=== PATIENT | female | born 1935 | race Caucasian/White ===

== ENCOUNTER 2016-10-25 16:26 | Emergency (ER) | payer MEDICARE, BC ==
[2016-10-25] MEDS ORDERED: NS 0.9% 1000 ML* 1,000 ML IV ONE (17:03)
[2016-10-25] MEDS ORDERED: Acetaminophen TAB* 325 MG PO ONE (17:03)
[2016-10-25] MEDS ORDERED: Ondansetron INJ* 2 MG/ML VIAL IV ONE (17:39)
[2016-10-25] MEDS ORDERED: Ondansetron INJ* 2 MG/ML VIAL ONE (17:41)
--- NOTE | 2016-10-25 17:42 | RAD ---
HISTORY: Sepsis COMPARISONS: None VIEWS: 2: Frontal and lateral views of the chest. FINDINGS: CARDIOMEDIASTINAL SILHOUETTE: The cardiomediastinal silhouette is normal. MEGAN: The megan are normal. PLEURA: The costophrenic angles are sharp. No pleural abnormalities are noted. LUNG PARENCHYMA: There is hyperinflation with flattening of the diaphragm and expansion of the AP diameter of the chest. ABDOMEN: The upper abdomen is clear. There is no subphrenic gas. BONES AND SOFT TISSUES: There is diffuse osteopenia. Surgical clips are noted in the left axilla. OTHER: None. IMPRESSION: HYPERINFLATION. NO ACTIVE CARDIOPULMONARY DISEASE.
[2016-10-25 17:47] LABS: Hematocrit 45 % (35-47); Hemoglobin 14.6 g/dl (12.0-16.0); Mean Corpuscular HGB Conc 33 g/dl (31-36); Mean Corpuscular Hemoglobin 28 pg (27-31); Mean Corpuscular Volume 85 fL (80-97); Mean Platelet Volume 9 um3 (7.4-10.4); Red Blood Count 5.26 10^6/ul (4.0-5.4); Red Cell Distribution Width 14 % (10.5-15); White Blood Count 9.1 10^3/ul (3.5-10.8)
[2016-10-25 18:02] LABS: Albumin 4.3 g/dL (3.2-5.2); BUN/Creatinine Ratio 18.6 (8-20); C Reactive Protein 9.44 mg/L (< 5.00); Calcium 10.6 mg/dL (8.6-10.3); EGFR African American 66.7 (>60); EGFR Non-African American 51.9 (>60); Potassium 3.9 mmol/L (3.5-5.0); Total Bilirubin 0.8 mg/dL (0.2-1.0); Total Protein 7.3 g/dL (6.4-8.9)
[2016-10-25 18:07] LABS: Urine Bacteria Absent (Absent); Urine Bilirubin Negative (Negative); Urine Glucose Negative (Negative); Urine Nitrite Negative (Negative)
[2016-10-25 18:38] VITALS: BP 132/72
--- NOTE | 2016-10-25 18:43 | ED ---
Danie Smith Billy, scribed for Sachin Castanon MD on 10/25/16 at 1728 . Abdominal Pain/Female - HPI Summary HPI Summary: Patient is an 81 y/o female who presents to the ED with constant abdominal pain and weakness since last night. She reports nausea, sinus congestion, coughing, a subjective fever, and dysuria. She c/o a burning sensation when urinating and also reports increased urination. Cough is exacerbated by deep breaths. Pt denies back pain. - History of Current Complaint Chief Complaint: EDAbdPain Stated Complaint: COUGH/VOMITTING Time Seen by Provider: 10/25/16 16:54 Hx Obtained From: Patient Onset/Duration: Gradual Onset, Lasting Days - 1 day., Still Present Timing: Constant Severity Initially: Moderate Severity Currently: Moderate Aggravating Factor(s): Deep Breaths - Aggravates cough. Alleviating Factor(s): Nothing Associated Signs and Symptoms: Positive: Fever, Cough, Urinary Symptoms - Burning, increased frequency., Nausea, Other: - Weakness. Nasal congestion. Allergies/Adverse Reactions: Allergies Allergy/AdvReac Type Severity Reaction Status Date / Time Penicillins Allergy Rash Verified 10/25/16 17:44 PMH/Surg Hx/FS Hx/Imm Hx - Cancer History Cancer Type, Location and Year: Breast Cancer. - Surgical History Surgery Procedure, Year, and Place: Left mastectomy. Left breast implant. Bilat knee replacement. Infectious Disease History: No Infectious Disease History: Denies: Traveled Outside the [place] in Last 30 Days - Family History Known Family History: Positive: Other - No FHx of breast cancer. Review of Systems Positive: Fever Positive: Other - Sinus congestion. Positive: Cough Positive: Abdominal Pain, Nausea Positive: dysuria, frequency Positive: Weakness All Other Systems Reviewed And Are Negative: Yes Physical Exam Triage Information Reviewed: Yes Vital Signs On Initial Exam: Initial Vitals Temp Pulse Resp BP Pulse Ox 101.9 F 87 18 133/62 98 10/25/16 16:28 10/25/16 16:28 10/25/16 16:28 10/25/16 16:28 10/25/16 16:28 Vital Signs Reviewed: Yes Appearance: Positive: Well-Appearing, No Pain Distress Skin: Positive: Warm, Skin Color Reflects Adequate Perfusion, Dry Head/Face: Positive: Normal Head/Face Inspection Eyes: Positive: Normal Neck: Positive: Supple, Nontender Respiratory/Lung Sounds: Positive: Clear to Auscultation, Breath Sounds Present Cardiovascular: Positive: RRR Abdomen Description: Positive: Nontender, Soft Musculoskeletal: Positive: Normal Neurological: Positive: Normal Psychiatric: Positive: Affect/Mood Appropriate Diagnostics - Vital Signs Vital Signs Temp Pulse Resp BP Pulse Ox 10/25/16 16:28 101.9 F 87 18 133/62 98 - Laboratory Lab Results: Lab Results 10/25/16 10/25/16 10/25/16 Range/Units 17:35 17:35 17:35 WBC 9.1 (3.5-10.8) 10^3/ul RBC 5.26 (4.0-5.4) 10^6/ul Hgb 14.6 (12.0-16.0) g/dl Hct 45 (35-47) % MCV 85 (80-97) fL MCH 28 (27-31) pg MCHC 33 (31-36) g/dl RDW 14 (10.5-15) % Plt Count 245 (150-450) 10^3/ul MPV 9 (7.4-10.4) um3 Neut % (Auto) 81.1 (38-83) % Lymph % (Auto) 4.7 L (25-47) % [place] % (Auto) 13.4 H (1-9) % Eos % (Auto) 0.1 (0-6) % Baso % (Auto) 0.7 (0-2) % Absolute Neuts (auto) 7.4 (1.5-7.7) 10^3/ul Absolute Lymphs (auto) 0.4 L (1.0-4.8) 10^3/ul Absolute Monos (auto) 1.2 H (0-0.8) 10^3/ul Absolute Eos (auto) 0 (0-0.6) 10^3/ul Absolute Basos (auto) 0.1 (0-0.2) 10^3/ul Absolute Nucleated RBC 0 10^3/ul Nucleated RBC % 0 Sodium 135 (133-145) mmol/L Potassium 3.9 (3.5-5.0) mmol/L Chloride 102 (101-111) mmol/L Carbon Dioxide 25 (22-32) mmol/L Anion Gap 8 (2-11) mmol/L BUN 19 (6-24) mg/dL Creatinine 1.02 H (0.51-0.95) mg/dL Est GFR ( Amer) 66.7 (>60) Est GFR (Non-Af Amer) 51.9 (>60) BUN/Creatinine Ratio 18.6 (8-20) Glucose 134 H (70-100) mg/dL Lactic Acid 1.1 (0.5-2.0) mmol/L Calcium 10.6 H (8.6-10.3) mg/dL Total Bilirubin 0.80 (0.2-1.0) mg/dL AST 14 (13-39) U/L ALT 10 (7-52) U/L Alkaline Phosphatase 61 (34-104) U/L C-Reactive Protein 9.44 H (< 5.00) mg/L Total Protein 7.3 (6.4-8.9) g/dL Albumin 4.3 (3.2-5.2) g/dL Globulin 3.0 (2-4) g/dL Albumin/Globulin Ratio 1.4 (1-3) Urine Color Urine Appearance Urine pH (5-9) Ur Specific [place] (1.010-1.030) Urine Protein (Negative) Urine Ketones (Negative) Urine Blood (Negative) Urine Nitrate (Negative) Urine Bilirubin (Negative) Urine Urobilinogen (Negative) Ur Leukocyte Esterase (Negative) Urine WBC (Auto) (Absent) Urine RBC (Auto) (Absent) Ur Squamous Epith Cells (Absent) Urine Bacteria (Absent) Urine Glucose (Negative) Urine Ascorbic Acid (Negative) Influenza A (Rapid) (Negative) Influenza B (Rapid) (Negative) 10/25/16 10/25/16 Range/Units 17:49 17:50 WBC (3.5-10.8) 10^3/ul RBC (4.0-5.4) 10^6/ul Hgb (12.0-16.0) g/dl Hct (35-47) % MCV (80-97) fL MCH (27-31) pg MCHC (31-36) g/dl RDW (10.5-15) % Plt Count (150-450) 10^3/ul MPV (7.4-10.4) um3 Neut % (Auto) (38-83) % Lymph % (Auto) (25-47) % [place] % (Auto) (1-9) % Eos % (Auto) (0-6) % Baso % (Auto) (0-2) % Absolute Neuts (auto) (1.5-7.7) 10^3/ul Absolute Lymphs (auto) (1.0-4.8) 10^3/ul Absolute Monos (auto) (0-0.8) 10^3/ul Absolute Eos (auto) (0-0.6) 10^3/ul Absolute Basos (auto) (0-0.2) 10^3/ul Absolute Nucleated RBC 10^3/ul Nucleated RBC % Sodium (133-145) mmol/L Potassium (3.5-5.0) mmol/L Chloride (101-111) mmol/L Carbon Dioxide (22-32) mmol/L Anion Gap (2-11) mmol/L BUN (6-24) mg/dL Creatinine (0.51-0.95) mg/dL Est GFR ( Amer) (>60) Est GFR (Non-Af Amer) (>60) BUN/Creatinine Ratio (8-20) Glucose (70-100) mg/dL Lactic Acid (0.5-2.0) mmol/L Calcium (8.6-10.3) mg/dL Total Bilirubin (0.2-1.0) mg/dL AST (13-39) U/L ALT (7-52) U/L Alkaline Phosphatase (34-104) U/L C-Reactive Protein (< 5.00) mg/L Total Protein (6.4-8.9) g/dL Albumin (3.2-5.2) g/dL Globulin (2-4) g/dL Albumin/Globulin Ratio (1-3) Urine Color Yellow Urine Appearance Cloudy Urine pH 6.0 (5-9) Ur Specific [place] 1.019 (1.010-1.030) Urine Protein 2+(100 mg/dl) H (Negative) Urine Ketones Trace H (Negative) Urine Blood Negative (Negative) Urine Nitrate Negative (Negative) Urine Bilirubin Negative (Negative) Urine Urobilinogen Negative (Negative) Ur Leukocyte Esterase 3+ H (Negative) Urine WBC (Auto) 2+(11-20/hpf) H (Absent) Urine RBC (Auto) 2+(6-10/hpf) H (Absent) Ur Squamous Epith Cells Present H (Absent) Urine Bacteria Absent (Absent) Urine Glucose Negative (Negative) Urine Ascorbic Acid * H (Negative) Influenza A (Rapid) Positive H (Negative) Influenza B (Rapid) Negative (Negative) Result Diagrams: 10/25/16 17:35 10/25/16 17:35 Lab Statement: Any lab studies that have been ordered have been reviewed, and results considered in the medical decision making process. - Radiology CXR Radiology Interpretation Completed By: Radiologist - Hyperinflation. No active cardiopulmonary disease. Abdominal Pain Fem Course/Dx - Course Course Of Treatment: Ms. Allen presented with about 12 hours of flu-like symptoms and dysuria. Her Influenza A swab was positive and her U/A was equivocal. I will treat her for both. - Diagnoses Provider Diagnoses: Influenza, Urinary tract infection Discharge - Discharge Plan Condition: Stable Disposition: HOME Prescriptions: Ciprofloxacin TAB* [Cipro Tab*] 500 mg PO BID #6 tab Oseltamivir CAP* [Tamiflu CAP*] 75 mg PO BID #10 cap Patient Education Materials: Influenza (ED), Urinary Tract Infection in Women ( ED) Referrals: Juventino Hsu MD [Primary Care Provider] - The documentation as recorded by the Danie orozco Billy accurately reflects the service I personally performed and the decisions made by me, Sachin Castanon MD.
== END 2016-10-25 18:36 | disposition home or self-care (01) ==
LOC: ED 16:26
DX: N39.0 Urinary tract infection, site not specified (principal); J11.1 Influenza due to unidentified influenza virus with other respiratory manifestations; Z88.0 Allergy status to penicillin
CPT/HCPCS: 36415; 71020; 80053; 81003; 81015; 83605; 85025; 86140; 87040; 87086; 87502; 96360; 96374; 99283; A9270-GY; J2405

== ENCOUNTER 2017-02-11 19:34 | Emergency (ER) | payer BC, MEDICARE ==
[2017-02-11 19:38] VITALS: BP 153/80
--- NOTE | 2017-02-18 11:31 | ED ---
Throat Pain/Nasal Congestion - HPI Summary HPI Summary: Pt here w/ Rt sided ear pain and believes part of her hearing aid is stuck in here. Denies REEVES, fever, chills, otorrhea, facial/neck swelling or pain. Simply here for assistance on removal. - History of Current Complaint Chief Complaint: EDEarPain Time Seen by Provider: 02/11/17 20:05 Hx Obtained From: Patient - Allergies/Home Medications Allergies/Adverse Reactions: Allergies Allergy/AdvReac Type Severity Reaction Status Date / Time Penicillins Allergy Rash Verified 10/25/16 17:44 PMH/Surg Hx/FS Hx/Imm Hx Previously Healthy: Yes Endocrine/Hematology History: Denies: Hx Anticoagulant Therapy, Hx Blood Disorders EENT History: Reports: Hx Hearing Problem, Hx Hearing Aid - Cancer History Cancer Type, Location and Year: Breast Cancer. - Surgical History Surgery Procedure, Year, and Place: Left mastectomy. Left breast implant. Bilat knee replacement. Infectious Disease History: No Infectious Disease History: Denies: Traveled Outside the in Last 30 Days - Social History Occupation: Retired Lives: With Family Alcohol Use: None Hx Substance Use: No Substance Use Type: Reports: None Smoking Status (MU): Former Smoker Review of Systems Negative: Fever, Chills, Fatigue Eyes: Negative Positive: Ear Ache - see HPI Negative: Chest Pain Negative: Shortness Of Breath Negative: Vomiting, Nausea Positive: no symptoms reported Neurological: Other - denies vertigo Psychological: Normal All Other Systems Reviewed And Are Negative: Yes Physical Exam Triage Information Reviewed: Yes Vital Signs On Initial Exam: Initial Vitals Temp Pulse Resp BP Pulse Ox 98.2 F 85 17 153/80 100 02/11/17 19:36 02/11/17 19:36 02/11/17 19:36 02/11/17 19:36 02/11/17 19:36 Vital Signs Reviewed: Yes Appearance: Positive: Well-Appearing, No Pain Distress, Well-Nourished Skin: Positive: Warm, Dry Head/Face: Positive: Normal Head/Face Inspection Eyes: Positive: Normal, EOMI, Conjunctiva Clear ENT: Positive: Other - Rt EAC w/ FB present - appears to be small plastic cover for hearing aid = no erythema, no edema, no d/c, no blood, no excoriations. Negative: Hearing grossly normal - hearing deficit, Nasal congestion, Nasal drainage Neck: Positive: Supple, Nontender, No Lymphadenopathy Respiratory/Lung Sounds: Positive: Breath Sounds Present Musculoskeletal: Positive: Normal, Strength/ROM Intact Neurological: Positive: Normal, Sensory/Motor Intact, Alert, Oriented to Person Place, Time, CN Intact II-III Psychiatric: Positive: Normal Procedures - Procedure Summary Procedure Summary: 1st attempt: manual removal via forceps - unsuccessful 2nd attempt: dermabond applied to tip of Qtip and held in place to dry against FB for removal - did not adhere and therefore, unsuccessful 3rd attempt: suction - unsuccessful 4th attempt: lavage - FB was not removed but did change position 5th attempt: manual removal via forceps - successful - no signs of trauma upon repeat exam of EAC and TM clear w/ cone of light Pt had immediate relief of ear pain - tolerated procedure well Diagnostics - Vital Signs Vital Signs Temp Pulse Resp BP Pulse Ox 02/11/17 19:36 98.2 F 85 17 153/80 100 - Laboratory Lab Statement: Any lab studies that have been ordered have been reviewed, and results considered in the medical decision making process. Re-Evaluation - Re-Evaluation First Eval Change: Improved EENT Course/Dx - Diagnoses Provider Diagnoses: Foreign body in right auditory canal Discharge - Discharge Plan Condition: Stable Disposition: HOME Patient Education Materials: Ear Foreign Body (ED) Referrals: Juventino Hsu MD [Primary Care Provider] - Additional Instructions: You may experience vertigo after the procedure performed today. If this occurs, try resting. If it persists, follow-up with PCP or return to ED.
== END 2017-02-11 21:22 | disposition home or self-care (01) ==
LOC: ED 19:34
DX: S00.451A Superficial foreign body of right ear, initial encounter (principal); X58.XXXA Exposure to other specified factors, initial encounter; Y93.9 Activity, unspecified; Y92.9 Unspecified place or not applicable
CPT/HCPCS: 99281

== ENCOUNTER 2017-07-05 06:33 | Day surgery (SDC) | payer MEDICARE, OTHER ==
[~2017-07-05 06:33] MED LIST: Buffered Lidocaine 0.9% SYRIN* 5 ML/SYR SYRINGE INTRADERM ONE
[2017-07-05] MEDS ORDERED: Ondansetron INJ* 2 MG/ML VIAL ONE (06:41)
[2017-07-05] MEDS ORDERED: Scopolamine 1.5 mg* PATCH ONE (06:42)
[2017-07-05] MEDS ORDERED: Heparin VIAL(*) 5000 UNITS/ML VIAL (FIVE THOUSAND) ONE (06:42)
[2017-07-05] MEDS ORDERED: Clindamycin 900 MG IVPREMIX(* 900 MG/50 ML SDV IV ONE (06:42)
[2017-07-05] MEDS ORDERED: Dexamethasone IV* 4 MG/ML 1 ML (4 MG) ONE (06:42)
[2017-07-05] MEDS ORDERED: Bacitracin IV* 50,000 UNITS INJ ONE (07:08)
[2017-07-05] MEDS ORDERED: Nitroglycerin 2% OINT* 1 GM PAK ONE (07:08)
[2017-07-05] MEDS ORDERED: Gentamicin ADULT (*) 40 MG/ML VIAL ONE (07:08)
[2017-07-05] MEDS ORDERED: Propofol* 10 MG/ML 20 ML BTL IV PUSH ONE (07:29)
[2017-07-05] MEDS ORDERED: Ketorolac INJ* 30 MG/ML 1 ML VIAL ONE (07:29)
[2017-07-05] MEDS ORDERED: fentaNYL* 50 MCG/ML 2 ML VIAL (100 MCG VIAL) ONE (07:30)
[2017-07-05] MEDS ORDERED: Sodium Citrate/Citric Acid* 15 ML UDC ONE (07:51)
[2017-07-05] MEDS ORDERED: fentaNYL* 50 MCG/ML 2 ML VIAL (100 MCG VIAL) IV PRN (09:11)
[2017-07-05] MEDS ORDERED: Lidocaine 2% PF * 5 ML VIAL ONE (09:24)
[2017-07-05 09:27] VITALS: BP 106/83
== END 2017-07-05 09:47 | disposition home or self-care (01) ==
LOC: OREAST 06:33
PROVIDERS: ATTEND Plastic Surgery
DX: T85.42XA Displacement of breast prosthesis and implant, initial encounter (principal); Z85.3 Personal history of malignant neoplasm of breast; Z87.891 Personal history of nicotine dependence; Z79.899 Other long term (current) drug therapy; E11.9 Type 2 diabetes mellitus without complications; Y83.1 Surgical operation with implant of artificial internal device as the cause of abnormal reaction of the patient, or of later complication, without mention of misadventure at the time of the procedure; I10 Essential (primary) hypertension; E78.00 Pure hypercholesterolemia, unspecified; E21.3 Hyperparathyroidism, unspecified; D64.9 Anemia, unspecified; M19.90 Unspecified osteoarthritis, unspecified site
CPT/HCPCS: 88300; 88305; A9270-GY; C1789; J1100; J1580; J1644; J1885; J2405; J2704; J3010

== ENCOUNTER 2017-11-16 13:15 | Emergency (ER) | payer MEDICARE, OTHER ==
--- OUTSIDE RECORDS SUMMARY | 2017-11-16 14:11 | XMS REPORT ---
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 [address] JORJE Marcus [id number] Medigap Part B Effective: 2017 Policy Number: Christa Allen [id number] Expires: 2017 Group Name: [place] [address] [address] PayID: [id number] JORJE Marcus [id number] Medicare Primary Expires: 2016 Policy Number: Medicare - Bswlatonya Allen [id number] Umd PayID: [id number] [address] [place] [address] Medigap Part B Effective: Policy Number: Jamaal Jaquez June Allen 2017 [id number] & Accident Ins Group Number: [id number] [address] PayID: [id number] EMILY Foote [id number] Problems Description No Information Family History Date Family Member(s) Problem(s) Comments General Cancer, Unknown Site General Aortic Aneurysm General Cancer, Prostate General Heart Disease General Hypertension Social History Type Date Description Comments Marital Status Significant Other Enzo Casey Lives With Male Partner Diet Healthy, Well Balanced Occupation Retired Cigarette Use Never Smoked Cigarettes ETOH Use Never used alcohol Exercise Type/Frequency Does not exercise Allergies, Adverse Reactions, Alerts Date Description Reaction Status Severity Comments 06/22/2016 Penicillin active 06/22/2016 Methotrexate active 06/22/2016 Codeine active 06/22/2016 Nucynta active 06/22/2016 Diovan active 06/22/2016 Allopurinol active Medications Medication Date Status Form Strength Qnty SIG Indications Ordering Provider Fluticasone 07/20/ Active Suspension 50mcg/Act 16gm inhale one J01.90 Juventino Propionate 2017 spray in [place] each , nostril every day Amlodipine 03/12/ Active Tablets 2.5mg 30tab Take One Juventino Besylate 2016 s Tablet By [place] Mouth Every , MD Day Ipratropium 03/09/ Active Solution 0.06% 30ml 2 J30.0 Juventino Mullin 2017 intranasal [place] puffs twice , MD a day as needed for rhinorrhea Clindamycin 11/08/ Active Capsules 300mg 21cap take 1 J01.90 Juventino HCL 2017 s capsule by [place] mouth every , MD 8 hours for 7 days. Lisinopril 09/27/ Active Tablets 2.5mg 30tab Take One Juventino 2016 s Tablet By [place] Mouth Every , MD Day Trigels-F 09/01/ Active Capsules 460-60-0.0 60cap Take One Juventino Forte 2015 1-1mg s Capsule By [place] Mouth Twice , MD A Day Blood Glucose 08/03/ Active Strips 100un use as Juventino Test 2015 its directed to Aracelis rand blood , glucose twice daily brand Sukhwinder Track by [employer] . Lovaza 06/22/ Active Capsules 1gm 60cap 1 tab by Juventino 2016 s mouth twice He[place] a day MD Simvastatin 06/22/ Active Tablets 20mg 90tab 1 by mouth Juventino 2015 s every day [place] , MD Omeprazole 06/22/ Active Capsules DR 20mg 30cap take one K21.9 Juventino 2016 s capsule by Aracelis mouth every , MD day Fluoxetine 06/22/ Active Capsules 20mg 30cap Take One Juventino HCL 2016 s Capsule By [place] Mouth Every , MD Day Uloric 06/22/ Active Tablets 40mg 30tab Take One Juventino 2015 s Tablet By [place] Mouth Every , MD Day Minocin 06/22/ Active Capsules 75mg 60cap Take One Juventino 2015 s Capsule By [place] Mouth Twice , MD A Day Alendronate 06/22/ Active Tablets 35mg 4tabs Take One Juventino Sodium 2016 Tablet By [place] Mouth Every , Week as Directed Prednisone 06/22/ Active Tablets 5mg 45tab Take 1 To 2 Juventino 2015 s Tablets By [place] Mouth Once , Daily as Needed Amlodipine 06/22/ Hx Tablets 5mg 30tab 1 by mouth Juventino Besylate 2015 - s every day Aracelis 03/12/ MD 2016 Immunizations CPT Code Status Date Vaccine Lot # [id number] Given 06/05/2017 Influenza Vaccine High Dose PF [id number] Given 11/10/2016 Influenza Virus Vaccine, Quadrivalent, 3 Yr > [id number] Quad, Preserv Free 51848 Given 10/18/2015 Prevnar-13 Pneumococcal Conjugate Vaccine 84345 Given 09/17/2014 Zoster Vaccine 72764 Given 03/17/2013 Pneumovax 23 (PPSV23) 65+ years or high risk 2 to 64 year old 46882 Given 03/17/2013 DT (Adult) Vital Signs Date Vital Result Comment 10/22/2017 Weight 147.00 lb Weight in kg's 66.679 BP Systolic 128 mmHg BP Diastolic 70 mmHg Heart Rate 88 /min Body Temperature 98.8 F Respiratory Rate 24 /min 07/20/2017 Weight 147.00 lb Weight in kg's 66.679 BP Systolic 128 mmHg BP Diastolic 70 mmHg Heart Rate 72 /min Body Temperature 99.9 F O2 % BldC Oximetry 98 % 06/22/2017 Weight 152.00 lb Weight in kg's 68.947 BP Systolic 122 mmHg BP Diastolic 80 mmHg Heart Rate 80 /min Body Temperature 98.4 F Respiratory Rate 16 /min 06/08/2017 Weight 150.00 lb Weight in kg's 68.040 BP Systolic 146 mmHg BP Diastolic 80 mmHg Heart Rate 92 /min Body Temperature 98.5 F Respiratory Rate 20 /min O2 % BldC Oximetry 98 % 04/12/2017 Weight 147.00 lb Weight in kg's 66.679 BP Systolic 120 mmHg BP Diastolic 80 mmHg Heart Rate 74 /min Body Temperature 98.3 F Respiratory Rate 14 /min 04/05/2017 Weight 149.00 lb Weight in kg's 67.586 BP Systolic 144 mmHg BP Diastolic 82 mmHg Heart Rate 76 /min Body Temperature 98.5 F Respiratory Rate 20 /min O2 % BldC Oximetry 98 % 03/26/2017 Weight 148.00 lb Weight in kg's 67.133 BP Systolic 140 mmHg BP Diastolic 77 mmHg Heart Rate 84 /min Height 62.5 inches 5'2.50" BMI (Body Mass Index) 26.6 kg/m2 03/09/2017 Weight 147.00 lb Weight in kg's 66.679 BP Systolic 120 mmHg BP Diastolic 68 mmHg Heart Rate 72 /min Body Temperature 98.9 F Respiratory Rate 24 /min 11/08/2016 Weight 138.00 lb Weight in kg's 62.597 BP Systolic 137 mmHg BP Diastolic 62 mmHg Heart Rate 82 /min Body Temperature 99.4 F O2 % BldC Oximetry 98 % 09/27/2016 Weight 143.00 lb Weight in kg's 64.865 BP Systolic 136 mmHg BP Diastolic 72 mmHg Heart Rate 89 /min Body Temperature 99.5 F O2 % BldC Oximetry 98 % 07/19/2016 Weight 142.00 lb Weight in kg's 64.411 BP Systolic 172 mmHg BP Diastolic 92 mmHg Heart Rate 76 /min Respiratory Rate 20 /min 06/22/2016 Weight 140.00 lb Weight in kg's 63.504 BP Systolic 154 mmHg BP Diastolic 82 mmHg Heart Rate 81 /min Body Temperature 98.1 F Respiratory Rate 20 /min Height 62.5 inches 5'2.50" BMI (Body Mass Index) 25.2 kg/m2 O2 % BldC Oximetry 98 % Results Test Date Test Result H/L Range Note Laboratory test 07/20/2017 Strep Screen neg Neg finding Laboratory test 07/05/2017 Surgical Pathology SEE RESULT BELOW 1 finding Laboratory test 07/05/2017 Point of Care 115 mg/dL High 70-100 2 finding Glucose Laboratory test 04/05/2017 Surgical Pathology SEE RESULT BELOW 3 finding Laboratory test 03/26/2017 Vitamin D Total 37.0 ng/mL 30-50 4 finding 25(Oh) CBC Auto Diff 03/26/2017 White Blood Count 8.2 10^3/uL 3.5-10.8 Red Blood Count 4.93 10^6/uL 4.0-5.4 Hemoglobin 14.6 g/dL 12.0-16.0 Hematocrit 46 % 35-47 Mean Corpuscular Volume 93 fL 80-97 Mean Corpuscular Hemoglobin 30 pg 27-31 Mean Corpuscular HGB Conc 32 g/dL 31-36 Red Cell Distribution Width 14 % 10.5-15 Platelet Count 281 10^3/uL 150-450 Mean Platelet Volume 10 um3 7.4-10.4 Abs Neutrophils 5.1 10^3/uL 1.5-7.7 Abs Lymphocytes 2.0 10^3/uL 1.0-4.8 Abs Monocytes 0.8 10^3/uL 0-0.8 Abs Eosinophils 0.1 10^3/uL 0-0.6 Abs Basophils 0.1 10^3/uL 0-0.2 Abs Nucleated RBC 0 10^3/uL Granulocyte % 62.3 % 38-83 Lymphocyte % 24.8 % Low 25-47 Monocyte % 10.3 % High 1-9 Eosinophil % 1.6 % 0-6 Basophil % 1.0 % 0-2 Nucleated Red Blood Cells % 0 Statin 03/26/2017 Ast 14 U/L 13-39 Alt 9 U/L 7-52 Lipid Profile (Trig/Chol/HDL) 03/26/2017 Triglycerides 183 mg/dL 5 Cholesterol 181 mg/dL 6 HDL Cholesterol 45.5 mg/dL 7 LDL Cholesterol 99 mg/dL 8 Comp Metabolic Panel 03/26/2017 Sodium 137 mmol/L 133-145 Potassium 4.1 mmol/L 3.5-5.0 Chloride 105 mmol/L 101-111 Co2 Carbon Dioxide 24 mmol/L 22-32 Anion Gap 8 mmol/L 2-11 Glucose 93 mg/dL 70-100 Blood Urea Nitrogen 21 mg/dL 6-24 Creatinine 0.91 mg/dL 0.51-0.95 BUN/Creatinine Ratio 23.1 High 8-20 Calcium 10.4 mg/dL High 8.6-10.3 Total Protein 6.9 g/dL 6.4-8.9 Albumin 4.3 g/dL 3.2-5.2 Globulin 2.6 g/dL 2-4 Albumin/Globulin Ratio 1.7 1-3 Total Bilirubin 0.80 mg/dL 0.2-1.0 Alkaline Phosphatase 54 U/L 34-104 Egfr Non- 59.0 >60 Egfr 75.9 >60 9 Laboratory test 03/26/2017 Hemoglobin A1c (Glyco 5.8 % Less than 6.0 10 finding HGB) Laboratory test 03/09/2017 Ferritin 60.9 ng/mL 11-307 11 finding Lyme Disease Serology Negative Negative 12 TSH (Thyroid Stim Horm) 1.61 mcIU/mL 0.34-5.60 13 Laboratory test finding 03/09/2017 C Reactive Protein 1.71 mg/L < 5.00 14 CBC Auto Diff 03/09/2017 White Blood Count 7.6 10^3/uL 3.5-10.8 Red Blood Count 5.36 10^6/uL 4.0-5.4 Hemoglobin 15.6 g/dL 12.0-16.0 Hematocrit 47 % 35-47 Mean Corpuscular Volume 88 fL 80-97 Mean Corpuscular Hemoglobin 29 pg 27-31 Mean Corpuscular HGB Conc 33 g/dL 31-36 Red Cell Distribution Width 13 % 10.5-15 Platelet Count 283 10^3/uL 150-450 Mean Platelet Volume 9 um3 7.4-10.4 Abs Neutrophils 4.8 10^3/uL 1.5-7.7 Abs Lymphocytes 1.8 10^3/uL 1.0-4.8 Abs Monocytes 0.8 10^3/uL 0-0.8 Abs Eosinophils 0.2 10^3/uL 0-0.6 Abs Basophils 0.1 10^3/uL 0-0.2 Abs Nucleated RBC 0.01 10^3/uL Granulocyte % 62.6 % 38-83 Lymphocyte % 24.0 % Low 25-47 Monocyte % 10.0 % High 1-9 Eosinophil % 2.1 % 0-6 Basophil % 1.3 % 0-2 Nucleated Red Blood Cells % 0.1 Comp Metabolic Panel 03/09/2017 Sodium 139 mmol/L 133-145 Potassium 4.4 mmol/L 3.5-5.0 Chloride 105 mmol/L 101-111 Co2 Carbon Dioxide 27 mmol/L 22-32 Anion Gap 7 mmol/L 2-11 Glucose 101 mg/dL High 70-100 Blood Urea Nitrogen 18 mg/dL 6-24 Creatinine 0.93 mg/dL 0.51-0.95 BUN/Creatinine Ratio 19.4 8-20 Calcium 10.3 mg/dL 8.6-10.3 Total Protein 6.9 g/dL 6.4-8.9 Albumin 4.3 g/dL 3.2-5.2 Globulin 2.6 g/dL 2-4 Albumin/Globulin Ratio 1.7 1-3 Total Bilirubin 0.70 mg/dL 0.2-1.0 Alkaline Phosphatase 59 U/L 34-104 Alt 13 U/L 7-52 Ast 17 U/L 13-39 Egfr Non- 57.7 >60 Egfr 74.2 >60 15 Laboratory test finding 10/25/2016 C Reactive Protein 9.44 mg/L High < 5.00 16 Blood Culture SEE RESULT BELOW 17 Comp Metabolic Panel 10/25/2016 Sodium 135 mmol/L 133-145 Potassium 3.9 mmol/L 3.5-5.0 Chloride 102 mmol/L 101-111 Co2 Carbon Dioxide 25 mmol/L 22-32 Anion Gap 8 mmol/L 2-11 Glucose 134 mg/dL High 70-100 Blood Urea Nitrogen 19 mg/dL 6-24 Creatinine 1.02 mg/dL High 0.51-0.95 BUN/Creatinine Ratio 18.6 8-20 Calcium 10.6 mg/dL High 8.6-10.3 Total Protein 7.3 g/dL 6.4-8.9 Albumin 4.3 g/dL 3.2-5.2 Globulin 3.0 g/dL 2-4 Albumin/Globulin Ratio 1.4 1-3 Total Bilirubin 0.80 mg/dL 0.2-1.0 Alkaline Phosphatase 61 U/L 34-104 Alt 10 U/L 7-52 Ast 14 U/L 13-39 Egfr Non- 51.9 >60 Egfr 66.7 >60 18 Laboratory test finding 10/25/2016 Rapid Influenza A & B SEE RESULT BELOW 19 Antigen Urine Culture SEE RESULT BELOW 20 Rapid Influenza A & B 10/25/2016 Influenza A Molecular POSITIVE Negative 21 Molecular Influenza B Molecular NEGATIVE Negative CBC Auto Diff 10/25/2016 White Blood Count 9.1 10^3/uL 3.5-10.8 Red Blood Count 5.26 10^6/uL 4.0-5.4 Hemoglobin 14.6 g/dL 12.0-16.0 Hematocrit 45 % 35-47 Mean Corpuscular Volume 85 fL 80-97 Mean Corpuscular Hemoglobin 28 pg 27-31 Mean Corpuscular HGB Conc 33 g/dL 31-36 Red Cell Distribution Width 14 % 10.5-15 Platelet Count 245 10^3/uL 150-450 Mean Platelet Volume 9 um3 7.4-10.4 Abs Neutrophils 7.4 10^3/uL 1.5-7.7 Abs Lymphocytes 0.4 10^3/uL Low 1.0-4.8 Abs Monocytes 1.2 10^3/uL High 0-0.8 Abs Eosinophils 0 10^3/uL 0-0.6 Abs Basophils 0.1 10^3/uL 0-0.2 Abs Nucleated RBC 0 10^3/uL Granulocyte % 81.1 % 38-83 Lymphocyte % 4.7 % Low 25-47 Monocyte % 13.4 % High 1-9 Eosinophil % 0.1 % 0-6 Basophil % 0.7 % 0-2 Nucleated Red Blood Cells % 0 Urinalysis Profile 10/25/2016 Urine Color Yellow Urine Appearance Cloudy Urine Specific Seaman 1.019 1.010-1.030 Urine pH 6.0 5-9 Urine Urobilinogen Negative Negative Urine Ketones Trace Negative Urine Protein 2+(100 mg/dL) Negative Urine Leukocytes 3+ Negative Urine Blood Negative Negative * * Negative 22 Urine Nitrite Negative Negative Urine Bilirubin Negative Negative Urine Glucose Negative Negative Urine White Blood Cell 2+(11-20/hpf) Absent Urine Red Blood Cell 2+(6-10/hpf) Absent Urine Bacteria Absent Absent Urine Squamous Epithelial Cell Present Absent Laboratory test finding 10/25/2016 Lactic Acid 1.1 mmol/L 0.5-2.0 23 Urine Microalbumin Random 09/27/2016 Urine Creatinine 127.67 mg/dL Ur Microalbumin (mg/L) 41.1 mg/L Urine Microalbumin/Creatinine 32.1 ug/mg High <31 Laboratory test 09/22/2016 Hemoglobin A1c (Glyco 5.5 % Less than 6.0 24 finding HGB) CBC Auto Diff 09/22/2016 White Blood Count 6.8 10^3/uL 3.5-10.8 Red Blood Count 4.86 10^6/uL 4.0-5.4 Hemoglobin 13.8 g/dL 12.0-16.0 Hematocrit 42 % 35-47 Mean Corpuscular Volume 87 fL 80-97 Mean Corpuscular Hemoglobin 28 pg 27-31 Mean Corpuscular HGB Conc 32 g/dL 31-36 Red Cell Distribution Width 14 % 10.5-15 Platelet Count 315 10^3/uL 150-450 Mean Platelet Volume 9 um3 7.4-10.4 Abs Neutrophils 4.4 10^3/uL 1.5-7.7 Abs Lymphocytes 1.5 10^3/uL 1.0-4.8 Abs Monocytes 0.6 10^3/uL 0-0.8 Abs Eosinophils 0.2 10^3/uL 0-0.6 Abs Basophils 0.1 10^3/uL 0-0.2 Abs Nucleated RBC 0.01 10^3/uL Granulocyte % 65.2 % 38-83 Lymphocyte % 21.4 % Low 25-47 Monocyte % 9.5 % High 1-9 Eosinophil % 2.5 % 0-6 Basophil % 1.4 % 0-2 Nucleated Red Blood Cells % 0.1 Laboratory test finding 09/22/2016 Ferritin 22.3 ng/mL 11-307 25 1 SEE RESULT BELOW Name: JUNE ALLEN : [address]: Jose De Jesus Dong MD Acct: [id number] Unit: [id number] AGE: 82 Location: [facility] Re07/05/17 SEX: F Status: DEP [facility] SPEC: [id number] CARTER: 07/05/17 [facility] [address]: Jose De Jesus Dong MD REQ: [id number] RECD: 07/05/17 STATUS: CARLOS FRANCO DR: Juventino Hsu MD _ ORDERED: LEVEL 1, LEVEL 4 FINAL DIAGNOSIS 1) Skin, left breast, excision: Benign skin with scar. 2) Breast, left implant, excision: market research lead as described below (9999 grams) (Gross diagnosis). PRE-OPERATIVE DIAGNOSIS Probable left breast implant partial deflation. GROSS DESCRIPTION 1. The specimen is received in formalin labeled, Left Mastectomy Scar, and consists of a 12.6 by up to 1.0 cm goldberg-pink wrinkled elongated skin ellipse excised to a maximum depth of 0.5 cm. The specimen is inked and software sales representative sections are submitted in one cassette. 2. The specimen is received fresh labeled, Explanted Left Breast Implant, and consists of a 15.0 x 15.0 x 4.0 cm intact transparent ovoid implant containing thin clear fluid. The following inscription is identified: MENTFRITZ [id number] MP 475cc. Per established hospital medical staff protocol, no tissue is submitted. Gross only. Signed (signature on file) Thea Infante MD [id number] END OF REPORT * ML=Testing performed at Main Lab DEPARTMENT OF PATHOLOGY, [address] [place] [address] Nelson Willis M.D. Director [facility] # [id number] 2 Pairer: [id number] 3 SEE RESULT BELOW Name: JUNE ALLEN Nicole : [address]: Juventino Hsu MD Acct: [id number] Unit: [id number] AGE: 82 Location: [facility] Re04/05/17 SEX: F Status: REG REF SPEC: [id number] CARTER: 04/05/17-12[address] [facility] [address]: Juventino Hsu MD REQ: [id number] RECD: 04/05/17 STATUS: SOUT _ ORDERED: LEVEL 4 COMMENTS: [id number] FINAL DIAGNOSIS Skin, right outer thigh, excision: -- Basal cell carcinoma, nodular and infiltrating pattern. -- Deep, tip and lateral margins of resection are clear. PRE-OPERATIVE DIAGNOSIS Proximal end marked with suture GROSS DESCRIPTION The specimen is received in formalin with no source identified, with a requisition labeled, Right Outer Thigh, Proximal End Marked with Suture, and consists of a 3.8 x 2.5 cm goldberg-white wrinkly skin ellipse excised to a depth of 0.6 cm with a central 1.9 x 1.7 cm concave scabrous lesion. There is a suture attached to one long axis designating proximal which is additionally designated 12:00. The specimen is inked as follows: 3:00 half blue, and o'clock half black, 12:00 tip green serially sectioned from 12:00 to 6:00 and entirely submitted in cassettes A through H to include tips in cassette A. Signed (signature on file) Nelson Willis MD 1232 END OF REPORT * ML=Testing performed at Main Lab DEPARTMENT OF PATHOLOGY, [address] [place] [address] Nelson Willis M.D. Director [facility] # [id number] 4 [id number] Desirable <150 Borderline high 150-199 High 200-499 Very High >500 6 Desirable <200 Borderline high 200-239 High >239 7 Low <40 Desirable: 40-60 High: >60 8 Desirable: <100 mg/dL Near Optimal: 100-129 mg/dL Borderline High: 130-159 mg/dL High: 160-189 mg/dL Very High: >189 mg/dL 9 Because ethnic data is not always readily available, this report includes an eGFR for both -Americans and non- Americans. The National Kidney Disease Education Program (NKDEP) does not endorse the use of the MDRD equation for patients that are not between the ages of 18 and 70, are , have extremes of body size, muscle mass, or nutritional status, or are non- or non-. According to the National Kidney Foundation, irrespective of diagnosis, the stage of the disease is based on the level of kidney function: Stage Description GFR(mL/min/1.73 m(2)) 1 Kidney damage with normal or decreased GFR 90 2 Kidney damage with mild decrease in GFR 60-89 3 Moderate decrease in GFR 30-59 4 Severe decrease in GFR 15-29 5 Kidney failure <15 (or dialysis) 10 Therapeutic target for the treatment of diabetes Mellitus patients is <7% HBA1C, and in selective patients <6.0%.Please refer to [place] Diabetes Association Diabetic care guidelines for further information. 11 [id number] 12 Serologic response to B. burgdorferi infection is not detected, but cannot rule out early infection during which low or undetectable antibody levels to B. burgdorferi may be present. If clinically indicated, a new serum specimen should be submitted in 7-14 days. Test Performed by: [address] [id number] 14 Acute inflammation: >10.00 15 Because ethnic data is not always readily available, this report includes an eGFR for both -Americans and non- Americans. The National Kidney Disease Education Program (NKDEP) does not endorse the use of the MDRD equation for patients that are not between the ages of 18 and 70, are , have extremes of body size, muscle mass, or nutritional status, or are non- or non-. According to the National Kidney Foundation, irrespective of diagnosis, the stage of the disease is based on the level of kidney function: Stage Description GFR(mL/min/1.73 m(2)) 1 Kidney damage with normal or decreased GFR 90 2 Kidney damage with mild decrease in GFR 60-89 3 Moderate decrease in GFR 30-59 4 Severe decrease in GFR 15-29 5 Kidney failure <15 (or dialysis) 16 Acute inflammation: >10.00 17 SEE RESULT BELOW Name: JUNE ALLEN : [address]: Sachin Castanon MD Acct: [id number] Unit: [id number] AGE: 81 Location: ED Re10/25/16 SEX: F Status: DEP ER SPEC: [id number] CARTER: 10/25/16 [facility] [address]: Sachin Castanon MD REQ: [id number] RECD: 10/25/16 STATUS: WILLIAM FRANCO DR: Juventino Hsu MD _ SOURCE: BLOOD,VENO SPDES: ORDERED: Blood Cult Procedure Result Reported Site Aerobic Culture Bottle Final 10/30/16- 1744 ML No Growth Day 5 Anaerobic Culture Bottle Final 10/30/16- 1744 ML No Growth Day 5 * ML - MAIN LAB (PSC1) . END OF REPORT * ML=Testing performed at Main Lab DEPARTMENT OF PATHOLOGY, [address] [place] [address] Nelson Willis M.D. Director [facility] # [id number] 18 Because ethnic data is not always readily available, this report includes an eGFR for both -Americans and non- Americans. The National Kidney Disease Education Program (NKDEP) does not endorse the use of the MDRD equation for patients that are not between the ages of 18 and 70, are , have extremes of body size, muscle mass, or nutritional status, or are non- or non-. According to the National Kidney Foundation, irrespective of diagnosis, the stage of the disease is based on the level of kidney function: Stage Description GFR(mL/min/1.73 m(2)) 1 Kidney damage with normal or decreased GFR 90 2 Kidney damage with mild decrease in GFR 60-89 3 Moderate decrease in GFR 30-59 4 Severe decrease in GFR 15-29 5 Kidney failure <15 (or dialysis) 19 SEE RESULT BELOW Name: JUNE ALLEN : [address]: Sachin Castanon MD Acct: [id number] Unit: [id number] AGE: 81 Location: ED Re10/25/16 SEX: F Status: DEP ER SPEC: [id number] CARTER: 10/25/16 [facility] [address]: Sachin Castanon MD REQ: [id number] RECD: 10/25/16 STATUS: WILLIAM FRANCO DR: Juventino Hsu MD _ SOURCE: [facility]: ORDERED: Flu A B Request Procedure Result Reported Site Rapid Influenza A B Request Final 10/26/16316 ML Specimen received for Influenza A/B Molecular testing * ML - MAIN LAB (PSC1) . END OF REPORT * ML=Testing performed at Main Lab DEPARTMENT OF PATHOLOGY, [address] [place] [address] Nelson Willis M.D. Director [facility] # [id number] 20 SEE RESULT BELOW Name: JUNE ALLEN : [address]: Sachin Castanon MD Acct: [id number] Unit: [id number] AGE: 81 Location: ED Re10/25/16 SEX: F Status: DEP ER SPEC: [id number] CARTER: 10/25/16 [facility] [address]: Sachin Castanon MD REQ: [id number] RECD: 10/25/16 STATUS: WILLIAM FRANCO DR: Juventino Hsu MD _ SOURCE: URINE SPDESC: ORDERED: Urine Culture Procedure Result Reported Site Urine Culture Final 10/27/16- 0828 ML No growth of clinically significant organisms * ML - MAIN LAB ([facility]) . END OF REPORT * ML=Testing performed at Main Lab DEPARTMENT OF PATHOLOGY, [address] [place] [address] Nelson Willis M.D. Director [facility] # [id number] 21 Pairer: [id number] Dodd 22 *Ascorbic acid is present which may interfere with detection of blood. 23 [facility] Severe Sepsis and Septic Shock Management Bundle Measure requires all lactic acids initially measuring >2.0 mmol/L be repeated. 24 Corrected result! Wrong result was 7.2. --- 09/25/16 2254 --- Hemoglobin A1c previously reported as: 7.2 H % Therapeutic target for the treatment of diabetes Mellitus patients is <7% HBA1C, and in selective patients <6.0%.Please refer to [place] Diabetes Association Diabetic care guidelines for further information. 25 [id number] Procedures Date CPT Code Description Status 04/05/2017 16534 Excision Benign Lesion 1.1 To 2.0 CM Completed Encounters Type Date Location Provider CPT E/M Dx Office Visit 07/20/2017 2:00p [place] [address] J01.90 Office Visit 06/22/2017 10:15a [place] [address] Z98.82 T85.42xD Office Visit 06/08/2017 10:00a [place] [address] R42 Office Visit 03/26/2017 1:00p Main Office Juventino Hsu MD G0439 Z00.8 D48.5 H90.3 E78.5 Q13.0 Office Visit 03/09/2017 9:45a [place] [address] R42 R53.83 M25.561 J30.0 Z98.82 Office Visit 11/08/2016 2:45p [place] [address] J10.89 J01.90 Office Visit 09/27/2016 9:45a [place] [address] E11.9 I10 Z12.31 Office Visit 07/19/2016 10:30a [place] [address] E11.9 I10 Office Visit 06/22/2016 9:00a [place] [address] E11.9 M05.779 K21.9 R55 F32.5 M81.0 I10 Plan of Care 10/22/2017 - Juventino Hsu MDS40.021A Contusion of right upper arm, initial encounterComments:There is a large bruise covering the upper arm. There is no reason to expect complication at this point. The function of her arm appears to be intact.We reviewed symptomatic treatment.I wrapped the ileana an Mg bandage, which she said gave her some comfort from the pain.
[2017-11-16] MEDS ORDERED: Ondansetron INJ* 2 MG/ML VIAL IV ONE (14:14)
[2017-11-16] MEDS ORDERED: NS 0.9% 1000 ML* 1,000 ML IV ONE (14:44)
[2017-11-16 14:55] LABS: ABS Basophils 0 10^3/ul (0-0.2); ABS Eosinophils 0 10^3/ul (0-0.6); ABS Lymphocytes 0.4 10^3/ul (1.0-4.8); ABS Monocytes 0.6 10^3/ul (0-0.8); ABS Neutrophils 12.8 10^3/ul (1.5-7.7); ABS Nucleated RBC 0 10^3/ul; Eosinophil % 0.1 % (0-6); Hematocrit 46 % (35-47); Hemoglobin 15.1 g/dl (12.0-16.0); Lymphocyte % 3.2 % (25-47); Mean Corpuscular HGB Conc 33 g/dl (31-36); Mean Corpuscular Hemoglobin 29 pg (27-31); Mean Corpuscular Volume 88 fL (80-97); Mean Platelet Volume 9 um3 (7.4-10.4); Nucleated Red Blood Cells % 0; Platelet Count 282 10^3/ul (150-450); Red Cell Distribution Width 13 % (10.5-15); White Blood Count 13.9 10^3/ul (3.5-10.8)
[2017-11-16 15:02] LABS: INR 0.91 (0.77-1.02)
[2017-11-16 15:07] LABS: EGFR Non-African American 54.2 (>60)
[2017-11-16 16:49] LABS: Urine Appearance Cloudy; Urine Blood 2+ (Negative); Urine Color Yellow; Urine Ketones Trace (Negative); Urine Protein Negative (Negative); Urine Specific Gravity 1.012 (1.010-1.030); Urine Urobilinogen Negative (Negative)
[2017-11-16 18:19] VITALS: BP 148/83
--- NOTE | 2017-11-17 07:42 | ED ---
Jose G Smith Julia, scribed for Sachin Castanon MD on 11/16/17 at 1400 . Influenza-Like Illness - HPI Summary HPI Summary: This patient is a 83 year old F presenting to [facility] accompanied by her with a chief complaint of vomiting and nausea with bright orange diarrhea since last night. Patient reports mild fever, dizziness since yesterday, headache, and cough for months. Patient has not eaten since initial bout of vomiting and diarrhea. She denies antibiotic use or new medication. - History of Current Complaint Chief Complaint: EDFluSymptoms Time Seen by Provider: 11/16/17 13:44 Hx Obtained From: Patient Onset/Duration: Lasting Hours, Still Present Associated Signs & Symptoms: Fever, Cough, Headache, Vomiting, Diarrhea - Allergy/Home Medications Allergies/Adverse Reactions: Allergies Allergy/AdvReac Type Severity Reaction Status Date / Time allopurinol Allergy Unknown Verified 11/16/17 13:59 Reaction Details codeine Allergy Nausea And Verified 11/16/17 13:58 Vomiting methotrexate Allergy Nausea Verified 11/16/17 13:58 Penicillins Allergy Rash Verified 11/16/17 13:59 tapentadol Allergy Unknown Verified 11/16/17 13:59 Reaction Details valsartan Allergy Unknown Verified 11/16/17 14:00 Reaction Details PMH/Surg Hx/FS Hx/Imm Hx Endocrine/Hematology History: Reports: Hx Diabetes - type 2 mild, Hx Anemia - takes iron bid Denies: Hx Anticoagulant Therapy, Hx Blood Disorders Cardiovascular History: Reports: Hx Hypertension GI History: Reports: Hx Gastroesophageal Reflux Disease, Hx Hiatal Hernia, Hx Irritable Bowel Musculoskeletal History: Reports: Hx Arthritis - right shoulder/left hip, Other Musculoskeletal History - gout, RA Sensory History: Reports: Hx Contacts or Glasses - glasses, Hx Hearing Aid - don 't use, Hx Hearing Problem Opthamlomology History: Reports: Hx Contacts or Glasses - glasses Psychiatric History: Reports: Hx Anxiety - Cancer History Cancer Type, Location and Year: Breast Cancer. Hx Chemotherapy: Yes - Surgical History Surgery Procedure, Year, and Place: Left mastectomy. Left breast implant , replaced x5, right breast reduction. . Bilat knee replacement. abdominoplasty , hernia repair, cholecystectomy Hx Anesthesia Reactions: Yes - a little nausea afterwards Infectious Disease History: No Infectious Disease History: Denies: Traveled Outside the [place] in Last 30 Days - Family History Known Family History: Negative: Diabetes - Social History Alcohol Use: None Hx Substance Use: No Substance Use Type: Reports: None Smoking Status (MU): Former Smoker Amount Used/How Often: smoked 10 years 1/2ppd Review of Systems Positive: Fever Positive: Cough Positive: Vomiting, Diarrhea, Nausea Neurological: Other - dizziness Positive: Headache All Other Systems Reviewed And Are Negative: Yes Physical Exam - Summary Physical Exam Summary: Appearance: The patient is well-nourished in no acute distress and in no acute pain. Skin: The skin is warm and dry and skin color reflects adequate perfusion. Skin is tenes. HEENT: The head is normocephalic and atraumatic. The pupils are equal and reactive. The conjunctivae are clear and without drainage. Nares are patent and without drainage. Mouth reveals dry mucous membranes and the throat is without erythema and exudate. The external ears are intact. The ear canals are patent and without drainage. The tympanic membranes are intact. Neck: the neck is supple with full range of motion and non-tender. There are no carotid bruits. There is no neck vein distension. Respiratory: Chest is non-tender. Lungs are clear to auscultation and breath sounds are symmetrical and equal. Cardiovascular: Heart is regular rhythm with tachycardia rate. There is no murmur or rub auscultated. There is no peripheral edema and pulses are symmetrical and equal. Abdomen: The abdomen is soft and non-tender. There are normal bowel sounds heard in all four quadrants and there is no organomegaly palpated. Musculoskeletal: There is no back tenderness noted. Extremities are non-tender with full range of motion. There is good capillary refill. There is no peripheral edema or calf tenderness elicited. Neurological: Patient is alert and oriented to person, place and time. The patient has symmetrical motor strength in all four extremities. Cranial nerves are grossly intact. Deep tendon reflexes are symmetrical and equal in all four extremities. Psychiatric: The patient has an appropriate affect and does not exhibit any anxiety or depression. Triage Information Reviewed: Yes Vital Signs On Initial Exam: Initial Vitals Temp Pulse Resp BP Pulse Ox 99.2 F 125 19 130/98 100 11/16/17 13:16 18 13:16 11/16/17 13:16 11/16/17 13:16 11/16/17 13:16 Vital Signs Reviewed: Yes Diagnostics - Vital Signs Vital Signs Temp Pulse Resp BP Pulse Ox 11/16/17 13:38 104 124/73 97 11/16/17 13:36 104 97 11/16/17 13:16 99.2 F 125 19 130/98 100 - Laboratory Lab Results: Lab Results 11/16/17 11/16/17 11/16/17 Range/Units 13:40 13:40 13:40 WBC 13.9 H (3.5-10.8) 10^3/ul RBC 5.20 (4.0-5.4) 10^6/ul Hgb 15.1 (12.0-16.0) g/dl Hct 46 (35-47) % MCV 88 (80-97) fL MCH 29 (27-31) pg MCHC 33 (31-36) g/dl RDW 13 (10.5-15) % Plt Count 282 (150-450) 10^3/ul MPV 9 (7.4-10.4) um3 Neut % (Auto) 92.1 H (38-83) % Lymph % (Auto) 3.2 L (25-47) % [place] % (Auto) 4.4 (0-7) % Eos % (Auto) 0.1 (0-6) % Baso % (Auto) 0.2 (0-2) % Absolute Neuts (auto) 12.8 H (1.5-7.7) 10^3/ul Absolute Lymphs (auto) 0.4 L (1.0-4.8) 10^3/ul Absolute Monos (auto) 0.6 (0-0.8) 10^3/ul Absolute Eos (auto) 0 (0-0.6) 10^3/ul Absolute Basos (auto) 0 (0-0.2) 10^3/ul Absolute Nucleated RBC 0 10^3/ul Nucleated RBC % 0 INR (Anticoag Therapy) 0.91 (0.77-1.02) Sodium 137 (133-145) mmol/L Potassium 4.1 (3.5-5.0) mmol/L Chloride 106 (101-111) mmol/L Carbon Dioxide 21 L (22-32) mmol/L Anion Gap 10 (2-11) mmol/L BUN 21 (6-24) mg/dL Creatinine 0.98 H (0.51-0.95) mg/dL Est GFR ( Amer) 69.7 (>60) Est GFR (Non-Af Amer) 54.2 (>60) BUN/Creatinine Ratio 21.4 H (8-20) Glucose 151 H (70-100) mg/dL Lactic Acid (0.5-2.0) mmol/L Calcium 10.6 H (8.6-10.3) mg/dL Total Bilirubin 1.00 (0.2-1.0) mg/dL AST 14 (13-39) U/L ALT 9 (7-52) U/L Alkaline Phosphatase 55 (34-104) U/L Troponin I 0.00 (<0.04) ng/mL C-Reactive Protein 4.19 (< 5.00) mg/L Total Protein 7.5 (6.4-8.9) g/dL Albumin 4.5 (3.2-5.2) g/dL Globulin 3.0 (2-4) g/dL Albumin/Globulin Ratio 1.5 (1-3) Urine Color Urine Appearance Urine pH (5-9) Ur Specific [place] (1.010-1.030) Urine Protein (Negative) Urine Ketones (Negative) Urine Blood (Negative) Urine Nitrate (Negative) Urine Bilirubin (Negative) Urine Urobilinogen (Negative) Ur Leukocyte Esterase (Negative) Urine WBC (Auto) (Absent) Urine RBC (Auto) (Absent) Ur Squamous Epith Cells (Absent) Ur Renal Epithelial Cell (Absent) Urine Bacteria (Absent) Urine Glucose (Negative) Influenza A (Rapid) (Negative) Influenza B (Rapid) (Negative) 11/16/17 11/16/17 11/16/17 Range/Units 13:40 14:02 16:30 WBC (3.5-10.8) 10^3/ul RBC (4.0-5.4) 10^6/ul Hgb (12.0-16.0) g/dl Hct (35-47) % MCV (80-97) fL MCH (27-31) pg MCHC (31-36) g/dl RDW (10.5-15) % Plt Count (150-450) 10^3/ul MPV (7.4-10.4) um3 Neut % (Auto) (38-83) % Lymph % (Auto) (25-47) % [place] % (Auto) (0-7) % Eos % (Auto) (0-6) % Baso % (Auto) (0-2) % Absolute Neuts (auto) (1.5-7.7) 10^3/ul Absolute Lymphs (auto) (1.0-4.8) 10^3/ul Absolute Monos (auto) (0-0.8) 10^3/ul Absolute Eos (auto) (0-0.6) 10^3/ul Absolute Basos (auto) (0-0.2) 10^3/ul Absolute Nucleated RBC 10^3/ul Nucleated RBC % INR (Anticoag Therapy) (0.77-1.02) Sodium (133-145) mmol/L Potassium (3.5-5.0) mmol/L Chloride (101-111) mmol/L Carbon Dioxide (22-32) mmol/L Anion Gap (2-11) mmol/L BUN (6-24) mg/dL Creatinine (0.51-0.95) mg/dL Est GFR ( Amer) (>60) Est GFR (Non-Af Amer) (>60) BUN/Creatinine Ratio (8-20) Glucose (70-100) mg/dL Lactic Acid 1.2 (0.5-2.0) mmol/L Calcium (8.6-10.3) mg/dL Total Bilirubin (0.2-1.0) mg/dL AST (13-39) U/L ALT (7-52) U/L Alkaline Phosphatase (34-104) U/L Troponin I (<0.04) ng/mL C-Reactive Protein (< 5.00) mg/L Total Protein (6.4-8.9) g/dL Albumin (3.2-5.2) g/dL Globulin (2-4) g/dL Albumin/Globulin Ratio (1-3) Urine Color Yellow Urine Appearance Cloudy Urine pH 5.0 (5-9) Ur Specific [place] 1.012 (1.010-1.030) Urine Protein Negative (Negative) Urine Ketones Trace A (Negative) Urine Blood 2+ A (Negative) Urine Nitrate Negative (Negative) Urine Bilirubin Negative (Negative) Urine Urobilinogen Negative (Negative) Ur Leukocyte Esterase 3+ A (Negative) Urine WBC (Auto) 3+(>20/hpf) A (Absent) Urine RBC (Auto) 3+(>10/hpf) A (Absent) Ur Squamous Epith Cells Present A (Absent) Ur Renal Epithelial Cell Present A (Absent) Urine Bacteria 1+ A (Absent) Urine Glucose Negative (Negative) Influenza A (Rapid) Negative (Negative) Influenza B (Rapid) Negative (Negative) Result Diagrams: 11/16/17 13:40 11/16/17 13:40 Lab Statement: Any lab studies that have been ordered have been reviewed, and results considered in the medical decision making process. Flu Symptom Course/Dx - Course Course Of Treatment: Ms. Allen presented with N/V/D all day today. She didn't have pain or tenderness. She was rehydrated and Labs were OK. She was negative for c.diff but did have a positive fecal lactoferrin so I treated her with Cipro and she will need F/U. C&S will be available in 1-2 days. She improved with IV NS and zofran. - Diagnoses Provider Diagnoses: Gastroenteritis Discharge - Discharge Plan Condition: Stable Disposition: HOME Prescriptions: Ciprofloxacin TAB* [Cipro Tab*] 500 mg PO BID #20 tab Ondansetron ODT TAB* [Zofran Odt TAB*] 4 mg PO Q6H PRN #20 tab.odt PRN Reason: Nausea/Vomiting Patient Education Materials: Gastroenteritis (ED) Referrals: Juventino Hsu MD [Primary Care Provider] - 3 Days (Follow up with your primary care physician.) The documentation as recorded by the Jose G orozco Julia accurately reflects the service I personally performed and the decisions made by , Sachin Castanon MD.
== END 2017-11-16 18:24 | disposition home or self-care (01) ==
LOC: ED 13:15
DX: K52.9 Noninfective gastroenteritis and colitis, unspecified (principal); I10 Essential (primary) hypertension; K21.9 Gastro-esophageal reflux disease without esophagitis; F41.9 Anxiety disorder, unspecified; Z87.891 Personal history of nicotine dependence
CPT/HCPCS: 36415; 80053; 81003; 81015; 82272; 83605; 83630; 84484; 85025; 85610; 86140; 87040; 87045; 87046; 87086; 87493; 87502; 87899; 96360; 96374; 99284; J2405

== ENCOUNTER 2017-11-24 16:21 | Emergency (ER) | payer MEDICARE, OTHER ==
[2017-11-24 18:26] LABS: ABS Basophils 0.1 10^3/ul (0-0.2); ABS Eosinophils 0.1 10^3/ul (0-0.6); ABS Lymphocytes 1.8 10^3/ul (1.0-4.8); ABS Monocytes 0.7 10^3/ul (0-0.8); ABS Neutrophils 4.6 10^3/ul (1.5-7.7); ABS Nucleated RBC 0 10^3/ul; Eosinophil % 1.7 % (0-6); Hematocrit 40 % (35-47); Hemoglobin 13.6 g/dl (12.0-16.0); Lymphocyte % 24.4 % (25-47); Mean Corpuscular HGB Conc 34 g/dl (31-36); Mean Corpuscular Hemoglobin 30 pg (27-31); Mean Corpuscular Volume 88 fL (80-97); Mean Platelet Volume 8 um3 (7.4-10.4); Nucleated Red Blood Cells % 0.1; Platelet Count 274 10^3/ul (150-450); Red Blood Count 4.58 10^6/ul (4.0-5.4); Red Cell Distribution Width 13 % (10.5-15); White Blood Count 7.2 10^3/ul (3.5-10.8)
[2017-11-24 18:42] LABS: EGFR Non-African American 45.1 (>60)
--- NOTE | 2017-11-24 18:46 | RAD ---
HISTORY: Constipation COMPARISONS: None VIEWS: Frontal supine and upright views of the abdomen. FINDINGS: BOWEL: There is a nonobstructive bowel gas pattern. There is a large amount of stool within the colon. CALCULI: There are no abnormal calculi. BONES AND SOFT TISSUES: Degenerative changes are noted of the spine OTHER FINDINGS: The lung bases are clear. There is no subphrenic gas. IMPRESSION: NONOBSTRUCTIVE BOWEL GAS PATTERN. LARGE AMOUNT OF STOOL THROUGHOUT THE COLON.
[2017-11-24] MEDS ORDERED: Magnesium CITRATE* 300 ML BTL PO ONE (18:50)
[2017-11-24 20:28] VITALS: BP 146/74
--- NOTE | 2017-11-26 22:40 | ED ---
Jacqueline Smith Abhishek, scribed for Bernabe Camarena MD on 11/24/17 at 1930 . Abdominal Pain/Female - HPI Summary HPI Summary: This patient is a 82 year old F presenting to [facility] accompanied by a male with a chief complaint of constipation since 6 days ago. Pt has been constipated for 7 days. She describes the complaint as an impacted feeling. Pertinent PMHx includes hypercalcemia. The patient rates the pain 8/10 in severity. Symptoms aggravated by nothing. Symptoms alleviated by nothing. Patient reports dizziness. Patient denies fevers. Pt also has a hx of different surgeries concerning the abd region. - History of Current Complaint Chief Complaint: EDGeneral Stated Complaint: CONSTIPATED/NO BM X 6 DAYS Hx Obtained From: Patient Onset/Duration: Gradual Onset, Lasting Days - since 6 days ago Timing: Constant Severity Initially: Severe Severity Currently: Severe Pain Intensity: 8 Pain Scale Used: 0-10 Numeric Location: Diffuse Aggravating Factor(s): Nothing Alleviating Factor(s): Nothing Associated Signs and Symptoms: Positive: Dizzy, Constipation, Other:. Negative : Fever Allergies/Adverse Reactions: Allergies Allergy/AdvReac Type Severity Reaction Status Date / Time allopurinol Allergy Unknown Verified 11/16/17 13:59 Reaction Details codeine Allergy Nausea And Verified 11/16/17 13:58 Vomiting methotrexate Allergy Nausea Verified 11/16/17 13:58 Penicillins Allergy Rash Verified 11/16/17 13:59 tapentadol Allergy Unknown Verified 11/16/17 13:59 Reaction Details valsartan Allergy Unknown Verified 11/16/17 14:00 Reaction Details PMH/Surg Hx/FS Hx/Imm Hx Endocrine/Hematology History: Reports: Hx Diabetes - type 2 mild, Hx Anemia - takes iron bid Denies: Hx Anticoagulant Therapy, Hx Blood Disorders Cardiovascular History: Reports: Hx Hypertension GI History: Reports: Hx Gastroesophageal Reflux Disease, Hx Hiatal Hernia, Hx Irritable Bowel, Other GI Disorders - GERD, HIATAL HERNIA. Musculoskeletal History: Reports: Hx Arthritis - right shoulder/left hip, Other Musculoskeletal History - gout, RA Sensory History: Reports: Hx Contacts or Glasses - glasses, Hx Hearing Aid - don 't use, Hx Hearing Problem Opthamlomology History: Reports: Hx Contacts or Glasses - glasses Psychiatric History: Reports: Hx Anxiety - Cancer History Cancer Type, Location and Year: Breast Cancer. Hx Chemotherapy: Yes - Surgical History Surgery Procedure, Year, and Place: Left mastectomy. Left breast implant , replaced x5, right breast reduction. . Bilat knee replacement. abdominoplasty , hernia repair, cholecystectomy Hx Anesthesia Reactions: Yes - a little nausea afterwards Infectious Disease History: No Infectious Disease History: Denies: Traveled Outside the [place] in Last 30 Days - Family History Known Family History: Negative: Diabetes Family History: Reviewed and non-contributory - Social History Alcohol Use: None Hx Substance Use: No Substance Use Type: Reports: None Smoking Status (MU): Former Smoker Amount Used/How Often: smoked 10 years 1/2ppd Review of Systems Negative: Fever Eyes: Negative ENT: Negative Cardiovascular: Negative Respiratory: Negative Gastrointestinal: Other - Constipation Genitourinary: Negative Musculoskeletal: Negative Skin: Negative Neurological: Other - dizziness Psychological: Normal All Other Systems Reviewed And Are Negative: Yes Physical Exam - Summary Physical Exam Summary: Appearance: Well-appearing, Well-nourished, Answers questions Skin: Warm, Dry, No rash Eyes: Normal, PERRL, EOMI, sclera anicteric ENT: Normal Neck: Supple, nontender Respiratory: Clear to auscultation Cardiovascular: S1, S2, no murmur, no rub, no gallop Abdomen: Soft, nontender, no organomegaly, Multiple abd scars, Soft abd, Rectal exam: no significant stool in the rectal vault Bowel sounds: Present Musculoskeletal: Normal, Strength/ROM Intact, no edema, pulses symmetrical Neurological: Normal, A&Ox3, cranial nerves II-XII WNL, follows commands, gait not tested, sensation intact to pin and light touch Psychiatric: affect normal, behavior appropriate, dressed appropriately, judgment intact Triage Information Reviewed: Yes Vital Signs On Initial Exam: Initial Vitals Temp Pulse Resp BP Pulse Ox 98.4 F 86 18 143/73 100 11/24/17 16:26 11/24/17 16:26 11/24/17 16:26 11/24/17 16:26 11/24/17 16:26 Vital Signs Reviewed: Yes Diagnostics - Vital Signs Vital Signs Temp Pulse Resp BP Pulse Ox 11/24/17 16:26 98.4 F 86 18 143/73 100 - Laboratory Lab Results: Lab Results 11/24/17 11/24/17 Range/Units 18:20 18:20 WBC 7.2 (3.5-10.8) 10^3/ul RBC 4.58 (4.0-5.4) 10^6/ul Hgb 13.6 (12.0-16.0) g/dl Hct 40 (35-47) % MCV 88 (80-97) fL MCH 30 (27-31) pg MCHC 34 (31-36) g/dl RDW 13 (10.5-15) % Plt Count 274 (150-450) 10^3/ul MPV 8 (7.4-10.4) um3 Neut % (Auto) 63.4 (38-83) % Lymph % (Auto) 24.4 L (25-47) % [place] % (Auto) 9.3 H (0-7) % Eos % (Auto) 1.7 (0-6) % Baso % (Auto) 1.2 (0-2) % Absolute Neuts (auto) 4.6 (1.5-7.7) 10^3/ul Absolute Lymphs (auto) 1.8 (1.0-4.8) 10^3/ul Absolute Monos (auto) 0.7 (0-0.8) 10^3/ul Absolute Eos (auto) 0.1 (0-0.6) 10^3/ul Absolute Basos (auto) 0.1 (0-0.2) 10^3/ul Absolute Nucleated RBC 0 10^3/ul Nucleated RBC % 0.1 Sodium 137 (133-145) mmol/L Potassium 3.8 (3.5-5.0) mmol/L Chloride 106 (101-111) mmol/L Carbon Dioxide 24 (22-32) mmol/L Anion Gap 7 (2-11) mmol/L BUN 14 (6-24) mg/dL Creatinine 1.15 H (0.51-0.95) mg/dL Est GFR ( Amer) 58.0 (>60) Est GFR (Non-Af Amer) 45.1 (>60) BUN/Creatinine Ratio 12.2 (8-20) Glucose 100 (70-100) mg/dL Calcium 10.5 H (8.6-10.3) mg/dL Total Bilirubin 0.60 (0.2-1.0) mg/dL AST 15 (13-39) U/L ALT 9 (7-52) U/L Alkaline Phosphatase 40 (34-104) U/L Total Protein 6.3 L (6.4-8.9) g/dL Albumin 4.0 (3.2-5.2) g/dL Globulin 2.3 (2-4) g/dL Albumin/Globulin Ratio 1.7 (1-3) Result Diagrams: 11/24/17 18:20 11/24/17 18:20 Lab Statement: Any lab studies that have been ordered have been reviewed, and results considered in the medical decision making process. - Radiology Abd X-ray Radiology Interpretation Completed By: Radiologist - Abd X-ray reveals NONOBSTRUCTIVE BOWEL GAS PATTERN. LARGE AMOUNT OF STOOL THROUGHOUT THE COLON. ED physician has reviewed this radiology report and agrees. Abdominal Pain Fem Course/Dx - Course Course Of Treatment: The pt is a 82 y/o F presenting to the [facility] with a chief complaint of constipation. Pertinent PMHx includes hypercalcemia. Patient reports dizziness. Patient denies fevers. Pt also has an hx of different surgeries concerning the abd region. Pt has hx of hypercalcemia worsening her constipation. An Abd x-ray was taken in the [facility]. The pt will be discharged home. The dx will be constipation, and hyperparathyroidism. - Diagnoses Provider Diagnoses: Hyperthyroidism, Constipation Discharge - Discharge Plan Condition: Stable Disposition: HOME Prescriptions: [id number]/Sod Sulf,Bicarb,Cl/KCl [Peg 3350/Electrolytes] 8 oz PO Q12HR PRN #120 oz PRN Reason: Constipation Patient Education Materials: Induced Thyroid Disorders (ED), Parathyroidectomy (DC) Referrals: Juventino Hsu MD [Primary Care Provider] - The documentation as recorded by the Jacqueline orozco Abhishek accurately reflects the service I personally performed and the decisions made by me, Bernabe Camarena MD.
== END 2017-11-24 20:23 | disposition home or self-care (01) ==
LOC: ED 16:21
DX: K59.00 Constipation, unspecified (principal); E05.90 Thyrotoxicosis, unspecified without thyrotoxic crisis or storm; Z87.891 Personal history of nicotine dependence; Z88.5 Allergy status to narcotic agent; Z88.8 Allergy status to other drugs, medicaments and biological substances; Z88.0 Allergy status to penicillin
CPT/HCPCS: 36415; 74019; 80053; 83970; 85025; 99282; A9270-GY

== ENCOUNTER 2018-05-13 10:02 | Observation (INO) | payer MEDICARE, OTHER ==
--- NOTE | 2018-05-13 10:27 | ED ---
Abdominal Pain/Female - HPI Summary HPI Summary: The pt is an 84 y/o female presenting to the [facility] c/o abd discomfort for about 7 days worsened today. She notes constipation alternating with diarrhea, nausea , cough, and dizziness. The pt denies melena, CP, SOB and active abd pain. She took Activia yoghurt daily to no relief. - History of Current Complaint Chief Complaint: EDAbdPain Stated Complaint: ABD PAIN Time Seen by Provider: 05/13/18 10:08 Hx Obtained From: Patient Onset/Duration: Gradual Onset, Lasting Weeks - 1 week, Still Present Timing: Constant Severity Currently: None Pain Intensity: 0 Pain Scale Used: 0-10 Numeric Location: Diffuse - Abdomen Alleviating Factor(s): Nothing Associated Signs and Symptoms: Positive: Negative - SO, active abd pain, Cough, Constipation, Diarrhea. Negative: Chest Pain Allergies/Adverse Reactions: Allergies Allergy/AdvReac Type Severity Reaction Status Date / Time allopurinol Allergy Unknown Verified 05/13/18 10:11 Reaction Details codeine Allergy Nausea And Verified 05/13/18 10:11 Vomiting methotrexate Allergy Nausea Verified 05/13/18 10:11 Penicillins Allergy Rash Verified 05/13/18 10:11 tapentadol Allergy Unknown Verified 05/13/18 10:11 Reaction Details valsartan Allergy Unknown Verified 05/13/18 10:11 Reaction Details Home Medications: Home Medications Febuxostat [Uloric] 40 mg PO DAILY 05/13/18 [History Confirmed 05/13/18] PMH/Surg Hx/FS Hx/Imm Hx Previously Healthy: No Endocrine/Hematology History: Reports: Hx Diabetes - type 2 mild, Hx Anemia - takes iron bid Denies: Hx Anticoagulant Therapy, Hx Blood Disorders Cardiovascular History: Reports: Hx Hypertension Denies: Other Cardiovascular Problems/Disorders - Denies Hx of NC GI History: Reports: Hx Gastroesophageal Reflux Disease, Hx Hiatal Hernia, Hx Irritable Bowel, Other GI Disorders - GERD, HIATAL HERNIA. Musculoskeletal History: Reports: Hx Arthritis - right shoulder/left hip, Other Musculoskeletal History - gout, RA Sensory History: Reports: Hx Contacts or Glasses - glasses, Hx Hearing Aid - don 't use, Hx Hearing Problem Opthamlomology History: Reports: Hx Contacts or Glasses - glasses Psychiatric History: Reports: Hx Anxiety - Cancer History Cancer Type, Location and Year: Breast Cancer- 1988 Hx Chemotherapy: Yes - Surgical History Surgery Procedure, Year, and Place: Left mastectomy. Left breast implant , replaced x5, right breast reduction. . Bilat knee replacement. abdominoplasty , hernia repair, cholecystectomy Hx Anesthesia Reactions: Yes - a little nausea afterwards Infectious Disease History: No Infectious Disease History: Denies: Traveled Outside the [place] in Last 30 Days - Family History Known Family History: Negative: Diabetes, Seizure Disorder Family History: Reviewed and non-contributory - Social History Occupation: Retired Lives: With Family Alcohol Use: None Hx Substance Use: No Substance Use Type: Reports: None Smoking Status (MU): Former Smoker Amount Used/How Often: smoked 10 years 1/2ppd Review of Systems Positive: Other - Positive: dizziness Negative: Chest Pain Positive: Cough. Negative: Shortness Of Breath Gastrointestinal: Negative - Melena Positive: Diarrhea, Nausea, Other - Positive: Diarrhea All Other Systems Reviewed And Are Negative: Yes Physical Exam - Summary Physical Exam Summary: GENERAL: Patient is a well developed and nourished F who is lying comfortable in the stretcher. Patient is not in any acute respiratory distress. HEAD AND FACE: Normocephalic EYES: PERRLA, EOMI x 2. EARS: Hearing grossly intact. MOUTH: Oropharynx within normal limits. NECK: Supple, trachea is midline, no adenopathy, no JVD, no carotid bruit. CHEST: Symmetric, no tenderness at palpation LUNGS: Clear to auscultation bilaterally. Mild wheezing bilaterally CVS: Regular rate and rhythm, S1 and S2 present, no murmurs or gallops appreciated. ABDOMEN: Soft, non-tender. No abdominal abnormal pulsations. EXTREMITIES: Full ROM in all major joints, no edema, no cyanosis or clubbing. NEURO: Alert and oriented x 3. No acute neurological deficits. Speech is normal and follows commands. SKIN: Dry and warm Triage Information Reviewed: Yes Vital Signs On Initial Exam: Initial Vitals Temp Pulse Resp BP Pulse Ox 99.5 F 90 20 96/26 100 05/13/18 10:06 05/13/18 10:06 05/13/18 10:06 05/13/18 10:06 05/13/18 10:06 Vital Signs Reviewed: Yes Diagnostics - Vital Signs Vital Signs Temp Pulse Resp BP Pulse Ox 05/13/18 10:06 99.5 F 90 20 96/26 100 - Laboratory Result Diagrams: 05/13/18 10:47 05/13/18 10:47 Lab Statement: Any lab studies that have been ordered have been reviewed, and results considered in the medical decision making process. - CT CT A/P CT Interpretation Completed By: Radiologist - IMPRESSION: 1. Moderate size pericardial effusion 2. Hysterectomy. Cholecystectomy. 3. No acute CT findings of the abdomen or pelvis The ED physican has reviewed this radiology report - EKG 13:23 Cardiac Rate: NL - 70 bpm EKG Interpretation: EKG is normal; No ST elevation; No ischemic changes Abdominal Pain Fem Course/Dx - Course Course Of Treatment: An 83 year-old F presents to the ED with a CC of abdominal discomfort for about one week worsened today. She notes constipation alternating with diarrhea, cough, nausea, cough, and dizziness. A physical exam revealed mild wheezing bilaterally but no abdominal tenderness. An abd /Pel CT reveals moderate pericardial effusion, hysterectomy and cholecystectomy. AN EKG is unremarkable. In the ED course, the pt was given N.s 0.9%, Metoclopramide, Pantoprazole, and Iodixanol which improved the symptoms. CT scan of her chest and abdomen showed no acute intra-abdominal etiology but shows a moderate size pericardial effusion and up and further investigation, patient does report some shortness of breath but attributed this to a "cold and sinus drainage ". Given Pericardial effusion seen on CAT scan N the patient for further evaluation by echo. Case discussed with hospitalist - Diagnoses Provider Diagnoses: Abdominal pain, Pericardial effusion - Provider Notifications Discussed Care Of Patient With: Roxane Navarrete Time Discussed With Above Provider: 14:06 Instructed by Provider To: Admit As Inpatient Discharge - Sign-Out/Discharge Documenting (check all that apply): Patient Departure - Discharge Plan Condition: Stable Disposition: ADMITTED TO [facility] Referrals: Juventino Hsu MD [Primary Care Provider] - - Billing Disposition and Condition Condition: STABLE Disposition: Admitted to [facility] - Attestation Statements Document Initiated by Scribe: Yes Documenting Scribe: Kaela Swift Provider For Whom Scribe is Documenting (Include Credential): Dr. Lexi Sanchez MD Scribe Attestation: Kaela Smith , scribed for Dr. Lexi Sanchez MD on 05/13/18 at 1657. Scribe Documentation Reviewed: Yes Provider Attestation: The documentation as recorded by the scribe, Kaela Swift accurately reflects the service I personally performed and the decisions made by me, Dr. Lexi Sanchez MD
[2018-05-13] MEDS ORDERED: Metoclopramide IV* 5 MG/ML 2 ML VIAL IV ONE (10:29)
[2018-05-13] MEDS ORDERED: NS 0.9% 1000 ML* 1,000 ML IV ONE (10:29)
[2018-05-13] MEDS ORDERED: Pantoprazole IV* 40 MG IV ONE (10:39)
[2018-05-13 11:13] LABS: ABS Basophils 0.1 10^3/ul (0-0.2); ABS Eosinophils 0.1 10^3/ul (0-0.6); ABS Monocytes 0.7 10^3/ul (0-0.8); ABS Neutrophils 3.8 10^3/ul (1.5-7.7); ABS Nucleated RBC 0 10^3/ul; Eosinophil % 1.2 % (0-6); Hematocrit 39 % (35-47); Lymphocyte % 18.6 % (25-47); Mean Corpuscular HGB Conc 33 g/dl (31-36); Mean Corpuscular Hemoglobin 28 pg (27-31); Mean Corpuscular Volume 85 fL (80-97); Mean Platelet Volume 8.7 um3 (7.4-10.4); Nucleated Red Blood Cells % 0; Platelet Count 279 10^3/ul (150-450); Red Blood Count 4.61 10^6/ul (4.00-5.40); Red Cell Distribution Width 14 % (10.5-15); White Blood Count 5.6 10^3/ul (3.5-10.8)
[2018-05-13 11:46] LABS: EGFR Non-African American 58.2 (>60)
[2018-05-13] MEDS ORDERED: Iodixanol* (CONTRAST) 320 MG/ML 100 ML SDV IV ONE (11:56)
[2018-05-13 12:11] LABS: Urine Appearance Clear; Urine Blood 1+ (Negative); Urine Color Yellow; Urine Ketones Negative (Negative); Urine Protein Negative (Negative); Urine Red Blood Cell Trace(0-2/hpf) (Absent); Urine Specific Gravity 1.006 (1.010-1.030); Urine Urobilinogen Negative (Negative); Urine White Blood Cell Trace(0-5/hpf) (Absent)
--- OUTSIDE RECORDS SUMMARY | 2018-05-13 12:45 | XMS REPORT ---
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 [address] JORJE Marcus [id number] Medigap Part B Effective: 2017 Policy Number: Christa BS June Allen [id number] Expires: 2017 Group Name: [place] [address] [address] PayID: [id number] JORJE Marcus 13910 Medicare Primary Expires: 2016 Policy Number: Medicare - Bswny June Juarezd [id number] Umd PayID: [id number] [address] [place] [address] Medigap Part B Effective: Policy Number: Jamaal Jaquez & June Allen 2017 [id number] Accident Ins Group Number: [id number] [address] PayID: [id number] EMILY Foote [id number] Problems Description No Information Family History Date [...] Form Strength Qnty SIG Indications Ordering Provider Proair HFA 05/01/ Active Aerosol 108(90Base 8.500 1-2 puffs R05 Juventino 2017 ) mcg/Act gm every 6 [place] hours as , MD needed Fluoxetine 03/15/ Active Capsules 10mg 30cap 1 by mouth Juventino HCL 2017 s every [place] morning; , MD take with the 20 mg to make 30 mg daily. Meclizine HCL 12/14/ Active Tablets 12.5mg 30tab 1 at Juventino 2017 s bedtime as Aracelis needed , Fluticasone 07/20/ Active Suspension 50mcg/Act 16gm inhale one J01.90 Juventino Propionate 2017 spray in [place] each , nostril every day Amlodipine 03/12/ Active Tablets 2.5mg 30tab Take One Juventino Besylate 2016 s Tablet By [place] Mouth Every , MD Day Ipratropium 03/09/ Active Solution 0.06% 30ml 2 J30.0 Juventino [place] 2017 intranasal [place] puffs twice , MD a day as needed for rhinorrhea Lisinopril 09/27/ Active Tablets 2.5mg 30tab Take One Juventino 2016 s Tablet By [place] Mouth Every , MD Day Trigels-F 09/01/ Active Capsules 460-60-0.0 60cap Take One Juventino Forte 2015 1-1mg s Capsule By [place] Mouth Twice , MD A Day Blood Glucose 11/17/ Active Strips 100un use as Juventino Test 2015 its directed to Aracelis rand blood MD glucose twice daily brand Sukhwinder Track by [employer] . Lovaza 06/22/ Active Capsules 1gm 60cap 1 tab by Juventino 2015 s mouth twice Heshiraz a day , Simvastatin 06/22/ Active Tablets 20mg 90tab Take One Juventino 2015 s Tablet By [place] Mouth Every , MD Day Omeprazole 06/22/ Active Capsules DR 20mg 30cap Take One K21.9 Juventino 2015 s Capsule By [place] Mouth Every , MD Day Minocin 06/22/ Active Capsules 75mg 60cap Take One Juventino 2015 s Capsule By [place] Mouth Twice , MD A Day Uloric 06/22/ Active Tablets 40mg 30tab Take One Juventino 2015 s Tablet By [place] Mouth Every , MD Day Alendronate 06/22/ Active Tablets 35mg 4tabs Take One Juventino Sodium 2015 Tablet By [place] Mouth Every , MD Week as Directed Prednisone 06/22/ Active Tablets 5mg 45tab Take 1 To 2 Juventino 2015 s Tablets By Aracelis Mouth Once , Daily as Needed Clindamycin 11/08/ Hx Capsules 300mg 21cap take 1 J01.90 Juventino HCL 2016 - s capsule by Aracelis 03/15/ mouth every , 2018 8 hours for 7 days. Amlodipine 06/22/ Hx Tablets 5mg 30tab 1 by mouth Juventino Besylate 2016 - s every day Aracelis 03/12/ MD 2017 Fluoxetine 06/22/ Hx Capsules 20mg 30cap Take One Juventino HCL 2015 - s Capsule By Aracelis 03/15/ Mouth Every , 2018 Day Immunizations CPT Code Status Date Vaccine Lot # [id number] Given 06/05/2017 Influenza Vaccine High Dose PF [id number] Given 11/10/2016 Influenza Virus Vaccine, Quadrivalent, 3 Yr > [id number] Quad, Preserv Free 59284 Given 10/18/2015 Prevnar-13 Pneumococcal Conjugate Vaccine 80040 Given 09/17/2014 Zoster Vaccine 48541 Given 03/17/2013 Pneumovax 23 (PPSV23) 65+ years or high risk 2 to 64 year old 02626 Given 03/17/2013 DT (Adult) Vital Signs Date Vital Result Comment 05/08/2018 Weight 134.00 lb Weight in kg's 60.782 BP Systolic 122 mmHg BP Diastolic 80 mmHg Heart Rate 84 /min Body Temperature 100.0 F Respiratory Rate 24 /min O2 % BldC Oximetry 98 % 05/01/2018 Weight 134.00 lb Weight in kg's 60.782 BP Systolic 123 mmHg BP Diastolic 70 mmHg Heart Rate 88 /min Body Temperature 99.7 F Respiratory Rate 20 /min O2 % BldC Oximetry 99 % 03/15/2018 Weight 140.00 lb Weight in kg's 63.504 BP Systolic 148 mmHg BP Diastolic 70 mmHg Heart Rate 78 /min Body Temperature 99.3 F Respiratory Rate 20 /min O2 % BldC Oximetry 97 % 12/14/2017 Weight 141.00 lb Weight in kg's 63.958 BP Systolic 146 mmHg BP Diastolic 78 mmHg Heart Rate 87 /min Body Temperature 97.9 F Respiratory Rate 18 /min O2 % BldC Oximetry 98 % 11/28/2017 Weight 145.00 lb Weight in kg's 65.772 BP Systolic 124 mmHg BP Diastolic 76 mmHg Heart Rate 74 /min Body Temperature 99.0 F Respiratory Rate 18 /min Height 63 inches 5'3" BMI (Body Mass Index) 25.7 kg/m2 O2 % BldC Oximetry 98 % 10/22/2017 Weight 147.00 lb Weight in kg's [...] Test Result H/L Range Note Laboratory test finding 05/08/2018 Lyme Disease Serology <pending> C Reactive Protein <pending> Laboratory test finding 05/08/2018 Glucose By Moniter 108 78-110 Urine DIP 05/08/2018 Leukocytes + Neg Urine Nitrites neg Neg Urobilinogen norm Norm Total Protein, Urine neg Neg Urine pH 5 5-6 Urine Blood neg Neg Specific Gifford 1.020 1.01-1.02 Urine Ketones neg Neg Urine Bilirubin neg Neg Urine Glucose norm Norm Urine Microalbumin Random 03/15/2018 Ur Microalbumin (mg/L) 48.4 mg/L Urine Creatinine 237.27 mg/dL Urine Microalbumin/Creatinine 20.3 ug/mg <31 Lipid Profile (Trig/Chol/HDL) 03/15/2018 Triglycerides 310 mg/dL 1 Cholesterol 219 mg/dL 2 HDL Cholesterol 33.4 mg/dL 3 LDL Cholesterol 124 mg/dL 4 Statin 03/15/2018 Ast 13 U/L 13-39 Alt 6 U/L Low 7-52 Comp Metabolic Panel 03/15/2018 Sodium 139 mmol/L 135-145 Potassium 4.0 mmol/L 3.5-5.0 Chloride 106 mmol/L 101-111 Co2 Carbon Dioxide 22 mmol/L 22-32 Anion Gap 11 mmol/L 2-11 Glucose 87 mg/dL 70-100 Blood Urea Nitrogen 19 mg/dL 6-24 Creatinine 0.99 mg/dL High 0.51-0.95 BUN/Creatinine Ratio 19.2 8-20 Calcium 10.4 mg/dL High 8.6-10.3 Total Protein 6.5 g/dL 6.4-8.9 Albumin 4.1 g/dL 3.2-5.2 Globulin 2.4 g/dL 2-4 Albumin/Globulin Ratio 1.7 1-3 Total Bilirubin 0.70 mg/dL 0.2-1.0 Alkaline Phosphatase 56 U/L 34-104 Egfr Non- 53.6 >60 Egfr 64.8 >60 5 Laboratory test finding 03/15/2018 C Reactive Protein 2.20 mg/L <8.01 6 Ferritin 64.0 ng/mL 11-307 7 TSH (Thyroid Stim Horm) 2.22 mcIU/mL 0.34-5.60 8 Vitamin B12 723 pg/mL 180-914 9 CBC Auto Diff 03/15/2018 White Blood Count 8.3 10^3/uL 3.5-10.8 Red Blood Count 4.56 10^6/uL 4.00-5.40 Hemoglobin 13.0 g/dL 12.0-16.0 Hematocrit 39 % 35-47 Mean Corpuscular Volume 86 fL 80-97 Mean Corpuscular Hemoglobin 29 pg 27-31 Mean Corpuscular HGB Conc 33 g/dL 31-36 Red Cell Distribution Width 13 % 10.5-15 Platelet Count 309 10^3/uL 150-450 Mean Platelet Volume 9.3 um3 7.4-10.4 Abs Neutrophils 5.2 10^3/uL 1.5-7.7 Abs Lymphocytes 2.0 10^3/uL 1.0-4.8 Abs Monocytes 0.9 10^3/uL High 0-0.8 Abs Eosinophils 0.1 10^3/uL 0-0.6 Abs Basophils 0.1 10^3/uL 0-0.2 Abs Nucleated RBC 0 10^3/uL Granulocyte % 62.1 % 38-83 Lymphocyte % 24.2 % Low 25-47 Monocyte % 10.5 % High 0-7 Eosinophil % 1.8 % 0-6 Basophil % 1.4 % 0-2 Nucleated Red Blood Cells % 0.1 Pthi 11/24/2017 Calcium (PTH Intact) 10.5 mg/dL High 8.6-10.3 PTH Intact 8.6 pmol/L 1.3-9.3 CBC Auto Diff 11/24/2017 White Blood Count 7.2 10^3/uL 3.5-10.8 Red Blood Count 4.58 10^6/uL 4.0-5.4 Hemoglobin 13.6 g/dL 12.0-16.0 Hematocrit 40 % 35-47 Mean Corpuscular Volume 88 fL 80-97 Mean Corpuscular Hemoglobin 30 pg 27-31 Mean Corpuscular HGB Conc 34 g/dL 31-36 Red Cell Distribution Width 13 % 10.5-15 Platelet Count 274 10^3/uL 150-450 Mean Platelet Volume 8 um3 7.4-10.4 Abs Neutrophils 4.6 10^3/uL 1.5-7.7 Abs Lymphocytes 1.8 10^3/uL 1.0-4.8 Abs Monocytes 0.7 10^3/uL 0-0.8 Abs Eosinophils 0.1 10^3/uL 0-0.6 Abs Basophils 0.1 10^3/uL 0-0.2 Abs Nucleated RBC 0 10^3/uL Granulocyte % 63.4 % 38-83 Lymphocyte % 24.4 % Low 25-47 Monocyte % 9.3 % High 0-7 Eosinophil % 1.7 % 0-6 Basophil % 1.2 % 0-2 Nucleated Red Blood Cells % 0.1 Comp Metabolic Panel 11/24/2017 Sodium 137 mmol/L 133-145 Potassium 3.8 mmol/L 3.5-5.0 Chloride 106 mmol/L 101-111 Co2 Carbon Dioxide 24 mmol/L 22-32 Anion Gap 7 mmol/L 2-11 Glucose 100 mg/dL 70-100 Blood Urea Nitrogen 14 mg/dL 6-24 Creatinine 1.15 mg/dL High 0.51-0.95 BUN/Creatinine Ratio 12.2 8-20 Calcium 10.5 mg/dL High 8.6-10.3 Total Protein 6.3 g/dL Low 6.4-8.9 Albumin 4.0 g/dL 3.2-5.2 Globulin 2.3 g/dL 2-4 Albumin/Globulin Ratio 1.7 1-3 Total Bilirubin 0.60 mg/dL 0.2-1.0 Alkaline Phosphatase 40 U/L 34-104 Alt 9 U/L 7-52 Ast 15 U/L 13-39 Egfr Non- 45.1 >60 Egfr 58.0 >60 10 Laboratory test finding 11/16/2017 Stool For Blood SEE RESULT BELOW 11 Stool Culture SEE RESULT BELOW 12 Urinalysis Profile 11/16/2017 Urine Color Yellow Urine Appearance Cloudy Urine Specific Gifford 1.012 1.010-1.030 Urine pH 5.0 5-9 Urine Urobilinogen Negative Negative Urine Ketones Trace Negative Urine Protein Negative Negative Urine Leukocytes 3+ Negative Urine Blood 2+ Negative Urine Nitrite Negative Negative Urine Bilirubin Negative Negative Urine Glucose Negative Negative Urine White Blood Cell 3+(>20/hpf) Absent Urine Red Blood Cell 3+(>10/hpf) Absent Urine Bacteria 1+ Absent Urine Squamous Epithelial Cell Present Absent Urine Renal Epithelial Cells Present Absent Laboratory test 11/16/2017 Urine Culture SEE RESULT BELOW 13 finding Rapid Influenza A & B 11/16/2017 Influenza A NEGATIVE Negative 14 Molecular Molecular Influenza B Molecular NEGATIVE Negative Laboratory test finding 11/16/2017 Lactic Acid 1.2 mmol/L 0.5-2.0 15 Comp Metabolic Panel 11/16/2017 Sodium 137 mmol/L 133-145 Potassium 4.1 mmol/L 3.5-5.0 Chloride 106 mmol/L 101-111 Co2 Carbon Dioxide 21 mmol/L Low 22-32 Anion Gap 10 mmol/L 2-11 Glucose 151 mg/dL High 70-100 Blood Urea Nitrogen 21 mg/dL 6-24 Creatinine 0.98 mg/dL High 0.51-0.95 BUN/Creatinine Ratio 21.4 High 8-20 Calcium 10.6 mg/dL High 8.6-10.3 Total Protein 7.5 g/dL 6.4-8.9 Albumin 4.5 g/dL 3.2-5.2 Globulin 3.0 g/dL 2-4 Albumin/Globulin Ratio 1.5 1-3 Total Bilirubin 1.00 mg/dL 0.2-1.0 Alkaline Phosphatase 55 U/L 34-104 Alt 9 U/L 7-52 Ast 14 U/L 13-39 Egfr Non- 54.2 >60 Egfr 69.7 >60 16 Laboratory test finding 11/16/2017 C Reactive Protein 4.19 mg/L < 5.00 17 Troponin-I (TnI) 0.00 ng/mL <0.04 CBC Auto Diff 11/16/2017 White Blood Count 13.9 10^3/uL High 3.5-10.8 Red Blood Count 5.20 10^6/uL 4.0-5.4 Hemoglobin 15.1 g/dL 12.0-16.0 Hematocrit 46 % 35-47 Mean Corpuscular Volume 88 fL 80-97 Mean Corpuscular Hemoglobin 29 pg 27-31 Mean Corpuscular HGB Conc 33 g/dL 31-36 Red Cell Distribution Width 13 % 10.5-15 Platelet Count 282 10^3/uL 150-450 Mean Platelet Volume 9 um3 7.4-10.4 Abs Neutrophils 12.8 10^3/uL High 1.5-7.7 Abs Lymphocytes 0.4 10^3/uL Low 1.0-4.8 Abs Monocytes 0.6 10^3/uL 0-0.8 Abs Eosinophils 0 10^3/uL 0-0.6 Abs Basophils 0 10^3/uL 0-0.2 Abs Nucleated RBC 0 10^3/uL Granulocyte % 92.1 % High 38-83 Lymphocyte % 3.2 % Low 25-47 Monocyte % 4.4 % 0-7 Eosinophil % 0.1 % 0-6 Basophil % 0.2 % 0-2 Nucleated Red Blood Cells % 0 Inr/Protime 11/16/2017 Inr 0.91 0.77-1.02 Laboratory test 11/16/2017 Blood Culture SEE RESULT BELOW 18 finding Laboratory test 07/20/2017 Strep Screen neg Neg finding Laboratory test 07/05/2017 Surgical Pathology SEE RESULT BELOW 19 finding Laboratory test 07/05/2017 Point of Care 115 mg/dL High 70-100 20 finding Glucose Laboratory test 04/05/2017 Surgical Pathology SEE RESULT BELOW 21 finding Statin 03/26/2017 Ast 14 U/L 13-39 Alt 9 U/L 7-52 Lipid Profile (Trig/Chol/HDL) 03/26/2017 Triglycerides 183 mg/dL 22 Cholesterol 181 mg/dL 23 HDL Cholesterol 45.5 mg/dL 24 LDL Cholesterol 99 mg/dL 25 Laboratory test 03/26/2017 Hemoglobin A1c (Glyco 5.8 % Less than 6.0 26 finding HGB) Comp Metabolic Panel 03/26/2017 Sodium 137 mmol/L [...] Egfr Non- 59.0 >60 Egfr 75.9 >60 27 CBC Auto Diff 03/26/2017 White Blood Count [...] 0-2 Nucleated Red Blood Cells % 0 Laboratory test finding 03/26/2017 Vitamin D Total 25(Oh) 37.0 ng/mL 30- 50 28 Laboratory test finding 03/09/2017 C Reactive Protein 1.71 mg/L < 5.00 29 CBC Auto Diff 03/09/2017 White Blood Count [...] Egfr Non- 57.7 >60 Egfr 74.2 >60 30 Laboratory test finding 03/09/2017 Ferritin 60.9 ng/mL 11-307 31 Lyme Disease Serology Negative Negative 32 TSH (Thyroid Stim Horm) 1.61 mcIU/mL 0.34-5.60 33 Laboratory test finding 10/25/2016 C Reactive Protein 9.44 mg/L High < 5.00 34 Blood Culture SEE RESULT BELOW 35 Comp Metabolic Panel 10/25/2016 Sodium 135 mmol/L [...] Egfr Non- 51.9 >60 Egfr 66.7 >60 36 Laboratory test finding 10/25/2016 Lactic Acid 1.1 mmol/L 0.5-2.0 37 CBC Auto Diff 10/25/2016 White Blood Count [...] 0-2 Nucleated Red Blood Cells % 0 Rapid Influenza A & B 10/25/2016 Influenza A Molecular POSITIVE Negative 38 Molecular Influenza B Molecular NEGATIVE Negative Laboratory test finding 10/25/2016 Rapid Influenza A & B SEE RESULT BELOW 39 Antigen Urine Culture SEE RESULT BELOW 40 Urinalysis Profile 10/25/2016 Urine Color Yellow Urine Appearance Cloudy Urine Specific Gifford 1.019 1.010-1.030 Urine pH 6.0 5-9 Urine Urobilinogen Negative Negative Urine Ketones Trace Negative Urine Protein 2+(100 mg/dL) Negative Urine Leukocytes 3+ Negative Urine Blood Negative Negative * * Negative 41 Urine Nitrite Negative Negative Urine Bilirubin Negative Negative Urine Glucose Negative Negative Urine White Blood Cell 2+(11-20/hpf) Absent Urine Red Blood Cell 2+(6-10/hpf) Absent Urine Bacteria Absent Absent Urine Squamous Epithelial Cell Present Absent Urine Microalbumin Random 09/27/2016 Urine Creatinine 127.67 mg/dL Ur Microalbumin (mg/L) 41.1 mg/L Urine Microalbumin/Creatinine 32.1 ug/mg High <31 Laboratory test 09/22/2016 Hemoglobin A1c (Glyco 5.5 % Less than 6.0 42 finding HGB) CBC Auto Diff 09/22/2016 White [...] test finding 09/22/2016 Ferritin 22.3 ng/mL 11-307 43 1 Desirable: <150 Borderline High: 150-199 High: 200-499 Very High: >500 2 Desirable: <200 Borderline High: 200-239 High: >239 3 Low: <40 Desirable: 40-60 High: >60 4 Desirable: <100 Near Optimal: 100-129 Borderline High: 130-159 High: 160-189 Very High: >189 5 Because ethnic data is not always readily [...] 15-29 5 Kidney failure <15 (or dialysis) 6 [id number] 8 [id number] 9 Normal Range 180 to 914 Indeterminate Range 145 to 180 Deficient Range <145 10 Because ethnic data is not always readily [...] 15-29 5 Kidney failure <15 (or dialysis) 11 SEE RESULT BELOW Name: JUNE ALLEN : [address]: Sachin Castanon MD Acct: [id number] Unit: [id number] AGE: 82 Location: ED Re11/16/17 SEX: F Status: REG ER SPEC: [id number] CARTER: 11/16/[address] [facility] [address]: Sachin Castanon MD REQ: [id number] RECD: 11/16/17 STATUS: WILLIAM FRANCO DR: Juventino Hsu MD _ SOURCE: STOOL SPDESC: ORDERED: Occult Bl, Diag, C. diff PCR, Fecal Lactoferr Procedure Result Reported Site Stool Specimen Description Final 11/16/17- 1659 ML Stool Color Dark Brown Stool Form Nonformed Stool Consistency Liquid Watery C. difficile PCR Final 11/16/17- 1729 ML Organism 1 027 Presumptive NEGATIVE Organism 2 Toxigenic C.diff NEGATIVE Fecal Lactoferrin (Stool WBC) Final 11/16/17- 1706 ML Fecal Lactoferrin Positive by Immunoassay TEST LIMITATIONS: Assay detects elevated levels of lactoferrin released from fecal leukocytes as a marker of intestinal inflammation. The test may not be appropriate in immunocompromised persons. Fecal samples from breast fed infants should not be used with this assay. Stool Occult Blood (1) Final 11/16/17- 1659 ML Stool Occult Blood Negative Collection Date (1) 11/16/17 * - Main Lab . END OF REPORT DEPARTMENT OF PATHOLOGY, [address] [place] [address] Nelson Willis M.D. Director [facility] # [id number] 12 SEE RESULT BELOW Name: JUNE ALLEN : [address]: Sachin Castanon MD Acct: [id number] Unit: [id number] AGE: 82 Location: ED Re11/16/17 SEX: F Status: DEP ER SPEC: [id number] CARTER: 11/16/[address] [facility] [address]: Sachin Castanon MD REQ: [id number] RECD: 11/16/17 STATUS: WILLIAM FRANCO DR: Juventino Hsu MD _ SOURCE: STOOL SPDESC: ORDERED: Stool Culture COMMENTS: Unable to Perform Shiga Toxin Testing. Insufficient Growth of Enteric Bacteria. Procedure Result Reported Site Stool Culture Final 11/18/17- 1015 ML Result No enteric pathogens isolated Testing for Salmonella, Shigella, Aeromonas, Plesiomonas, Yersinia and Campylobacter are included in a Stool Culture. Vibrio spp not routinely tested for in a stool culture. If testing is desired, please request specifically when placing test order. Sensitivities not routinely performed on stool isolates, as antibiotics may prolong the carriage rate of bacteria. Please contact the microbiology lab if sensitivities are required. Stool Specimen Description Final 11/16/17- 1659 ML Stool Color Dark Brown Stool Form Nonformed Stool Consistency Liquid Watery Shiga Toxin 1 2 Final 11/19/17- 0937 ML Test not performed * ML - Main Lab . END OF REPORT DEPARTMENT OF PATHOLOGY, [address] [place] [address] Nelson Willis M.D. Director [facility] # [id number] 13 SEE RESULT BELOW Name: JUNE ALLEN : [address]: Sachin Castanon MD Acct: [id number] Unit: [id number] AGE: 82 Location: ED Re11/16/17 SEX: F Status: DEP ER SPEC: [id number] CARTER: 11/16/[address]: Sachin Castanon MD REQ: [id number] RECD: 11/16/17 STATUS: COMP TORRIHR DR: Juventino Hsu MD _ SOURCE: URINE SPDESC: ORDERED: Urine Culture Procedure Result Reported Site Urine Culture Final 11/18/17- 1105 ML No growth of clinically significant organisms * ML - Main Lab . END OF REPORT DEPARTMENT OF PATHOLOGY, [address] [place] [address], [place] [address] Nelson Willis M.D. Director [facility] # [id number] 14 Civil Attorney: [id number] [facility] Severe Sepsis and Septic Shock Management Bundle Measure requires all lactic acids initially measuring >2.0 mmol/L be repeated. 16 Because ethnic data is not always readily [...] 15-29 5 Kidney failure <15 (or dialysis) 17 Acute inflammation: >10.00 18 SEE RESULT BELOW Name: JUNE ALLEN : [address]: Sachin Castanon MD Acct: [id number] Unit: [id number] AGE: 82 Location: ED Re11/16/17 SEX: F Status: DEP ER SPEC: [id number] CARTER: 11/16/[address] [facility] [address]: Sachin Castanon MD REQ: [id number] RECD: 11/16/17 STATUS: WILLIAM FRANCO DR: Juventino Hsu MD _ SOURCE: BLOOD,VENO SPDESC: ORDERED: Blood Cult Procedure Result Reported Site Aerobic Culture Bottle Final 11/21/17- 8 ML No Growth Day 5 Anaerobic Culture Bottle Final 11/21/17- 6 ML No Growth Day 5 * ML - Main Lab . END OF REPORT DEPARTMENT OF PATHOLOGY, [address] [place] [address] Nelson Willis M.D. Director [facility] # [id number] 19 SEE RESULT BELOW Name: JUNE ALLEN : [address]: Jose De Jesus Dong MD Acct: [id number] Unit: [id number] AGE: 82 Location: [facility] Re07/05/17 SEX: F Status: SARAH SD SPEC: [id number] CARTER: 07/05/[address] [facility] [address]: Jose De Jesus Dong MD REQ: [id number] RECD: 07/05/17 STATUS: CARLOS FRANCO DR: Juventino Hsu MD _ ORDERED: LEVEL 1, LEVEL 4 FINAL DIAGNOSIS 1) Skin, left breast, excision: Benign skin with scar. 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 PRE-OPERATIVE DIAGNOSIS Probable left breast implant partial deflation. GROSS DESCRIPTION 1. The specimen is received in formalin labeled, Left Mastectomy Scar, and consists of a 12.6 by up to 1.0 cm goldberg-pink wrinkled elongated skin ellipse excised to a maximum depth of 0.5 cm. The specimen is inked and benefits representative sections are submitted in one cassette. 2. The specimen is received fresh labeled, Explanted Left Breast Implant, and consists of a 15.0 x 15.0 x 4.0 cm intact transparent ovoid implant containing thin clear fluid. The following inscription is identified: ELAINE [id number] MP 475cc. Per established hospital medical staff protocol, no tissue is submitted. Gross only. Signed (signature on file) Thea Infante MD [id number] END OF REPORT * ML=Testing performed at Main Lab DEPARTMENT OF PATHOLOGY, [address] [place] [address] Nelson Willis M.D. Director [facility] # [id number] 20 Civil Attorney: [id number] 21 SEE RESULT BELOW Name: ALEJANDROJUNE : [address]: Juventino Hsu MD Acct: [id number] Unit: [id number] AGE: 82 Location: [facility] Re04/05/17 SEX: F Status: REG REF SPEC: [id number] CARTER: 04/05/17-[address] [facility] [address]: Juventino Hsu MD REQ: [id number] RECD: 04/05/17 STATUS: SOUT _ ORDERED: LEVEL 4 COMMENTS: [id number] FINAL DIAGNOSIS Skin, right outer thigh, excision: [...] Signed (signature on file) Nelson Willis MD 123 END OF REPORT * ML=Testing performed at Main Lab DEPARTMENT OF PATHOLOGY, [address] [place] [address] Nelson Willis M.D. Director [facility] # [id number] 22 Desirable <150 Borderline high 150-199 High 200-499 Very High >500 23 Desirable <200 Borderline high 200-239 High >239 24 Low <40 Desirable: 40-60 High: >60 25 Desirable: <100 mg/dL Near Optimal: 100-129 mg/dL Borderline High: 130-159 mg/dL High: 160-189 mg/dL Very High: >189 mg/dL 26 Therapeutic target for the treatment of diabetes Mellitus patients is <7% HBA1C, and in selective patients <6.0%.Please refer to [place] [employer] Diabetic care guidelines for further information. 27 Because ethnic data is not always readily [...] 15-29 5 Kidney failure <15 (or dialysis) 28 [id number] 29 Acute inflammation: >10.00 30 Because ethnic data is not always readily [...] 15-29 5 Kidney failure <15 (or dialysis) 31 [id number] 32 Serologic response to B. burgdorferi infection is not detected, but cannot rule out early infection during which low or undetectable antibody levels to B. burgdorferi may be present. If clinically indicated, a new serum specimen should be submitted in 7-14 days. Test Performed by: [address] [address] 33 [id number] 34 Acute inflammation: >10.00 35 SEE RESULT BELOW Name: JUNE ALLEN : [address]: Sachin Castanon MD Acct: [id number] Unit: [id number] AGE: 81 Location: ED Re10/25/16 SEX: F Status: DEP ER SPEC: [id number] CARTER: 10/25/[address] [facility] [address]: Sachin Castanon MD REQ: [id number] RECD: 10/25/16 STATUS: WILLIAM FRANCO DR: Juventino Hsu MD _ SOURCE: BLOOD,VENO SPDESC: ORDERED: Blood Cult Procedure Result Reported Site Aerobic Culture Bottle Final 10/30/16- 1745 ML No Growth Day 5 Anaerobic Culture Bottle Final 10/30/16- 1745 ML No Growth Day 5 * ML - MAIN LAB ([facility]) . END OF REPORT * ML=Testing performed at Main Lab DEPARTMENT OF PATHOLOGY, [address] [place] [address] Nelson Willis M.D. Director [facility] # [id number] 36 Because ethnic data is not always readily [...] 15-29 5 Kidney failure <15 (or dialysis) 37 [facility] Severe Sepsis and Septic Shock Management Bundle Measure requires all lactic acids initially measuring >2.0 mmol/L be repeated. 38 Civil Attorney: [id number] Joaquim Dodd 39 SEE RESULT BELOW Name: JUNE ALLEN : [address]: Sachin Castanon MD Acct: [id number] Unit: [id number] AGE: 81 Location: ED Re10/25/16 SEX: F Status: DEP ER SPEC: [id number] CARTER: 10/25/[address] [facility] [address]: Sachin Castanon MD REQ: [id number] RECD: 10/25/16 STATUS: WILLIAM FRANCO DR: Juventino Hsu MD _ S[facility] ORDERED: Flu A B Request Procedure Result Reported Site Rapid Influenza A B Request Final 10/26/16- 316 ML Specimen received for Influenza A/B Molecular testing * ML - MAIN LAB ([facility]) . END OF REPORT * ML=Testing performed at Main Lab DEPARTMENT OF PATHOLOGY, [address] [place] [address] Nelson Willis M.D. Director [facility] # [id number] 40 SEE RESULT BELOW Name: JUNE ALLEN : [address]: Sachin Castanon MD Acct: [id number] Unit: [id number] AGE: 81 Location: ED Re10/25/16 SEX: F Status: DEP ER SPEC: [id number] CARTER: 10/25/[address]: Sachin Castanon MD REQ: [id number] RECD: 10/25/16 STATUS: WILLIAM FRANCO DR: Juventino Hsu MD _ SOURCE: URINE SPDESC: ORDERED: Urine Culture Procedure Result Reported Site Urine Culture Final 10/27/16- 827 ML No growth of clinically significant organisms * ML - MAIN LAB ([facility]) . END OF REPORT * ML=Testing performed at Main Lab DEPARTMENT OF PATHOLOGY, [address] [place] [address] Nelson Willis M.D. Director [facility] # [id number] 41 *Ascorbic acid is present which may interfere with detection of blood. 42 Corrected result! Wrong result was 7.2. --- 09/25/16 2254 --- Hemoglobin A1c previously reported as: 7.2 H % Therapeutic target for the treatment of diabetes Mellitus patients is <7% HBA1C, and in selective patients <6.0%.Please refer to [place] [employer] Diabetic care guidelines for further information. 43 [id number] Procedures Date CPT Code Description Status 04/05/2017 25502 Excision Benign Lesion 1.1 To 2.0 CM Completed Encounters Type Date Location Provider CPT E/M Dx Office Visit 03/15/2018 2:45p [place] [address] R30.0 R53.83 E78.5 Office Visit 12/14/2017 3:30p [place] [address] H81.12 Office Visit 11/28/2017 4:00p [place] [address] H81.12 K59.00 Office Visit 10/22/2017 2:30p [place] [address] S40.021A Office Visit 07/20/2017 2:00p [place] [address] J01.90 Office Visit 06/22/2017 10:15a [place] [address] Z98.82 T85.42xD Office Visit 06/08/2017 10:00a [place] [address] R42 Office Visit 03/26/2017 1:00p Main Office Juventino Hsu MD G0439 Z00.8 D48.5 H90.3 E78.5 Q13.0 Office Visit 03/09/2017 9:45a [place] [address] R42 R53.83 M25.561 J30.0 Z98.82 Office Visit 11/08/2016 2:45p [place] [address] J10.89 J01.90 Office Visit 09/27/2016 9:45a [place] [address] E11.9 I10 Z12.31 Office Visit 07/19/2016 10:30a [place] [address] E11.9 I10 Office Visit 06/22/2016 9:00a [place] [address] E11.9 M05.779 K21.9 R55 F32.5 M81.0 I10 Plan of Care 05/08/2018 - Juventino Hsu MDR53.83 Other fatigueComments:She looks quite unwell. Her sugar level is fine. Her urine testing is unrevealing. She has a fever, with no clear reason. She has had a chest x-ray within the past few days showing no sign of pneumonia, additionally her oxygen level is fine.I considered referring her to the emergency room for quicker workup but her vitals are preserved and she does have normal consciousness, and no specific signs of severe illness at this time.It is still early enough that we should be able to get her samples to the[facility]ital at noon, and start to get some results by the early afternoon. She will go home and rest.R19.7 Diarrhea, unspecifiedComments:Intermittent diarrhea, in the setting of other more concerning symptoms. This is really the only possibly localizing symptom, her symptoms could be explained by colitis but she does not have any bleeding or mucus in her stool.
--- OUTSIDE RECORDS SUMMARY | 2018-05-13 12:46 | XMS REPORT ---
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 [address] JORJE Marcus [id number] Medigap Part B Effective: 2017 Policy Number: Christa CHETSELVIN Allen [id number] Expires: 2017 Group Name: [place] [address] [address] PayID: [id number] JORJE Marcus [address] Medicare Primary Expires: 2016 Policy Number: Medicare - Bswlatonya Juarezd [id number] Umd PayID: [id number] [address] [place] [address] Medigap Part B Effective: Policy Number: Jamaal Shereen Allen 2017 [id number] Accident Ins Group Number: [id number] [address] PayID: [id number] EMILY Foote [id number] Problems Description No Information Family History Date [...] 1 at Juventino 2017 s bedtime as Heetroxanna needed , Fluticasone 07/20/ Active Suspension 50mcg/Act 16gm inhale one J01.90 Juventino Propionate 2017 spray in Heetderks each , nostril every day Amlodipine 03/12/ Active Tablets 2.5mg 30tab Take One Juventino Besylate 2016 s Tablet By [place] Mouth Every , MD Day Ipratropium 03/09/ Active Solution 0.06% 30ml 2 J30.0 Juventino Waubay 2017 intranasal Heetderks puffs twice , MD [...] Active Strips 100un use as Juventino Test 2016 its directed to Aracelis rand blood MD glucose twice daily brand Sukhwinder Track by BIlprospekt . Lovaza 06/22/ Active Capsules 1gm 60cap [...] Take One Juventino 2015 s Capsule By Heetroxanna Mouth Twice , MD A Day Uloric 06/22/ Active Tablets 40mg 30tab Take One Juventino 2015 s Tablet By Heetmelanieks Mouth Every , MD Day Alendronate 06/22/ Active Tablets 35mg 4tabs Take One Juventino Sodium 2016 Tablet By Heetderkevon Mouth Every , MD Week as Directed Prednisone 06/22/ Active Tablets 5mg 45tab Take 1 To 2 Juventino 2015 s Tablets By Aracelis Mouth Once , Daily as Needed Clindamycin 11/08/ Hx Capsules 300mg 21cap take 1 J01.90 Juventino HCL 2017 - s capsule by Aracelis 03/15/ mouth every , 2017 8 hours for 7 days. Amlodipine 06/22/ Hx Tablets 5mg 30tab 1 by mouth Juventino Besylate 2016 - s every day Aracelis 03/12/ MD 2017 Fluoxetine 06/22/ Hx Capsules 20mg 30cap Take One Juventino HCL 2015 - s Capsule By Aracelis 03/15/ Mouth Every , 2018 Day Immunizations CPT Code Status Date Vaccine Lot # [id number] Given 06/05/2017 Influenza Vaccine High Dose PF [id number] 30210 Given 11/10/2016 Influenza Virus Vaccine, Quadrivalent, 3 Yr > [id number] Quad, Preserv Free 21360 Given 10/18/2015 Prevnar-13 Pneumococcal Conjugate Vaccine 60435 Given 09/17/2014 Zoster Vaccine 33429 Given 03/17/2013 Pneumovax 23 (PPSV23) 65+ years or high risk 2 to 64 year old 60748 Given 03/17/2013 DT (Adult) Vital Signs Date Vital Result Comment 05/01/2018 Weight 134.00 lb Weight in kg's [...] Test Date Test Result H/L Range Note Urine Microalbumin Random 03/15/2018 Ur Microalbumin (mg/L) 48.4 mg/L Urine Creatinine 237.27 mg/dL Urine Microalbumin/Creatinine 20.3 ug/mg <31 Comp Metabolic Panel 03/15/2018 Sodium 139 mmol/L [...] Egfr Non- 53.6 >60 Egfr 64.8 >60 1 CBC Auto Diff 03/15/2018 White Blood Count [...] Blood Cells % 0.1 Laboratory test finding 03/15/2018 C Reactive Protein 2.20 mg/L <8.01 2 Ferritin 64.0 ng/mL 11-307 3 TSH (Thyroid Stim Horm) 2.22 mcIU/mL 0.34-5.60 4 Vitamin B12 723 pg/mL 180-914 5 Statin 03/15/2018 Ast 13 U/L 13-39 Alt 6 U/L Low 7-52 Lipid Profile (Trig/Chol/HDL) 03/15/2018 Triglycerides 310 mg/dL 6 Cholesterol 219 mg/dL 7 HDL Cholesterol 33.4 mg/dL 8 LDL Cholesterol 124 mg/dL 9 Comp Metabolic Panel 11/24/2017 Sodium 137 mmol/L [...] Non- 45.1 >60 Egfr 58.0 >60 10 CBC Auto Diff 11/24/2017 White Blood Count [...] High 8.6-10.3 PTH Intact 8.6 pmol/L 1.3-9.3 Laboratory test 11/16/2017 Blood Culture SEE RESULT BELOW 11 finding Inr/Protime 11/16/2017 Inr 0.91 0.77-1.02 CBC Auto Diff 11/16/2017 White Blood Count [...] Blood Cells % 0 Laboratory test finding 11/16/2017 C Reactive Protein 4.19 mg/L < 5.00 12 Troponin-I (TnI) 0.00 ng/mL <0.04 Comp Metabolic Panel 11/16/2017 Sodium 137 mmol/L [...] Egfr Non- 54.2 >60 Egfr 69.7 >60 13 Laboratory test finding 11/16/2017 Lactic Acid 1.2 mmol/L 0.5-2.0 14 Rapid Influenza A & B 11/16/2017 Influenza A Molecular NEGATIVE Negative 15 Molecular Influenza B Molecular NEGATIVE Negative Laboratory test finding 11/16/2017 Urine Culture SEE RESULT BELOW 16 Urinalysis Profile 11/16/2017 Urine Color Yellow Urine Appearance Cloudy Urine Specific [place] 1.012 1.010-1.030 Urine pH 5.0 5-9 Urine [...] Renal Epithelial Cells Present Absent Laboratory test finding 11/16/2017 Stool For Blood SEE RESULT BELOW 17 Stool Culture SEE RESULT BELOW 18 Laboratory test 07/20/2017 Strep Screen neg Neg finding Laboratory test 07/05/2017 Surgical Pathology SEE RESULT BELOW 19 finding Laboratory test 07/05/2017 Point of Care 115 mg/dL High 70-100 20 finding Glucose Laboratory test 04/05/2017 Surgical Pathology SEE RESULT BELOW 21 finding Laboratory test 03/26/2017 Vitamin D Total 37.0 ng/mL 30-50 22 finding 25(Oh) CBC Auto Diff 03/26/2017 White [...] 0-2 Nucleated Red Blood Cells % 0 Comp Metabolic Panel 03/26/2017 Sodium 137 mmol/L [...] Egfr Non- 59.0 >60 Egfr 75.9 >60 23 Statin 03/26/2017 Ast 14 U/L 13-39 Alt 9 U/L 7-52 Lipid Profile (Trig/Chol/HDL) 03/26/2017 Triglycerides 183 mg/dL 24 Cholesterol 181 mg/dL 25 HDL Cholesterol 45.5 mg/dL 26 LDL Cholesterol 99 mg/dL 27 Laboratory test 03/26/2017 Hemoglobin A1c (Glyco 5.8 % Less than 6.0 28 finding HGB) Laboratory test 03/09/2017 C Reactive Protein 1.71 mg/L < 5.00 29 finding CBC Auto Diff 03/09/2017 White Blood Count [...] Color Yellow Urine Appearance Cloudy Urine Specific [place] 1.019 1.010-1.030 Urine pH 6.0 5-9 Urine [...] 09/22/2016 Ferritin 22.3 ng/mL 11-307 43 1 Because ethnic data is not always readily [...] 15-29 5 Kidney failure <15 (or dialysis) 2 [id number] 3 [id number] 4 [id number] 5 Normal Range 180 to 914 Indeterminate Range 145 to 180 Deficient Range <145 6 Desirable: <150 Borderline High: 150-199 High: 200-499 Very High: >500 7 Desirable: <200 Borderline High: 200-239 High: >239 8 Low: <40 Desirable: 40-60 High: >60 9 Desirable: <100 Near Optimal: 100-129 Borderline High: 130-159 High: 160-189 Very High: >189 10 Because ethnic data is not always [...] [address]: Sachin Castanon MD Acct: [id number] Unit: [id number] AGE: 82 Location: ED Re11/16/17 SEX: F Status: DEP ER SPEC: [id number] CARTER: 11/16/17-1340 [facility] DR: Sachin Castanon MD REQ: [id number] RECD: 11/16/17-144 STATUS: WILLIAM FRANCO DR: Juventino Hsu MD _ SOURCE: BLOOD,VENO SPDESC: ORDERED: Blood Cult Procedure Result Reported Site Aerobic Culture Bottle Final 11/21/17- 1448 ML No Growth Day 5 Anaerobic Culture Bottle Final 11/21/17- 1446 ML No Growth Day 5 * ML - Main Lab . END OF REPORT DEPARTMENT OF PATHOLOGY, [address] [place] [address] Nelson Willis M.D. Director [facility] # [id number] 12 Acute inflammation: >10.00 13 Because ethnic data is not always readily [...] 15-29 5 Kidney failure <15 (or dialysis) 14 [facility] Severe Sepsis and Septic Shock Management Bundle Measure requires all lactic acids initially measuring >2.0 mmol/L be repeated. 15 Clay Modeler: [id number] 16 SEE RESULT BELOW Name: JUNE ALLEN : [address]: Sachin Castanon MD Acct: [id number] Unit: [id number] AGE: 82 Location: ED Re11/16/17 SEX: F Status: DEP ER SPEC: [id number] CARTER: 11/16/17 [facility] DR: Sachin Castanon MD REQ: [id number] RECD: 11/16/17 STATUS: WILLIAM FRANCO DR: Juventino Hsu MD _ SOURCE: URINE SPDESC: ORDERED: Urine Culture Procedure Result Reported Site Urine Culture Final 11/18/17- 1105 ML No growth of clinically significant organisms * ML - Main Lab . END OF REPORT DEPARTMENT OF PATHOLOGY, [address] [place] [address] Nelson Willis M.D. Director [facility] # [id number] 17 SEE RESULT BELOW Name: JUNE ALLEN : [address]: Sachin Castanon MD Acct: [id number] Unit: [id number] AGE: 82 Location: ED Re11/16/17 SEX: F Status: REG ER SPEC: [id number] CARTER: 11/16/17-[address]: Sachin Castanon MD REQ: [id number] RECD: 11/16/17 STATUS: WILLIAM FRANCO DR: Juventino Hsu MD _ SOURCE: STOOL SPDESC: ORDERED: Occult Bl, Adriana CChapincito diff PCR, Fecal Lactoferr Procedure Result Reported [...] Blood Negative Collection Date (1) 11/16/17 * ML - Main Lab . END OF REPORT DEPARTMENT OF PATHOLOGY, [address] [place] [address] Nelson Willis M.D. Director [facility] # [id number] 18 SEE RESULT BELOW Name: JUNE ALLEN : [address]: Sachin Castanon MD Acct: [id number] Unit: [id number] AGE: 82 Location: ED Re11/16/17 SEX: F Status: DEP ER SPEC: [id number] CARTER: 11/16/17 [facility] [address]: Sachin Castanon MD REQ: [id number] RECD: 11/16/17 STATUS: WILLIAM FRANCO DR: Juventino [...] . END OF REPORT DEPARTMENT OF PATHOLOGY, [address] [place] [address] Nelson Wlilis M.D. Director [facility] # [id number] 19 SEE RESULT BELOW Name: JUNE ALLEN : [address]: Jose De Jesus Dong MD Acct: [id number] Unit: [id number] AGE: 82 Location: [facility] Re07/05/17 SEX: F Status: DEP SDC SPEC: [id number] CARTER: 07/05/17 [facility] [address]: Jose De Jesus Dong MD REQ: [id number] RECD: 07/05/17 STATUS: CARLOS FRANCO DR: Juventino Hsu MD _ ORDERED: LEVEL 1, LEVEL 4 FINAL DIAGNOSIS 1) Skin, left breast, excision: Benign skin with scar. 2) Breast, left implant, excision: director airport as described below (9999 grams) (Gross diagnosis). PRE-OPERATIVE DIAGNOSIS Probable left breast implant partial deflation. GROSS DESCRIPTION 1. The specimen is received in formalin labeled, Left Mastectomy Scar, and consists of a 12.6 by up to 1.0 cm goldberg-pink wrinkled elongated skin ellipse excised to a maximum depth of 0.5 cm. The specimen is inked and airport representative sections are submitted in one cassette. 2. The specimen is received fresh labeled, Explanted Left Breast Implant, and consists of a 15.0 x 15.0 x 4.0 cm intact transparent ovoid implant containing thin clear fluid. The following inscription is identified: MENTOR [id number] MP 475cc. Per established hospital medical staff protocol, no tissue is submitted. Gross only. Signed (signature on file) Thea Infante MD [id number] END OF REPORT * ML=Testing performed at Main Lab DEPARTMENT OF PATHOLOGY, [address] [place] [address] Nelson Willis M.D. Director [facility] # [id number] 20 Clay Modeler: [id number] 21 SEE RESULT BELOW Name: JUNE ALLEN : [address]: Juventino Hsu MD Acct: [id number] Unit: [id number] AGE: 82 Location: [facility] Re04/05/17 SEX: F Status: REG REF SPEC: [id number] CARTER: 04/05/17-1204 [facility] [address]: Juventino Hsu MD REQ: [id number] RECD: 04/05/17 STATUS: SOUT _ ORDERED: LEVEL 4 COMMENTS: [id number] FINAL DIAGNOSIS Skin, right outer thigh, excision: [...] performed at Main Lab DEPARTMENT OF PATHOLOGY, [address] [place] [address] Nelson Willis M.D. Director [facility] # [id number] 22 [id number] 23 Because ethnic data is not always readily [...] 15-29 5 Kidney failure <15 (or dialysis) 24 Desirable <150 Borderline high 150-199 High 200-499 Very High >500 25 Desirable <200 Borderline high 200-239 High >239 26 Low <40 Desirable: 40-60 High: >60 27 Desirable: <100 mg/dL Near Optimal: 100-129 mg/dL Borderline High: 130-159 mg/dL High: 160-189 mg/dL Very High: >189 mg/dL 28 Therapeutic target for the treatment of diabetes Mellitus patients is <7% HBA1C, and in selective patients <6.0%.Please refer to [place] [employer] Diabetic care guidelines for further information. 29 Acute inflammation: >10.00 30 Because ethnic [...] 5 Kidney failure <15 (or dialysis) 31 [id number] 32 Serologic response to B. burgdorferi infection is not detected, but cannot rule out early infection during which low or undetectable antibody levels to B. burgdorferi may be present. If clinically indicated, a new serum specimen should be submitted in 7-14 days. Test Performed by: [address] [address] 33 [id number] 34 Acute inflammation: >10.00 35 SEE RESULT BELOW Name: JUNE ALLEN : [address]: Sachin Castanon MD Acct: [id number] Unit: [id number] AGE: 81 Location: ED Re10/25/16 SEX: F Status: DEP ER SPEC: [id number] CARTER: 10/25/16 [facility] [address]: Sachin Castanon MD REQ: [id number] RECD: 10/25/16 STATUS: WILLIAM FRANCO DR: Juventino Hsu MD _ SOURCE: BLOOD,VENO SPDES: ORDERED: Blood Cult Procedure Result Reported Site Aerobic Culture Bottle Final 10/30/16- 1744 ML No Growth Day 5 Anaerobic Culture Bottle Final 10/30/16- 1744 ML No Growth Day 5 * ML - MAIN LAB ([facility]) . END OF REPORT * ML=Testing performed at Main Lab DEPARTMENT OF PATHOLOGY, [address] [place] [address] Nelson Willis M.D. Director [facility] # [id number] 36 Because ethnic data is not always [...] 5 Kidney failure <15 (or dialysis) 37 [facility] Severe Sepsis and Septic Shock Management Bundle Measure requires all lactic acids initially measuring >2.0 mmol/L be repeated. 38 Clay Modeler: [id number] 39 SEE RESULT BELOW Name: JUNE ALLEN : [address]: Sachin Castanon MD Acct: [id number] Unit: [id number] AGE: 81 Location: ED Re10/25/16 SEX: F Status: DEP ER SPEC: [id number] CARTER: 10/25/[address]: Sachin Castanon MD REQ: [id number] RECD: 10/25/16 STATUS: WILLIAM FRANCO DR: Juventino Hsu MD _ SOURCE: [facility]: ORDERED: Flu A B Request Procedure Result Reported Site Rapid Influenza A B Request Final 10/26/16316 ML Specimen received for Influenza A/B Molecular testing * ML - MAIN LAB ([facility]) . END OF REPORT * ML=Testing performed at Main Lab DEPARTMENT OF PATHOLOGY, [address] [place] [address] Nelson Willis M.D. Director [facility] # [id number] 40 SEE RESULT BELOW Name: JUNE ALLEN : [address]: Sachin Castanon MD Acct: [id number] Unit: [id number] AGE: 81 Location: ED Re10/25/16 SEX: F Status: DEP ER SPEC: [id number] CARTER: 10/25/16 [facility] [address]: Sachin Castanon MD REQ: [id number] RECD: 10/25/16 STATUS: WILLIAM FRANCO DR: Juventino Hsu MD _ SOURCE: URINE SPDESC: ORDERED: Urine Culture Procedure Result Reported Site Urine Culture Final 10/27/16- 0828 ML No growth of clinically significant organisms * ML - MAIN LAB ([facility]) . END OF REPORT * ML=Testing performed at Main Lab DEPARTMENT OF PATHOLOGY, [address] [place] [address] Nelson Willis M.D. Director [facility] # [id number] 41 *Ascorbic acid is present which may interfere with detection of blood. 42 Corrected result! Wrong result was 7.2. --- 09/25/16 2254 --- Hemoglobin A1c previously reported as: 7.2 H % Therapeutic target for the treatment of diabetes Mellitus patients is <7% HBA1C, and in selective patients <6.0%.Please refer to [place] [employer] Diabetic care guidelines for further information. 43 [id number] Procedures Date CPT Code Description Status 04/05/2017 62638 Excision Benign Lesion 1.1 To 2.0 CM Completed Encounters Type Date Location Provider CPT E/M Dx Office Visit 03/15/2018 2:45p [place] [address] R30.0 R53.83 E78.5 Office Visit 12/14/2017 3:30p [place] [address] H81.12 Office Visit 11/28/2017 4:00p [place] [address] H81.12 K59.00 Office Visit 10/22/2017 2:30p [place] [address] S40.021A Office Visit 07/20/2017 2:00p [place] [address] J01.90 Office Visit 06/22/2017 10:15a [place] [address] Z98.82 T85.42xD Office Visit 06/08/2017 10:00a [place] [address] R42 Office Visit 03/26/2017 1:00p Main Office Juventino Hsu MD G0439 Z00.8 D48.5 H90.3 E78.5 Q13.0 Office Visit 03/09/2017 9:45a [place] [address] R42 R53.83 M25.561 J30.0 Z98.82 Office Visit 11/08/2016 2:45p [place] [address] J10.89 J01.90 Office Visit 09/27/2016 9:45a [place] [address] E11.9 I10 Z12.31 Office Visit 07/19/2016 10:30a [place] [address] E11.9 I10 Office Visit 06/22/2016 9:00a [place] [address] E11.9 M05.779 K21.9 R55 F32.5 M81.0 I10 Plan of Care 05/01/2018 - Juventino Hsu, MDR05 CoughNew Medication:Proair HFA 108(90 Base ) mcg/ActComments:Chronic cough. No response to abx. 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 Referred to ophthalmology.Follow up:Refer to eye urnmfrP38.3 Sensorineural hearing loss, bilateralComments:She had hearing aids fitted, but never liked them. She will present to the local whipper beater. She will bring her hearing aids she currently has to see if they can be adjusted to her satisfaction- they were expensive.Referral:Ghada Madsen, AudiologistFollow up:Refer to [facility] audiology for hearing assessment, make sure she brings her hearing aids.
--- NOTE | 2018-05-13 13:34 | RAD ---
INDICATION: Abdominal pain COMPARISON: None TECHNIQUE: Axial source images were obtained from the hemidiaphragms to the symphysis pubis following administration of oral and intravenous contrast. 75 mL Visipaque 320 was utilized. Coronal and sagittal reconstructed images were acquired. Lung bases: There are minor chronic appearing changes in lung bases. There is left mastectomy. There is a moderate-sized pericardial effusion hardware Liver: The liver is normal in size. There are no masses. There is no ductal dilatation. Gallbladder: Cholecystectomy. Spleen: The spleen is normal in size. There are no masses. Pancreas: There is no focal pancreatic mass or ductal dilatation. Adrenal glands: There is no evidence of adrenal mass. Kidneys: The kidneys are mildly diminutive with renal parenchymal thinning. There is no mass. There is prompt perfusion and excretion. There are bilateral extrarenal pelves. Adenopathy: There is no evidence of adenopathy by size criteria. Fluid collections: There are no free or localized fluid collections. Vessels:There are atherosclerotic changes involving the aorta and iliac vessels. There is no focal aneurysm. The IVC appears normal. GI tract: There are no acute CT bowel findings. There is no obstruction. The stomach and small bowel appear normal. The lower GI tract is unremarkable. Pelvic organs: There is hysterectomy. There is no adnexal mass Bladder: There are no bladder masses. Abdominal and pelvic soft tissues: The extraperitoneal abdominal and pelvic soft tissues appear normal.. Osseous structures: There are no acute osseous findings. There are moderate degenerative changes from L2 through L4 Other: None IMPRESSION: 1. Moderate size pericardial effusion 2. Hysterectomy. Cholecystectomy. 3. No acute CT findings of the abdomen or pelvis
[2018-05-13] MEDS ORDERED: Polyethylene Glycol 3350* 17 GM PACKET PO PRN (15:06)
[2018-05-13] MEDS ORDERED: Perflutren Lipid Microsphere* 3 ML VIAL ONE (15:34)
[2018-05-13] MEDS ORDERED: Atorvastatin* 10 MG TAB PO SCH (17:00)
--- NOTE | 2018-05-13 17:05 | ECHO ---
Patient: CHUY CUMMINGS [facility] Rec#: [id number] : 1935 Date: 05/13/2018 Age: 83y Height: 163 cm / 64.2 in Weight: 61 kg / 134.4 lbs Sex: F BSA: 1.66 Room#: ED 10 Admit Date#: 05/13/2018 Type: Inpatient Referring: Mary Montoya NP Reading: Fredo Mccloud MD [employer] Helper: Amy EdgarRDCS,RDMS Transthoracic Echocardiogram Indication: Pericardial effusion BP: 152/69 HR: 69 Rhythm: NSR Findings History: DM, HTN, breast cancer, chemotherapy (1988) Technical Comments: The study is technically limited due to poor acoustic windows. Left Ventricle: The left ventricular chamber size is normal. Basal interventricular septum shows moderate thickening. Global left ventricular wall motion and contractility are within normal limits. There is normal left ventricular systolic function. The estimated ejection fraction is 55-60%. There is an E to A reversal in the mitral valve flow pattern suggestive of diastolic dysfunction. Left Atrium: The left atrium is slightly dilated. Right Ventricle: The right ventricular chamber size and systolic function are within normal limits. Right Atrium: The right atrial cavity size is normal. Aortic Valve: The aortic valve is trileaflet. Systolic excursion of the aortic valve is normal. There is aortic annular calcification. There is a trace of aortic regurgitation. There is no evidence of aortic stenosis. Mitral Valve: The mitral valve leaflets appear normal. There is a trace of mitral regurgitation. There is no evidence of mitral stenosis. Tricuspid Valve: The tricuspid valve leaflets are normal. There is trace to mild tricuspid regurgitation. No pulmonary hypertension is noted. Pulmonic Valve: The pulmonic valve appears normal. There is a trace pulmonic regurgitation. Pericardium: There is a small pericardial effusion. There are no signs of significant hemodynamic compromise. There is a circumferential pericardial effusion. Aorta: The ascending aorta is not well visualized. There is no dilatation of the aortic arch. The aortic root is normal in size. Pulmonary Artery: The main pulmonary artery is not well visualized. Venous: The inferior vena cava appears normal in size. There is a greater than 50% respiratory change in the inferior vena cava dimension. Contrast: Definity was used to optimize study. A total of 2.5 ml was used Summary: There was not any prior study for comparison. Conclusions Global left ventricular wall motion and contractility are within normal limits. There is normal left ventricular systolic function. The estimated ejection fraction is 55-60%. The right ventricular chamber size and systolic function are within normal limits. There is a trace of aortic regurgitation. There is a trace of mitral regurgitation. There is trace to mild tricuspid regurgitation. No pulmonary hypertension is noted. There is a small pericardial effusion. There is a circumferential pericardial effusion. There are no signs of significant hemodynamic compromise. Measurements Name Value Normal Range RVIDd (AP) 2D 2.3 cm (0.9 - 2.6) RVDdMajor (2D) 2.9 cm (2.2 - 4.4) RAd ISD 4CH 3.2 cm (3.4 - 4.9) RA (A4C)W 4 cm (2.9 - 4.6) IVSd (2D) 1.6 cm (0.6 - 1) LVPWd (2D) 1 cm (0.6 - 1) LVIDd (2D) 4.2 cm (3.6 - 5.4) LVIDs (2D) 3 cm - LV FS (2D) 28 % (25 - 45) Aortic Annulus 2.3 cm (1.4 - 2.6) Ao root diameter (2D) 2.9 cm (2.1 - 3.5) Aortic arch 3.1 cm (1.8 - 3.4) LA dimension (AP) 2D 4.2 cm (2.3 - 3.8) LAd ISD 4CH 4.1 cm (2.9 - 5.3) LA ISD 4CH W 3.9 cm (2.5 - 4.5) Name Value Normal Range LA ESV BP (A/L) index 28 ml/m2 - Name Value Normal Range MV E-wave Vmax 0.7 m/sec - MV deceleration time 174 msec - MV A-wave Vmax 0.9 m/sec - MV E:A ratio 0.8 ratio - LV septal e' Vmax 0.06 m/sec - LV lateral e' Vmax 0.07 m/sec - LV E:e' septal ratio 12 ratio - LV E:e' lateral ratio 10 ratio - Name Value Normal Range AV Vmax 1.6 m/sec - AV VTI 34 cm - AV peak gradient 10 mmHg - AV mean gradient 5 mmHg - LVOT Vmax 0.8 m/sec - LVOT VTI 21 cm - LVOT peak gradient 2.6 mmHg - LVOT mean gradient 1 mmHg - NIA Vmax 0.6 m/sec - Name Value Normal Range TR Vmax 2.5 m/sec - TR peak gradient 25 mmHg - RAP 3 mmHg - RVSP 28 mmHg - IVC diameter 1.9 cm - Name Value Normal Range PV Vmax 0.7 m/sec - PV peak gradient 2 mmHg -
--- NOTE | 2018-05-13 20:47 | HP ---
CC: Dr. Juventino Hsu * HISTORY AND PHYSICAL: DATE OF ADMISSION: 05/13/18 PRIMARY CARE PROVIDER: Dr. Juventino Hsu. ATTENDING PHYSICIAN: Roxane Hernandez MD * (dictated by Mary Kraus NP) CHIEF COMPLAINT: Cough for 1 year, nausea in the mornings and abdominal discomfort. HISTORY OF PRESENT ILLNESS: Ms. Allen is an 83-year-old female with past medical history significant for breast cancer status post mastectomy, rheumatoid arthritis, hypertension, and diet controlled diabetes mellitus who presented to the emergency room with complaints of cough, nausea, and abdominal pain. The patient states that she has had a cough for approximately 1 year. Additionally for quite some time, she has had nausea in the mornings when she wakes up, and when she moves around this gets better. She reports intermittent diarrhea and constipation. She takes MiraLAX as needed at home. She reports being on antibiotics 6 months ago after she had had a cough for a while. She reports persistent postnasal drip. Due to her symptoms of nausea and abdominal discomfort, she called her primary care provider's office who recommended she go to the emergency room for further evaluation. While in the emergency room, she had an abdomen and pelvis CT scan showing a moderate-sized pericardial effusion. She had an EKG without acute findings. She has labs that were unremarkable. She had a urinalysis with 1+ blood, trace leukocyte esterase, squamous epithelial cells present. The hospitalists were asked to evaluate the patient for admission due to her pericardial effusion. The patient reports having intermittent low-grade fevers with temperatures 100 to 100.6. PAST MEDICAL HISTORY: 1. Breast cancer. 2. Rheumatoid arthritis. 3. Hypertension. 4. Diet controlled diabetes mellitus. PAST SURGICAL HISTORY: 1. Status post bilateral knee arthroscopies. 2. Status post left breast mastectomy. HOME MEDICATIONS: Include: 1. MiraLAX 8 ounces oral every 12 hours as needed for constipation. 2. Lovaza 1 capsule oral twice daily. 3. Minocin 75 mg oral twice daily. 4. Ipratropium bromide 2 sprays to both nares twice daily as needed for congestion. 5. Prilosec 20 mg oral every morning. 6. Lisinopril 2.5 mg oral every morning. 7. Prozac 30 mg oral every morning. 8. Norvasc 2.5 mg oral every morning. 9. Fosamax 35 mg oral weekly. 10. Simvastatin 20 mg oral every evening. 11. Uloric 40 mg oral daily. ALLERGIES: ALLOPURINOL, CODEINE, METHOTREXATE, PENICILLIN, TAPENTADOL, LOSARTAN. FAMILY HISTORY: One of the patient's sons had an TN at age 50. Her mother passed from an aneurysm. She denies any family history of diabetes. Brother with a history of esophageal cancer. Father passed at age 55 from lung cancer. Two brothers with a history of prostate cancer and a sister with "tumor by her ribs." SOCIAL HISTORY: The patient is a former smoker. She quit smoking in 1964. Prior to that, she had a 10-year half a pack a day smoking history. She denies alcohol or recreational drug use. Her significant other, Enzo Casey, will be her surrogate decision maker in the event she is unable to make decisions for herself. REVIEW OF SYSTEMS: I performed an 11-point review of systems. All the pertinent positives and negatives are mentioned in the history of present illness. The remaining review of systems is negative. PHYSICAL EXAMINATION GENERAL APPEARANCE: The patient is alert, pleasant, appears to be in no acute distress. VITAL SIGNS: Temperature 99.5, heart rate 76, respiratory rate 20, O2 sat 92% on room air, blood pressure 152/69. HEENT: Normocephalic, atraumatic. Pupils are equal and reactive to light. Extraocular movements are intact. RESPIRATORY: There is no accessory muscle use. Lungs are clear to auscultation bilateral. CARDIOVASCULAR: Regular rate and rhythm. S1, S2 present. There are no murmurs , rubs, or gallops heard. ABDOMEN: Soft, nontender, nondistended. Bowel sounds present x4. EXTREMITIES: No lower extremity edema. DP and PT pulses are 2+ and symmetric. MUSCULOSKELETAL: There is no clubbing or cyanosis noted. The patient exhibits good strength in all extremities. NEUROLOGICAL: The patient is alert and oriented x4. Cranial nerves II through XII are grossly intact. PSYCHOLOGICAL: The patient is calm and cooperative. SKIN: There are no rashes or abnormalities seen. DIAGNOSTIC STUDIES/LAB DATA: Sodium 137, potassium 4.2, chloride 106, CO2 of 23, BUN 16, creatinine 0.92, glucose 99. White blood cell count 5.6, hemoglobin 13.0, hematocrit 39, and platelet count 279,000. Urinalysis significant for specific gravity of 1.006, blood 1+, leukocyte esterase trace, squamous epithelial cells present. EKG shows a sinus rhythm, rate of 70. There are no acute signs of ischemia and there are no previous EKGs for comparison. Abdomen and pelvis CT from today. Radiologist's impression: Moderate sized pericardial effusion. Hysterectomy. Cholecystectomy. No acute CT findings of the abdomen or pelvis. IMPRESSION: Ms. Allen is an 83-year-old female with past medical history significant for chronic obstructive pulmonary disease, breast cancer, rheumatoid arthritis, hypertension, diet controlled diabetes mellitus who presented to the emergency room with complaints of cough for 1 year and nausea and abdominal discomfort and was found to have a moderate-sized pericardial effusion, appeared to be admitted as an observation for workup of her pericardial effusion. ASSESSMENT/PLAN: 1. Pericardial effusion. Unknown etiology at this time. The patient will have a transthoracic echocardiogram and based on those findings, we will further determine our plan of care. She does have a history of breast cancer. 2. Abdominal pain and nausea. This has resolved. I suspect that the abdominal pain was secondary to constipation and that her morning nausea is chronic gastritis. She will be continued on her home Prilosec. 3. Hypertension. The patient will be continued on her home lisinopril and Norvasc. It is to note that the patient reports a chronic cough for approximately 1 year. She believes this may have started around the time she started her lisinopril. I am going to defer to her primary care provider to adjust her medications and consider discontinuing the lisinopril. 4. Diabetes Mellitus. States that she is borderline and diet controlled. Last HgA1C was 5.[address] March [address] her on a consistent carb diet. 5. Fluids, electrolytes, and nutrition. The patient will be on a consistent carb diet. 6. Code status. Full code. 7. DVT prophylaxis. She is at high risk. Will have subcu heparin. 8. Disposition. Observation. TIME SPENT: Time for this admission was approximately 60 minutes, greater than half of that was spent with the patient and her family discussing medications, past medical history, and the events leading up to her arrival today and performing physical examination. The case has been reviewed with the attending, Dr. Hernandez, who agrees with the plan of care. Reviewed by AURELIO MOSES 05/15/18 1418 [id number]/[facility] #: [id number] ROBINA
[2018-05-13] MEDS: Heparin VIAL(*) 5000 UNITS/ML VIAL (FIVE THOUSAND) SUBCUT SCH (22:31)
[2018-05-14] MEDS: Heparin VIAL(*) 5000 UNITS/ML VIAL (FIVE THOUSAND) SUBCUT SCH ×2 (05:21→14:10)
[2018-05-14] MEDS ORDERED: FLUoxetine CAP* 10 MG PO SCH (09:00)
[2018-05-14] MEDS ORDERED: Omeprazole CAP* 20 MG PO SCH (09:00)
[2018-05-14] MEDS ORDERED: Febuxostat(NF) 40 MG TAB PO SCH (09:00)
[2018-05-14] MEDS ORDERED: amLODIPine TAB* 5 MG PO SCH (09:00)
[2018-05-14] MEDS ORDERED: Lisinopril TAB* 5 MG PO SCH (09:00)
[2018-05-14 10:12] LABS: ABS Basophils 0.1 10^3/ul (0-0.2); ABS Eosinophils 0 10^3/ul (0-0.6); ABS Lymphocytes 0.8 10^3/ul (1.0-4.8); ABS Monocytes 0.5 10^3/ul (0-0.8); ABS Neutrophils 4.2 10^3/ul (1.5-7.7); ABS Nucleated RBC 0 10^3/ul; Eosinophil % 0.9 % (0-6); Hematocrit 38 % (35-47); Hemoglobin 12.5 g/dl (12.0-16.0); Lymphocyte % 14.5 % (25-47); Mean Corpuscular HGB Conc 33 g/dl (31-36); Mean Corpuscular Hemoglobin 28 pg (27-31); Mean Corpuscular Volume 85 fL (80-97); Mean Platelet Volume 8.6 um3 (7.4-10.4); Nucleated Red Blood Cells % 0; Platelet Count 244 10^3/ul (150-450); Red Blood Count 4.51 10^6/ul (4.00-5.40); Red Cell Distribution Width 13 % (10.5-15); White Blood Count 5.7 10^3/ul (3.5-10.8)
[2018-05-14 10:30] LABS: EGFR Non-African American 56.7 (>60)
[2018-05-14 11:14] VITALS: BP 130/56
[2018-05-14] MEDS ORDERED: Magnesium Sulfate IV* 3 GM in NS 0.9% 100 ML* 100 ML IVPB ONE (13:00)
--- NOTE | 2018-05-15 01:59 | DS ---
CC: Dr. Hernandez; Dr. Lexi Sanchez; Dr. Fredo Mccloud; Dr. Juventino Hsu * DISCHARGE SUMMARY: DATE OF ADMISSION: DATE OF DISCHARGE: 05/14/18 DISCHARGE DIAGNOSES: As follows: 1. Pericardial effusion, small per 2D echo, unclear etiology, thought to be benign by Dr. Mccloud upon discussion. 2. Abdominal discomfort and nausea, resolved. 3. History of hypertension. 4. Hypercalcemia with normal intact PTH. DISCHARGE MEDICATIONS: As follows: 1. Alendronate 35 mg p.o. weekly. 2. Amlodipine 2.5 mg p.o. q.a.m. 3. Febuxostat 40 mg p.o. daily. 4. Fluoxetine 30 mg p.o. q.a.m. 5. Ipratropium bromide 2 sprays both nares b.i.d. 6. Lisinopril 2.5 mg p.o. q.a.m. 7. Minocin 75 mg p.o. b.i.d. 8. Acosta-3 fatty acid capsules 1 g 1 cap p.o. b.i.d. 9. Omeprazole 20 mg p.o. q.a.m. 10. PEG-electrolyte solution 8 ounces p.o. q.12 hours. 11. Simvastatin 20 mg p.o. q.p.m. HISTORY OF PRESENT ILLNESS/HOSPITAL COURSE: The patient is an 83-year-old lady with history of breast cancer, rheumatoid arthritis, and hypertension, who presented to the emergency room with complaints of cough, nausea, and abdominal pain. The patient stated that she has had the cough for approximately 1 year and has had some nausea in the mornings when she wakes up and when she moves around, it gets better. While in the emergency room, she had an abdominal and pelvic CT scan, which unfortunately reported a moderate- sized pericardial effusion of unknown origin with no other explanation as to her GI complaints. She was then admitted for observation and an echocardiogram did not support a moderate pericardial effusion, instead it showed only a small pericardial effusion with no signs of significant hemodynamic compromise. On subsequent evaluation, she was also found to be hypercalcemic with an ionized calcium of 5.49, which is only mildly hypercalcemic with a normal intact PTH and normal free T4 as well as TSH. Since her abdominal discomfort and nausea has resolved and with a minimally elevated calcium, which could be from exogenous oral intake of calcium given she is on a bisphosphonate, we will defer with any subsequent followup and/or evaluation of mild hypercalcemia of unknown origin at this time. She does not remember if she is taking any calcium supplements at this time and not part of her home medication list obtained. As far as her pericardial effusion, I have discussed her case with Dr. Mccloud, who mentioned that he has nothing to add upon reviewing her chart, although the patient was not seen by him. I have asked that if he can follow her up as an outpatient and mentioned to just have the patient to follow up with him if there are any changes and/or any symptoms thought to be related to the heart by her PCP evaluation on discharge and hence will defer. It is also possible given her history of breast cancer that this may be related to this, but we will defer any subsequent evaluation of the small pericardial effusion that is thought to be benign, cardiac-alvarado, to her PCP as an outpatient. She had been advised to follow up and/or call her PCP within 3 days postdischarge. She had been informed that her intact PTH, which is a hormone that regulate calcium, is normal; however, her calcium levels are still high. She had been advised that if she is on any vitamin D or calcium supplementation to please make sure to discontinue them at this time and if she is not on these [id number] medications or pills to make sure to discuss her mildly elevated calcium levels with her PCP so that further testing can be then recommended. I have discussed that the fluid in her heart, which is otherwise known as pericardial effusion, has been reviewed by Dr. Mccloud and when the echocardiogram has been reviewed along with rest of the data and her case file, he felt that this fluid is rather benign from the cardiac perspective. Hence, if she or her primary care physician has any further questions or concerns, I have advised her to call Dr. Mccloud's office and set up an appointment at [phone]. Furthermore, if she is having any problems and/or if her symptoms worsen to call her PCP first to see if her concerns can be addressed in a timely manner. If not or if she has been advised go to the ER due to scheduling issues alone to then re-discuss with her PCP whether an outpatient follow up to [facility] would be appropriate. She had been advised to call [facility] if appropriate and/or when she is unable to touch-base with her PCP in a timely manner. She had been advised to call my office regarding any questions, concerns, or further clarifications regarding the discharge plans and/or prescriptions and to take her medications as prescribed. PHYSICAL EXAMINATION: Shows the most recent vital signs of records with blood pressure 130/56, 98.0 degrees Fahrenheit, 77 beats per minute heart rate, 18 per minute respiratory rate, saturating at the 90% on room air. General Appearance: The patient is awake, alert, and oriented x3, not in acute distress. HEENT: Normocephalic, atraumatic. PERRLA. Extraocular muscles intact. Negative for icterus. Moist oral mucosa. Negative throat erythema. Neck is soft, supple with no cervical lymphadenopathy. No JVD. Heart: S1, S2 within normal limits. Regular rate and rhythm. No murmurs, rubs, or gallops. Chest: Clear to auscultations bilaterally. Good air entry. No wheezes, rales , or rhonchi. Abdomen: Soft, nondistended, nontender. Normoactive bowel sounds x4 Q. Extremities: No cyanosis, clubbing, or edema. Psychiatric: No active psychosis, depression, suicidal nor homicidal ideations. Skin is warm to touch. TIME SPENT: The total time spent evaluating the patient, reviewing pertinent data, and appropriate documentation is greater than 30 minutes. [id number]/[facility] #: [id number] [facility]
== END 2018-05-14 15:55 | disposition home or self-care (01) ==
LOC: ED 10:02 → MED 15:18
PROVIDERS: ADMIT Internal Medicine; ATTEND Student in an Organized Health Care Education/Training Program
DX: R10.9 Unspecified abdominal pain (principal); I31.3 Pericardial effusion (noninflammatory); R05 Cough; E11.9 Type 2 diabetes mellitus without complications; R19.7 Diarrhea, unspecified; R42 Dizziness and giddiness; Z87.891 Personal history of nicotine dependence
CPT/HCPCS: 36415; 74177; 80053; 81003; 81015; 82330; 83605; 83690; 83735; 83970; 84100; 84439; 84443; 84484; 85025; 86140; 87086; 93005; 93306; 99284; A9270-GY; C8929; G0378; J2765; J3475; Q9967

== ENCOUNTER 2018-05-21 11:54 | Emergency (ER) | payer MEDICARE, OTHER ==
[2018-05-21 12:51] LABS: ABS Basophils 0.1 10^3/ul (0-0.2); ABS Eosinophils 0 10^3/ul (0-0.6); ABS Lymphocytes 1.1 10^3/ul (1.0-4.8); ABS Monocytes 0.6 10^3/ul (0-0.8); ABS Nucleated RBC 0 10^3/ul; Eosinophil % 0.4 % (0-6); Hematocrit 41 % (35-47); Hemoglobin 13.6 g/dl (12.0-16.0); Lymphocyte % 16.5 % (25-47); Mean Corpuscular HGB Conc 33 g/dl (31-36); Mean Corpuscular Hemoglobin 28 pg (27-31); Mean Corpuscular Volume 84 fL (80-97); Mean Platelet Volume 8.3 um3 (7.4-10.4); Nucleated Red Blood Cells % 0.1; Platelet Count 335 10^3/ul (150-450); Red Blood Count 4.92 10^6/ul (4.00-5.40); Red Cell Distribution Width 13 % (10.5-15); White Blood Count 6.9 10^3/ul (3.5-10.8)
[2018-05-21 13:00] LABS: INR 0.95 (0.77-1.02)
[2018-05-21 13:07] LABS: EGFR Non-African American 54.7 (>60)
--- NOTE | 2018-05-21 13:26 | RAD ---
Indication: Dizziness. Recent pericardial effusion. Comparison: May 01, 2018 Technique: Dual energy PA chest Report: Elevated lung volumes and both diffuse mild prominence of the interstitial markings and patchy rarefaction of the mid to upper lung zone interstitial markings. No focal pulmonary lesion, compelling alveolar consolidation, pleural effusion, pneumothorax. Negative for cardiomegaly. Unremarkable central pulmonary vasculature and mediastinal contours. LEFT axillary surgical clips. IMPRESSION: #. Stigmata of obstructive lung disease. No acute pulmonary or cardiac process evident. #. No acute cardiopulmonary process evident.
--- NOTE | 2018-05-21 13:47 | ED ---
Dizziness - HPI Summary HPI Summary: Pt is an 83 y/o female who presents to the ED c/o dizziness and nausea since 8: 00. She has been waking up in the morning with nausea, dizziness, and lightheadedness recently. She states she normally takes medication for her nausea. Pt denies any SOB, CP, or headache. She has been recently admitted for pericardial effusion. Pt sees Dr. Fuentes, and is here with her son-in-law and . Vital signs while in room: HR 88 bpm, BP 172/101. Home Medications Medication Instructions Recorded Confirmed Type Alendronate (NF) [Fosamax (NF)] 35 mg PO WEEKLY 06/28/17 05/13/18 History Amlodipine Besylate [Norvasc 2.5 2.5 mg PO QAM 06/28/17 05/13/18 History mg tab] FLUoxetine CAP* [Prozac CAP*] 30 mg PO QAM 06/28/17 05/13/18 History Ipratropium Br (Nf)0.03% Nasal 2 spray BOTH NARES BID PRN 06/28/17 05/13/18 History [Ipratropium [place]] Lisinopril [Lisinopril 2.5 MG-] 2.5 mg PO QAM 06/28/17 05/13/18 History Minocin 75mg 75 mg PO BID 06/28/17 05/13/18 History Smyer-3 Acid Ethyl Esters [Lovaza] 1 cap PO BID 06/28/17 05/13/18 History Omeprazole CAP* [Prilosec CAP* 20 20 mg PO QAM 06/28/17 05/13/18 History MG] Simvastatin TAB(NF) [Zocor 20 MG 20 mg PO 1700 06/28/17 05/13/18 History (NF)] [id number]/Sod Sulf,Bicarb,Cl/KCl 8 oz PO Q12HR PRN #120 oz 11/24/17 05/13/18 Rx [Peg 3350 Electrolyte Soln] Febuxostat [Uloric] 40 mg PO DAILY 05/13/18 05/13/18 History - History Of Current Complaint Chief Complaint: EDDizziness Stated Complaint: GENERAL ILLNESS Time Seen by Provider: 05/21/18 12:44 Hx Obtained From: Patient, Family/Talent Program Manager - Son-in-law Timing: Intermittent Episode Lasting Character: Lightheaded, Dizzy Aggravating Factor(s): Nothing Alleviating Factor(s): Other - Nausea medication Associated Signs And Symptoms: Positive: Nausea. Negative: Chest Pain, SOB - Allergies/Home Medications Allergies/Adverse Reactions: Allergies Allergy/AdvReac Type Severity Reaction Status Date / Time allopurinol Allergy Unknown Verified 05/13/18 10:11 Reaction Details codeine Allergy Nausea And Verified 05/13/18 10:11 Vomiting methotrexate Allergy Nausea Verified 05/13/18 10:11 Penicillins Allergy Rash Verified 05/13/18 10:11 tapentadol Allergy Unknown Verified 05/13/18 10:11 Reaction Details valsartan Allergy Unknown Verified 05/13/18 10:11 Reaction Details PMH/Surg Hx/FS Hx/Imm Hx Endocrine/Hematology History: Reports: Hx Diabetes - type 2 mild, Hx Anemia - takes iron bid Denies: Hx Anticoagulant Therapy, Hx Blood Disorders Cardiovascular History: Reports: Hx Hypertension Denies: Other Cardiovascular Problems/Disorders - Denies Hx of [place] GI History: Reports: Hx Gastroesophageal Reflux Disease, Hx Hiatal Hernia, Hx Irritable Bowel, Other GI Disorders - GERD, HIATAL HERNIA. 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 Left breast implant , replaced x5, right breast reduction. . Bilat knee replacement. abdominoplasty , hernia repair, cholecystectomy Hx Anesthesia Reactions: Yes - a little nausea afterwards Infectious Disease History: No Infectious Disease History: Denies: Traveled Outside the [place] in Last 30 Days - Family History Known Family History: Positive: Other - Lung cancer - father Negative: Diabetes, Seizure Disorder - Social History Alcohol Use: None Hx Substance Use: No Substance Use Type: Reports: None Hx Tobacco Use: Yes Smoking Status (MU): Former Smoker Amount Used/How Often: smoked 10 years 1/2ppd Review of Systems Negative: Chest Pain Negative: Shortness Of Breath Positive: Nausea Neurological: Other - Dizziness, lightheadedness Negative: Headache All Other Systems Reviewed And Are Negative: Yes Physical Exam - Summary Physical Exam Summary: Appearance: Well-appearing, moderate pain distress, well-nourished Skin: Warm, color reflects adequate perfusion, dry Head: Normal Head/Face inspection, atraumatic Eyes: Conjunctiva clear ENT: Normal inspection Neck: Supple, no nodes, no JVD Respiratory: Lungs clear, normal breath sounds, no respiratory distress Cardio: RRR, No murmur, pulses normal, brisk capillary refill Abdomen: Soft, nontender Bowel sounds: Present Musculoskeletal: Strength Intact/ROM intact, no calf tenderness, no edema. Psychological: Normal Neuro: Alert, muscle tone normal, no focal deficit Triage Information Reviewed: Yes Vital Signs On Initial Exam: Initial Vitals Temp Pulse Resp BP Pulse Ox 99.3 F 92 18 140/76 100 05/21/18 11:57 05/21/18 11:57 05/21/18 11:57 05/21/18 11:57 05/21/18 11:57 Vital Signs Reviewed: Yes Diagnostics - Vital Signs Vital Signs Temp Pulse Resp BP Pulse Ox 05/21/18 11:57 99.3 F 92 18 140/76 100 - Laboratory Lab Results: Lab Results 05/21/18 05/21/18 05/21/18 Range/Units 12:35 12:35 12:35 WBC 6.9 (3.5-10.8) 10^3/ul RBC 4.92 (4.00-5.40) 10^6/ul Hgb 13.6 (12.0-16.0) g/dl Hct 41 (35-47) % MCV 84 (80-97) fL MCH 28 (27-31) pg MCHC 33 (31-36) g/dl RDW 13 (10.5-15) % Plt Count 335 (150-450) 10^3/ul MPV 8.3 (7.4-10.4) um3 Neut % (Auto) 72.6 (38-83) % Lymph % (Auto) 16.5 L (25-47) % Norton % (Auto) 9.2 H (0-7) % Eos % (Auto) 0.4 (0-6) % Baso % (Auto) 1.3 (0-2) % Absolute Neuts (auto) 5.0 (1.5-7.7) 10^3/ul Absolute Lymphs (auto) 1.1 (1.0-4.8) 10^3/ul Absolute Monos (auto) 0.6 (0-0.8) 10^3/ul Absolute Eos (auto) 0 (0-0.6) 10^3/ul Absolute Basos (auto) 0.1 (0-0.2) 10^3/ul Absolute Nucleated RBC 0 10^3/ul Nucleated RBC % 0.1 ESR 30 (0-40) mm/Hr INR (Anticoag Therapy) (0.77-1.02) APTT (26.0-36.3) seconds D-Dimer, Quantitative (Less Than 230) ng/mL Sodium 137 (135-145) mmol/L Potassium 4.3 (3.5-5.0) mmol/L Chloride 103 (101-111) mmol/L Carbon Dioxide 25 (22-32) mmol/L Anion Gap 9 (2-11) mmol/L BUN 16 (6-24) mg/dL Creatinine 0.97 H (0.51-0.95) mg/dL Est GFR ( Amer) 66.2 (>60) Est GFR (Non-Af Amer) 54.7 (>60) BUN/Creatinine Ratio 16.5 (8-20) Glucose 113 H (70-100) mg/dL Lactic Acid 1.2 (0.5-2.0) mmol/L Calcium 10.5 H (8.6-10.3) mg/dL Magnesium 2.0 (1.9-2.7) mg/dL Total Bilirubin 0.80 (0.2-1.0) mg/dL AST 13 (13-39) U/L ALT 8 (7-52) U/L Alkaline Phosphatase 65 (34-104) U/L Total Creatine Kinase 21 (10-223) U/L CK-MB (CK-2) 0.8 (0.6-6.3) ng/mL Troponin I 0.01 (<0.04) ng/mL C-Reactive Protein 5.08 (<8.01) mg/L B-Natriuretic Peptide ( - 100) pg/mL Total Protein 7.1 (6.4-8.9) g/dL Albumin 4.1 (3.2-5.2) g/dL Globulin 3.0 (2-4) g/dL Albumin/Globulin Ratio 1.4 (1-3) TSH 5.08 (0.34-5.60) mcIU/mL 05/21/18 05/21/18 Range/Units 12:35 12:35 WBC (3.5-10.8) 10^3/ul RBC (4.00-5.40) 10^6/ul Hgb (12.0-16.0) g/dl Hct (35-47) % MCV (80-97) fL MCH (27-31) pg MCHC (31-36) g/dl RDW (10.5-15) % Plt Count (150-450) 10^3/ul MPV (7.4-10.4) um3 Neut % (Auto) (38-83) % Lymph % (Auto) (25-47) % Norton % (Auto) (0-7) % Eos % (Auto) (0-6) % Baso % (Auto) (0-2) % Absolute Neuts (auto) (1.5-7.7) 10^3/ul Absolute Lymphs (auto) (1.0-4.8) 10^3/ul Absolute Monos (auto) (0-0.8) 10^3/ul Absolute Eos (auto) (0-0.6) 10^3/ul Absolute Basos (auto) (0-0.2) 10^3/ul Absolute Nucleated RBC 10^3/ul Nucleated RBC % ESR (0-40) mm/Hr INR (Anticoag Therapy) 0.95 (0.77-1.02) APTT 29.6 (26.0-36.3) seconds D-Dimer, Quantitative < 200 (Less Than 230) ng/mL Sodium (135-145) mmol/L Potassium (3.5-5.0) mmol/L Chloride (101-111) mmol/L Carbon Dioxide (22-32) mmol/L Anion Gap (2-11) mmol/L BUN (6-24) mg/dL Creatinine (0.51-0.95) mg/dL Est GFR ( Amer) (>60) Est GFR (Non-Af Amer) (>60) BUN/Creatinine Ratio (8-20) Glucose (70-100) mg/dL Lactic Acid (0.5-2.0) mmol/L Calcium (8.6-10.3) mg/dL Magnesium (1.9-2.7) mg/dL Total Bilirubin (0.2-1.0) mg/dL AST (13-39) U/L ALT (7-52) U/L Alkaline Phosphatase (34-104) U/L Total Creatine Kinase (10-223) U/L CK-MB (CK-2) (0.6-6.3) ng/mL Troponin I (<0.04) ng/mL C-Reactive Protein (<8.01) mg/L B-Natriuretic Peptide 98 ( - 100) pg/mL Total Protein (6.4-8.9) g/dL Albumin (3.2-5.2) g/dL Globulin (2-4) g/dL Albumin/Globulin Ratio (1-3) TSH (0.34-5.60) mcIU/mL Result Diagrams: 05/21/18 12:35 05/21/18 12:35 Lab Statement: Any lab studies that have been ordered have been reviewed, and results considered in the medical decision making process. - Radiology CXR Radiology Interpretation Completed By: Radiologist - Stigmata of obstructive lung disease. No acute pulmonary or cardiac process evident. No acute cardiopulmonary process evident. ED physician reviewed radiology report. - EKG 12:02 Cardiac Rate: NL - 82 bpm EKG Rhythm: Sinus Rhythm ST Segment: Normal Ectopy: None EKG Interpretation: An EKG at 12:02 reveals nml AV/IV CT, nml QTc, and nml axis. EKG Comparison: No Significant Change - Consistent with EKG on 05/13/18 Re-Evaluation - Re-Evaluation First Eval Re-Evaluation Time: 16:34 Change: Improved Comment: Pt will consult with Uriel Cornell NP. Pt wants to go home. BP: 164/ 113. Dizzy Course/Dx - Course Course Of Treatment: At 13:51 spoke to daughter Jayna Power RN. As per daughter, pt has had recent weight loss, weakness, fatigue, and nausea. Lately she has not been able to take care of her partner. She is also worried about her mother's current living situation; the dog urinates everywhere, and she feels it is not habitable. A CXR revealed Stigmata of obstructive lung disease. No acute pulmonary or cardiac process evident. An EKG revealed a rate of 82 bpm and nml AV/IV CT, nml QTc, and nml axis. - Diagnoses Provider Diagnoses: Nausea, Generalized weakness, Hypercalcemia - Provider Notifications Discussed Care Of Patient With: Prisca Balbuena Time Discussed With Above Provider: 16:14 Instructed by Provider To: Other - Will see in MD. 17:40 Uriel Cornell NP agrees with discharge. Discharge - Sign-Out/Discharge Documenting (check all that apply): Patient Departure - Discharge - Discharge Plan Condition: Stable Disposition: HOME Prescriptions: Ondansetron ODT TAB* [Zofran 4 MG Odt TAB*] 4 mg PO Q8H PRN #20 tab.odt PRN Reason: Nausea Patient Education Materials: Acute Nausea and Vomiting (ED) Referrals: Juventino Hsu MD [Primary Care Provider] - 2 Days Additional Instructions: You had a consult by the hospitalists who work with Dr. Fuentes. You have no signs of a cardiac problem or abdominal problem, or tamponade from a pericardial effusion. Have definite follow up with Dr. Fernandez in 1-[address] Blanco has prescribed ondansetron that you may try for your nausea. Return to the ER if you have any new or worsening symptoms. - Attestation Statements Document Initiated by Scribe: Yes Documenting Scribe: Angeles Contreras Provider For Whom Scribe is Documenting (Include Credential): Ana Blanco MD Scribe Attestation: Angeles Smith, scribed for Ana Blanco MD on 05/21/18 at 1909.
[2018-05-21 18:02] VITALS: BP 103/71
--- NOTE | 2018-05-21 22:16 | CONS ---
CC: Dr. Hsu * CONSULTATION REPORT: DATE OF CONSULT: 05/21/18 - EMERGENCY DEPT REASON FOR MEDICAL CONSULTATION: Evaluation for medical admission. CHIEF COMPLAINT: 1. Nausea. 2. Diarrhea. 3. Lightheadedness. HISTORY OF PRESENT ILLNESS: Mrs. Allen is an 83-year-old female patient who was recently here in the hospital. She was diagnosed with a small pericardial effusion. She was set up for a followup with her PCP for followup with this. She also has a history of hypertension, hyperlipidemia, GERD, osteoporosis, gout , breast cancer, rheumatoid arthritis, history of diet-controlled diabetes, and again history of recent pericardial effusion, which was noted to be small. She comes in today because she was having nausea this morning, which has been an issue for the patient for some time. She had an outpatient CT abdomen and pelvis just done on of last week, which showed moderate pericardial effusion, hysterectomy, cholecystectomy, no acute CT findings. She denies any abdominal pain today. She had 1 episode of diarrhea. She has been taking Colace, which was new for her. She said that while having the bowel movement today, she did feel a little lightheaded, but her biggest complaint was nausea. She just felt like she had to vomit, but she never did. She had 1 episode of diarrhea. She had no fevers or chills. No abdominal pain. She is denying having any chest pain or shortness of breath, but she was concerned because she had lightheadedness, which she described as worsening when she was trying to have her bowel movement today. She describes it as just feeling lightheaded and it was worse with position change. She said she is feeling better now, the nausea has resolved, and she is not having any abdominal pain, chest pain, or shortness of breath. She came into the ED. There was concern by Dr. Blanco that because of this nausea, possible dizziness, and we were asked to evaluate for admission. PAST MEDICAL HISTORY: Significant for: 1. Hyperlipidemia. 2. Hypertension. 3. GERD. 4. Osteoporosis. 5. Gout. 6. Breast cancer. 7. Rheumatoid arthritis. 8. Diabetes. 9. Hypercalcemia. 10. Pericardial effusion. PAST SURGICAL HISTORY: 1. The patient has had a mastectomy. 2. Bilateral knee replacements. MEDICATIONS: Home medications include: 1. Lovaza 1 capsule p.o. b.i.d. 2. Fosamax 35 mg p.o. weekly. 3. Prozac 30 mg p.o. q.a.m. 4. Norvasc 2.5 mg daily. 5. Lisinopril 2.5 mg daily. 6. Ipratropium bromide 2 sprays both nares b.i.d. as needed. 7. Uloric 40 mg p.o. daily. 8. Minocin 75 mg p.o. b.i.d. 9. Prilosec 20 mg p.o. q.a.m. 10. Simvastatin 20 mg p.o. at 1700. 11. MiraLAX 8 ounces p.o. every 12 hours as needed. ALLERGIES TO MEDICATIONS: Include ALLOPURINOL, CODEINE, METHOTREXATE, PENICILLINS, TAPENTADOL, VALSARTAN. FAMILY HISTORY: Mother has had a history of thoracic aneurysm. Father had a history of lung cancer and at 55. SOCIAL HISTORY: She is a former smoker. She quit at 64. She does not drink alcohol. Surrogate decision maker is her daughter, Jayna. REVIEW OF SYSTEMS: There is no documented fever. She denied having any significant weight change. She denied having any double vision. There is no ear discharge. She denied having any rhinorrhea. No sore throat. No thyroid enlargement. She denied having any chest pain. There is no orthopnea. There was no nocturnal dyspnea. No dysuria, no frequency. No seizure. There was no loss of consciousness. No pruritus and no skin ulcerations. Review of 14 systems completed, all others negative. PHYSICAL EXAM: Her physical exam reveals vital signs, blood pressure 140/76, pulse 92, respirations of 18, O2 sat of 100%, temperature 99.3. General: At this time, Mrs. Allen is an 83-year-old female patient. She is sitting in the ED stretcher. She does not appear to be in any acute distress. HEENT: Head: Atraumatic, normocephalic. Eyes: EOMs are intact. Sclerae anicteric and not pale. Neck was supple. Throat: Oral mucosa appears to be moist. No oropharyngeal erythema. Heart: Sounds S1, S2. She had a regular rate and rhythm. There were no murmurs, rubs, or gallops. Lungs were clear to auscultation bilaterally. There were no wheezes, rales, or rhonchi. Abdomen was soft. It was flat. It was nontender. Bowel sounds were present. She had no CVA tenderness. She has no peripheral edema. She is moving all 4 extremities with 5/5 strength. Neurologically, the patient is awake. She is alert. She is oriented x3. The tongue was midline. Range Conservationist were equal. She had no gross focal deficits. The skin was grossly intact. DIAGNOSTIC STUDIES/LAB DATA: Labs, WBC of 6.9, RBC of 4.92, hematocrit of 41, hemoglobin of 13.6, platelet count of 335. INR was 0.95. PTT of 29.6. D- dimer less than 200. Her sodium was 137, potassium was 4.3, chloride of 103, bicarb 25, BUN 16, creatinine 0.97, the glucose is 113. Lactic 1.2. Her calcium is 10.5. She has been running about 10.5, 10.6 since 2017. Her ionized calcium is 5.12. Mag 2.0. Total bili 0.8, AST 13, ALT 8, alk phos 65, CK 21, CK -MB 0.8. Troponin 0.01. Repeat troponin was 0. CRP was 5.08. Albumin was 4.1. TSH was 5.08. BNP was 98. She had a chest x-ray obtained today, which revealed stigmata of obstructive lung disease, no acute cardiopulmonary process evident. She had an EKG obtained today as well, which showed a normal sinus rhythm with a rate of 82. She had no ST elevations or T-wave inversions noted. She had a previous EKG that appears to be similar. She had an echo done on 05/13/18 with impression, global left ventricular wall motion and contractility within normal limits. There is normal left systolic function. The estimated EF is 55% to 60%. Right ventricular chamber size and systolic function are within normal limits. Trace aortic regurg, trace mitral regurg. There is trace mild tricuspid regurg. No pulmonary hypertension. There is a small pericardial effusion. There is a circumferential pericardial effusion. There are no signs of significant hemodynamic compromise. Old medical records again were reviewed. ASSESSMENT AND PLAN: Mrs. Allen is an 83-year-old female patient coming in today. Her chief complaint according to the patient was that she was concerned because of the nausea. She did have episode of lightheadedness, 1 episode of diarrhea; we were asked to evaluate in consult. My recommendations at this point are: 1. Nausea. Etiology is unclear. Certainly, it could have been related to the diarrhea that she was having today. It is now resolved. Her abdominal exam is benign. She just had a CT abdomen and pelvis a week ago, which showed no acute CT findings. Her labs appeared to be stable. I do not think there is any need for imaging. At this point, I would recommend close followup with her PCP, holding her Colace as the diarrhea may be secondary to laxative use and I told her that if her stools become more firm to go ahead and restart the Colace. 2. Pericardial effusion. She has followup with her PCP. She is going to see them as soon as possible. She is not having any clinical signs of cardiac tamponade. She appears to be stable. So, she will need a repeat echo, follow up with PCP, and possibly outpatient cardiology evaluation. 3. Lightheadedness. Again, this can be in the setting of orthostasis. She is not feeling lightheaded or dizzy now. It certainly could be a little bit of vasovagal as when she was having a bowel movement as when this occurred, but again, the chief complaint that she was complaining of today was the fact that she felt nauseous, which is now resolved. 4. Hyperlipidemia. Continue meds as prescribed. 5. Hypertension. Continue meds as prescribed. 6. Gastroesophageal reflux disease. Continue PPI therapy. 7. Osteoporosis. Continue with her Fosamax. 8. Gout. Continue Uloric. 9. Breast cancer. Follow up with her PCP. 10. Rheumatoid arthritis. Again, follow up with PCP. 11. Diabetes. Continue with diet and lifestyle modifications. 12. Issues to return to the hospital include, but or not limited to, chest pain , shortness of breath, fevers, chills, nausea, vomiting, abdominal distention, abdominal pain. I did discuss these warning signs with the patient. I have instructed her to continue with the followup care as outlined by Dr. Fuentes when the patient was discharged about 6 days ago, which she said she will. TIME SPENT: Time spent on this consult was approximately 60 minutes, greater than half time was spent [id number] with the patient obtaining my history and physical, the other half time was spent going over the plan of care with the patient, implementing the plan of care. I did discuss the plan of care with my attending, Dr. Balbuena, she is in agreement. JENNIFER VARNER, GIOVANNA [id number]/[facility] #: [id number] ROBINA
== END 2018-05-21 18:01 | disposition home or self-care (01) ==
LOC: ED 11:54
DX: E83.52 Hypercalcemia (principal); R53.1 Weakness; R11.0 Nausea; D64.9 Anemia, unspecified; E78.5 Hyperlipidemia, unspecified; I10 Essential (primary) hypertension; M81.0 Age-related osteoporosis without current pathological fracture; Z96.653 Presence of artificial knee joint, bilateral; Z85.3 Personal history of malignant neoplasm of breast; Z88.5 Allergy status to narcotic agent; Z88.0 Allergy status to penicillin; Z88.8 Allergy status to other drugs, medicaments and biological substances; Z87.891 Personal history of nicotine dependence
CPT/HCPCS: 36415; 71045; 80053; 82330; 82550; 82553; 83605; 83735; 83880; 84443; 84484; 85025; 85379; 85610; 85652; 85730; 86140; 93005; 99282

== ENCOUNTER 2018-06-27 09:35 | Inpatient (IN) | payer MEDICARE, OTHER ==
[2018-06-27] MEDS ORDERED: Ondansetron TAB* 4 MG PO ONE (10:00)
[2018-06-27] MEDS ORDERED: NS 0.9% 1000 ML* 1,000 ML IV ONE ×2 (10:00→11:53)
--- NOTE | 2018-06-27 10:01 | ED ---
Complex/Multi-Sys Presentation - HPI Summary HPI Summary: 83 y/o female presents to the ED c/o multiple episodes of N/V starting last night, lasting through the night. Sx not aggravated or alleviated by anything. Associated sx: mild diarrhea (last episode this morning), cough, REEVES, dizziness. Last PO intake dinner last night. - History Of Current Complaint Chief Complaint: EDNauseaVomitDiarrh Time Seen by Provider: 06/27/18 09:55 Hx Obtained From: Patient Onset/Duration: Lasting Hours Timing: Intermittent, Lasting: Associated Signs And Symptoms: Positive: Nausea, Vomiting, Diarrhea - Allergies/Home Medications Allergies/Adverse Reactions: Allergies Allergy/AdvReac Type Severity Reaction Status Date / Time allopurinol Allergy Unknown Verified 05/13/18 10:11 Reaction Details codeine Allergy Nausea And Verified 05/13/18 10:11 Vomiting methotrexate Allergy Nausea Verified 05/13/18 10:11 Penicillins Allergy Rash Verified 05/13/18 10:11 tapentadol Allergy Unknown Verified 05/13/18 10:11 Reaction Details valsartan Allergy Unknown Verified 05/13/18 10:11 Reaction Details Home Medications: Home Medications Albuterol inh POWDER (NF) [Proair Respiclick] 108 mcg INH Q6HR PRN 06/27/18 [ History Confirmed 06/27/18] Docusate CAP* [Colace Cap*] 200 mg PO SEE INSTRUCTIONS 06/27/18 [History Confirmed 06/27/18] Febuxostat(NF) [Uloric(NF)] 40 mg PO DAILY 06/27/18 [History Confirmed 06/27/18] Minocycline HCl [Minocin] 75 mg PO BID 06/27/18 [History Confirmed 06/27/18] Ondansetron ODT TAB* [Zofran 4 MG Odt TAB*] 4 mg PO Q6HR PRN 06/27/18 [History Confirmed 06/27/18] Polyethylene Glycol 3350* [Miralax*] 17 gm PO DAILY 06/27/18 [History Confirmed 06/27/18] busPIRone TAB* [Buspar TAB*] 5 mg PO QID PRN 06/27/18 [History Confirmed ] predniSONE TAB* [Deltasone TAB*] 5 - 10 mg PO DAILY PRN 06/27/18 [History Confirmed 06/27/18] PMH/Surg Hx/FS Hx/Imm Hx Endocrine/Hematology History: Reports: Hx Diabetes - type 2 mild, Hx Anemia - takes iron bid Denies: Hx Anticoagulant Therapy, Hx Blood Disorders Cardiovascular History: Reports: Hx Hypertension Denies: Other Cardiovascular Problems/Disorders - Denies Hx of [place] GI History: Reports: Hx Gastroesophageal Reflux Disease, Hx Hiatal Hernia, Hx Irritable Bowel, Other GI Disorders - GERD, HIATAL HERNIA. 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 Left breast implant , replaced x5, right breast reduction. . Bilat knee replacement. abdominoplasty , hernia repair, cholecystectomy Hx Anesthesia Reactions: Yes - a little nausea afterwards Infectious Disease History: No Infectious Disease History: Denies: Traveled Outside the [place] in Last 30 Days - Family History Known Family History: Positive: Other - Lung cancer - father Negative: Diabetes, Seizure Disorder - Social History Alcohol Use: None Hx Substance Use: No Substance Use Type: Reports: None Hx Tobacco Use: Yes Smoking Status (MU): Former Smoker Amount Used/How Often: smoked 10 years 1/2ppd Review of Systems Constitutional: Negative Eyes: Negative ENT: Negative Cardiovascular: Negative Positive: Cough Positive: Vomiting, Diarrhea, Nausea. Negative: Abdominal Pain Genitourinary: Negative Musculoskeletal: Negative Skin: Negative Neurological: Other - dizziness Positive: Headache Psychological: Normal All Other Systems Reviewed And Are Negative: Yes Physical Exam - Summary Physical Exam Summary: VITAL SIGNS: Reviewed. GENERAL: Patient is a well-developed and nourished female who is lying comfortable in the stretcher. Patient is not in any acute respiratory distress. HEAD AND FACE: No signs of trauma. No ecchymosis, hematomas or skull depressions. No sinus tenderness. EYES: PERRLA, EOMI x 2, No injected conjunctiva, no nystagmus. EARS: Hearing grossly intact. Ear canals and tympanic membranes are within normal limits. MOUTH: Oral mucosa dry. NECK: Supple, trachea is midline, no adenopathy, no JVD, no carotid bruit, no c- spine tenderness, neck with full ROM. CHEST: Symmetric, no tenderness at palpation LUNGS: Clear to auscultation bilaterally. No wheezing or crackles. CVS: Regular rate and rhythm, S1 and S2 present, no murmurs or gallops appreciated. ABDOMEN: Soft, non-tender. Distended. No rebound no guarding, and no masses palpated. Bowel sounds are decreased. EXTREMITIES: FROM in all major joints, no edema, no cyanosis or clubbing. NEURO: Alert and oriented x 3. No acute neurological deficits. Speech is normal and follows commands. SKIN: Dry and warm. Increased turgor. Triage Information Reviewed: Yes Vital Signs On Initial Exam: Initial Vitals Temp Pulse Resp BP Pulse Ox 98.1 F 100 20 84/49 100 06/27/18 09:42 06/27/18 09:42 06/27/18 09:42 06/27/18 09:42 06/27/18 09:42 Vital Signs Reviewed: Yes Diagnostics - Vital Signs Vital Signs Temp Pulse Resp BP Pulse Ox 06/27/18 09:42 98.1 F 100 20 84/49 100 - Laboratory Result Diagrams: 06/27/18 10:14 06/27/18 10:14 Lab Statement: Any lab studies that have been ordered have been reviewed, and results considered in the medical decision making process. - Radiology ABD X R Xray Interpretation: No Acute Changes - No free air is noted. Radiology Interpretation Completed By: Radiologist - ED Physician reviews and agrees - EKG 1 EKG Interpretation: 10:17 - SR @ [address] elevations in II, III, aVF, V4-V6. Re-Evaluation - Re-Evaluation 1 Re-Evaluation Time: 10:24 Comment: Pt states she has CP when she coughs. Complex Multi-Symp Course/Dx Course Of Treatment: Spoke with Dr. Alonso at 11:45. Assessment/Plan: 83 y/o female presents to the ED c/o multiple episodes of N/V starting last night, lasting through the night. Sx not aggravated or alleviated by anything. Associated sx: mild diarrhea (last episode this morning), cough, REEVES , dizziness. Last PO intake dinner last night. get the blood work shows white blood cells 12.4, hemoglobin 10.7 hematocrit 33 and platelets of 269. Sodium is 133 BUN 26 within 1.29, glucose of 177 lactic acid is 2.4. CRP is 62.9, BNP 127. In the ED course the patient was given IV fluids, she was placed on a merchandising coordinator and an EKG was done. The EKG shows ST elevations in multiple leads possibly consistent with pericarditis. I discussed the case with Dr. Guaman from cardiology and he agrees that the patient's EKG is consistent with pericarditis. Patient was started on ibuprofen. Chest x-ray impression: No free air is noted. The patient was also started with Zofran for nausea. I discuss my physical exam, findings and test results with Dr. Alonso from the hospitalist services and he agrees to admit patient to his services. Patient is hemodynamically stable alert and oriented x 3. ECHO was ordered and will be f/ u by Dr. Alonso - Diagnoses Provider Diagnoses: Pericarditis, Hypotension - Physician Notifications Discussed Care Of Patient With: Parker Guaman Time Discussed With Above Provider: 10:24 Discharge - Sign-Out/Discharge Documenting (check all that apply): Patient Departure - Discharge Plan Condition: Stable Disposition: ADMITTED TO [facility] Referrals: Juventino Hsu MD [Primary Care Provider] - - Billing Disposition and Condition Condition: STABLE Disposition: Admitted to [facility] - Attestation Statements Document Initiated by Aurelio: Yes Documenting Scribe: Ulises Sims Provider For Whom Aurelio is Documenting (Include Credential): Ron Cleaning MD Scribe Attestation: Ulises Smith, scribed for Ron Cleaning MD on 06/27/18 at 1345. Scribe Documentation Reviewed: Yes Provider Attestation: The documentation as recorded by the Ulises orozco accurately reflects the service I personally performed and the decisions made by me, Ron Cleaning MD
[2018-06-27] MEDS ORDERED: Ibuprofen TAB* 600 MG PO ONE (10:26)
[2018-06-27 10:30] LABS: Hematocrit 33 % (35-47); Hemoglobin 10.7 g/dl (12.0-16.0); Mean Corpuscular HGB Conc 32 g/dl (31-36); Mean Corpuscular Hemoglobin 27 pg (27-31); Mean Corpuscular Volume 84 fL (80-97); Mean Platelet Volume 8.3 um3 (7.4-10.4); Platelet Count 369 10^3/ul (150-450); Red Blood Count 3.92 10^6/ul (4.00-5.40); Red Cell Distribution Width 14 % (10.5-15); White Blood Count 12.4 10^3/ul (3.5-10.8)
[2018-06-27 10:50] LABS: EGFR Non-African American 39.4 (>60)
--- NOTE | 2018-06-27 11:00 | RAD ---
Indication: Nausea and vomiting. Flat plate of the abdomen demonstrates no free air. Air is noted throughout the colon. Patient is status post cholecystectomy. IMPRESSION: No free air is noted.
--- OUTSIDE RECORDS SUMMARY | 2018-06-27 11:22 | XMS REPORT | Continuity of Care Document ---
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 [place] [address] Effective: 2017 Policy Number: [id number] [employer] BS June A Alejandro Expires: 2017 Group Name[place] [address] PayID: [id number] [place] [address] Expires: 2016 Policy Number: [id number] Medicare - Bswny Umd June A Alejandro PayID: [id number] [address] [facility] [place], [place] Effective: 2017 Policy Number: [id number] [place] [employer] June A Alejandro Acc[employer] Group Number: [id number] [address] PayID: [id number] [place] [address] Advance Directives Description No Information Available Problems Description No Information Family History Date Family Member(s) Problem(s) Comments General Cancer, Unknown Site General Aortic Aneurysm General Cancer, Prostate General Heart Disease General Hypertension Social History Type Date Description Comments Sex Unknown Marital Status Significant Other Enzo Casey Lives With Male Partner Diet Healthy, Well Balanced Occupation Retired Tobacco Use Start: Unknown Never Smoked Cigarettes ETOH Use Never used alcohol Exercise Type/Frequency Does not exercise Allergies, Adverse Reactions, Alerts Date Description Reaction Status Severity Comments 06/22/2016 Penicillin Active 06/22/2016 Methotrexate Active 06/22/2016 Codeine Active 06/22/2016 Nucynta Active 06/22/2016 Diovan Active 06/22/2016 Allopurinol Active Medications Medication Date Status Form Strength Qnty SIG Indications Ordering Provider Buspirone HCL 06/05/ Active Tablets 5mg 60tab 1 tab by Juventino 2018 s mouth four [place] times a day , as needed Miralax 05/24/ Active Powder 3350NF 510un 2-3 capful K59.00 Juventino 2018 its mixed as [place] per MD directions in water by mouth daily until stooling resumes. Use one capful for mild constipatio n. Colace 05/24/ Active Capsules 100mg 60cap 2 tab by K59.00 Juventino 2018 s mouth daily [place] for a week , Proair HFA 05/01/ Active Aerosol 108(90Base 8.500 1-2 puffs R05 Juventino 2017 ) mcg/Act gm every 6 [place] hours as , MD needed Fluoxetine 03/15/ Active Capsules 10mg 30cap 1 by mouth Juventino HCL 2018 s every [place] morning; , MD take with the 20 mg to make 30 mg daily. Amlodipine 03/12/ Active Tablets 2.5mg 30tab Take One Juventino Besylate 2016 s Tablet By [place] Mouth Every , MD Day Ipratropium 03/09/ Active Solution 0.06% 30ml 2 J30.0 Juventino [place] 2017 intranasal [place] puffs twice , MD a day as needed for rhinorrhea Lisinopril 09/27/ Active Tablets 2.5mg 30tab Take One Juventino 2016 s Tablet By [place] Mouth Every , MD Day Blood Glucose 11/17/ Active Strips 100un use as Juventino Test 2015 its directed to shiraz test blood , glucose twice daily brand Sukhwinder Track by [employer] . Simvastatin 06/22/ Active Tablets 20mg 90tab Take One Juventino 2015 s Tablet By [place] Mouth Every , MD Day Omeprazole 06/22/ Active Capsules DR 20mg 30cap Take One K21.9 Juventino 2015 s Capsule By [place] Mouth Every , MD Day Minocin 06/22/ Active Capsules 75mg 60cap Take One Juventino 2015 s Capsule By [place] Mouth Twice , MD A Day Uloric 06/22/ Active Tablets 40mg 30tab Take One Juventino 2015 s Tablet By [place] Mouth Every , MD Day Alendronate 06/22/ Active Tablets 35mg 4tabs Take One Juventino Sodium 2015 Tablet By [place] Mouth Every , MD Week as Directed Prednisone 06/22/ Active Tablets 5mg 45tab Take 1 To 2 Juventino 2015 s Tablets By [place] Mouth Once , MD Daily as Needed Ondansetron / Active Tablets 4mg Unknown 0000 Dispers HM / Active Capsules Unknown [place]-3-6-9 0000 Fatty Acids Peg-3350/Elec / Active Solution Rec Unknown trolytes 0000 Meclizine HCL 12/14/ Hx Tablets 12.5mg 30tab 1 at [facility] 2017 - bedtime as Aracelis 05/24/ needed , 2018 Fluticasone 07/20/ Hx Suspension 50mcg/Act 16gm inhale one J01.90 Juventino Propionate 2017 - spray in [facility] 05/24/ each , 2018 nostril every day Clindamycin 11/08/ Hx Capsules 300mg 21cap take 1 J01.90 Juventino HCL 2016 - s capsule by shiraz 03/15/ mouth every , 2018 8 hours for 7 days. Trigels-F 09/01/ Hx Capsules 460-60-0.0 60cap Take One Juventino Forte 2015 - -1mg s Capsule By shiraz 05/24/ Mouth Twice , 2018 A Day Lovaza 06/22/ Hx Capsules 1gm 60cap 1 tab by Juventino 2015 - mouth twice shiraz 05/24/ a day , 2018 Amlodipine 06/22/ Hx Tablets 5mg 30tab 1 by mouth Juventino Besylate 2015 - every day Aracelis 03/12/ MD 2016 Fluoxetine 06/22/ Hx Capsules 20mg 30cap Take One Juventino HCL 2015 - Capsule By Aracelis 03/15/ Mouth Every , 2017 Day Immunizations CPT Code Status Date Vaccine Lot # [id number] Given 06/05/2017 Influenza Vaccine High Dose PF [id number] Given 11/10/2016 Influenza Virus Vaccine, Quadrivalent, 3 Yr > [id number] Quad, Preserv Free 45398 Given 10/18/2015 Prevnar-13 Pneumococcal Conjugate Vaccine 34057 Given 09/17/2014 Zoster Vaccine [id number] Given 03/17/2013 Pneumovax 23 (PPSV23) 65+ years or high risk 2 to 64 year old 28631 Given 03/17/2013 DT (Adult) Vital Signs Date Vital Result Comment 06/05/2018 3:39pm Weight 130.00 lb Weight 58.968 kg BP Systolic 130 mmHg BP Diastolic 68 mmHg Heart Rate 96 /min Body Temperature 99.1 F Respiratory Rate 20 /min O2 % BldC Oximetry 99 % 06/03/2018 12:00pm Weight 129.00 lb Weight 58.514 kg BP Systolic 110 mmHg BP Diastolic 60 mmHg Heart Rate 96 /min Respiratory Rate 20 /min O2 % BldC Oximetry 96 % 05/24/2018 11:52am BP Systolic 122 mmHg BP Diastolic 65 mmHg Heart Rate 80 /min Body Temperature 98.8 F Respiratory Rate 32 /min O2 % BldC Oximetry 99 % 05/08/2018 9:45am Weight 134.00 lb Weight 60.782 kg BP Systolic 122 mmHg BP Diastolic 80 mmHg Heart Rate 84 /min Body Temperature 100.0 F Respiratory Rate 24 /min O2 % BldC Oximetry 98 % 05/01/2018 11:31am Weight 134.00 lb Weight 60.782 kg BP Systolic 123 mmHg BP Diastolic 70 mmHg Heart Rate 88 /min Body Temperature 99.7 F Respiratory Rate 20 /min O2 % BldC Oximetry 99 % 03/15/2018 2:43pm Weight 140.00 lb Weight 63.504 kg BP Systolic 148 mmHg BP Diastolic 70 mmHg Heart Rate 78 /min Body Temperature 99.3 F Respiratory Rate 20 /min O2 % BldC Oximetry 97 % 12/14/2017 3:23pm Weight 141.00 lb Weight 63.958 kg BP Systolic 146 mmHg BP Diastolic 78 mmHg Heart Rate 87 /min Body Temperature 97.9 F Respiratory Rate 18 /min O2 % BldC Oximetry 98 % 11/28/2017 3:57pm Weight 145.00 lb Weight 65.772 kg BP Systolic 124 mmHg BP Diastolic 76 mmHg Heart Rate 74 /min Body Temperature 99.0 F Respiratory Rate 18 /min Height 63 inches 5'3" BMI (Body Mass Index) 25.7 kg/m2 O2 % BldC Oximetry 98 % 10/22/2017 2:28pm Weight 147.00 lb Weight 66.679 kg BP Systolic 128 mmHg BP Diastolic 70 mmHg Heart Rate 88 /min Body Temperature 98.8 F Respiratory Rate 24 /min 07/20/2017 2:12pm Weight 147.00 lb Weight 66.679 kg BP Systolic 128 mmHg BP Diastolic 70 mmHg Heart Rate 72 /min Body Temperature 99.9 F O2 % BldC Oximetry 98 % 06/22/2017 10:31am Weight 152.00 lb Weight 68.947 kg BP Systolic 122 mmHg BP Diastolic 80 mmHg Heart Rate 80 /min Body Temperature 98.4 F Respiratory Rate 16 /min 06/08/2017 10:06am Weight 150.00 lb Weight 68.040 kg BP Systolic 146 mmHg BP Diastolic 80 mmHg Heart Rate 92 /min Body Temperature 98.5 F Respiratory Rate 20 /min O2 % BldC Oximetry 98 % 04/12/2017 1:55pm Weight 147.00 lb Weight 66.679 kg BP Systolic 120 mmHg BP Diastolic 80 mmHg Heart Rate 74 /min Body Temperature 98.3 F Respiratory Rate 14 /min 04/05/2017 10:17am Weight 149.00 lb Weight 67.586 kg BP Systolic 144 mmHg BP Diastolic 82 mmHg Heart Rate 76 /min Body Temperature 98.5 F Respiratory Rate 20 /min O2 % BldC Oximetry 98 % 03/26/2017 1:02pm Weight 148.00 lb Weight 67.133 kg BP Systolic 140 mmHg BP Diastolic 77 mmHg Heart Rate 84 /min Height 62.5 inches 5'2.50" BMI (Body Mass Index) 26.6 kg/m2 03/09/2017 10:07am Weight 147.00 lb Weight 66.679 kg BP Systolic 120 mmHg BP Diastolic 68 mmHg Heart Rate 72 /min Body Temperature 98.9 F Respiratory Rate 24 /min 11/08/2016 2:25pm Weight 138.00 lb Weight 62.597 kg BP Systolic 137 mmHg BP Diastolic 62 mmHg Heart Rate 82 /min Body Temperature 99.4 F O2 % BldC Oximetry 98 % 09/27/2016 10:12am Weight 143.00 lb Weight 64.865 kg BP Systolic 136 mmHg BP Diastolic 72 mmHg Heart Rate 89 /min Body Temperature 99.5 F O2 % BldC Oximetry 98 % 07/19/2016 10:47am Weight 142.00 lb Weight 64.411 kg BP Systolic 172 mmHg BP Diastolic 92 mmHg Heart Rate 76 /min Respiratory Rate 20 /min 06/22/2016 9:06am Weight 140.00 lb Weight 63.504 kg BP Systolic 154 mmHg BP Diastolic 82 mmHg Heart Rate 81 /min Body Temperature 98.1 F Respiratory Rate 20 /min Height 62.5 inches 5'2.50" BMI (Body Mass Index) 25.2 kg/m2 O2 % BldC Oximetry 98 % Results Test Date Facility Test Result H/L Range Note Laboratory test [facility] Erythrocyte Sed 30 mm/Hr 0-40 finding 8 [phone] Rate CBC Auto Diff [facility] White Blood 6.9 10 ^3/uL 3.5-10.8 8 [phone] Count Red Blood Count 4.92 10^6/uL 4.00-5.40 Hemoglobin 13.6 g/dL 12.0-16.0 Hematocrit 41 % 35-47 Mean Corpuscular Volume 84 fL 80-97 Mean Corpuscular Hemoglobin 28 pg 27-31 Mean Corpuscular HGB Conc 33 g/dL 31-36 Red Cell Distribution Width 13 % 10.5-15 Platelet Count 335 10^3/uL 150-450 Mean Platelet Volume 8.3 um3 7.4-10.4 Abs Neutrophils 5.0 10^3/uL 1.5-7.7 Abs Lymphocytes 1.1 10^3/uL 1.0-4.8 Abs Monocytes 0.6 10^3/uL 0-0.8 Abs Eosinophils 0 10^3/uL 0-0.6 Abs Basophils 0.1 10^3/uL 0-0.2 Abs Nucleated RBC 0 10^3/uL Granulocyte % 72.6 % 38-83 Lymphocyte % 16.5 % Low 25-47 Monocyte % 9.2 % High 0-7 Eosinophil % 0.4 % 0-6 Basophil % 1.3 % 0-2 Nucleated Red Blood Cells % 0.1 Laboratory test 05/21/2018 [facility] TSH (Thyroid 5.08 0.34-5.60 finding [phone] Stimulating mcIU/mL Horm) CKMB 05/21/2018 [facility] CKMB ng/mL 0.8 ng/mL 0.6-6.3 [phone] Laboratory test 05/21/2018 [facility] Troponin-I 0.00 ng/mL <0.04 finding [phone] (TnI) Laboratory test 05/21/2018 [facility] Calcium Ionized 5.12 mg/dL 4.65-5.28 finding [phone] Laboratory test 05/21/2018 [facility] B-Type 98 pg/ mL 1 finding [phone] Natriuretic Peptide BNP Lactic Acid 1.2 mmol/L 0.5-2.0 2 Laboratory test 05/21/2018 [facility] Magnesium 2.0 mg/dL 1.9-2.7 finding [phone] Creatine Kinase 21 U/L 10-223 C Reactive Protein 5.08 mg/L <8.01 Troponin-I (TnI) 0.01 ng/mL <0.04 Comp Metabolic Panel 05/21/2018 [facility] Sodium 137 mmol/L 135-145 [phone] Potassium 4.3 mmol/L 3.5-5.0 Chloride 103 mmol/L 101-111 Co2 Carbon Dioxide 25 mmol/L 22-32 Anion Gap 9 mmol/L 2-11 Glucose 113 mg/dL High 70-100 Blood Urea Nitrogen 16 mg/dL 6-24 Creatinine 0.97 mg/dL High 0.51-0.95 BUN/Creatinine Ratio 16.5 8-20 Calcium 10.5 mg/dL High 8.6-10.3 Total Protein 7.1 g/dL 6.4-8.9 Albumin 4.1 g/dL 3.2-5.2 Globulin 3.0 g/dL 2-4 Albumin/Globulin Ratio 1.4 1-3 Total Bilirubin 0.80 mg/dL 0.2-1.0 Alkaline Phosphatase 65 U/L 34-104 Alt 8 U/L 7-52 Ast 13 U/L 13-39 Egfr Non- 54.7 >60 Egfr 66.2 >60 3 Inr/Protime 05/21/2018 [facility] Inr 0.95 0.77- 1.02 [phone] Laboratory test 05/21/2018 [facility] Partial 29.6 seconds 26.0-36.3 finding [phone] Thrombo Time PTT D Dimer Quantitative < 200 ng/mL Less Than 230 4 Urine DIP 05/08/2018 [facility] House Lab Leukocytes + Neg [phone] Urine Nitrites neg Neg Urobilinogen norm Norm Total Protein, Urine neg Neg Urine pH 5 5-6 Urine Blood neg Neg Specific [place] 1.020 1.01-1.02 Urine Ketones neg Neg Urine Bilirubin neg Neg Urine Glucose norm Norm Urine Culture And 05/08/2018 [facility] Urine Culture SEE RESULT 5 Sensitivities [phone] BELOW CBC Auto Diff 05/08/2018 [facility] White Blood 6.7 10^3/uL 3.5-10 [phone] Count .8 Red Blood Count 4.64 10^6/uL 4.00-5.40 Hemoglobin 13.1 g/dL 12.0-16.0 Hematocrit 40 % 35-47 Mean Corpuscular Volume 85 fL 80-97 Mean Corpuscular Hemoglobin 28 pg 27-31 Mean Corpuscular HGB Conc 33 g/dL 31-36 Red Cell Distribution Width 14 % 10.5-15 Platelet Count 306 10^3/uL 150-450 Mean Platelet Volume 8.9 um3 7.4-10.4 Abs Neutrophils 4.7 10^3/uL 1.5-7.7 Abs Lymphocytes 1.1 10^3/uL 1.0-4.8 Abs Monocytes 0.7 10^3/uL 0-0.8 Abs Eosinophils 0.1 10^3/uL 0-0.6 Abs Basophils 0.1 10^3/uL 0-0.2 Abs Nucleated RBC 0 10^3/uL Granulocyte % 70.0 % 38-83 Lymphocyte % 16.5 % Low 25-47 Monocyte % 10.9 % High 0-7 Eosinophil % 1.4 % 0-6 Basophil % 1.2 % 0-2 Nucleated Red Blood Cells % 0.1 Comp Metabolic Panel 05/08/2018 [facility] Sodium 139 mmol/L 135-145 [phone] Potassium 4.0 mmol/L 3.5-5.0 Chloride 106 mmol/L 101-111 Co2 Carbon Dioxide 24 mmol/L 22-32 Anion Gap 9 mmol/L 2-11 Glucose 101 mg/dL High 70-100 Blood Urea Nitrogen 15 mg/dL 6-24 Creatinine 0.98 mg/dL High 0.51-0.95 BUN/Creatinine Ratio 15.3 8-20 Calcium 10.6 mg/dL High 8.6-10.3 Total Protein 6.6 g/dL 6.4-8.9 Albumin 4.1 g/dL 3.2-5.2 Globulin 2.5 g/dL 2-4 Albumin/Globulin Ratio 1.6 1-3 Total Bilirubin 1.00 mg/dL 0.2-1.0 Alkaline Phosphatase 63 U/L 34-104 Alt 7 U/L 7-52 Ast 13 U/L 13-39 Egfr Non- 54.1 >60 Egfr 65.4 >60 6 Laboratory test 05/08/2018 In House Lab Glucose By 108 78-110 finding [phone] Moniter Laboratory test 05/08/2018 [facility] Lyme Disease Negative Negative 7 finding [phone] Serology C Reactive Protein 6.64 mg/L <8.01 8 Urine Microalbumin 03/15/2018 [facility] Ur Microalbumin 48.4 mg/L Random [phone] (mg/L) Urine Creatinine 237.27 mg/dL Urine Microalbumin/Creatinine 20.3 ug/mg <31 Comp Metabolic Panel 03/15/2018 [facility] Sodium 139 mmol/L 135-145 [phone] Potassium 4.0 mmol/L 3.5-5.0 Chloride 106 mmol/L [...] Egfr Non- 53.6 >60 Egfr 64.8 >60 9 CBC Auto Diff 03/15/2018 [facility] White Blood 8.3 10^3/uL 3.5-10.8 [phone] Count Red Blood Count 4.56 10^6/uL 4.00-5.40 Hemoglobin [...] Red Blood Cells % 0.1 Laboratory test 03/15/2018 [facility] C Reactive 2.20 mg/L <8.01 10 finding [phone] Protein Ferritin 64.0 ng/mL 11-307 11 TSH (Thyroid Stim Horm) 2.22 mcIU/mL 0.34-5.60 12 Vitamin B12 723 pg/mL 180-914 13 Statin 03/15/2018 [facility] Ast 13 U/L 13-39 [phone] Alt 6 U/L Low 7-52 Lipid Profile 03/15/2018 [facility] Triglycerides 310 mg/dL 14 (Trig/Chol/HDL) [phone] Cholesterol 219 mg/dL 15 HDL Cholesterol 33.4 mg/dL 16 LDL Cholesterol 124 mg/dL 17 Comp Metabolic Panel 11/24/2017 [facility] Sodium 137 mmol/L 133-145 [phone] Potassium 3.8 mmol/L 3.5-5.0 Chloride 106 mmol/L [...] Egfr Non- 45.1 >60 Egfr 58.0 >60 18 CBC Auto Diff 11/24/2017 [facility] White Blood 7.2 10^3/uL 3.5-10.8 [phone] Count Red Blood Count 4.58 10^6/uL 4.0-5.4 Hemoglobin [...] Red Blood Cells % 0.1 Pthi 11/24/2017 [facility] Calcium (PTH 10.5 mg/dL High 8.6-10.3 [phone] Intact) PTH Intact 8.6 pmol/L 1.3-9.3 Laboratory test 11/16/2017 [facility] Blood Culture SEE RESULT 19 finding [phone] BELOW Inr/Protime 11/16/2017 [facility] Inr 0.91 0.77-5 [phone] .02 Laboratory test 11/16/2017 [facility] Stool For SEE RESULT 20 finding [phone] Blood BELOW Stool Culture SEE RESULT BELOW 21 Urinalysis Profile 11/16/2017 [facility] Urine Color Yellow [phone] Urine Appearance Cloudy Urine Specific [place] 1.012 1.010-1.030 Urine pH 5.0 5-9 Urine [...] Epithelial Cells Present Absent Laboratory test 11/16/2017 [facility] Urine Culture SEE RESULT 22 finding [phone] BELOW Rapid Influenza 11/16/2017 [facility] Influenza A NEGATIVE Negative 23 A & B Molecular [phone] Molecular Influenza B Molecular NEGATIVE Negative Laboratory test 11/16/2017 [facility] Lactic Acid 1.2 mmol/L 0.5-2.0 24 finding [phone] CBC Auto Diff 11/16/2017 [facility] White Blood 13.9 High 3.5-10.8 [phone] Count 10^3/uL Red Blood Count 5.20 10^6/uL 4.0-5.4 Hemoglobin [...] Red Blood Cells % 0 Laboratory test 11/16/2017 [facility] C Reactive 4.19 mg/L < 5.00 25 finding [phone] Protein Troponin-I (TnI) 0.00 ng/mL <0.04 Comp Metabolic Panel 11/16/2017 [facility] Sodium 137 mmol/L 133-145 [phone] Potassium 4.1 mmol/L 3.5-5.0 Chloride 106 mmol/L [...] Egfr Non- 54.2 >60 Egfr 69.7 >60 26 Laboratory test 07/20/2017 [facility] House [facility] Strep Screen neg Neg finding ([phone])- - Laboratory test 07/05/2017 [facility] Surgical SEE RESULT 27 finding [phone] Pathology BELOW Laboratory test 07/05/2017 [facility] Point of Care 115 mg/dL High 70-100 28 finding [phone] Glucose Laboratory test 04/05/2017 [facility] Surgical SEE RESULT 29 finding [phone] Pathology BELOW Statin 03/26/2017 [facility] Ast 14 U/L 13-39 [phone] Alt 9 U/L 7-52 Lipid Profile 03/26/2017 [facility] Triglycerides 183 mg/dL 30 (Trig/Chol/HDL) [phone] Cholesterol 181 mg/dL 31 HDL Cholesterol 45.5 mg/dL 32 LDL Cholesterol 99 mg/dL 33 Laboratory test 03/26/2017 [facility] Hemoglobin A1c 5.8 % Less than 34 finding [phone] (Glyco HGB) 6.0 Comp Metabolic 03/26/2017 [facility] Sodium 137 133-145 Panel [phone] mmol/L Potassium 4.1 mmol/L 3.5-5.0 Chloride 105 mmol/L [...] Egfr Non- 59.0 >60 Egfr 75.9 >60 35 CBC Auto Diff 03/26/2017 [facility] White Blood 8.2 10^3/uL 3.5-10.8 [phone] Count Red Blood Count 4.93 10^6/uL 4.0-5.4 Hemoglobin [...] Red Blood Cells % 0 Laboratory test 03/26/2017 [facility] Vitamin D 37.0 ng/mL 30-50 36 finding [phone] Total 25(Oh) Laboratory test 03/09/2017 [facility] C Reactive 1.71 mg/L < 5.00 37 finding [phone] Protein CBC Auto Diff 03/09/2017 [facility] White Blood 7.6 3.5-10.8 [phone] Count 10^3/uL Red Blood Count 5.36 10^6/uL 4.0-5.4 Hemoglobin [...] Cells % 0.1 Comp Metabolic Panel 03/09/2017 [facility] Sodium 139 mmol/L 133-145 [phone] Potassium 4.4 mmol/L 3.5-5.0 Chloride 105 mmol/L [...] Egfr Non- 57.7 >60 Egfr 74.2 >60 38 Laboratory test 03/09/2017 [facility] Ferritin 60.9 ng/mL 11-307 39 finding [phone] Lyme Disease Serology Negative Negative 40 TSH (Thyroid Stim Horm) 1.61 mcIU/mL 0.34-5.60 41 Laboratory test 10/25/2016 [facility] C Reactive 9.44 mg/L High < 5.00 42 finding [phone] Protein Blood Culture SEE RESULT BELOW 43 Comp Metabolic Panel 10/25/2016 [facility] Sodium 135 mmol/L 133-145 [phone] Potassium 3.9 mmol/L 3.5-5.0 Chloride 102 mmol/L [...] Egfr Non- 51.9 >60 Egfr 66.7 >60 44 Laboratory test 10/25/2016 [facility] Lactic Acid 1.1 mmol/L 0.5-2.0 45 finding [phone] CBC Auto Diff 10/25/2016 [facility] White Blood 9.1 10^3/uL 3.5-10.8 [phone] Count Red Blood Count 5.26 10^6/uL 4.0-5.4 Hemoglobin [...] Red Blood Cells % 0 Rapid Influenza 10/25/2016 [facility] Influenza A POSITIVE Negative 46 A & B Molecular [phone] Molecular Influenza B Molecular NEGATIVE Negative Laboratory test 10/25/2016 [facility] Rapid Influenza SEE RESULT 47 finding [phone] A & B Antigen BELOW Urine Culture SEE RESULT BELOW 48 Urinalysis Profile 10/25/2016 [facility] Urine Color Yellow [phone] Urine Appearance Cloudy Urine Specific [place] 1.019 1.010-1.030 Urine pH 6.0 5-9 Urine Urobilinogen Negative Negative Urine Ketones Trace Negative Urine Protein 2+(100 mg/dL) Negative Urine Leukocytes 3+ Negative Urine Blood Negative Negative * * Negative 49 Urine Nitrite Negative Negative Urine Bilirubin Negative Negative Urine Glucose Negative Negative Urine White Blood Cell 2+(11-20/hpf) Absent Urine Red Blood Cell 2+(6-10/hpf) Absent Urine Bacteria Absent Absent Urine Squamous Epithelial Cell Present Absent Urine Microalbumin 09/27/2016 [facility] Urine Creatinine 127.67 mg/dL Random [phone] Ur Microalbumin (mg/L) 41.1 mg/L Urine Microalbumin/Creatinine 32.1 ug/mg High <31 Laboratory test 09/22/2016 [facility] Hemoglobin A1c 5.5 % Less than 50 finding [phone] (Glyco HGB) 6.0 CBC Auto Diff 09/22/2016 [facility] White Blood 6.8 3.5-10.8 [phone] Count 10^3/uL Red Blood Count 4.86 10^6/uL 4.0-5.4 Hemoglobin [...] Red Blood Cells % 0.1 Laboratory test 09/22/2016 [facility] Ferritin 22.3 ng/mL [phone] [id number] [phone] 1 >100 to <200 pg/mL: likely compensated congestive heart failure (CHF) 200 to 400 pg/mL: likely moderate CHF >400 pg/mL: likely moderate to severe CHF 2 [facility] Severe Sepsis and Septic Shock Management Bundle Measure requires all lactic acids initially measuring >2.0 mmol/L be repeated. 3 Because ethnic data is not always readily [...] 15-29 5 Kidney failure <15 (or dialysis) 4 Please note: The following may produce a false positive D Dimer test: - Rheumatoid factor greater than 60 IU/ml - Plasma hemoglobin greater than 0.05 gm/dl - Bilirubin greater than 50 mg/dl - Lipids greater than 1000 mg/dl - FDP greater than 20 ug/ml 5 SEE RESULT BELOW Name: JUNE ALLEN Nicole : [address]: Juventino Hsu MD Acct: [id number] Unit: [id number] AGE: 83 Location: [facility] Re05/08/18 SEX: F Status: REG REF SPEC: [id number] CARTER: 05/08/18-[address]: Juventino Hsu MD REQ: [id number] RECD: 05/08/18 STATUS: COMP _ SOURCE: URINE SPDESC: ORDERED: Urine Culture COMMENTS: [id number] Procedure Result Reported Site Urine Culture Final 05/09/18- 1331 ML No Growth (<1,000 CFU/mL) * ML - Main Lab . END OF REPORT DEPARTMENT OF PATHOLOGY, [address] [place] [address] Nelson Willis M.D. Director [facility] # [id number] 6 Because ethnic data is not always readily [...] 15-29 5 Kidney failure <15 (or dialysis) 7 No evidence of antibodies to B. burgdorferi detected. False negative results may occur in recently infected patients (<=2 weeks) due to low or undetectable antibody levels to B. burgdorferi. If recent exposure is suspected, a second sample should be collected and tested in 2-4 weeks. Test Performed by: [facility] - [address] [id number] 9 Because ethnic data is not always [...] 5 Kidney failure <15 (or dialysis) 10 [id number] 11 [id number] 12 [id number] 13 Normal Range 180 to 914 Indeterminate Range 145 to 180 Deficient Range <145 14 Desirable: <150 Borderline High: 150-199 High: 200-499 Very High: >500 15 Desirable: <200 Borderline High: 200-239 High: >239 16 Low: <40 Desirable: 40-60 High: >60 17 Desirable: <100 Near Optimal: 100-129 Borderline High: 130-159 High: 160-189 Very High: >189 18 Because ethnic data is not always [...] [address]: Sachin Castanon MD Acct: [id number] Unit: [id number] AGE: 82 Location: ED Re11/16/17 SEX: F Status: DEP ER SPEC: [id number] CARTER: 11/16/[address] [facility] [address]: Sachin Castanon MD REQ: [id number] RECD: 11/16/17 STATUS: WILLIAM FRANCO DR: Juventino Hsu MD _ SOURCE: BLOOD,VENO SPDESC: ORDERED: Blood Cult Procedure Result Reported Site Aerobic Culture Bottle Final 11/21/17- 1448 ML No Growth Day 5 Anaerobic Culture Bottle Final 11/21/17- 1446 ML No Growth Day 5 * ML - Main Lab . END OF REPORT DEPARTMENT OF PATHOLOGY, [address] [place] [address] Nelson Willis M.D. Director [facility] # [id number] 20 SEE RESULT BELOW Name: JUNE ALLEN Nicole : [address]: Sachin Castanon MD Acct: [id number] Unit: [id number] AGE: 82 Location: ED Re11/16/17 SEX: F Status: REG ER SPEC: [id number] CARTER: 11/16/[address] [facility] [address]: Sachin Castanon MD REQ: [id number] RECD: 11/16/17 STATUS: WILLIAM FRANCO DR: Juventino [...] . END OF REPORT DEPARTMENT OF PATHOLOGY, [address] [place] [address] Nelson Willis M.D. Director [facility] # [id number] 21 SEE RESULT BELOW Name: JUNE ALLEN : [address]: Sachin Castanon MD Acct: [id number] Unit: [id number] AGE: 82 Location: ED Re11/16/17 SEX: F Status: DEP ER SPEC: [id number] CARTER: 11/16/[address] [facility] [address]: Sachin Castanon MD REQ: [id number] RECD: 11/16/17 STATUS: WILLIAM FRANCO DR: Juventino [...] . END OF REPORT DEPARTMENT OF PATHOLOGY, [address] [place] [address] Nelson Willis M.D. Director [facility] # [id number] 22 SEE RESULT BELOW Name: JUNE ALLEN : [address]: Sachin Castanon MD Acct: [id number] Unit: [id number] AGE: 82 Location: ED Re11/16/17 SEX: F Status: DEP ER SPEC: [id number] CARTER: 11/16/[address] [facility] [address]: Sachin Castanon MD REQ: [id number] RECD: 11/16/17 STATUS: WILLIAM FRANCO DR: Juventino Hsu MD _ SOURCE: URINE SPDESC: ORDERED: Urine Culture Procedure Result Reported Site Urine Culture Final 11/18/17- 1105 ML No growth of clinically significant organisms * ML - Main Lab . END OF REPORT DEPARTMENT OF PATHOLOGY, [address] [place] [address] Nelson Willis M.D. Director [facility] # [id number] 23 [employer] Crew: [id number] 24 [facility] Severe Sepsis and Septic Shock Management Bundle Measure requires all lactic acids initially measuring >2.0 mmol/L be repeated. 25 Acute inflammation: >10.00 26 Because ethnic data is not always readily [...] 15-29 5 Kidney failure <15 (or dialysis) 27 SEE RESULT BELOW Name: JUNE ALLEN : [address]: Jose De Jesus Dong MD Acct: [id number] Unit: [id number] AGE: 82 Location: [facility] Re07/05/17 SEX: F Status: [facility] SPEC: [id number] CARTER: 07/05/[address] [facility] [address]: Jose De Jesus Dong MD REQ: [id number] RECD: 07/05/17 STATUS: CARLOS FRANCO DR: Juventino Hsu MD _ ORDERED: LEVEL 1, LEVEL 4 FINAL DIAGNOSIS 1) Skin, left breast, excision: Benign skin with scar. 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 PRE-OPERATIVE DIAGNOSIS Probable left breast implant partial deflation. GROSS DESCRIPTION 1. The specimen is received in formalin labeled, Left Mastectomy Scar, and consists of a 12.6 by up to 1.0 cm goldberg-pink wrinkled elongated skin ellipse excised to a maximum depth of 0.5 cm. The specimen is inked and artist's representative sections are submitted in one cassette. 2. The specimen is received fresh labeled, Explanted Left Breast Implant, and consists of a 15.0 x 15.0 x 4.0 cm intact transparent ovoid implant containing thin clear fluid. The following inscription is identified: ELAINE [id number] [address] Per established hospital medical staff protocol, no tissue is submitted. Gross only. Signed (signature on file) Thea Infante MD 1813 END OF REPORT * ML=Testing performed at Main Lab DEPARTMENT OF PATHOLOGY, [address] [place] [address] Nelson Willis M.D. Director [facility] # [id number] 28 [employer] Crew: [id number] 29 SEE RESULT BELOW Name: JUNE ALLEN : [address]: Juventino Hsu MD Acct: [id number] Unit: [id number] AGE: 82 Location: [facility] Re04/05/17 SEX: F Status: REG REF SPEC: [id number] CARTER: 04/05/17-[address]: Juventino Hsu MD REQ: [id number] RECD: 04/05/17 STATUS: SOUT _ ORDERED: LEVEL 4 COMMENTS: [id number] FINAL DIAGNOSIS Skin, right outer thigh, excision: [...] cassette A. Signed (signature on file) Nelson Wilils MD 1232 END OF REPORT * ML=Testing performed at Main Lab DEPARTMENT OF PATHOLOGY, [address] [place] [address] Nelson Willis M.D. Director [facility] # [id number] 30 Desirable <150 Borderline high 150-199 High 200-499 Very High >500 31 Desirable <200 Borderline high 200-239 High >239 32 Low <40 Desirable: 40-60 High: >60 33 Desirable: <100 mg/dL Near Optimal: 100-129 mg/dL Borderline High: 130-159 mg/dL High: 160-189 mg/dL Very High: >189 mg/dL 34 Therapeutic target for the treatment of diabetes Mellitus patients is <7% HBA1C, and in selective patients <6.0%.Please refer to [place] [employer] Diabetic care guidelines for further information. 35 Because ethnic data is not always readily [...] 15-29 5 Kidney failure <15 (or dialysis) 36 [id number] 37 Acute inflammation: >10.00 38 Because ethnic data is not always readily [...] 15-29 5 Kidney failure <15 (or dialysis) 39 [id number] 40 Serologic response to B. burgdorferi infection is not detected, but cannot rule out early infection during which low or undetectable antibody levels to B. burgdorferi may be present. If clinically indicated, a new serum specimen should be submitted in 7-14 days. Test Performed by: [address] [address] 41 [id number] 42 Acute inflammation: >10.00 43 SEE RESULT BELOW Name: JUNE ALLEN : [address]: Sachin Castanon MD Acct: [id number] Unit: [id number] AGE: 81 Location: ED Re10/25/16 SEX: F Status: DEP ER SPEC: [id number] CARTER: 10/25/[address]: Sachin Castanon MD REQ: [id number] RECD: 10/25/16 STATUS: WILLIAM FRANCO DR: Juventino Hsu MD _ SOURCE: BLOOD,[facility]: ORDERED: Blood Cult Procedure Result Reported Site Aerobic Culture Bottle Final 10/30/16- 1744 ML No Growth Day 5 Anaerobic Culture Bottle Final 10/30/16- 1744 ML No Growth Day 5 * ML - MAIN LAB ([facility]) . END OF REPORT * ML=Testing performed at Main Lab DEPARTMENT OF PATHOLOGY, [address] [place] [address] Nelson Willis M.D. Director [facility] # [id number] 44 Because ethnic data is not always readily [...] 15-29 5 Kidney failure <15 (or dialysis) 45 [place] Severe Sepsis and Septic Shock Management Bundle Measure requires all lactic acids initially measuring >2.0 mmol/L be repeated. 46 [employer] Crew: [id number] Joaquim Dodd 47 SEE RESULT BELOW Name: ALEJANDROJUNE Mix : [address]: Sachin Castanon MD Acct: [id number] Unit: [id number] AGE: 81 Location: ED Re10/25/16 SEX: F Status: DEP ER SPEC: [id number] CARTER: 10/25/[address] [facility] [address]: Sachin Castanon MD REQ: [id number] RECD: 10/25/16 STATUS: COMP [facility] DR: Juventino Hsu MD _ SOURCE: [facility]: ORDERED: Flu A B Request Procedure Result Reported Site Rapid Influenza A B Request Final 10/26/16- 316 ML Specimen received for Influenza A/B Molecular testing * ML - MAIN LAB ([facility]) . END OF REPORT * ML=Testing performed at Main Lab DEPARTMENT OF PATHOLOGY, [address] [place] [address] Nelson Willis M.D. Director [facility] # [id number] 48 SEE RESULT BELOW Name: JUNE ALLEN : [address]: Sachin Castanon MD Acct: [id number] Unit: [id number] AGE: 81 Location: ED Re10/25/16 SEX: F Status: DEP ER SPEC: [id number] CARTER: 10/25/16-[address]: Sachin Castanon MD REQ: [id number] RECD: 10/25/16 STATUS: WILLIAM FRANCO DR: Juventino Hsu MD _ SOURCE: URINE SPDESC: ORDERED: Urine Culture Procedure Result Reported Site Urine Culture Final 10/27/16- 0828 ML No growth of clinically significant organisms * ML - MAIN LAB ([facility]) . END OF REPORT * ML=Testing performed at Main Lab DEPARTMENT OF PATHOLOGY, [address] [place] [address] Nelson Willis M.D. Director [facility] # [id number] 49 *Ascorbic acid is present which may interfere with detection of blood. 50 Corrected result! Wrong result was 7.2. --- 09/25/16 0684 --- Hemoglobin A1c previously reported as: 7.2 H % Therapeutic target for the treatment of diabetes Mellitus patients is <7% HBA1C, and in selective patients <6.0%.Please refer to [place] [employer] Diabetic care guidelines for further information. 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 H90.3 Sensorineural hearing loss, bilateral Office Visit 03/15/2018 2:45p Main Office Juventino Hsu MD R30.0 Dysuria R53.83 Other fatigue E78.5 Hyperlipidemia, unspecified Office Visit 12/14/2017 3:30p Main Office Juventino Hsu H81.12 Benign paroxysmal vertigo, left ear Office Visit 11/28/2017 4:00p Main Office Juventino Hsu H81.12 Benign paroxysmal vertigo, left ear K59.00 Constipation, unspecified Office Visit 10/22/2017 2:30p Main Office Juvention Hsu S40.021A Contusion of right upper arm, initial encounter Office Visit 07/20/2017 2:00p Main Office Juventino Hsu J01.90 Acute sinusitis, MD unspecified Office Visit 06/22/2017 10:15a Main Office Juventino Hsu, Z98.82 Breast implant MD status T85.42xD Displacement of breast prosthesis and implant, subs encntr Office Visit 06/08/2017 10:00a Main Office Juventino Hsu R42 Dizziness and MD giddiness Office Visit 03/26/2017 1:00p Main Office Juventino Hsu Z00.8 Encounter for other general examination D48.5 Neoplasm of uncertain behavior of skin H90.3 Sensorineural hearing loss, bilateral E78.5 Hyperlipidemia, unspecified 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 Office Visit 03/09/2017 9:45a Main Office Juventino Hsu MD R42 Dizziness and giddiness R53.83 Other fatigue M25.561 Pain in right knee J30.0 Vasomotor rhinitis Z98.82 Breast implant status Office Visit 11/08/2016 2:45p Main Office Juventino Hsu J10.89 Influenza due to MD oth ident influenza virus w oth manifest J01.90 Acute sinusitis, unspecified Office Visit 09/27/2016 9:45a Main Office Juventino Hsu, E11.9 Type 2 diabetes mellitus without complications I10 Essential (primary) hypertension Z12.31 Encntr screen mammogram for malignant neoplasm of breast Office Visit 07/19/2016 10:30a Main Office Juventino Hsu, E11.9 Type 2 diabetes mellitus without complications I10 Essential (primary) hypertension Office Visit 06/22/2016 9:00a Main Office Juventino Hsu E11.9 Type 2 diabetes mellitus without complications 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 She is very uncomfortable and worried. She last had ac-scope 2 years ago. I would like her examined by GI.Follow up:Refer to GI, urgent referral.
--- OUTSIDE RECORDS SUMMARY | 2018-06-27 11:23 | XMS REPORT | Continuity of Care Document ---
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 [address] Effective: 2017 Policy Number: [id number] [employer] BS June A Alejandro Expires: 2017 Group Name: [place] [address] PayID: [id number] [address] [place] [address] Expires: 2016 Policy Number: [id number] Medicare - Bswny Umd June A Alejandro PayID: [id number] [address] [facility] [place], [place] Effective: 2017 Policy Number: [id number] [employer] & June A Alejandro [employer] Group Number: [id number] [address] PayID: [id number] [place] [address] Advance Directives Description No Information Available Problems [...] Form Strength Qnty SIG Indications Ordering Provider Miralax 05/24/ Active Powder 3350NF 510un 2-3 [...] Active Solution 0.06% 30ml 2 J30.0 Juventino [place] 2016 intranasal [place] puffs twice , MD a day as needed for rhinorrhea Lisinopril 09/27/ Active Tablets 2.5mg 30tab Take One Juventino 2016 s Tablet By [place] Mouth Every , MD Day Blood Glucose 08/03/ Active Strips 100un use as Juventino Test 2015 its directed to Aracelis test blood MD glucose twice daily brand [facility] . Simvastatin 06/22/ Active Tablets 20mg 90tab [...] To 2 Juventino 2015 s Tablets By Heetroxanna Mouth Once , Daily as Needed Ondansetron / Active Tablets 4mg Unknown 0000 Dispers HM / Active Capsules Unknown [place]-3-6-9 0000 Fatty Acids Peg-3350/Elec / Active Solution Rec Unknown trolytes 0000 Meclizine HCL 12/14/ Hx Tablets 12.5mg 30tab 1 at Juventino 2017 - bedtime as Aracelis 05/24/ needed , 2018 Fluticasone 07/20/ Hx Suspension 50mcg/Act 16gm inhale one J01.90 Juventino Propionate 2017 - spray in Aracelis 05/24/ each , 2018 nostril every day Clindamycin 11/08/ Hx Capsules 300mg 21cap take 1 J01.90 Juventino HCL 2016 - s capsule by Aracelis 03/15/ mouth every , 2018 8 hours for 7 days. Trigels-F 09/01/ Hx Capsules 460-60-0.0 60cap Take One Juventino Forte 2015 - 1-1mg s Capsule By Aracelis 05/24/ Mouth Twice , 2018 A Day Lovaza 06/22/ Hx Capsules 1gm 60cap 1 tab by Juventino 2015 - s mouth twice Aracelis 05/24/ a day , 2018 Amlodipine 06/22/ Hx Tablets 5mg 30tab 1 by mouth Juventino Besylate 2015 - s every day Aracelis 03/12/ MD 2017 Fluoxetine 06/22/ Hx Capsules 20mg 30cap Take One Juventino HCL 2016 - s Capsule By Aracelis 03/15/ Tracey Zambrano MD 2017 Immunizations CPT Code Status Date Vaccine Lot # [id number] Given 06/05/2017 Influenza Vaccine High Dose PF [id number] Given 11/10/2016 Influenza Virus Vaccine, Quadrivalent, 3 Yr > [id number] Quad, Preserv Free 79060 Given 10/18/2015 Prevnar-13 Pneumococcal Conjugate Vaccine 89344 Given 09/17/2014 Zoster Vaccine 95466 Given 03/17/2013 Pneumovax 23 (PPSV23) 65+ years or high risk 2 to 64 year old 22550 Given 03/17/2013 DT (Adult) Vital Signs Date Vital Result Comment 06/03/2018 12:00pm Weight 129.00 lb Weight 58.514 [...] Test Result H/L Range Note Laboratory test [facility] Erythrocyte Sed 30 mm/Hr 0-40 finding 8 [phone] Rate CBC Auto Diff [facility] White Blood 6.9 10 ^3/uL 3.5-10.8 8 [phone] Count Red Blood Count 4.92 10^6/uL 4.00-5.40 [...] Blood Cells % 0.1 Laboratory test 05/21/2018 [facility] TSH (Thyroid 5.08 0.34-5.60 finding [phone] Stimulating mcIU/mL Horm) CKMB 05/21/2018 [facility] CKMB ng/mL 0.8 ng/mL 0.6-6.3 [phone] Laboratory test 05/21/2018 [facility] Troponin-I 0.00 ng/mL <0.04 finding [phone] (TnI) Laboratory test 05/21/2018 [facility] Calcium Ionized 5.12 mg/dL 4.65-5.28 finding [phone] Laboratory test 05/21/2018 [facility] B-Type 98 pg/ mL 1 finding [phone] Natriuretic Peptide BNP Lactic Acid 1.2 mmol/L 0.5-2.0 2 Laboratory test 05/21/2018 [facility] Magnesium 2.0 mg/dL 1.9-2.7 finding [phone] Creatine Kinase 21 U/L 10-223 C Reactive Protein 5.08 mg/L <8.01 Troponin-I (TnI) 0.01 ng/mL <0.04 Comp Metabolic Panel 05/21/2018 [facility] Sodium 137 mmol/L 135-145 [phone] Potassium 4.3 mmol/L 3.5-5.0 Chloride 103 mmol/L [...] >60 Egfr 66.2 >60 3 Inr/Protime 05/21/2018 [facility] Inr 0.95 0.77- 1.02 [phone] Laboratory test 05/21/2018 [facility] Partial 29.6 seconds 26.0-36.3 finding [phone] Thrombo Time PTT D Dimer Quantitative < 200 ng/mL Less Than 230 4 Urine DIP 05/08/2018 In House Lab Leukocytes + Neg ([phone])- - Urine Nitrites neg Neg Urobilinogen norm Norm Total Protein, Urine neg Neg Urine pH 5 5-6 Urine Blood neg Neg Specific [place] 1.020 1.01-1.02 Urine Ketones neg Neg Urine Bilirubin neg Neg Urine Glucose norm Norm Urine Culture And 05/08/2018 [facility] Urine Culture SEE RESULT 5 Sensitivities [phone] BELOW CBC Auto Diff 05/08/2018 [facility] White Blood 6.7 10^3/uL 3.5-10 [phone] Count .8 Red Blood Count 4.64 10^6/uL [...] Cells % 0.1 Comp Metabolic Panel 05/08/2018 [facility] Sodium 139 mmol/L 135-145 [phone] Potassium 4.0 mmol/L 3.5-5.0 Chloride 106 mmol/L [...] finding [phone])- - Moniter Laboratory test 05/08/2018 [facility] Lyme Disease Negative Negative 7 finding [phone] Serology C Reactive Protein 6.64 mg/L <8.01 8 Urine Microalbumin 03/15/2018 [facility] Ur Microalbumin 48.4 mg/L Random [phone] (mg/L) Urine Creatinine 237.27 mg/dL Urine Microalbumin/Creatinine 20.3 ug/mg <31 Comp Metabolic Panel 03/15/2018 [facility] Sodium 139 mmol/L 135-145 [phone] Potassium 4.0 mmol/L 3.5-5.0 Chloride 106 mmol/L [...] 64.8 >60 9 CBC Auto Diff 03/15/2018 [facility] White Blood 8.3 10^3/uL 3.5-10.8 [phone] Count Red Blood Count 4.56 10^6/uL 4.00-5.40 [...] Blood Cells % 0.1 Laboratory test 03/15/2018 [facility] C Reactive 2.20 mg/L <8.01 10 finding [phone] Protein Ferritin 64.0 ng/mL 11-307 11 TSH (Thyroid Stim Horm) 2.22 mcIU/mL 0.34-5.60 12 Vitamin B12 723 pg/mL [phone] 13 Statin 03/15/2018 [facility] Ast 13 U/L 13-39 [phone] Alt 6 U/L Low 7-52 Lipid Profile 03/15/2018 [facility] Triglycerides 310 mg/dL 14 (Trig/Chol/HDL) [phone] Cholesterol 219 mg/dL 15 HDL Cholesterol 33.4 mg/dL 16 LDL Cholesterol 124 mg/dL 17 Comp Metabolic Panel 11/24/2017 [facility] Sodium 137 mmol/L 133-145 [phone] Potassium 3.8 mmol/L 3.5-5.0 Chloride 106 mmol/L [...] 58.0 >60 18 CBC Auto Diff 11/24/2017 [facility] White Blood 7.2 10^3/uL 3.5-10.8 [phone] Count Red Blood Count 4.58 10^6/uL 4.0-5.4 [...] Red Blood Cells % 0.1 Pthi 11/24/2017 [facility] Calcium (PTH 10.5 mg/dL High 8.6-10.3 [phone] Intact) PTH Intact 8.6 pmol/L 1.3-9.3 Laboratory test 11/16/2017 [facility] Blood Culture SEE RESULT 19 finding [phone] BELOW Inr/Protime 11/16/2017 [facility] Inr 0.91 0.77-0 [phone] .02 Laboratory test 11/16/2017 [facility] Stool For SEE RESULT 20 finding [phone] Blood BELOW Stool Culture SEE RESULT BELOW 21 Urinalysis Profile 11/16/2017 [facility] Urine Color Yellow [phone] Urine Appearance Cloudy Urine Specific [place] 1.012 1.010-1.030 Urine pH 5.0 5-9 Urine [...] Epithelial Cells Present Absent Laboratory test 11/16/2017 [facility] Urine Culture SEE RESULT 22 finding [phone] BELOW Rapid Influenza 11/16/2017 [facility] Influenza A NEGATIVE Negative 23 A & B Molecular [phone] Molecular Influenza B Molecular NEGATIVE Negative Laboratory test 11/16/2017 [facility] Lactic Acid 1.2 mmol/L 0.5-2.0 24 finding [phone] CBC Auto Diff 11/16/2017 [facility] White Blood 13.9 High 3.5-10.8 [phone] Count 10^3/uL Red Blood Count 5.20 10^6/uL [...] Blood Cells % 0 Laboratory test 11/16/2017 [facility] C Reactive 4.19 mg/L < 5.00 25 finding [phone] Protein Troponin-I (TnI) 0.00 ng/mL <0.04 Comp Metabolic Panel 11/16/2017 [facility] Sodium 137 mmol/L 133-145 [phone] Potassium 4.1 mmol/L 3.5-5.0 Chloride 106 mmol/L [...] Neg finding (607)- - Laboratory test 07/05/2017 [facility] Surgical SEE RESULT 27 finding [phone] Pathology BELOW Laboratory test 07/05/2017 [facility] Point of Care 115 mg/dL High 70-100 28 finding [phone] Glucose Laboratory test 04/05/2017 [facility] Surgical SEE RESULT 29 finding [phone] Pathology BELOW Statin 03/26/2017 [facility] Ast 14 U/L 13-39 [phone] Alt 9 U/L 7-52 Lipid Profile 03/26/2017 [facility] Triglycerides 183 mg/dL 30 (Trig/Chol/HDL) [phone] Cholesterol 181 mg/dL 31 HDL Cholesterol 45.5 mg/dL 32 LDL Cholesterol 99 mg/dL 33 Laboratory test 03/26/2017 [facility] Hemoglobin A1c 5.8 % Less than 34 finding [phone] (Glyco HGB) 6.0 Comp Metabolic 03/26/2017 [facility] Sodium 137 133-145 Panel [phone] mmol/L Potassium 4.1 mmol/L 3.5-5.0 Chloride 105 [...] 75.9 >60 35 CBC Auto Diff 03/26/2017 [facility] White Blood 8.2 10^3/uL 3.5-10.8 [phone] Count Red Blood Count 4.93 10^6/uL 4.0-5.4 [...] Blood Cells % 0 Laboratory test 03/26/2017 [facility] Vitamin D 37.0 ng/mL 30-50 36 finding [phone] Total 25(Oh) Laboratory test 03/09/2017 [facility] C Reactive 1.71 mg/L < 5.00 37 finding [phone] Protein CBC Auto Diff 03/09/2017 [facility] White Blood 7.6 3.5-10.8 [phone] Count 10^3/uL Red Blood Count 5.36 10^6/uL [...] Cells % 0.1 Comp Metabolic Panel 03/09/2017 [facility] Sodium 139 mmol/L 133-145 [phone] Potassium 4.4 mmol/L 3.5-5.0 Chloride 105 mmol/L [...] Egfr 74.2 >60 38 Laboratory test 03/09/2017 [facility] Ferritin 60.9 ng/mL 11-307 39 finding [phone] Lyme Disease Serology Negative Negative 40 TSH (Thyroid Stim Horm) 1.61 mcIU/mL 0.34-5.60 41 Laboratory test 10/25/2016 [facility] C Reactive 9.44 mg/L High < 5.00 42 finding [phone] Protein Blood Culture SEE RESULT BELOW 43 Comp Metabolic Panel 10/25/2016 [facility] Sodium 135 mmol/L 133-145 [phone] Potassium 3.9 mmol/L 3.5-5.0 Chloride 102 mmol/L [...] Egfr 66.7 >60 44 Laboratory test 10/25/2016 [facility] Lactic Acid 1.1 mmol/L 0.5-2.0 45 finding [phone] CBC Auto Diff 10/25/2016 [facility] White Blood 9.1 10^3/uL 3.5-10.8 [phone] Count Red Blood Count 5.26 10^6/uL 4.0-5.4 [...] Blood Cells % 0 Rapid Influenza 10/25/2016 [facility] Influenza A POSITIVE Negative 46 A & B Molecular [phone] Molecular Influenza B Molecular NEGATIVE Negative Laboratory test 10/25/2016 [facility] Rapid Influenza SEE RESULT 47 finding [phone] A & B Antigen BELOW Urine Culture SEE RESULT BELOW 48 Urinalysis Profile 10/25/2016 [facility] Urine Color Yellow [phone] Urine Appearance Cloudy Urine Specific [place] 1.019 1.010-1.030 Urine pH 6.0 5-9 Urine [...] Epithelial Cell Present Absent Urine Microalbumin 09/27/2016 [facility] Urine Creatinine 127.67 mg/dL Random [phone] Ur Microalbumin (mg/L) 41.1 mg/L Urine Microalbumin/Creatinine 32.1 ug/mg High <31 Laboratory test 09/22/2016 [facility] Hemoglobin A1c 5.5 % Less than 50 finding [phone] (Glyco HGB) 6.0 CBC Auto Diff 09/22/2016 [facility] White Blood 6.8 3.5-10.8 [phone] Count 10^3/uL Red Blood Count 4.86 10^6/uL [...] Blood Cells % 0.1 Laboratory test 09/22/2016 [facility] Ferritin 22.3 ng/mL 11 51 finding [phone] 1 >100 to <200 pg/mL: likely compensated congestive heart failure (CHF) 200 to 400 pg/mL: likely moderate CHF >400 pg/mL: likely moderate to severe CHF 2 [facility] Severe Sepsis and Septic Shock Management [...] 5 SEE RESULT BELOW Name: JUNE ALLEN : [address]: Juventino Hsu MD Acct: [id number] Unit: [id number] AGE: 83 Location: [facility] Re05/08/18 SEX: F Status: REG REF SPEC: [id number] CARTER: 05/08/18-[address]: Juventino Hsu MD REQ: [id number] RECD: 05/08/18 STATUS: COMP _ SOURCE: URINE SPDESC: ORDERED: Urine Culture COMMENTS: [id number] Procedure Result Reported Site Urine Culture Final 05/09/18- 1331 ML No Growth (<1,000 CFU/mL) * ML - Main Lab . END OF REPORT DEPARTMENT OF PATHOLOGY, [address] [place] [address] Nelson Willis M.D. Director [facility] # [id number] 6 Because ethnic data is not always [...] tested in 2-4 weeks. Test Performed by: [facility] [address] [place] [address] 8 [id number] 9 Because ethnic data is not always [...] 5 Kidney failure <15 (or dialysis) 10 [id number] 11 [id number] 12 [id number] 13 Normal Range 180 to 914 Indeterminate [...] [address]: Sachin Castanon MD Acct: [id number] Unit: [id number] AGE: 82 Location: ED Re11/16/17 SEX: F Status: DEP ER SPEC: [id number] CARTER: 11/16/17-13[address] [facility] [address]: Sachin Castanon MD REQ: [id number] RECD: 11/16/17 STATUS: WILLIAM FRANCO DR: Juventino Hsu MD _ SOURCE: BLOOD,VENO SPDESC: ORDERED: Blood Cult Procedure Result Reported Site Aerobic Culture Bottle Final 11/21/17- 1448 ML No Growth Day 5 Anaerobic Culture Bottle Final 11/21/17- 1446 ML No Growth Day 5 * - Main Lab . END OF REPORT DEPARTMENT OF PATHOLOGY, [address] [place] [address] Nelson Willis M.D. Director [facility] # [id number] 20 SEE RESULT BELOW Name: ALEJANDROJUNE Mix : [address]: Sachin Castanon MD Acct: [id number] Unit: [id number] AGE: 82 Location: ED Re11/16/17 SEX: F Status: REG ER SPEC: [id number] CARTER: 11/16/17 [facility] [address]: Sachin Castanon MD REQ: [id number] RECD: 11/16/17 STATUS: WILLIAM FRANCO DR: Juventino Hsu MD _ SOURCE: STOOL SPDESC: ORDERED: Occult Bl, Hi Wright PCR, Fecal Lactoferr Procedure Result Reported Site [...] . END OF REPORT DEPARTMENT OF PATHOLOGY, [address] [place] [address] Nelson Willis M.D. Director [facility] # [id number] 21 SEE RESULT BELOW Name: JUNE ALLEN : [address]: Sachin Castanon MD Acct: [id number] Unit: [id number] AGE: 82 Location: ED Re11/16/17 SEX: F Status: DEP ER SPEC: [id number] CARTER: 11/16/[address]: Sachin Castanon MD REQ: [id number] RECD: 11/16/17 STATUS: WILLIAM FRANCO DR: Juventino [...] . END OF REPORT DEPARTMENT OF PATHOLOGY, [address] [place] [address] Nelson Willis M.D. Director [facility] # [id number] 22 SEE RESULT BELOW Name: JUNE ALLEN : [address]: Sachin Castanon MD Acct: [id number] Unit: [id number] AGE: 82 Location: ED Re11/16/17 SEX: F Status: DEP ER SPEC: [id number] CARTER: 11/16/17-1629 [facility] [address]: Sachin Castanon MD REQ: [id number] RECD: 11/16/17 STATUS: WILLIAM FRANCO DR: Juventino Hsu MD _ SOURCE: URINE [facility]: ORDERED: Urine Culture Procedure Result Reported Site Urine Culture Final 11/18/17- 1105 ML No growth of clinically significant organisms * ML - Main Lab . END OF REPORT DEPARTMENT OF PATHOLOGY, [address] [place] [address] Nelson Willis M.D. Director [facility] # [id number] 23 It Risk And Assurance Manager: [id number] [facility] Severe Sepsis and Septic Shock Management [...] Dr: Jose De Jesus Dong MD Acct: [id number] Unit: [id number] AGE: 82 Location: [facility] Re07/05/17 SEX: F Status: SARAH BEJARANO SPEC: [id number] CARTER: 07/05/17 [facility] [address]: Jose De Jesus Dong MD REQ: [id number] RECD: 07/05/17 STATUS: CARLOS FRANCO DR: Juventino Hsu MD _ ORDERED: LEVEL 1, LEVEL 4 FINAL DIAGNOSIS 1) Skin, left breast, excision: Benign skin with scar. 2) Breast, left implant, excision: gravity prospecting supervisor as described below (9999 grams) (Gross diagnosis). PRE-OPERATIVE DIAGNOSIS Probable left breast implant partial deflation. GROSS DESCRIPTION 1. The specimen is received in formalin labeled, Left Mastectomy Scar, and consists of a 12.6 by up to 1.0 cm goldberg-pink wrinkled elongated skin ellipse excised to a maximum depth of 0.5 cm. The specimen is inked and solar sales representative and assessor sections are submitted in one cassette. 2. The specimen is received fresh labeled, Explanted Left Breast Implant, and consists of a 15.0 x 15.0 x 4.0 cm intact transparent ovoid implant containing thin clear fluid. The following inscription is identified: ELAINE [id number] [address] Per established hospital medical staff protocol, no tissue is submitted. Gross only. Signed (signature on file) Thea Infante MD [id number] END OF REPORT * ML=Testing performed at Main Lab DEPARTMENT OF PATHOLOGY, [address] [place] [address] Nelson Willis M.D. Director [facility] # [id number] 28 It Risk And Assurance Manager: [id number] 29 SEE RESULT BELOW Name: JUNE ALLEN : [address]: Juventino Hsu MD Acct: [id number] Unit: [id number] AGE: 82 Location: [facility] Re04/05/17 SEX: F Status: REG REF SPEC: [id number] CARTER: 04/05/17-[address] [facility] [address]: Juventino Hsu MD REQ: [id number] RECD: 04/05/17952 STATUS: SOUT _ ORDERED: LEVEL 4 COMMENTS: [id number] FINAL DIAGNOSIS Skin, right outer thigh, excision: [...] performed at Main Lab DEPARTMENT OF PATHOLOGY, [address] [place] [address] Nelson Willis M.D. Director [facility] # [id number] 30 Desirable <150 Borderline high 150-199 High [...] and in selective patients <6.0%.Please refer to [place] [employer] Diabetic care guidelines for further [...] 5 Kidney failure <15 (or dialysis) 36 [id number] 37 Acute inflammation: >10.00 38 Because ethnic [...] 5 Kidney failure <15 (or dialysis) 39 [id number] 40 Serologic response to B. burgdorferi infection is not detected, but cannot rule out early infection during which low or undetectable antibody levels to B. burgdorferi may be present. If clinically indicated, a new serum specimen should be submitted in 7-14 days. Test Performed by: [facility] [email or web address] [address] [address] 41 [id number] 42 Acute inflammation: >10.00 43 SEE RESULT BELOW Name: JUNE ALLEN : [address]: Sachin Castanon MD Acct: [id number] Unit: [id number] AGE: 81 Location: ED Re10/25/16 SEX: F Status: DEP ER SPEC: [id number] CARTER: 10/25/16 [facility] [address]: Sachin Castanon MD REQ: [id number] RECD: 10/25/16 STATUS: WILLIAM FRANCO DR: Juventino Hsu MD _ SOURCE: BLOOD,VENO SPDESC: ORDERED: Blood Cult Procedure Result Reported Site Aerobic Culture Bottle Final 10/30/16- 1745 ML No Growth Day 5 Anaerobic Culture Bottle Final 10/30/16- 1745 ML No Growth Day 5 * ML - MAIN LAB ([facility]) . END OF REPORT * ML=Testing performed at Main Lab DEPARTMENT OF PATHOLOGY, [address] [place] [address] Nelson Willis M.D. Director [facility] # [id number] 44 Because ethnic data is not always [...] 5 Kidney failure <15 (or dialysis) 45 [facility] Severe Sepsis and Septic Shock Management Bundle Measure requires all lactic acids initially measuring >2.0 mmol/L be repeated. 46 It Risk And Assurance Manager: [id number] Joaquim Dodd 47 SEE RESULT BELOW Name: JUNE ALLEN Nicole : [address]: Sachin Castanon MD Acct: [id number] Unit: [id number] AGE: 81 Location: ED Re10/25/16 SEX: F Status: DEP ER SPEC: [id number] CARTER: 10/25/16 [facility] [address]: Sachin Castanon MD REQ: [id number] RECD: 10/25/16 STATUS: WILLIAM FRANCO DR: Juventino Hsu MD _ SOURCE: [facility]: ORDERED: Flu A B Request Procedure Result Reported Site Rapid Influenza A B Request Final 10/26/16- 316 ML Specimen received for Influenza A/B Molecular testing * ML - MAIN LAB ([facility]) . END OF REPORT * ML=Testing performed at Main Lab DEPARTMENT OF PATHOLOGY, [address] [place] [address] Nelson Willis M.D. Director [facility] # [id number] 48 SEE RESULT BELOW Name: JUNE ALLEN : [address]: Sachin Castanon MD Acct: [id number] Unit: [id number] AGE: 81 Location: ED Re10/25/16 SEX: F Status: DEP ER SPEC: [id number] CARTER: 10/25/[address]: Sachin Castanon MD REQ: [id number] RECD: 10/25/16 STATUS: WILLIAM FRANCO DR: Juventino Hsu MD _ SOURCE: URINE SPDESC: ORDERED: Urine Culture Procedure Result Reported Site Urine Culture Final 10/27/16827 ML No growth of clinically significant organisms * ML - MAIN LAB ([facility]) . END OF REPORT * ML=Testing performed at Main Lab DEPARTMENT OF PATHOLOGY, [address] [place] [address] Nelson Willis M.D. Director [facility] # [id number] 49 *Ascorbic acid is present which may interfere with detection of blood. 50 Corrected result! Wrong result was 7.2. --- 09/25/16 2254 --- Hemoglobin A1c previously reported as: 7.2 H % Therapeutic target for the treatment of diabetes Mellitus patients is <7% HBA1C, and in selective patients <6.0%.Please refer to [place] [employer] Diabetic care guidelines for further information. 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, subs encntr Office Visit 06/08/2017 10:00a Main Office Juventino Hsu R42 Dizziness and giddiness Office Visit 03/26/2017 1:00p Main Office Juventino Hsu, Z00.8 Encounter for other general examination D48.5 [...] Visit 07/19/2016 10:30a Main Office Juventino Hsu E11.9 Type 2 diabetes mellitus without complications I10 Essential (primary) hypertension Office Visit 06/22/2016 9:00a Main Office Juventino Hsu, E11.9 Type 2 diabetes mellitus without complications 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
--- NOTE | 2018-06-27 12:27 | RAD ---
HISTORY: cough and CP COMPARISONS: May 21, 2018 VIEWS: 1: frontal AP view of the chest at 12:00 PM FINDINGS: LINES AND TUBES: None. CARDIOMEDIASTINAL SILHOUETTE: The cardiac silhouette is enlarged. The cardiomediastinal silhouette is otherwise normal for portable technique. PLEURA: The costophrenic angles are sharp. No pleural abnormalities are noted. LUNG PARENCHYMA: The lungs are clear. ABDOMEN: The upper abdomen is clear. There is no subphrenic gas. BONES AND SOFT TISSUES: Surgical clips are noted in the left axilla. IMPRESSION: CARDIOMEGALY. NO ACTIVE CARDIOPULMONARY DISEASE.
[2018-06-27] MEDS ORDERED: Acetaminophen TAB* 325 MG PO PRN (12:36)
[2018-06-27 12:39] LABS: ABS Basophils 0.1 10^3/ul (0-0.2); ABS Eosinophils 0 10^3/ul (0-0.6); ABS Lymphocytes 0.9 10^3/ul (1.0-4.8); ABS Monocytes 1.6 10^3/ul (0-0.8); ABS Neutrophils 9.7 10^3/ul (1.5-7.7); ABS Nucleated RBC 0 10^3/ul; Eosinophil % 0.1 % (0-6); Lymphocyte % 7.3 % (25-47); Nucleated Red Blood Cells % 0
[2018-06-27] MEDS ORDERED: IPRATROPIUM BR 0.03% BOTH NARES PRN (12:51)
[2018-06-27] MEDS ORDERED: busPIRone TAB* 5 MG PO PRN (12:51)
[2018-06-27] MEDS ORDERED: Albuterol 2.5 MG/3 ML NEB.SOL* (0.083%) INH PRN (12:59)
[2018-06-27] MEDS ORDERED: Ibuprofen TAB* 600 MG PO SCH (13:00)
[2018-06-27] MEDS ORDERED: Colchicine* 0.6 MG TAB PO SCH (13:00)
[2018-06-27] MEDS ORDERED: Docusate CAP* 100 MG PO SCH (13:00)
[2018-06-27] MEDS ORDERED: Heparin VIAL(*) 5000 UNITS/ML VIAL (FIVE THOUSAND) SUBCUT SCH (14:00)
--- NOTE | 2018-06-27 14:47 | ECHO ---
Patient: CHUY CUMMINGS [facility] Rec#: [id number] : 1935 Date: 06/27/2018 Age: 83y Height: 163 cm / 64.2 in Weight: 54 kg / 119.0 lbs Sex: F BSA: 1.57 Room#: ED 5 Admit Date#: 06/27/2018 Type: Inpatient Referring: Ron Cleaning Reading: Parker Guaman MD Tv Host: Amy Edgar,COREYCS,RDMS CC: Juventino Hsu Transthoracic Echocardiogram Indication: CP BP: 84/49 HR: 83 Rhythm: NSR with PVCs Findings History: DM, HTN, breast cancer, chemotherapy Technical Comments: The study quality is fair. Left Ventricle: The left ventricular chamber size is decreased. Mild to moderate concentric left ventricular hypertrophy is observed. Basal interventricular septum shows moderate thickening. Global left ventricular wall motion and contractility are within normal limits. There is normal left ventricular systolic function. The estimated ejection fraction is 55-60%. There is an E to A reversal in the mitral valve flow pattern suggestive of diastolic dysfunction. Left Atrium: The left atrial chamber size is normal. Right Ventricle: The right ventricular chamber size and systolic function are within normal limits. Right Atrium: The right atrial cavity size is normal. Aortic Valve: The aortic valve is trileaflet. Systolic excursion of the aortic valve is normal. There is aortic annular calcification. There is no evidence of aortic regurgitation. There is no evidence of aortic stenosis. Mitral Valve: The mitral valve leaflets appear normal. There is a trace of mitral regurgitation. Tricuspid Valve: The tricuspid valve leaflets are normal. There is trace to mild tricuspid regurgitation. No pulmonary hypertension is noted. Pulmonic Valve: There is no evidence of pulmonic valve thickening. There is a trace pulmonic regurgitation. There is no pulmonic stenosis. Pericardium: There is a large pericardial effusion.There appears to cardiac tamponade including early right ventricular diastolic collapse as well as dilated and poorly collapsible IVC. PLAX (LV) 3.8cm and 1.1cm (RV); PSAX 2.5CM (LV paps) A4C 2.4cm (apex) and 2.3cm (LV), 1.7cm (RA) and 2.1cm (RV) SUBCOS 2.9cm (RV) and 1.1ccm (LV) respiratory variation MV 11%, LVOT 13% There is a circumferential pericardial effusion. Aorta: The ascending aorta is not well visualized. There is no dilatation of the aortic arch. The aortic root is normal in size. Pulmonary Artery: The main pulmonary artery is not well visualized. Venous: The inferior vena cava is dilated. There is less than 50% respiratory change in the inferior vena cava dimension. Conclusions There is normal left ventricular systolic function. The estimated ejection fraction is 55-60%. Global left ventricular wall motion and contractility are within normal limits. The left ventricular chamber size is decreased. Mild to moderate concentric left ventricular hypertrophy is observed. Functionally benign heart valves. There is a large circumferential pericardial effusion.There appears to cardiac tamponade including early right ventricular diastolic collapse as well as dilated and poorly collapsible inferior vena cava. Since the prior echocardiogram completed 05/13/18, pertinent changes are prior normal left ventricular size noted and prior small circumferential pericardial effusion noted with no tamponade. Will see patient for cardiology consultation as prior referred [place] [facility] [place]. Measurements Name Value Normal Range RVIDd (AP) 2D 2.3 cm (0.9 - 2.6) RVDdMajor (2D) 2.5 cm (2.2 - 4.4) RAd ISD 4CH 3.7 cm (3.4 - 4.9) RA (A4C)W 3.8 cm (2.9 - 4.6) IVSd (2D) 1.4 cm (0.6 - 1) LVPWd (2D) 1.3 cm (0.6 - 1) LVIDd (2D) 3.2 cm (3.6 - 5.4) LVIDs (2D) 1.8 cm - LV FS (2D) 43 % (25 - 45) Aortic Annulus 2 cm (1.4 - 2.6) Ao root diameter (2D) 2.7 cm (2.1 - 3.5) Aortic arch 2.4 cm (1.8 - 3.4) LA dimension (AP) 2D 3.2 cm (2.3 - 3.8) LAd ISD 4CH 5 cm (2.9 - 5.3) LA ISD 4CH W 4.1 cm (2.5 - 4.5) Name Value Normal Range LA ESV BP (A/L) index 19 ml/m2 - Name Value Normal Range MV E-wave Vmax 0.3 m/sec - MV deceleration time 214 msec - MV A-wave Vmax 0.6 m/sec - MV E:A ratio 0.5 ratio - LV septal e' Vmax 0.07 m/sec - LV E:e' septal ratio 5 ratio - Name Value Normal Range AV Vmax 1.2 m/sec - AV peak gradient 6 mmHg - LVOT Vmax 0.9 m/sec - LVOT VTI 12 cm - LVOT peak gradient 3.2 mmHg - LVOT mean gradient 1 mmHg - NIA Vmax 0.4 m/sec - Name Value Normal Range TR Vmax 1.9 m/sec - TR peak gradient 14 mmHg - RAP 8 mmHg - RVSP 22 mmHg - IVC diameter 2.6 cm - Name Value Normal Range PV Vmax 0.5 m/sec - PV peak gradient 1 mmHg -
[2018-06-27] MEDS: Cetirizine* 10 MG TAB PO SCH (15:21)
[2018-06-27] MEDS ORDERED: KETAMINE HCL* 50 MG/ML 10 ML VIAL ONE (17:45)
[2018-06-27] MEDS ORDERED: fentaNYL* 50 MCG/ML 2 ML VIAL (100 MCG VIAL) ONE (17:45)
[2018-06-27] MEDS ORDERED: Midazolam* 1 MG/ML 5 ML VIAL (5 MG) ONE (17:45)
[2018-06-27] MEDS ORDERED: Bupivacaine 0.5% SDV PF* 30ML VIAL ONE (17:55)
[2018-06-27] MEDS ORDERED: Lidocaine 1% MPF wEPI 200,000* 30 ML SDV ONE (17:55)
[2018-06-27] MEDS ORDERED: Clindamycin 900 MG/D5W BAG(*) 900 MG/50 ML BAG IVPB ONE (18:13)
--- NOTE | 2018-06-27 18:21 | CONS ---
CC: Dr. Juventino Hsu in [facility] CARDIOLOGY CONSULTATION: DATE OF CONSULT: REFERRING PHYSICIAN: Mr. Tobias Perdomo from the hospitalist medicine service. REASON FOR CARDIOLOGY CONSULT: Cardiac tamponade. HISTORY OF PRESENT ILLNESS: Ms. Allen is a pleasant 83-year-old woman without known history of cardiac disease. I also take care of her male partner who is present today during this consultation in the hospital. The patient has noted several months of persistent nausea and vomiting. She has also noted significant coughing with becoming recumbent and occasional lightheadedness. It seems like the lightheadedness became more of an issue over the past month. In any case, she came to the hospital today, was found to have an elevated CRP as well as cardiomegaly on chest x-ray. Appropriately, an echocardiogram was ordered earlier today and that shows a large size circumferential pericardial effusion with tamponade including early diastolic right ventricular collapse and dilated and incompressible inferior vena cava. When compared to prior echocardiogram completed on 05/13/18, prior small size pericardial effusion only noted. The patient does deny chest pain. PAST MEDICAL HISTORY: Includes: 1. Breast cancer 29 years ago. 2. Rheumatoid arthritis. 3. Gout. 4. GERD. 5. Anxiety. 6. Hyperlipidemia. 7. Hypertension. ALLERGIES TO MEDICATIONS: Are listed as ALLOPURINOL, CODEINE, METHOTREXATE, PENICILLINS, TAPENTADOL, VALSARTAN. FAMILY HISTORY: Significant for cardiac disease. The patient's older son had [place] in the late 50s. Her father from cancer at the age of 55. Her mother had a history of chest aneurysm, at the age of 80. No family history of diabetes nor stroke. SOCIAL HISTORY: The patient quit smoking cigarettes in 1964 after having smoked for 3 to 4 years. She does not abuse alcohol nor use illicit drugs. 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 She was previously for 42 years but then became . She does live with her male life partner of 24 years and states that she has up to 40 grandchildren. The patient just started to do some walking for exercise. REVIEW OF SYSTEMS: The patient denies a personal history of stroke. She has a history of breast cancer 29 years ago. She denies vomiting of blood, coughing of blood, bright red blood per rectum, bleeding stomach ulcers, renal calculi. She has had a cholecystectomy. She denies asthma, emphysema, pneumonia, tuberculosis, sleep apnea, home oxygen use, diabetes. She has a history of hypertension. She denies prior [place], congestive heart failure, cardiac surgery, cardiac murmurs. She denies lupus, psoriasis, seizures, Parkinson's disease, myasthenia gravis, thyroid disorders, liver disorders, kidney disorders, claudication symptoms, pulmonary emboli, deep vein thrombosis, peripheral edema. She does note some heartburn. Other review of systems negative x14 except as per this documentation. PHYSICAL EXAM: Height 5 feet 4 inches, weight 135 pounds, temperature 98.8 degrees Fahrenheit, pulse 82, respiratory rate 18, blood pressure 104/55 to 79/ 57. On general exam, she is a thin, chronically ill-appearing lady, who is quite loquacious, in no acute distress. She can lie relatively flat fairly comfortably, but does start coughing when she changes her positions from lying to upright and from upright to lying down flat. HEENT shows cranium is normocephalic and atraumatic. She has dry mucosal membranes. Neck veins are distended with a JVP of 14 cm to her ear, no bruits. Visible skin warm and perfused. Affect is appropriate. She appears oriented. Grossly mild kyphoscoliosis on back exam, likely age related. Lungs reveal decreased breath sounds at the basis. No wheezes. Cardiac Exam: S1, S2. Regular rate. Soft, pericardial friction rub heard. No murmurs. No gallops. PMI is nondisplaced. Abdomen: Soft, nondistended, appears benign. Extremities: Without significant edema. Pulses appear grossly intact. DIAGNOSTIC STUDIES/LAB DATA: Transthoracic echocardiogram completed earlier today (please see also that report) shows normal left ventricular ejection fraction of 55% to 60% with functionally benign heart valves, large circumferential pericardial effusion with cardiac tamponade including early right ventricular diastolic collapse as well as dilated and poorly compressible inferior vena cava. When compared to prior echocardiogram completed on 05/13/18 , pertinent changes are prior normal left ventricular size noted (today decreased left ventricular size) and prior small circumferential pericardial effusion noted with no tamponade on prior exam. A 12-lead EKG reviewed, , which shows sinus rhythm at 94 beats per minute, diffuse ST elevation versus WA segment depression. Consider myopericarditis. When compared to prior EKG completed on 05/21/18, these EKG changes are new. White blood cell count 12.4, hematocrit 33, platelet count 369. Sodium 132, potassium 4.2, chloride 104, bicarbonate 20, BUN 26, creatinine 1.29 and her prior creatinine was 0.97 on 05/21/18. Lactic acid 2.4 initially, now 1.5. CRP 63. BNP 127. ALT 12. Magnesium 1.9. IMPRESSION: Ms. Allen is a pleasant 83-year-old woman with a history of breast cancer in the past, rheumatoid arthritis as well as recent fevers who has nausea , vomiting, and recumbent coughing with lightheadedness. She is now found to have a large pericardial effusion with tamponade on her echocardiogram. I reviewed this in detail with the patient and would recommend she have a pericardial window placed both for diagnostic as well as therapeutic benefit. The patient is in agreement with that. RECOMMENDATIONS: 1. We will consult general surgical service for pericardial window placement. 2. Agree with starting NSAIDs with ibuprofen and colchicine for this pericardial effusion to quell the inflammation. 3. Further recommendations to follow the above. We would recommend sending the pericardial effusion fluid for rheumatologic, infectious disease, and oncologic etiology evaluation. 4. The patient may follow up with myself after discharge as she would like me to be her content manager in addition to her male partner whom I already do care for. Dear Mr. Tobias Perdomo, many thanks for asking me to participate in the cardiovascular consultative care of Ms. Allen. Please do not hesitate to contact me if you have any questions or concerns regarding the patient's cardiovascular consultative care. [id number]/[facility] #: [id number] MTDD
[2018-06-27] MEDS ORDERED: EPHEDrine (Pressors)* 50 MG/ML VIAL ONE (18:30)
--- NOTE | 2018-06-27 18:38 | HP ---
CC: Dr. Juventino Hsu; Dr. Garrick Kaur.* ADMISSION HISTORY AND PHYSICAL: DATE OF ADMISSION: 06/27/18 PRIMARY CARE PROVIDER: Dr. Juventino Hsu. MY ATTENDING WHILE IN THE HOSPITAL: Mickie Alonso DO* (dictated by TRISH Caldwell). CHIEF COMPLAINT: Nausea, vomiting, and cough. HISTORY OF PRESENT ILLNESS: Ms. Allen is an 83-year-old female with past medical history significant for rheumatoid arthritis, breast cancer, hypertension, hyperlipidemia, who presented to emergency room today because she was up all night with nausea and cough, who has had these issues for approximately a year, which she has been attributing to postnasal drip. The patient was recently admitted to this institution for similar symptoms in April of this year and was found to have a pericardial effusion, which was deemed to be nonhemodynamically compromising. The patient last time also had hypercalcemia of unknown cause. The patient has been having low-grade fevers and some weight loss in the recent weeks, but she has been otherwise eating very well and drinking 4 to 5 glasses of water a day. The patient has had diarrhea approximately every morning. The patient has had done in [place] an endoscopy and colonoscopy over three years ago, which were normal except for colon polyps, which were removed. The patient followed a traffic survey technician for rheumatoid arthritis in [place], who prescribed her prednisone for rheumatoid arthritis flares, which she says she has taken twice in the last three years. The patient says that her nausea diminishes with eating. The patient denies any chest pain except for occasional soreness in her chest after she coughs for a long time. The patient states her cough is usually provoked by deep breathing and has not been better or worse anytime of the year. The paint has been dizzy upon standing for a couple of weeks, but has not had any syncope, though she has had a couple of presyncopal episodes. The patient in the emergency department had an EKG consistent with pericarditis with diffuse ST segment elevations, as well as hypotension with blood pressures in the 80s/60s to 100/ 70. The patient is currently asymptomatic. Due to concern for pericarditis and possible pericardial effusion with hemodynamic instability, we were asked to evaluate the patient for admission. PAST MEDICAL HISTORY: 1. Hypertension. 2. Hyperlipidemia. 3. GERD. 4. Osteoporosis. 5. Gout. 6. Breast cancer. 7. Rheumatoid arthritis. 8. Hypercalcemia of unknown origin. 9. Possible diabetes mellitus. 10. History of pericardial effusion. 11. History of multiple skin cancers, status post removal and excision. PAST SURGICAL HISTORY: 1. Mastectomy. 2. Bilateral knee replacements. MEDICATIONS: 1. Lovaza 1 cap b.i.d. 2. Norvasc 2.5 mg p.o. daily. 3. Lisinopril 2.5 mg p.o. daily. 4. Omeprazole 20 mg p.o. daily. 5. Prozac 30 mg p.o. daily. 6. Simvastatin 20 mg p.o. daily. 7. Atrovent two puffs both nares b.i.d. 8. Alendronate 35 mg p.o. weekly. 9. Prednisone 5 to 10 mg p.o. daily as needed for gout flares. 10. Minocycline 75 mg p.o. b.i.d. 11. Febuxostat 40 mg p.o. daily. 11. Albuterol RespiClick 108 mcg inhalation q.6 hours as needed. 12. Docusate 200 mg p.o. daily. 13. Polyethylene glycol 17 g p.o. b.i.d. as needed. 14. Buspirone 5 mg p.o. 4 times a day as needed. 12. Zofran 4 mg p.o. q.6 hours as needed. ALLERGIES: ALLOPURINOL, CODEINE, METHOTREXATE, PENICILLIN, TAPENTADOL, VALSARTAN. FAMILY HISTORY: The patient's father of lung cancer. The patient's mother of a ruptured thoracic aneurysm. The patient's brother of throat cancer. The patient has another brother, who is healthy and another sister who has what sounds to be a bone cancer. SOCIAL HISTORY: The patient quit smoking in 1964 with approximately 20 pack year history of smoking. The patient denies alcohol abuse, illicit drug abuse. 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 The patient is , has a long-term partner of 23 years and has four children. The patient's surrogate decision maker would be her partner, Enzo Cherry. REVIEW OF SYSTEMS: A 14-point review of systems was reviewed and is negative except as above in the HPI. PHYSICAL EXAMINATION GENERAL: The patient is an 83-year-old female who appears stated age, sitting comfortably in bed, in no acute distress. VITAL SIGNS: Temperature 98.1, pulse rate 98, respiratory rate 20, oxygen saturation 99% on room air, blood pressure 85/47. HEENT: Head: Normocephalic, atraumatic. Sclerae anicteric. No conjunctival injection. Nasal mucosa moist. Oral mucosa pale. No pharyngeal erythema, discharge, or exudate. NECK: Supple, nontender. No lymphadenopathy. No carotid bruit auscultated. No JVD. RESPIRATORY: Clear to auscultation bilaterally. No wheezes, rales, or rhonchi. Good air exchange bilaterally. CARDIAC: Regular rate and rhythm. No clicks, murmurs, gallops or rubs. Pulses 2 + in the bilateral dorsalis pedis, posterior tibialis, and radial areas. No bilateral lower extremity edema noted. No bilateral calf tenderness. ABDOMEN: Soft, nontender, nondistended. Bowel sounds present, normoactive in all 4 quadrants. No hepatosplenomegaly. No abdominal bruits auscultated. No hepatojugular reflux. GENITOURINARY: No suprapubic or CVA tenderness. NEURO: Cranial nerves II through XII intact. No focal deficits. Alert and oriented x3. PSYCHIATRIC: Pleasant and cooperative. SKIN: Clean, dry, intact. No rash. LABORATORY DATA: White blood cell count 12.4, hemoglobin 10.7, hematocrit 33, platelet count 369. Sodium 133, potassium 4.2, chloride 104, carbon dioxide 20 , anion gap 9, BUN 26, creatinine 1.29, glucose 177. Lactic acid 2.24. Calcium 9.9. Magnesium 1.9, bilirubin 0.9, AST 14, ALT 12, alkaline phosphatase 57. Troponin I of 0.01, CRP 62.97. BNP 127. Protein 6.0, albumin 3.5, globulin 2.5, lipase 27. STUDIES: Abdomen x-ray from 06/27/18 read as no free air is noted. There is still air present throughout the entirety of the colon. Electrocardiogram shows diffuse ST segment elevations, normal amplitude, NM depression, normal axis, rate 94, QTc of 408, ST depression, ST elevations are new from previous examination. Chest x- ray read as cardiomegaly, no active cardiopulmonary disease. ASSESSMENT AND PLAN/IMPRESSION: Ms. Allen is an 83-year-old female with a past medical history significant for rheumatoid arthritis, breast cancer, hypertension, hyperlipidemia, and previous pericardial effusion, who presents to the emergence department due to nausea, vomiting and cough and was found to have hypotension, diffuse ST-segment elevations consistent with pericarditis. The patient is currently evaluated for symptomatic pericardial effusion being given aggressive fluids and will be admitted to the hospital for close monitoring due to possibility of cardiac tamponade. 1. Pericarditis. The patient has diffuse ST-segment elevations consistent with pericarditis. The patient has no chest pain. The patient has reported that her primary care provider had told her she has low-grade fevers. The patient has a cough with deep inspiration indicating possible pleural irritation. Her clinical picture is most consistent with pericarditis. The patient has a known pericardial effusion. The patient's echocardiogram is pending. The patient will be getting ample fluids for blood pressure management and will have a pericardiocentesis as needed if tamponade physiology is observed on the echocardiogram. The patient was seen in consultation by Cardiology. The patient's pericarditis is likely due to rheumatoid arthritis. The patient will be started on NSAIDs and colchicine for symptomatic relief. If the patient fails to improve, rheumatology consult and steroids should be considered. The patient has no other signs of rheumatoid arthritis. However, she has a low-grade fevers and weight loss and has elevated inflammatory markers showing possible persistent disease activity which may need further intervention. 2. Rheumatoid arthritis. Continue minocycline, NSAIDs and colchicine. As above , if the patent does not improve, she should have rheumatology consult while in the hospital should be considered and steroids should be given. The patient should follow up with traffic survey technician as an outpatient as she has tot seen one in three years since she came up to [place]. 3. Nausea, vomiting, diarrhea. The patient's nausea, vomiting, and diarrhea of unknown cause that have been there, a chronic problem that could be related to her pericarditis. The patient has had a previous endoscopy and colonoscopy, which were negative. The patient has no other signs of significant gastrointestinal stress. The patient will be continued on her omeprazole for GERD symptoms. If the patient's nausea, vomiting, diarrhea persist after she had adequate antiinflammatory medication treatment, further GI workup should be considered. 4. The patient also attested to postnasal drip. The patient will be continued on her Atrovent, will be started on a steroid nasal spray and an oral antihistamine for treatment of this problem. 5. Acute kidney injury, lactic acidosis. The patient due to her nausea, vomiting, diarrhea likely is dehydrated. The patient is receiving aggressive fluids for her hypotension. The patient's kidney function will be monitored closely, particularly while she is on NSAIDs. The patient's lisinopril will be held. 6. Hypotension. Fluids will be given. Amlodipine and lisinopril will be held. It is unclear whether this is due to tamponade physiology, which is less likely or simply dehydration. The patient will have orthostatic vital signs checked and will be given aggressive fluids and close monitoring. 7. Anemia. The patient has a new normocytic anemia. The patient is having a stool occult blood checked. The patient will be on PPI prophylaxis while she is in the hospital. The patient will have a stool occult blood checked. The patient has iron, B12, and folate studies pending. It is possible this is due to anemia of chronic disease related to ongoing disease activity from her rheumatoid arthritis. 8. Deep vein thrombosis prophylaxis. The patient will have heparin subcu and SCDs for DVT prophylaxis as she is high risk. 9. FEN. The patient will have heart healthy diet without caffeine with aggressive fluids as above. 10. Hypertension. The patient is currently hypotensive. She will have her blood pressure medications held. 11. Hyperlipidemia. The patient will have her simvastatin continued as well as her Lovaza. 12. Disposition. The patient will be admitted to observation and to telemetry. TIME SPENT: Approximately 60 minutes were spent on admission of this patient, 30 of which was spent [id number] with the patient obtaining history and physical and discussing treatment plan. The plan has been discussed with my attending, Dr. Mickie Alonso and she is in agreement. Addendum: Patient was persistently hypotensive and was found to have a large pericardial effusion with tamponade physiology on Echo. Patient was continued on fluid, sent to the ICU for close monitoring and underwent a pericardial window procedure with Dr. Jose De Jesus Ren of general surgery which was performed without complication. TRISH CALDWELL [id number]/[facility] #: [id number] ROBINA
[2018-06-27] MEDS: Ibuprofen TAB* 600 MG PO SCH (20:56)
[2018-06-27] MEDS: MINOCYCLINE 50 MG PO SCH (20:57)
[2018-06-27] MEDS: OMEGA ACID ETHYL ESTERS PO SCH (20:58)
[2018-06-27 21:54] LABS: Urine Appearance Clear; Urine Blood 1+ (Negative); Urine Color Yellow; Urine Ketones Negative (Negative); Urine Protein 1+(30 mg/dL) (Negative); Urine Red Blood Cell Absent (Absent); Urine Urobilinogen Negative (Negative); Urine White Blood Cell Absent (Absent)
[2018-06-28] MEDS: Ibuprofen TAB* 600 MG PO SCH ×3 (04:37→20:13)
[2018-06-28 05:32] LABS: Hematocrit 29 % (35-47); Hemoglobin 9.8 g/dl (12.0-16.0); Mean Corpuscular HGB Conc 33 g/dl (31-36); Mean Corpuscular Hemoglobin 28 pg (27-31); Mean Corpuscular Volume 83 fL (80-97); Mean Platelet Volume 7.9 um3 (7.4-10.4); Platelet Count 291 10^3/ul (150-450); Red Blood Count 3.53 10^6/ul (4.00-5.40); Red Cell Distribution Width 14 % (10.5-15); White Blood Count 10.6 10^3/ul (3.5-10.8)
[2018-06-28 05:46] LABS: ABS Basophils 0.1 10^3/ul (0-0.2); ABS Eosinophils 0 10^3/ul (0-0.6); ABS Lymphocytes 0.7 10^3/ul (1.0-4.8); ABS Monocytes 1.2 10^3/ul (0-0.8); ABS Neutrophils 8.5 10^3/ul (1.5-7.7); ABS Nucleated RBC 0 10^3/ul; Eosinophil % 0.3 % (0-6); Lymphocyte % 6.7 % (25-47); Nucleated Red Blood Cells % 0.1
[2018-06-28 06:01] LABS: EGFR Non-African American 54.1 (>60)
[2018-06-28] MEDS: Polyethylene Glycol 3350* 17 GM PACKET PO SCH (08:10)
[2018-06-28] MEDS: MINOCYCLINE 50 MG PO SCH ×2 (08:11→22:14)
[2018-06-28] MEDS: Omeprazole CAP* 20 MG PO SCH (08:12)
[2018-06-28] MEDS: Atorvastatin* 10 MG TAB PO SCH (08:12)
[2018-06-28] MEDS: Cetirizine* 10 MG TAB PO SCH (08:12)
[2018-06-28] MEDS: FLUoxetine CAP* 10 MG PO SCH (08:12)
[2018-06-28] MEDS: Docusate CAP* 100 MG PO SCH (08:12)
[2018-06-28] MEDS: Fluticasone NASAL SPRAY 50MCG* 16 gm SPRAY BTL BOTH NARES SCH (08:13)
--- NOTE | 2018-06-28 08:20 | PN ---
Progress Note - Progress Note Date of Service: 06/28/18 Note: POD#1 s/p pericardial window Feels well, minimal pain. No dyspnea. Incis w/ small drainage on steri-strips PO's as kg OK to shower Disch per medical service
[2018-06-28] MEDS ORDERED: Colchicine* 0.6 MG TAB PO SCH (09:00)
[2018-06-28] MEDS: OMEGA ACID ETHYL ESTERS PO SCH ×2 (09:29→20:15)
[2018-06-28] MEDS ORDERED: Magnesium Sulfate IV* 3 GM in NS 0.9% 100 ML* 100 ML IVPB ONE (09:58)
--- NOTE | 2018-06-28 10:12 | OP ---
CC: Dr. Hsu; Parker Guaman MD* OPERATIVE REPORT: DATE OF OPERATION: 06/27/18 - Inpatient, room HLD15-26 DATE OF : 33 SURGEON: Jose De Jesus Ren MD TIRE BLADDER MAKER: None. ANESTHESIOLOGIST: Dr. Dewey. ANESTHESIA: LMAC anesthesia. PRE-OP DIAGNOSIS: Pericardial effusion. POST-OP DIAGNOSIS: Pericardial effusion. OPERATIVE PROCEDURE: Subxiphoid pericardial window. DESCRIPTION OF PROCEDURE: The patient was supine on the operating table. After adequate intravenous sedation, compression stockings, Jesus Alberto-Hugger warmer and intravenous antibiotics, local anesthetic was administered. An approximately 5 cm subxiphoid incision was created. A piece of the xiphoid was resected to allow better exposure and dissection was carried up through the fatty tissue until the pericardium was identified. A puncture hole was made in the pericardium and fluid was captured for specimen in a trap. The hole was then enlarged and the remainder of the fluid was suctioned out, a total of approximately 750 mL of fluid. The pericardium was then widely opened and a pericardial window was created by taking out approximately 3 x 4 cm piece of pericardium. This was sent in formalin for pathologic evaluation and the musculature and adipose was closed with 0 Vicryl and 5-0 Vicryl for the skin followed by Steri-Strips. She tolerated the procedure well and was brought to Recovery in good condition. No complications. No drains. Pathologic specimens as above. Sponge and instrument counts were correct. Estimated blood loss almost nil but about 750 mL of bloody pericardial fluid. [id number]/[facility] #: [id number] [facility]
[2018-06-28] MEDS: Metoprolol Tartrate TAB* 25 MG PO SCH ×2 (11:00→20:14)
--- NOTE | 2018-06-28 14:09 | PN ---
Subjective Date of Service: 06/28/18 Interval History: HOSPITALIST PROGRESS NOTE Patient seen and examined at bedside. Care reviewed and d/w Kenji Dee RN. She feels well today. Denies chest pain, palpitations, or dyspnea. States she has not seen a Rn Lpn Cna since moving here from [place]. Does not remember taking Plaquenil or MTX, only prednisone when she had a flare. Family History: Unchanged from Admission Social History: Unchanged from Admission Past Medical History: Unchanged from Admission Objective Active Medications: Acetaminophen (Tylenol Tab*) 650 mg PO Q6H PRN PRN Reason: FEVER/PAIN Albuterol (Ventolin 2.5 Mg/3 Ml Neb.Desire*) 2.5 mg INH Q4H PRN PRN Reason: SOB/WHEEZING Atorvastatin Calcium (Lipitor*) 10 mg PO DAILY [facility] Last Admin: 06/28/18 08:12 Dose: 10 mg Buspirone HCl (Buspar Tab*) 5 mg PO QID PRN PRN Reason: ANXIETY Cetirizine HCl (Zyrtec*) 10 mg PO DAILY [facility]; Protocol Last Admin: 06/28/18 08:12 Dose: 10 mg Colchicine (Colcrys*) 0.6 mg PO DAILY [facility] Docusate Sodium (Colace Cap*) 200 mg PO DAILY [facility] Last Admin: 06/28/18 08:12 Dose: 200 mg Fluoxetine HCl (Prozac Cap*) 30 mg PO DAILY [facility] Last Admin: 06/28/18 08:12 Dose: 30 mg Fluticasone Propionate (Flonase Nasal Brush 50mcg*) 2 spray BOTH NARES DAILY [facility] Last Admin: 06/28/18 08:13 Dose: 2 spray Lactated Ringer's (Lactated Ringers 1000 Ml Bag*) 1,000 mls @ 150 mls/hr IV PER RATE [facility] Last Admin: 06/28/18 08:30 Dose: 150 mls/hr Ibuprofen (Motrin Tab*) 600 mg PO 0300,1100,1900 [facility] Last Admin: 06/28/18 11:00 Dose: 600 mg Ipratropium [place] (Ipratropium [place]) 0.2 ml BOTH NARES BID PRN PRN Reason: Allergy Symptoms Metoprolol Tartrate (Lopressor Tab*) 25 mg PO BID [facility] Last Admin: 06/28/18 11:00 Dose: 25 mg Minocycline HCl (Minocycline (Nf)) 75 mg PO BID [facility]; Protocol Last Admin: 06/28/18 08:11 Dose: 75 mg [id number] Ethyl Esters (Lovaza (Nf)) 1 gm PO BID [facility]; Protocol Last Admin: 06/28/18 09:29 Dose: 1 gm Omeprazole (Prilosec Cap*) 20 mg PO DAILY@0730 [facility] Last Admin: 06/28/18 08:12 Dose: 20 mg Ondansetron HCl (Zofran Inj*) 4 mg IV Q6H PRN PRN Reason: NAUSEA Polyethylene Glycol/Electrolytes (Miralax*) 17 gm PO DAILY [facility] Last Admin: 06/28/18 08:10 Dose: 17 gm Rivaroxaban (Xarelto(*)) 20 mg PO BEDTIME [facility] Vital Signs - 8 hr 06/28/18 06/28/18 06/28/18 06:30 07:00 07:03 Temperature Pulse Rate 88 86 88 Respiratory 16 17 22 Rate Blood Pressure 87/51 89/57 (mmHg) O2 Sat by Pulse 99 100 98 Oximetry 06/28/18 06/28/18 06/28/18 07:30 07:50 07:51 Temperature 98.5 F 98.5 F Pulse Rate 83 Respiratory 19 Rate Blood Pressure 94/56 (mmHg) O2 Sat by Pulse 99 Oximetry 06/28/18 06/28/18 06/28/18 08:00 08:30 09:00 Temperature Pulse Rate 84 94 95 Respiratory 16 23 23 Rate Blood Pressure 87/55 109/58 104/55 (mmHg) O2 Sat by Pulse 99 100 99 Oximetry 06/28/18 06/28/18 06/28/18 09:30 10:00 10:22 Temperature Pulse Rate 100 102 107 Respiratory 15 18 19 Rate Blood Pressure 102/55 102/48 (mmHg) O2 Sat by Pulse 99 99 100 Oximetry 06/28/18 06/28/18 06/28/18 10:30 11:00 11:30 Temperature Pulse Rate 98 93 Respiratory 25 22 25 Rate Blood Pressure 98/53 97/60 107/58 (mmHg) O2 Sat by Pulse 100 100 Oximetry 06/28/18 12:00 Temperature Pulse Rate 87 Respiratory 19 Rate Blood Pressure 108/53 (mmHg) O2 Sat by Pulse 100 Oximetry Oxygen Devices in Use Now: None Appearance: Pleasant elderly lady lying in bed in NAD. Eyes: No Scleral Icterus Ears/Nose/Mouth/Throat: Mucous Membranes Moist Neck: Trachea Midline Respiratory: Symmetrical Chest Expansion and Respiratory Effort, Clear to Auscultation Cardiovascular: RRR - Normal S1 and S2 Abdominal: NL Sounds; No Tenderness; No Distention Extremities: No Edema Neurological: Alert and Oriented x 3, NL Muscle Strength and Tone Result Diagrams: 06/28/18 05:23 06/28/18 05:23 Assess/Plan/Problems-Billing Assessment: Mrs Allen is an 83yo F with PMH of HTN, HLD, GERD, osteoporosis, gout, breast CA , rheumatoid arthritis, who presented to ED with c/o N/V, cough, found to have cardiac tamponade. - Patient Problems (1) Cardiac tamponade Comment: - s/p pericardial [place] 06/27/18. - Feels much improved. - It could be viral; associated with RA; or malignant - follow fluid study results. - ESR 48 or CRP 86. - Rheumatology consult requested. - Continue Colchicine and Ibuprofen. (2) Atrial fibrillation Comment: - Went into afib after my visit. - Replete magnesium. - Start metoprolol for rate control. - Suspect likely secondary to epicardial irritation associated with pericarditis. - [id number] - will start Xarelto as per discussion with Cardiology. - Monitor closely for signs of bleeding as she's also on Ibuprofen. (3) RAUDEL (acute kidney injury) Comment: - Likely pre-renal in the setting of poor perfusion secondary to cardiac tamponade. - Renal function is improving. - Continue IVF, but decrease rate. (4) DVT prophylaxis Comment: - Xarelto. (5) Full code status Status and Disposition: Inpatient. Transfer to Telemetry.
[2018-06-28] MEDS: Colchicine* 0.6 MG TAB PO SCH (15:52)
--- NOTE | 2018-06-28 16:16 | CONSULT ---
Consult Consult: Ms. Allen is an 83 year old woman with a long standing history of seronegative RA , now with cardiac tamponade and elevated inflammatory markers. Potential etiologies include a connective tissue disorder, RA, malignancy and infection. Will check additional serologies. Would use NSAIDs cautiously in light of her age and renal insufficiency. If symptoms re-occur, consider trial of prednisone at 40-60mg daily; currently however she is symptomatically doing well.
[2018-06-28] MEDS: Rivaroxaban TAB(*) 15 MG PO SCH (20:14)
[2018-06-28] MEDS ORDERED: Rivaroxaban TAB(*) 20 MG TAB PO SCH (21:00)
--- NOTE | 2018-06-28 22:04 | CONS ---
CONSULTATION REPORT: DATE OF CONSULT: 06/28/18 CONSULTING PHYSICIAN: Dr. Hernandez. REASON FOR CONSULT: Cardiac tamponade in the setting of rheumatoid arthritis. CHIEF COMPLAINT: Cardiac tamponade. HISTORY OF PRESENT ILLNESS: Ms. Allen is an 83-year-old woman with a longstanding history of rheumatoid arthritis. She has been followed by a lining stamper in [place], but has been not seen by a lining stamper for the time that she has been here in the [facility]. She has had intermittent flares of arthritis, which has responded to prednisone. At one point, she did briefly try try disease modifying therapy (see below) but more recently it appears that the only medication for her rheumatoid arthritis that she has tried has been prednisone at intermittently low doses as needed for shoulder, wrist, neck, or ankle pain. She only rarely takes prednisone and last took it about a month or so prior to admission. She also has a remote history of breast cancer, which has been in remission for 29 years, that has required a lymph node dissection, but no radiation, although she did have chemotherapy. She was admitted with recurrent signs of pericardial effusions, which was noted on the prior admission. This time, however, she had cardiac tamponade; therefore, a pericardial window was done and bloody fluid was obtained on aspiration. In terms of her workup, the cultures are pending. She also has cytology that is pending right now to evaluate the nature of her pericardial fluid, but she did have elevated inflammatory markers on her workup as well as a negative rheumatoid factor. In terms of her symptoms, she initially presented with nausea and vomiting. She also had some significant coughing and occasional lightheadedness initially, but it became more of an issue over the past month. She was found to have as noted above the elevated C- reactive protein as well as cardiomegaly on the chest x-ray. An echo as noted above showed a large size circumference pericardial effusion with tamponade including early diastolic right ventricular collapse and a dilated and incompressible inferior vena cava. She denies any chest wall pain. In terms of her prior history, I reviewed her prior rheumatologic notes. She was seen by the [facility] by Dr. Tiffany Gutierrez. She also has a history of osteoporosis, which has required alendronate. At that time, musculoskeletal ultrasound showed a low disease activity score, but the grayscale synovitis scores were high and this was in February of 2015. It was felt that her disease activity is lowered by her prior lining stamper on her most recent visit with them and there was only 1 new erosion in the 5th metatarsal head on the plantar side. It was felt that she had some underlying crystalline disease as well too. 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 She was felt to have some poor prognostic factors at that time for her arthritis. She also had calcium pyrophosphate deposition in her knees. As noted by her lining stamper, she failed colchicine in 2008 due to GI intolerance. According to her prior lining stamper, she had indeed tried methotrexate, last tried this in May of 2009. She did also try Plaquenil in September of 2011 with a good response, but this was discontinued in January of 2012 due to anemia, which was likely not related. At the time of her musculoskeletal ultrasound in December of 2012, which showed widespread synovitis indicating a high RA disease activity with CPPD in the select joints caused this pain. It has been responsive to low-dose prednisone and in terms of further information by her prior lining stamper, according to review of her records, she did indeed try Orencia beginning in May of 2013 and had 2 doses. The last dose was associated with post-infusion nausea, dizziness and headaches, but resolved with antibiotics in October of 2013. It was felt Orencia was unlikely to have caused these side effects. She did have an inflammatory arthropathy with moderate to high disease activity according to an ultrasound in January of 2014 with the crystal in both wrists and double contour right MCP dorsal and left MTP dorsal region. Of note, she also had tried minocycline in August of 2014. The dose was reduced to once daily in October of 2015 and associated with increase in symptoms. In terms of possible gouty arthropathy, she did try allopurinol beginning in February of 2015, which was associated with flare-ups and a sore mouth and discontinued. Uloric was started in April of 2015, which she did tolerate initially well and it lowered her uric acid. There was some concern that she had been on minocycline , but that reducing the dose caused her disease activity to flare. In terms of her prior history of osteopenia, she did have elevated FRAX scores and alendronate was taken from 2008 to October of 2012. Her DEXA at that time was stable in 2011 and Atelvia was started in October of 2012, but was held in 2013 due to need for a drug holiday. DEXA in 2016 revealed decreased femoral neck BMD and was increased in the lumbar spine and alendronate was started again in October of 2015. Therefore, she has been essentially as noted above taking only prednisone, but as noted above, she has been exposed to immunosuppressed therapy on further review and indeed she has also been exposed to minocycline in the past. In terms of prior therapy for her breast cancer, she did have ruptured silicone implants in 1990 associated with an arthritis flare-up for about 3 years and severe iron-deficiency anemia. PAST MEDICAL HISTORY: In terms of her prior medical history, she had prior hospitalizations in July of 2014 with symptomatic anemia and in October of 2014. Prior tests included the DEXA in October of 2015 with a Pap smear performed greater than 5 years ago and a mammogram in October of 2015. She is 4, para 4. She also has macular degeneration in both eyes diagnosed in 2016; obstructive sleep apnea according to her lining stamper diagnosed in 2007 ; hiatal hernia, monitored by GI; colonic diverticulosis, asymptomatic; colonic angiodysplasia with hemorrhoids internal as well as chronic renal disease. She has also had hyperlipidemia; vitamin D deficiency; type 2 diabetes mellitus diagnosed in April of 2005, controlled with medication; osteoarthritis in multiple places including her knee joints. She is also status post bilateral knee replacement, which improved her symptoms. She also has polymyalgia rheumatica and iron- deficiency anemia and benign polyps of the large intestine , basal cell carcinoma of the skin, left upper arm and breast cancer diagnosed in 1988. She is status post left mastectomy and chemotherapy for 4 months. In September 2016, lymph nodes were positive, but it was only 1 lymph node. She was treated also for vitamin D deficiency and monitored by Dr. Segundo. Past medical history is also notable for hyperlipidemia and hypertension. PAST SURGICAL HISTORY: Includes a cosmetic surgical tummy tuck in the early , arthroscopic surgery for the right knee for a meniscal tear in the , with a history of ruptured silicone implant breast in the . She is also positive for a hysterectomy in 1977, mastectomy in 1988, breast implants in 1990 and 1993, and a cholecystectomy. PAST RHEUMATOLOGICAL HISTORY: In terms of her prior rheumatologic history, she had a Vectra DA in August of 2014 with a score of 52, which was in the high disease activity range. ALLERGIES: Include ALLOPURINOL, CODEINE, METHOTREXATE, PENICILLINS, TAPENTADOL , and VALSARTAN. FAMILY HISTORY: Notable for arthritis and I have also seen her daughter. Family history was also significant for significant heart disease. Her older son had a myocardial infarction in the late 1950s. Her father from cancer at the age of 55 and her mother had a history of chest aneurysms, at the age of 80. There is a family history of arthritis, for which I have seen her daughter. SOCIAL HISTORY: She does try to stay active. She quit smoking cigarettes in 1964 after having smoked 3 to 4 years. She does not abuse alcohol or other illicit drugs. 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 She was previously for 42 years, but then became . She does live with her male life partner for at least 24 years and has up to 40 grandchildren, and does some walking for exercise. REVIEW OF SYSTEMS: General: Denies any recent specific weakness. As noted above, she has a remote history of breast cancer. GI: Denies vomiting up blood. Denies any bright red blood per rectum. Denies bleeding ulcers. Kidney : Denies any renal calculi. She does have renal insufficiency. : She has had a cholecystectomy. Pulmonary: She denies asthma, emphysema, pneumonia, tuberculosis, sleep apnea. She does have a history of diabetes under control. She has a history of hypertension. Cardiac: Denies prior recent MO. She denies any congestive heart failure or cardiac surgery. Neurologic: She denies any specific weakness or Parkinson's symptoms. She denies thyroid disorders or liver disorders, any claudication symptoms. She did have a moderate cough, however, over the last month, which is somewhat improved today, but irritated slightly with the cardiac window. Her nausea, however, is improved. PHYSICAL EXAM: She is a pleasant woman, in no acute distress, appears somewhat frail, but is conversive and able to sit up easily and converse with us. Height was 5 feet 4 inches, weight 135 pounds, temperature was 98.8, pulse of 82 , respiratory rate of 18, blood pressure 104/55 to 79/57. On exam, she was a thin chronically appearing woman. She was fairly comfortable, not actively coughing. HEENT exam was notable for a mild arcus senilis, but no dry mucous membranes. Neck veins were not distended. JVP elevation was not present , with no bruits. She had visible skin warmth and perfusion with mild ecchymosis scattered throughout. Affect was appropriate and she appeared oriented. She did on musculoskeletal have mild kyphoscoliosis likely age related, but no active synovitis of her joints. She did have mild osteoarthritic deformities of the PIP and DIP joints bilaterally as well as mild varus knee deformities. Lungs revealed decreased breath sounds at the bases, but no wheezes. Cardiac exam revealed a normal S1 and S2 and regular rate. No rub was appreciated. No murmurs or gallops. PMI not checked. Abdomen : Benign, soft, nontender, nondistended. No organomegaly. Extremities: No significant edema. Pulses appeared to be intact. Endocrine: No glandular swelling. Hematologic: Mild ecchymosis. DIAGNOSTIC STUDIES/LAB DATA: Labs showed a sed rate of 48 in January of 2009 with a CRP of 7.1 with the complex metabolic panel showing a creatinine of 1.1 and a calcium level of 10.9. Liver tests were normal at that time with an albumin of 4.3. Labs in November of 2008 were negative for hepatitis B and C, but she had been vaccinated against B and she was CCP antibody negative. CPK normal. PTH was normal. ETELVINA of 1:80, which was considered negative with a sed rate of 39 at that time in 2008, which was slightly elevated with the CRP of 1.6 with a negative rheumatoid factor. She also in terms of prior imaging studies had an MRI of the left knee in January of 2009 showing [id number] osteoarthritis especially at the medial compartment with spurring and joint space narrowing with severe thinning of the articular cartilage. There was grade 3 degeneration of the posterior horn and body of the medial meniscus with anterior subluxation of the anterior horn of the medial meniscus with a large Mathur cyst. A CT scan of the brain in June of 2013 showed mildly decreased attenuation in the deep periventricular white matter adjacent to the frontal horns. On diagnostic evaluation, she had a transthoracic echo, which showed normal ventricular ejection fraction of 55% with functionally benign heart valves, large circumferential pericardial effusion with cardiac tamponade including early right ventricular diastolic collapse as well as dilated and poorly compressible inferior vena cava. When compared to the prior echo, there were pertinent changes noted. She did have an EKG, which showed normal sinus rhythm at 94 beats per minute with diffuse ST elevation versus [place] segment depression. There was a consideration for mild pericarditis. White count of 12.4, hematocrit 33, platelet count of 369,000. Sodium of 132, potassium of 4.2, chloride of 104, creatinine of 1.29 with a lactic acid of 2.4. CRP of 63. BNP of 127. ALT of 12. Magnesium of 1.9. ASSESSMENT AND PLAN: Ms. Allen is an 83-year-old woman with a longstanding history of seronegative inflammatory arthropathy. She was also felt that she had chondrocalcinosis in the past on imaging studies and this was also confirmed on ultrasound imaging. While she has been in the remote past treated with immunosuppressive therapy including methotrexate and Orencia which she does not recall, she has more recently been on chronic intermittent low dose prednisone, which she uses only sparingly, so she has not had any recent exposure to any immunosuppressive medication; still, however, we should consider the possibility of an underlying infectious process that might be contributing to her symptoms. Also, given her remote history of a malignancy, also consider an underlying malignancy, so I very much agree with checking cytology of the pericardial fluid that was done as well as following up on the cultures and consider checking for mycobacteria as well as fungal infections given the bloody nature of the effusion. It is somewhat atypical for this feature (cardiac tamponade) to be from rheumatoid arthritis, although rheumatoid arthritis pericardial related effusion is in the differential diagnosis, even though she is seronegative and does not seem to have significant erosive deformities from her condition (which reduces the risk for extra articular manifestations of rheumatoid arthritis). Additionally, she has always been seronegative, so this would be an unusual extraarticular manifestation of rheumatoid arthritis. She is currently doing well with a pericardial window. Steroids could be considered for refractive pericardial effusions. However, she is currently stable on NSAIDs and also colchicine was recommended by Cardiology. If she is stable and improving on this regimen, I do not see a need per se to add prednisone, but could be considered if other etiologies are ruled out and she remains symptomatic. I will continue to follow daily and also check an ANCA as well as CMV titers, specifically cytomegalovirus titers to check for viral etiologies, such as bacterial, fungal infections, and malignancy. Would use NSAIDs cautiously in light of her renal insufficiency. Monitor for GI side effects on low dose colchicine. Would also check a TSH once she is more stable. I will continue to follow daily. [id number]/[facility] #: [id number] A Rare Case of Cardiac Tamponade Induced by Chronic Rheumatoid ... https://www.ncbi.nlm.nih.gov/pmc/articles/LZH3175965/ [email or web address]
[2018-06-29 06:48] LABS: EGFR Non-African American 61.2 (>60)
[2018-06-29] MEDS: Ibuprofen TAB* 600 MG PO SCH ×3 (07:51→18:48)
[2018-06-29] MEDS: Omeprazole CAP* 20 MG PO SCH (08:06)
[2018-06-29] MEDS: Docusate CAP* 100 MG PO SCH (08:06)
[2018-06-29] MEDS: Cetirizine* 10 MG TAB PO SCH (08:06)
[2018-06-29] MEDS: Fluticasone NASAL SPRAY 50MCG* 16 gm SPRAY BTL BOTH NARES SCH (08:06)
[2018-06-29] MEDS: FLUoxetine CAP* 10 MG PO SCH (08:06)
[2018-06-29] MEDS: Polyethylene Glycol 3350* 17 GM PACKET PO SCH (08:06)
[2018-06-29] MEDS: Metoprolol Tartrate TAB* 25 MG PO SCH ×2 (08:07→20:08)
[2018-06-29] MEDS: Atorvastatin* 10 MG TAB PO SCH (08:07)
[2018-06-29] MEDS: Colchicine* 0.6 MG TAB PO SCH (08:08)
[2018-06-29] MEDS: OMEGA ACID ETHYL ESTERS PO SCH ×2 (08:08→20:14)
[2018-06-29] MEDS: MINOCYCLINE 50 MG PO SCH ×2 (08:09→21:37)
--- NOTE | 2018-06-29 10:14 | PN ---
Subjective - Subjective Date of Service: 06/29/18 - Chief complaint: cardiac tamponade, inflammatory arthropathy History: Overall Ms. Allen feels no joint pain. She had mild nausea overnight but this has resolved. Denied severe chest pain or shortness of breath Active Problems: Active Problems RAUDEL (acute kidney injury) (Acute) N17.9 - Likely pre-renal in the setting of poor perfusion secondary to cardiac tamponade. - Renal function is improving. - Continue IVF, but decrease rate. Atrial fibrillation (Acute) I48.91 - Went into afib after my visit. - Replete magnesium. - Start metoprolol for rate control. - Suspect likely secondary to epicardial irritation associated with pericarditis. - [id number] 4 - will start Xarelto as per discussion with Cardiology. - Monitor closely for signs of bleeding as she's also on Ibuprofen. Cardiac tamponade (Acute) I31.4 - s/p pericardial windown 06/27/18. - Feels much improved. - It could be viral ; associated with RA; or malignant - follow fluid study results. - ESR 48 or CRP 86. - Rheumatology consult requested. - Continue Colchicine and Ibuprofen. DVT prophylaxis (Acute) [id number] - Xarelto. Full code status (Acute) Z78.9 Current Medications: Current Medications Acetaminophen (Tylenol Tab*) 650 mg PO Q6H PRN PRN Reason: FEVER/PAIN Albuterol (Ventolin 2.5 Mg/3 Ml Neb.Desire*) 2.5 mg INH Q4H PRN PRN Reason: SOB/WHEEZING Atorvastatin Calcium (Lipitor*) 10 mg PO DAILY [facility] Last Admin: 06/29/18 08:07 Dose: 10 mg Buspirone HCl (Buspar Tab*) 5 mg PO QID PRN PRN Reason: ANXIETY Cetirizine HCl (Zyrtec*) 10 mg PO DAILY [facility]; Protocol Last Admin: 06/29/18 08:06 Dose: 10 mg Colchicine (Colcrys*) 0.6 mg PO DAILY [facility] Last Admin: 06/29/18 08:08 Dose: 0.6 mg Docusate Sodium (Colace Cap*) 200 mg PO DAILY [facility] Last Admin: 06/29/18 08:06 Dose: 200 mg Fluoxetine HCl (Prozac Cap*) 30 mg PO DAILY [facility] Last Admin: 06/29/18 08:06 Dose: 30 mg Fluticasone Propionate (Flonase Nasal [place] 50mcg*) 2 spray BOTH NARES DAILY [facility] Last Admin: 06/29/18 08:06 Dose: 2 spray Lactated Ringer's (Lactated Ringers 1000 Ml Bag*) 1,000 mls @ 75 mls/hr IV PER RATE [facility] Last Admin: 06/28/18 20:08 Dose: 75 mls/hr Ibuprofen (Motrin Tab*) 600 mg PO 0300,1100,1900 [facility] Last Admin: 06/29/18 07:51 Dose: Not Given Ipratropium [place] (Ipratropium [place]) 0.2 ml BOTH NARES BID PRN PRN Reason: Allergy Symptoms Metoprolol Tartrate (Lopressor Tab*) 25 mg PO BID [facility] Last Admin: 06/29/18 08:07 Dose: 25 mg Minocycline HCl (Minocycline (Nf)) 75 mg PO BID [facility]; Protocol Last Admin: 06/29/18 08:09 Dose: Not Given Whqbz-9-Wkug Ethyl Esters (Lovaza (Nf)) 1 gm PO BID [facility]; Protocol Last Admin: 06/29/18 08:08 Dose: 1 gm Omeprazole (Prilosec Cap*) 20 mg PO DAILY@0730 [facility] Last Admin: 06/29/18 08:06 Dose: 20 mg Ondansetron HCl (Zofran Inj*) 4 mg IV Q6H PRN PRN Reason: NAUSEA Polyethylene Glycol/Electrolytes (Miralax*) 17 gm PO DAILY [facility] Last Admin: 06/29/18 08:06 Dose: 17 gm Rivaroxaban (Xarelto(*)) 15 mg PO BEDTIME [facility] Last Admin: 06/28/18 20:14 Dose: 15 mg - Review of Systems Constitutional Symptoms: No: Weight Gain, Weight Loss, Fever, Night Sweats Dermatology: Normal: Yes HEENT: Yes Normal Eyes: Positive: Normal Thyroid: Positive: Normal Pulmonary: Positive: Exercise Intolerance Cardiology: Positive: Normal Gastroenterology: Positive: Nausea Genital - Urinary: Positive: Normal Musculoskeletal: Positive: Joint Stiffness, Joint Deformities, Kyphoscoliosis Neurology: Positive: Normal Psychiatry: Positive: Normal Allergic/Immunologic: Positive: Immunocompromise Home Medications: Home Medications Medication Instructions Recorded Confirmed Type Alendronate (NF) [Fosamax (NF)] 35 mg PO WEEKLY 06/28/17 06/27/18 History Amlodipine Besylate [Norvasc 2.5 2.5 mg PO DAILY 06/28/17 06/27/18 History mg tab] FLUoxetine CAP* [Prozac CAP*] 30 mg PO DAILY 06/28/17 06/27/18 History Ipratropium Br (Nf)0.03% Nasal 2 puff BOTH NARES BID PRN 06/28/17 06/27/18 History [Ipratropium [place]] Lisinopril [Lisinopril 2.5 MG-] 2.5 mg PO DAILY 06/28/17 06/27/18 History [place]-3 Acid Ethyl Esters [Lovaza] 1 cap PO BID 06/28/17 06/27/18 History Omeprazole CAP* [Prilosec CAP* 20 20 mg PO DAILY 06/28/17 06/27/18 History MG] Simvastatin TAB(NF) [Zocor 20 MG 20 mg PO DAILY 06/28/17 06/27/18 History (NF)] [id number]/Sod Sulf,Bicarb,Cl/KCl 8 oz PO Q12HR PRN #120 oz 11/24/17 06/27/18 Rx [Peg 3350 Electrolyte Soln] Albuterol inh POWDER (NF) [Proair 108 mcg INH Q6HR PRN 06/27/18 06/27/18 History Respiclick] Docusate CAP* [Colace Cap*] 200 mg PO SEE INSTRUCTIONS 06/27/18 06/27/18 History Febuxostat(NF) [Uloric(NF)] 40 mg PO DAILY 06/27/18 06/27/18 History Minocycline HCl [Minocin] 75 mg PO BID 06/27/18 06/27/18 History Ondansetron ODT TAB* [Zofran 4 MG 4 mg PO Q6HR PRN 06/27/18 06/27/18 History Odt TAB*] Polyethylene Glycol 3350* 17 gm PO DAILY 06/27/18 06/27/18 History [Miralax*] busPIRone TAB* [Buspar TAB*] 5 mg PO QID PRN 06/27/18 06/27/18 History predniSONE TAB* [Deltasone TAB*] 5 - 10 mg PO DAILY PRN 06/27/18 06/27/18 History Allergies: Allergies Allergy/AdvReac Type Severity Reaction Status Date / Time allopurinol Allergy Unknown Verified 05/13/18 10:11 Reaction Details codeine Allergy Nausea And Verified 05/13/18 10:11 Vomiting methotrexate Allergy Nausea Verified 05/13/18 10:11 Penicillins Allergy Rash Verified 05/13/18 10:11 tapentadol Allergy Unknown Verified 05/13/18 10:11 Reaction Details valsartan Allergy Unknown Verified 05/13/18 10:11 Reaction Details Objective - Vital Signs Vital Signs: Vital Signs 06/28/18 06/28/18 06/28/18 10:22 10:30 11:00 Temperature Pulse Rate 107 98 Respiratory 19 25 22 Rate Blood Pressure 102/48 98/53 97/60 (mmHg) O2 Sat by Pulse 100 100 Oximetry 06/28/18 06/28/18 06/28/18 11:30 12:00 12:30 Temperature Pulse Rate 93 87 102 Respiratory 25 19 16 Rate Blood Pressure 107/58 108/53 98/58 (mmHg) O2 Sat by Pulse 100 100 100 Oximetry 06/28/18 06/28/18 06/28/18 13:00 13:30 14:00 Temperature Pulse Rate 89 89 Respiratory 24 18 23 Rate Blood Pressure 100/57 97/81 80/61 (mmHg) O2 Sat by Pulse 100 100 Oximetry 06/28/18 06/28/18 06/28/18 14:30 15:00 15:30 Temperature Pulse Rate 82 86 89 Respiratory 22 20 26 Rate Blood Pressure 89/53 116/63 87/42 (mmHg) O2 Sat by Pulse 99 99 Oximetry 06/28/18 06/28/18 06/28/18 16:54 19:22 20:00 Temperature 97.7 F 100.1 F Pulse Rate 85 85 Respiratory 16 18 18 Rate Blood Pressure 109/49 112/49 (mmHg) O2 Sat by Pulse 98 100 Oximetry 06/29/18 06/29/18 06/29/18 00:31 03:51 07:21 Temperature 98.5 F 99.8 F 98.8 F Pulse Rate 75 82 84 Respiratory 16 20 19 Rate Blood Pressure 111/50 106/53 129/60 (mmHg) O2 Sat by Pulse 95 94 100 Oximetry 06/29/18 08:00 Temperature Pulse Rate Respiratory 16 Rate Blood Pressure (mmHg) O2 Sat by Pulse Oximetry - Intake and Output Intake and Output: Intake & Output 06/27/18 06/28/18 06/29/18 06/30/18 06:59 06:59 06:59 06:59 Intake Total 4352 2189 Output Total 1999 Balance 2352 1789 Weight 137 lb 9.095 oz Intake: IV Fluids 4352 97 LR 2352 magnesium 97 IVPB 1012 LR 906 magnesium 106 Oral 1080 Output: Urine 1999 400 Other: Date of Last Bowel 06/27/18 06/28/18 Movement # Bowel Movements 1 1 Estimated Stool Amount Small Medium # Voids 2 ADLs: Meal Record Start: 06/27/18 14: 15 Freq: DAILY@0900,1400,1800 Status: Active Protocol: Created 06/27/18 14:15 System (Rec: 06/27/18 14:15 System TELE-M11) Document 06/27/18 17:55 [id number] (Rec: 06/27/18 17:55 [id number] ICU-C15) Document 06/28/18 09:00 [id number] (Rec: 06/28/18 10:31 [id number] ICU-C15) Document 06/28/18 14:00 [id number] (Rec: 06/28/18 15:55 [id number] ICU-M24) Document 06/28/18 18:00 [id number] (Rec: 06/28/18 19:42 [id number] TELE-C10) ADLs: Meal Record Start: 06/27/18 16: 11 Freq: Status: Complete Protocol: Created 06/27/18 16:12 [id number] (Rec: 06/27/18 16:12 [id number] ICU-M24) Intake and Output Start: 06/27/18 09: 48 Freq: Status: Active Protocol: Created 06/27/18 09:48 System (Rec: 06/27/18 09:48 System ED-C24) Intake and Output Start: 06/27/18 14: 15 Freq: DAILY@0600,1400,2200 Status: Complete Protocol: Created 06/27/18 14:15 System (Rec: 06/27/18 14:15 System TELE-M11) Document 06/27/18 22:00 [id number] (Rec: 06/28/18 00:56 [id number] ICU-L03) Intake and Output Start: 06/27/18 16: 11 Freq: Q4HR Status: Inactive Protocol: Created 06/27/18 16:12 [id number] (Rec: 06/27/18 16:12 [id number] ICU-M24) Document 06/27/18 20:00 [id number] (Rec: 06/28/18 00:56 [id number] ICU-L03) Document 06/28/18 00:00 [id number] (Rec: 06/28/18 00:57 [id number] ICU-L03) Document 06/28/18 03:05 [id number] (Rec: 06/28/18 03:05 [id number] ICU-L03) Document 06/28/18 05:26 [id number] (Rec: 06/28/18 05:27 [id number] ICU-L03) Document 06/28/18 08:00 [id number] (Rec: 06/28/18 09:13 [id number] ICU-C15) Document 06/28/18 12:00 [id number] (Rec: 06/28/18 12:07 [id number] ICU-C15) Intake and Output Start: 06/28/18 22: 30 Freq: Status: Active Protocol: Created 06/28/18 22:30 (Rec: 06/28/18 22:30 [id number] TELE-C13) Document 06/28/18 22:32 [id number] (Rec: 06/28/18 22:32 [id number] TELE-C13) Document 06/29/18 06:00 [id number] (Rec: 06/29/18 06:04 [id number] TELE-C35) - Physical Exam General Physical Exam Comment: No acute distress. Supine Eye Exam: bilateral: PERRLA Skin: Abnormal: Rash Head: Yes Normocephalic Lungs and Chest: Yes: Chest Expansion Full, Chest Expansion Symetrica, Percussion Note Resonant Heart Rate and Rhythm: Regular JVP: Not Elevated [place] Beat: Non Displaced Additional Cardiovascular: Yes: [place] Beat not Displaced Abdominal Exam: Yes: Soft - Rheumotological System Joints: Joint Deformities, Signs of Connective Tissue Disease - Neuro Psychiatric: Normal Speech: Normal Results - Results Lab Results: Laboratory Results - last 24 hr 06/28/18 06/29/18 05:23 06:15 ESR 48 H Sodium 138 Potassium 4.1 Chloride 109 Carbon Dioxide 24 Anion Gap 5 BUN 16 Creatinine 0.88 Est GFR ( Amer) 74.1 Est GFR (Non-Af Amer) 61.2 BUN/Creatinine Ratio 18.2 Glucose 117 H Calcium 9.1 Magnesium 2.1 Assessment - Problem List Assessment: Patient Problems RAUDEL (acute kidney injury) (Acute) Atrial fibrillation (Acute) Cardiac tamponade (Acute) DVT prophylaxis (Acute) Full code status (Acute) Hypercalcemia (Acute) Nausea (Acute) Pericardial effusion (Acute) Plan: Ms. Allen has cardiac tamponade in the setting of a long standing seronegative inflammatory arthropathy. On Colchicine, NSAIDs, which she is tolerating well. Renal function looks good , although CRP has been rising; would follow this for improvement. Follow up pericardial studies and echo. Follow up ANCA and CMV titers.
--- NOTE | 2018-06-29 16:05 | PN ---
Subjective Date of Service: 06/29/18 Interval History: HOSPITALIST PROGRESS NOTE Patient seen and examined at bedside. Care reviewed and d/w Francis Rubin RN. She feels better today. Has some incisional tenderness, but denies CP, palpitations, N/V, dyspnea. Family History: Unchanged from Admission Social History: Unchanged from Admission Past Medical History: Unchanged from Admission Objective Active Medications: Acetaminophen (Tylenol Tab*) 650 mg PO Q6H PRN PRN Reason: FEVER/PAIN Albuterol (Ventolin 2.5 Mg/3 Ml Neb.Desire*) 2.5 mg INH Q4H PRN PRN Reason: SOB/WHEEZING Atorvastatin Calcium (Lipitor*) 10 mg PO DAILY [facility] Last Admin: 06/29/18 08:07 Dose: 10 mg Buspirone HCl (Buspar Tab*) 5 mg PO QID PRN PRN Reason: ANXIETY Cetirizine HCl (Zyrtec*) 10 mg PO DAILY [facility]; Protocol Last Admin: 06/29/18 08:06 Dose: 10 mg Colchicine (Colcrys*) 0.6 mg PO DAILY [facility] Last Admin: 06/29/18 08:08 Dose: 0.6 mg Docusate Sodium (Colace Cap*) 200 mg PO DAILY [facility] Last Admin: 06/29/18 08:06 Dose: 200 mg Fluoxetine HCl (Prozac Cap*) 30 mg PO DAILY [facility] Last Admin: 06/29/18 08:06 Dose: 30 mg Fluticasone Propionate (Flonase Nasal [place] 50mcg*) 2 spray BOTH NARES DAILY [facility] Last Admin: 06/29/18 08:06 Dose: 2 spray Lactated Ringer's (Lactated Ringers 1000 Ml Bag*) 1,000 mls @ 75 mls/hr IV PER RATE [facility] Last Admin: 06/29/18 10:31 Dose: 75 mls/hr Ibuprofen (Motrin Tab*) 600 mg PO 0300,1100,1900 [facility] Last Admin: 06/29/18 10:31 Dose: 600 mg Ipratropium [place] (Ipratropium [place]) 0.2 ml BOTH NARES BID PRN PRN Reason: Allergy Symptoms Metoprolol Tartrate (Lopressor Tab*) 25 mg PO BID [facility] Last Admin: 06/29/18 08:07 Dose: 25 mg Minocycline HCl (Minocycline (Nf)) 75 mg PO BID [facility]; Protocol Last Admin: 06/29/18 08:09 Dose: Not Given Bdmgb-9-Ffss Ethyl Esters (Lovaza (Nf)) 1 gm PO BID [facility]; Protocol Last Admin: 06/29/18 08:08 Dose: 1 gm Omeprazole (Prilosec Cap*) 20 mg PO DAILY@0730 [facility] Last Admin: 06/29/18 08:06 Dose: 20 mg Ondansetron HCl (Zofran Inj*) 4 mg IV Q6H PRN PRN Reason: NAUSEA Polyethylene Glycol/Electrolytes (Miralax*) 17 gm PO DAILY [facility] Last Admin: 06/29/18 08:06 Dose: 17 gm Rivaroxaban (Xarelto(*)) 15 mg PO BEDTIME [facility] Last Admin: 06/28/18 20:14 Dose: 15 mg Vital Signs - 8 hr 06/29/18 06/29/18 11:02 15:15 Temperature 99.1 F 97.9 F Pulse Rate 82 84 Respiratory 18 14 Rate Blood Pressure 115/58 117/57 (mmHg) O2 Sat by Pulse 100 98 Oximetry Oxygen Devices in Use Now: None Appearance: Pleasant elderly lady lying in bed in [facility]. Eyes: No Scleral Icterus Ears/Nose/Mouth/Throat: Mucous Membranes Moist Neck: Trachea Midline Respiratory: Symmetrical Chest Expansion and Respiratory Effort, Clear to Auscultation Cardiovascular: RRR - Normal S1 and S2 Abdominal: NL Sounds; No Tenderness; No Distention Neurological: Alert and Oriented x 3, NL Muscle Strength and Tone Result Diagrams: 06/28/18 05:23 06/29/18 06:15 Assess/Plan/Problems-Billing Assessment: Mrs Allen is an 83yo F with PMH of HTN, HLD, GERD, osteoporosis, gout, breast CA , rheumatoid arthritis, who presented to ED with c/o N/V, cough, found to have cardiac tamponade. - Patient Problems (1) Cardiac tamponade Comment: - s/p pericardial [place]own 06/27/18. - Feels much improved. - It could be viral; associated with RA; or malignant - follow fluid study results. - ESR 48 and CRP 86. - Rheumatology consult appreciated. - Repeat limited echo 07/01/18. - Continue Colchicine and Ibuprofen for now, but if inflammatory markers trend up, may need to switch from NSAIDs to steroids. (2) Atrial fibrillation Comment: - Went into afib after my visit and now back in NSR. - Continue metoprolol for rate control. - Suspect likely secondary to epicardial irritation associated with pericarditis. - [id number] - continue Xarelto as per discussion with Cardiology. - Monitor closely for signs of bleeding as she's also on Ibuprofen. (3) RAUDEL (acute kidney injury) Comment: - Resolved. - Likely pre-renal in the setting of poor perfusion secondary to cardiac tamponade. - D/c IVF. (4) DVT prophylaxis Comment: - Xarelto. (5) Full code status Status and Disposition: Inpatient.
[2018-06-29] MEDS: Rivaroxaban TAB(*) 15 MG PO SCH (20:08)
[2018-06-29] MEDS: CMC:Minocycline (NF) 50 MG CAP PO SCH (21:38)
[2018-06-29] MEDS: Benzonatate CAP* 100 MG PO PRN (21:38)
[2018-06-30] MEDS: Benzonatate CAP* 100 MG PO PRN (03:30)
[2018-06-30] MEDS: Ibuprofen TAB* 600 MG PO SCH ×3 (03:30→20:35)
[2018-06-30 05:26] LABS: ABS Basophils 0.1 10^3/ul (0-0.2); ABS Eosinophils 0.2 10^3/ul (0-0.6); ABS Monocytes 1.2 10^3/ul (0-0.8); ABS Neutrophils 6.5 10^3/ul (1.5-7.7); ABS Nucleated RBC 0 10^3/ul; Eosinophil % 2.6 % (0-6); Hematocrit 26 % (35-47); Hemoglobin 8.8 g/dl (12.0-16.0); Lymphocyte % 10.7 % (25-47); Mean Corpuscular HGB Conc 34 g/dl (31-36); Mean Corpuscular Hemoglobin 28 pg (27-31); Mean Corpuscular Volume 84 fL (80-97); Mean Platelet Volume 7.9 um3 (7.4-10.4); Nucleated Red Blood Cells % 0; Platelet Count 334 10^3/ul (150-450); Red Blood Count 3.14 10^6/ul (4.00-5.40); Red Cell Distribution Width 14 % (10.5-15); White Blood Count 8.9 10^3/ul (3.5-10.8)
[2018-06-30 05:51] LABS: EGFR Non-African American 68.3 (>60)
[2018-06-30] MEDS: Omeprazole CAP* 20 MG PO SCH (07:39)
[2018-06-30] MEDS: CMC:Minocycline (NF) 50 MG CAP PO SCH ×2 (08:54→20:35)
[2018-06-30] MEDS: Fluticasone NASAL SPRAY 50MCG* 16 gm SPRAY BTL BOTH NARES SCH (08:54)
[2018-06-30] MEDS: Polyethylene Glycol 3350* 17 GM PACKET PO SCH (08:54)
[2018-06-30] MEDS: Atorvastatin* 10 MG TAB PO SCH (08:55)
[2018-06-30] MEDS: FLUoxetine CAP* 10 MG PO SCH (08:55)
[2018-06-30] MEDS: Metoprolol Tartrate TAB* 25 MG PO SCH ×2 (08:55→20:34)
[2018-06-30] MEDS: Colchicine* 0.6 MG TAB PO SCH (08:55)
[2018-06-30] MEDS: Cetirizine* 10 MG TAB PO SCH (08:55)
[2018-06-30] MEDS: Docusate CAP* 100 MG PO SCH (08:55)
[2018-06-30] MEDS: OMEGA ACID ETHYL ESTERS PO SCH ×2 (08:56→20:36)
--- NOTE | 2018-06-30 09:57 | PN ---
Subjective Date of Service: 06/30/18 Interval History: Pt is feeling ok. She states her chest is slightly sore from surgery but otherwise she has no pain. No real SOB but she has been coughing still. It is a dry cough. Her nausea is gone. Objective Active Medications: Acetaminophen (Tylenol Tab*) 650 mg PO Q6H PRN PRN Reason: FEVER/PAIN Albuterol (Ventolin 2.5 Mg/3 Ml Neb.Desire*) 2.5 mg INH Q4H PRN PRN Reason: SOB/WHEEZING Atorvastatin Calcium (Lipitor*) 10 mg PO DAILY [facility] Last Admin: 06/30/18 08:55 Dose: 10 mg Benzonatate (Tessalon Cap*) 100 mg PO QID PRN PRN Reason: COUGH Last Admin: 06/30/18 03:30 Dose: 100 mg Buspirone HCl (Buspar Tab*) 5 mg PO QID PRN PRN Reason: ANXIETY Cetirizine HCl (Zyrtec*) 10 mg PO DAILY [facility]; Protocol Last Admin: 06/30/18 08:55 Dose: 10 mg Colchicine (Colcrys*) 0.6 mg PO DAILY [facility] Last Admin: 06/30/18 08:55 Dose: 0.6 mg Docusate Sodium (Colace Cap*) 200 mg PO DAILY [facility] Last Admin: 06/30/18 08:55 Dose: 200 mg Fluoxetine HCl (Prozac Cap*) 30 mg PO DAILY [facility] Last Admin: 06/30/18 08:55 Dose: 30 mg Fluticasone Propionate (Flonase Nasal [place] 50mcg*) 2 spray BOTH NARES DAILY [facility] Last Admin: 06/30/18 08:54 Dose: 2 spray Ibuprofen (Motrin Tab*) 600 mg PO 0300,1100,1900 [facility] Last Admin: 06/30/18 03:30 Dose: 600 mg Ipratropium [place] (Ipratropium [place]) 0.2 ml BOTH NARES BID PRN PRN Reason: Allergy Symptoms Metoprolol Tartrate (Lopressor Tab*) 25 mg PO BID [facility] Last Admin: 06/30/18 08:55 Dose: 25 mg Minocycline HCl (Minocycline (Nf)) 50 mg PO BID [facility]; Protocol Last Admin: 06/30/18 08:54 Dose: 50 mg Kirbc-7-Qqdk Ethyl Esters (Lovaza (Nf)) 1 gm PO BID [facility]; Protocol Last Admin: 06/30/18 08:56 Dose: 1 gm Omeprazole (Prilosec Cap*) 20 mg PO DAILY@0730 [facility] Last Admin: 06/30/18 07:39 Dose: 20 mg Ondansetron HCl (Zofran Inj*) 4 mg IV Q6H PRN PRN Reason: NAUSEA Polyethylene Glycol/Electrolytes (Miralax*) 17 gm PO DAILY [facility] Last Admin: 06/30/18 08:54 Dose: 17 gm Rivaroxaban (Xarelto(*)) 15 mg PO BEDTIME [facility] Last Admin: 06/29/18 20:08 Dose: 15 mg Vital Signs - 8 hr 06/30/18 06/30/18 06/30/18 03:47 06:56 07:57 Temperature 98.8 F 97.0 F Pulse Rate 75 94 Respiratory 20 24 16 Rate Blood Pressure 124/59 145/83 (mmHg) O2 Sat by Pulse 100 Oximetry Oxygen Devices in Use Now: None Appearance: Elderly female sitting up in bed, NAD Eyes: No Scleral Icterus Ears/Nose/Mouth/Throat: Mucous Membranes Moist Respiratory: Symmetrical Chest Expansion and Respiratory Effort, Clear to Auscultation Cardiovascular: NL Sounds; No Murmurs; No JVD, RRR, No Edema Abdominal: NL Sounds; No Tenderness; No Distention Extremities: No Clubbing, Cyanosis Skin: No Nodules or Sclerosis, - - extensive sun damage noted, incision to anterior chest wall covered in steri-strips, no drainage Neurological: Alert and Oriented x 3 Result Diagrams: 06/30/18 05:07 06/30/18 05:07 Microbiology and Other Data: Microbiology 06/27/18 18:50 Gram Stain - Final Pericardial Fluid Body Fluid Culture - Preliminary No Growth Day 1 06/27/18 21:00 Nasal Screen MRSA (PCR) - Final Nasal Mrsa Not Detected Assess/Plan/Problems-Billing Mrs Allen is an 83yo F with PMH of HTN, HLD, GERD, osteoporosis, gout, breast CA and rheumatoid arthritis, who presented to ED with c/o N/V, cough, found to have cardiac tamponade. - Patient Problems (1) Cardiac tamponade Current Visit: Yes Status: Acute Code(s): I31.4 - CARDIAC TAMPONADE SNOMED Code(s): 11921276 Comment: The patient was found to have a very large pericardial effusion on admission. She is s/p pericardial window 06/27/18. ~750ml serosanguinous fluid was drained. The patient is feeling better but continues to have a dry cough. Likely still inflammation present as ESR/CRP climbing despite being on ibuprofen and colchicine. ? change to prednisone for improved inflammation tx/ control. Will await further recommendations from Dr Angulo. Plan on repeat echo tomorrow. The etiology of the effusion is not known. So far no growth on bacterial culture. ? viral vs malignant vs RA associated. Await pathology. (2) Atrial fibrillation Current Visit: Yes Status: Acute Code(s): I48.91 - UNSPECIFIED ATRIAL FIBRILLATION SNOMED Code(s): 64259848 Comment: Pt remains in NSR. Will continue metoprolol and xarelto. No signs of bleeding. (3) DVT prophylaxis Current Visit: Yes Status: Acute Code(s): FGZ6086 - SNOMED Code(s): 384420576 Comment: josue (4) Full code status Current Visit: Yes Status: Acute Code(s): Z78.9 - OTHER SPECIFIED HEALTH STATUS SNOMED Code(s): 159513287 Status and Disposition: .
--- NOTE | 2018-06-30 17:54 | PN ---
Subjective - Subjective Date of Service: 06/30/18 - chief complaint : cardiac tamponade History: Overall Ms. Allen feels better; she still has a dry cough. Nausea is improved. No significant chest wall pain is present. Active Problems: Active Problems RAUDEL (acute kidney injury) (Acute) N17.9 - Resolved. - Likely pre-renal in the setting of poor perfusion secondary to cardiac tamponade. - D/c IVF. Atrial fibrillation (Acute) I48.91 Pt remains in NSR. Will continue metoprolol and xarelto. No signs of bleeding. Cardiac tamponade (Acute) I31.4 The patient was found to have a very large pericardial effusion on admission. She is s/p pericardial window 06/27/18. ~750ml serosanguinous fluid was drained. The patient is feeling better but continues to have a dry cough. Likely still inflammation present as ESR/CRP climbing despite being on ibuprofen and colchicine. ? change to prednisone for improved inflammation tx/ control. Will await further recommendations from Dr Angulo. Plan on repeat echo tomorrow. The etiology of the effusion is not known. So far no growth on bacterial culture. ? viral vs malignant vs RA associated. Await pathology. DVT prophylaxis (Acute) [id number] xarelto Full code status (Acute) Z78.9 Current Medications: Current Medications Acetaminophen (Tylenol Tab*) 650 mg PO Q6H PRN PRN Reason: FEVER/PAIN Albuterol (Ventolin 2.5 Mg/3 Ml Neb.Desire*) 2.5 mg INH Q4H PRN PRN Reason: SOB/WHEEZING Atorvastatin Calcium (Lipitor*) 10 mg PO DAILY [facility] Last Admin: 06/30/18 08:55 Dose: 10 mg Benzonatate (Tessalon Cap*) 100 mg PO QID PRN PRN Reason: COUGH Last Admin: 06/30/18 03:30 Dose: 100 mg Buspirone HCl (Buspar Tab*) 5 mg PO QID PRN PRN Reason: ANXIETY Cetirizine HCl (Zyrtec*) 10 mg PO DAILY [facility]; Protocol Last Admin: 06/30/18 08:55 Dose: 10 mg Colchicine (Colcrys*) 0.6 mg PO DAILY [facility] Last Admin: 06/30/18 08:55 Dose: 0.6 mg Docusate Sodium (Colace Cap*) 200 mg PO DAILY [facility] Last Admin: 06/30/18 08:55 Dose: 200 mg Fluoxetine HCl (Prozac Cap*) 30 mg PO DAILY [facility] Last Admin: 06/30/18 08:55 Dose: 30 mg Fluticasone Propionate (Flonase Nasal [place] 50mcg*) 2 spray BOTH NARES DAILY [facility] Last Admin: 06/30/18 08:54 Dose: 2 spray Ibuprofen (Motrin Tab*) 600 mg PO 0300,1100,1900 [facility] Last Admin: 06/30/18 11:04 Dose: 600 mg Ipratropium [place] (Ipratropium [place]) 0.2 ml BOTH NARES BID PRN PRN Reason: Allergy Symptoms Metoprolol Tartrate (Lopressor Tab*) 25 mg PO BID [facility] Last Admin: 06/30/18 08:55 Dose: 25 mg Minocycline HCl (Minocycline (Nf)) 50 mg PO BID [facility]; Protocol Last Admin: 06/30/18 08:54 Dose: 50 mg [id number]-8-[id number] Ethyl Esters (Lovaza (Nf)) 1 gm PO BID [facility]; Protocol Last Admin: 06/30/18 08:56 Dose: 1 gm Omeprazole (Prilosec Cap*) 20 mg PO DAILY@0730 [facility] Last Admin: 06/30/18 07:39 Dose: 20 mg Ondansetron HCl (Zofran Inj*) 4 mg IV Q6H PRN PRN Reason: NAUSEA Polyethylene Glycol/Electrolytes (Miralax*) 17 gm PO DAILY [facility] Last Admin: 06/30/18 08:54 Dose: 17 gm Rivaroxaban (Xarelto(*)) 15 mg PO BEDTIME [facility] Last Admin: 06/29/18 20:08 Dose: 15 mg - Review of Systems Constitutional Symptoms: No: Fever, Night Sweats, Unexplained Falls Dermatology: Normal: Yes HEENT: Yes Normal Eyes: Positive: Normal Thyroid: Positive: Normal Pulmonary: Positive: Cough Cardiology: Positive: Normal Gastroenterology: Positive: Normal Musculoskeletal: Positive: Joint Stiffness, Arthritis, Joint Deformities, Kyphoscoliosis Psychiatry: Positive: Normal Allergic/Immunologic: Positive: Immunocompromise Home Medications: Home Medications Medication Instructions Recorded Confirmed Type Alendronate (NF) [Fosamax (NF)] 35 mg PO WEEKLY 06/28/17 06/27/18 History Amlodipine Besylate [Norvasc 2.5 2.5 mg PO DAILY 06/28/17 06/27/18 History mg tab] FLUoxetine CAP* [Prozac CAP*] 30 mg PO DAILY 06/28/17 06/27/18 History Ipratropium Br (Nf)0.03% Nasal 2 puff BOTH NARES BID PRN 06/28/17 06/27/18 History [Ipratropium [place]] Lisinopril [Lisinopril 2.5 MG-] 2.5 mg PO DAILY 06/28/17 06/27/18 History [place]-3 Acid Ethyl Esters [Lovaza] 1 cap PO BID 06/28/17 06/27/18 History Omeprazole CAP* [Prilosec CAP* 20 20 mg PO DAILY 06/28/17 06/27/18 History MG] Simvastatin TAB(NF) [Zocor 20 MG 20 mg PO DAILY 06/28/17 06/27/18 History (NF)] [id number]/Sod Sulf,Bicarb,Cl/KCl 8 oz PO Q12HR PRN #120 oz 11/24/17 06/27/18 Rx [Peg 3350 Electrolyte Soln] Albuterol inh POWDER (NF) [Proair 108 mcg INH Q6HR PRN 06/27/18 06/27/18 History Respiclick] Docusate CAP* [Colace Cap*] 200 mg PO SEE INSTRUCTIONS 06/27/18 06/27/18 History Febuxostat(NF) [Uloric(NF)] 40 mg PO DAILY 06/27/18 06/27/18 History Minocycline HCl [Minocin] 75 mg PO BID 06/27/18 06/27/18 History Ondansetron ODT TAB* [Zofran 4 MG 4 mg PO Q6HR PRN 06/27/18 06/27/18 History Odt TAB*] Polyethylene Glycol 3350* 17 gm PO DAILY 06/27/18 06/27/18 History [Miralax*] busPIRone TAB* [Buspar TAB*] 5 mg PO QID PRN 06/27/18 06/27/18 History predniSONE TAB* [Deltasone TAB*] 5 - 10 mg PO DAILY PRN 06/27/18 06/27/18 History Allergies: Allergies Allergy/AdvReac Type Severity Reaction Status Date / Time allopurinol Allergy Unknown Verified 05/13/18 10:11 Reaction Details codeine Allergy Nausea And Verified 05/13/18 10:11 Vomiting methotrexate Allergy Nausea Verified 05/13/18 10:11 Penicillins Allergy Rash Verified 05/13/18 10:11 tapentadol Allergy Unknown Verified 05/13/18 10:11 Reaction Details valsartan Allergy Unknown Verified 05/13/18 10:11 Reaction Details Objective - Vital Signs Vital Signs: Vital Signs 06/29/18 06/29/18 06/30/18 19:10 20:00 00:24 Temperature 98.3 F Pulse Rate 88 88 Respiratory 14 18 16 Rate Blood Pressure 120/60 (mmHg) O2 Sat by Pulse 99 99 Oximetry 06/30/18 06/30/18 06/30/18 00:46 03:47 06:56 Temperature 98.2 F 98.8 F 97.0 F Pulse Rate 73 75 94 Respiratory 20 20 24 Rate Blood Pressure 119/59 124/59 145/83 (mmHg) O2 Sat by Pulse 100 100 Oximetry 06/30/18 06/30/18 06/30/18 07:57 11:19 15:08 Temperature 98.0 F 98.2 F Pulse Rate 84 85 Respiratory 16 26 14 Rate Blood Pressure 132/59 120/58 (mmHg) O2 Sat by Pulse 99 98 Oximetry - Intake and Output Intake and Output: Intake & Output 06/28/18 06/29/18 06/30/18 07/01/18 06:59 06:59 06:59 06:59 Intake Total 4352 2189 720 200 Output Total 2000 400 0 300 Balance 2352 1789 720 -100 Weight 137 lb 9.095 oz Intake: IV Fluids 4352 97 LR 2352 magnesium 97 IVPB 1012 LR 906 magnesium 106 Oral 1080 720 200 Output: Urine 2000 400 0 300 Other: Estimated Void Medium Date of Last Bowel 06/27/18 06/28/18 Movement # Bowel Movements 1 1 0 0 Estimated Stool Amount Small Medium # Voids 2 2 ADLs: Meal Record Start: 06/27/18 14: 15 Freq: DAILY@0900,1400,1800 Status: Active Protocol: Created 06/27/18 14:15 System (Rec: 06/27/18 14:15 System TELE-1) Document 06/27/18 17:55 [id number] (Rec: 06/27/18 17:55 [id number] ICU-C15) Document 06/28/18 09:00 [id number] (Rec: 06/28/18 10:31 [id number] ICU-C15) Document 06/28/18 14:00 [id number] (Rec: 06/28/18 15:55 [id number] ICU-M24) Document 06/28/18 18:00 [id number] (Rec: 06/28/18 19:42 [id number] TELE-C10) Document 06/29/18 09:00 [id number] (Rec: 06/29/18 11:41 [id number] TELE-C07) Document 06/29/18 14:00 [id number] (Rec: 06/29/18 14:46 [id number] TELE-C07) Document 06/29/18 17:51 [id number] (Rec: 06/29/18 17:51 [id number] TELE-C13) Document 06/30/18 09:00 [id number] (Rec: 06/30/18 15:07 [id number] TELE-C06) Document 06/30/18 14:00 [id number] (Rec: 06/30/18 15:10 [id number] TELE-C06) ADLs: Meal Record Start: 06/27/18 16: 11 Freq: Status: Complete Protocol: Created 06/27/18 16:12 [id number] (Rec: 06/27/18 16:12 [id number] ICU-M24) Intake and Output Start: 06/27/18 09: 48 Freq: Status: Active Protocol: Created 06/27/18 09:48 System (Rec: 06/27/18 09:48 System ED-C24) Intake and Output Start: 06/27/18 14: 15 Freq: DAILY@0600,1400,2200 Status: Complete Protocol: Created 06/27/18 14:15 System (Rec: 06/27/18 14:15 System TELE-M11) Document 06/27/18 22:00 [id number] (Rec: 06/28/18 00:56 [id number] ICU-L03) Intake and Output Start: 06/27/18 16: 11 Freq: Q4HR Status: Inactive Protocol: Created 06/27/18 16:12 [id number] (Rec: 06/27/18 16:12 [id number] ICU-M24) Document 06/27/18 20:00 [id number] (Rec: 06/28/18 00:56 [id number] ICU-L03) Document 06/28/18 00:00 [id number] (Rec: 06/28/18 00:57 [id number] ICU-L03) Document 06/28/18 03:05 [id number] (Rec: 06/28/18 03:05 [id number] ICU-L03) Document 06/28/18 05:26 [id number] (Rec: 06/28/18 05:27 [id number] ICU-L03) Document 06/28/18 08:00 [id number] (Rec: 06/28/18 09:13 [id number] ICU-C15) Document 06/28/18 12:00 [id number] (Rec: 06/28/18 12:07 [id number] ICU-C15) Intake and Output Start: 06/28/18 22: 30 Freq: Status: Active Protocol: Created 06/28/18 22:30 [id number] (Rec: 06/28/18 22:30 [id number] TELE-C13) Document 06/28/18 22:32 [id number] (Rec: 06/28/18 22:32 [id number] TELE-C13) Document 06/29/18 06:00 [id number] (Rec: 06/29/18 06:04 [id number] TELE-C35) Document 06/29/18 21:59 [id number] (Rec: 06/29/18 22:00 [id number] TELE-C08) - Physical Exam General Physical Exam Comment: No acute distress. Supine with monitors in place ; bandages in place Eye Exam: bilateral: PERRLA Head: Yes Normocephalic Thyroid Function: Clinically Euthyroid Lungs and Chest: Yes: Chest Expansion Full, Chest Expansion Symetrica Heart Rate and Rhythm: Normal JVP: Not Elevated [place]: Non Displaced Additional Cardiovascular: Yes: [place] Beat not Displaced Abdominal Exam: Yes: Soft - Rheumotological System Joints: Signs of Connective Tissue Disease - No active synovitis - Neuro Psychiatric: Normal Speech: Normal Results - Results Lab Results: Laboratory Results - last 24 hr 06/27/18 06/30/18 06/30/18 10:14 05:07 05:07 WBC 8.9 RBC 3.14 L Hgb 8.8 L Hct 26 L MCV 84 MCH 28 MCHC 34 RDW 14 Plt Count 334 MPV 7.9 Neut % (Auto) 72.6 Lymph % (Auto) 10.7 L [place] % (Auto) 13.4 H Eos % (Auto) 2.6 Baso % (Auto) 0.7 Absolute Neuts (auto) 6.5 Absolute Lymphs (auto) 1.0 Absolute Monos (auto) 1.2 H Absolute Eos (auto) 0.2 Absolute Basos (auto) 0.1 Absolute Nucleated RBC 0 Nucleated RBC % 0 ESR 80 H Sodium 138 Potassium 3.9 Chloride 109 Carbon Dioxide 26 Anion Gap 3 BUN 17 Creatinine 0.80 Est GFR ( Amer) 82.7 Est GFR (Non-Af Amer) 68.3 BUN/Creatinine Ratio 21.3 H Glucose 116 H Calcium 8.9 C-Reactive Protein 108.54 H Anti-Nuclear Antibody 1.3 H Assessment - Problem List Assessment: Patient Problems RAUDEL (acute kidney injury) (Acute) Atrial fibrillation (Acute) Cardiac tamponade (Acute) DVT prophylaxis (Acute) Full code status (Acute) Hypercalcemia (Acute) Nausea (Acute) Pericardial effusion (Acute) Plan: Ms. Allen is an 83 year old woman with a history of a seronegative inflammatory arthropathy, now with recurrent pericardial effusion and cardiac tamponade. Clinically she is doing well despite rising inflammatory markers. It will be important to review cytology of her fluid, especially as symptoms are atypical for an RA flare. ETELVINA is low titer positive; further lupus serologies could be checked although ETELVINA is non specific. Continue colchicine with anti inflammatory therapy
[2018-06-30] MEDS: Rivaroxaban TAB(*) 15 MG PO SCH (20:35)
[2018-07-01] MEDS: Ibuprofen TAB* 600 MG PO SCH ×3 (03:09→19:02)
[2018-07-01] MEDS: Metoprolol Tartrate TAB* 25 MG PO SCH ×2 (08:35→21:49)
[2018-07-01] MEDS: Colchicine* 0.6 MG TAB PO SCH (08:35)
[2018-07-01] MEDS: FLUoxetine CAP* 10 MG PO SCH (08:35)
[2018-07-01] MEDS: Omeprazole CAP* 20 MG PO SCH (08:36)
[2018-07-01] MEDS: CMC:Minocycline (NF) 50 MG CAP PO SCH ×2 (08:36→21:50)
[2018-07-01] MEDS: Docusate CAP* 100 MG PO SCH (08:36)
[2018-07-01] MEDS: Cetirizine* 10 MG TAB PO SCH (08:36)
[2018-07-01] MEDS: OMEGA ACID ETHYL ESTERS PO SCH ×2 (08:38→21:49)
[2018-07-01] MEDS: Atorvastatin* 10 MG TAB PO SCH (08:38)
[2018-07-01] MEDS: Fluticasone NASAL SPRAY 50MCG* 16 gm SPRAY BTL BOTH NARES SCH (08:39)
[2018-07-01] MEDS: Polyethylene Glycol 3350* 17 GM PACKET PO SCH (08:42)
--- NOTE | 2018-07-01 18:04 | PN ---
Subjective Date of Service: 07/01/18 Interval History: patient c/o nausea and weakness, reports chest pain with cough but has improved. Denies abd pain v/d. Denies shortness of breath . denies fever or chills Family History: Unchanged from Admission Social History: Unchanged from Admission Past Medical History: Unchanged from Admission Objective Active Medications: Acetaminophen (Tylenol Tab*) 650 mg PO Q6H PRN PRN Reason: FEVER/PAIN Albuterol (Ventolin 2.5 Mg/3 Ml Neb.Desire*) 2.5 mg INH Q4H PRN PRN Reason: SOB/WHEEZING Atorvastatin Calcium (Lipitor*) 10 mg PO DAILY [facility] Last Admin: 07/01/18 08:38 Dose: 10 mg Benzonatate (Tessalon Cap*) 100 mg PO QID PRN PRN Reason: COUGH Last Admin: 06/30/18 03:30 Dose: 100 mg Buspirone HCl (Buspar Tab*) 5 mg PO QID PRN PRN Reason: ANXIETY Cetirizine HCl (Zyrtec*) 10 mg PO DAILY [facility]; Protocol Last Admin: 07/01/18 08:36 Dose: 10 mg Colchicine (Colcrys*) 0.6 mg PO DAILY [facility] Last Admin: 07/01/18 08:35 Dose: 0.6 mg Docusate Sodium (Colace Cap*) 200 mg PO DAILY [facility] Last Admin: 07/01/18 08:36 Dose: 200 mg Fluoxetine HCl (Prozac Cap*) 30 mg PO DAILY [facility] Last Admin: 07/01/18 08:35 Dose: 30 mg Fluticasone Propionate (Flonase Nasal [place] 50mcg*) 2 spray BOTH NARES DAILY [facility] Last Admin: 07/01/18 08:39 Dose: 2 spray Ibuprofen (Motrin Tab*) 600 mg PO 0300,1100,1900 [facility] Last Admin: 07/01/18 10:40 Dose: 600 mg Ipratropium [place] (Ipratropium [place]) 0.2 ml BOTH NARES BID PRN PRN Reason: Allergy Symptoms Metoprolol Tartrate (Lopressor Tab*) 25 mg PO BID [facility] Last Admin: 07/01/18 08:35 Dose: 25 mg Minocycline HCl (Minocycline (Nf)) 50 mg PO BID [facility]; Protocol Last Admin: 07/01/18 08:36 Dose: 50 mg Dqgog-7-Xffl Ethyl Esters (Lovaza (Nf)) 1 gm PO BID [facility]; Protocol Last Admin: 07/01/18 08:38 Dose: 1 gm Omeprazole (Prilosec Cap*) 20 mg PO DAILY@0730 [facility] Last Admin: 07/01/18 08:36 Dose: 20 mg Ondansetron HCl (Zofran Inj*) 4 mg IV Q6H PRN PRN Reason: NAUSEA Polyethylene Glycol/Electrolytes (Miralax*) 17 gm PO DAILY [facility] Last Admin: 07/01/18 08:42 Dose: Not Given Rivaroxaban (Xarelto(*)) 15 mg PO BEDTIME [facility] Last Admin: 06/30/18 20:35 Dose: 15 mg Vital Signs - 8 hr 07/01/18 07/01/18 11:12 15:13 Temperature 97.9 F 97.5 F Pulse Rate 87 87 Respiratory 18 20 Rate Blood Pressure 136/74 141/77 (mmHg) O2 Sat by Pulse 98 100 Oximetry Oxygen Devices in Use Now: None Appearance: alert resting in bed. no acute distress Eyes: No Scleral Icterus Ears/Nose/Mouth/Throat: Clear Oropharnyx, Mucous Membranes Moist Neck: NL Appearance and Movements; NL JVP, Trachea Midline Respiratory: Symmetrical Chest Expansion and Respiratory Effort, Clear to Auscultation Cardiovascular: NL Sounds; No Murmurs; No JVD, No Edema Abdominal: NL Sounds; No Tenderness; No Distention Extremities: No Edema, No Clubbing, Cyanosis Skin: No Rash or Ulcers Neurological: Alert and Oriented x 3 Nutrition: Taking PO's Result Diagrams: 06/30/18 05:07 06/30/18 05:07 Microbiology and Other Data: Microbiology 06/27/18 18:50 Gram Stain - Final Pericardial Fluid Body Fluid Culture - Preliminary No Growth Day 1 06/27/18 21:00 Nasal Screen MRSA (PCR) - Final Nasal Mrsa Not Detected Assess/Plan/Problems-Billing Mrs Allen is an 83yo F with PMH of HTN, HLD, GERD, osteoporosis, gout, breast CA and rheumatoid arthritis, who presented to ED with c/o N/V, cough, found to have cardiac tamponade. - Patient Problems (1) Cardiac tamponade Current Visit: Yes Status: Acute Code(s): I31.4 - CARDIAC TAMPONADE SNOMED Code(s): 62776050 Comment: The patient was found to have a very large pericardial effusion on admission. She is s/p pericardial window 06/27/18. ~750ml serosanguinous fluid was drained. -effusion fluid - positive for Malignant -Metastatic adenocarcinoma - Dr. Abrams consulted - continues to have no growth on bacterial culture. -feeling better but continues to have a dry cough- improving. Likely still inflammation present as ESR/CRP climbing despite being on ibuprofen and colchicine. -recommendations from Dr Angulo- continue current medications. - Plan on repeat echo tomorrow. - (2) Pericardial effusion Current Visit: No Status: Acute Code(s): I31.3 - PERICARDIAL EFFUSION ( NONINFLAMMATORY) SNOMED Code(s): 714902493 Comment: - 750 cc fluid drained on the 06/27- Positive for - Malignant -Metastatic adenocarcinoma - Consulted Dr. Abrams - recommendation appreciated - continues to have no growth on bacterial culture. (3) RAUDEL (acute kidney injury) Current Visit: Yes Status: Acute Code(s): N17.9 - ACUTE KIDNEY FAILURE, UNSPECIFIED SNOMED Code(s): 83677211 Comment: - Resolved. - Likely pre-renal in the setting of poor perfusion secondary to cardiac tamponade. - D/c IVF. (4) Atrial fibrillation Current Visit: Yes Status: Acute Code(s): I48.91 - UNSPECIFIED ATRIAL FIBRILLATION SNOMED Code(s): 68752028 Comment: Pt remains in NSR. Will continue metoprolol and xarelto. No signs of bleeding. (5) Nausea Current Visit: No Status: Acute Code(s): R11.0 - NAUSEA SNOMED Code(s): 342863029 Comment: Zofran as needed (6) DVT prophylaxis Current Visit: Yes Status: Acute Code(s): XZZ4738 - SNOMED Code(s): 352072613 Comment: xarelto (7) Full code status Current Visit: Yes Status: Acute Code(s): Z78.9 - OTHER SPECIFIED HEALTH STATUS SNOMED Code(s): 713729493 Status and Disposition: .inpatient - oncology consult pending
[2018-07-01] MEDS: Ondansetron INJ* 2 MG/ML VIAL IV PRN (19:03)
[2018-07-01] MEDS: Rivaroxaban TAB(*) 15 MG PO SCH (21:50)
[2018-07-01] MEDS ORDERED: PROCHLORPERAZINE INJ 5 MG/ML 2 ML VIAL IV PRN (22:08)
[2018-07-02] MEDS: Ibuprofen TAB* 600 MG PO SCH ×3 (03:04→19:23)
[2018-07-02] MEDS: Colchicine* 0.6 MG TAB PO SCH (08:04)
[2018-07-02] MEDS: Cetirizine* 10 MG TAB PO SCH (08:04)
[2018-07-02] MEDS: CMC:Minocycline (NF) 50 MG CAP PO SCH ×2 (08:04→20:37)
[2018-07-02] MEDS: Fluticasone NASAL SPRAY 50MCG* 16 gm SPRAY BTL BOTH NARES SCH (08:04)
[2018-07-02] MEDS: FLUoxetine CAP* 10 MG PO SCH (08:04)
[2018-07-02] MEDS: Docusate CAP* 100 MG PO SCH (08:04)
[2018-07-02] MEDS: Metoprolol Tartrate TAB* 25 MG PO SCH ×2 (08:04→20:37)
[2018-07-02] MEDS: Omeprazole CAP* 20 MG PO SCH (08:04)
[2018-07-02] MEDS: Atorvastatin* 10 MG TAB PO SCH (08:05)
[2018-07-02] MEDS: OMEGA ACID ETHYL ESTERS PO SCH ×2 (08:05→20:36)
[2018-07-02] MEDS: Polyethylene Glycol 3350* 17 GM PACKET PO SCH (08:18)
[2018-07-02] MEDS ORDERED: Iodixanol* (CONTRAST) 320 MG/ML 100 ML SDV IV ONE (12:23)
--- NOTE | 2018-07-02 13:39 | RAD ---
INDICATION: Metastatic cancer. COMPARISON: Comparison is made with a prior CT of the abdomen and pelvis from May 13, 2018 and a prior chest x-ray study from June 27, 2018. TECHNIQUE: A CT scan of the chest, abdomen and pelvis was performed with intravenous and with oral contrast following intravenous injection of 78 ml of Visipaque 320 nonionic contrast. Contiguous axial sections were obtained from the lung apices through the symphysis pubis. Images were reconstructed in the coronal and sagittal planes. FINDINGS: LUNGS: There is a small 0.5 cm groundglass nodule present in the left upper lobe best seen on axial image #20. There is mild prominence of the interstitial markings in the right upper lobe. There are small bilateral pleural effusions right greater than left. MEDIASTINUM: There are enlarged right hilar lymph nodes measuring up to 1.7 cm in size. There are enlarged mediastinal lymph nodes in the pretracheal and subcarinal regions measuring up to 1.8 cm in transverse dimension. No enlarged left hilar lymph nodes are seen. HEART: The heart is mildly enlarged. There is a small to moderate sized pericardial effusion present which is decreased in size from the prior CT study. There are coronary calcifications present. THORACIC AORTA: The thoracic aorta is normal in caliber. There is mild calcific plaque present. LIVER: The liver is normal in size. There is a faint blush of contrast enhancement present in the anterior portion of the right hepatic lobe. There is also a hypodense lesion measuring 1.5 cm in size in the anterior inferior aspect of the right hepatic lobe which is unchanged from the prior study. This measures greater than fluid density. GALLBLADDER: The patient is status post cholecystectomy. BILE DUCTS: No intra or extrahepatic ductal distention is seen. SPLEEN: The spleen is normal in size without significant focal abnormality. PANCREAS: The pancreas is normal in size. No ductal distention or calcifications are seen. ADRENAL GLANDS: There is a left adrenal nodule measuring 1.7 x 1.2 cm in size and measuring greater than fluid density which is unchanged. The right adrenal gland appears to be within normal limits. KIDNEYS: The kidneys are overall normal in size with bilateral cortical thinning. No renal calculi or hydronephrosis is seen. No significant focal renal abnormality is seen. AORTA: The aorta is normal in caliber with moderate calcific plaque present. LYMPH NODES: No significantly enlarged lymph nodes are seen. BOWEL: The stomach, small and large bowel appear nondistended. The appendix appears to be within normal limits. There are scattered diverticula within the colon. There is no evidence for diverticulitis or colitis. PELVIC ORGANS: No bladder wall thickening is seen. The patient appears to be status post hysterectomy. PERITONEUM: No free intraperitoneal air or fluid is seen. BONES: No significant focal osseous abnormality is seen. Patient is status post left mastectomy and reconstruction with an implant. Medial to the left breast implant and anterior to the inferior aspect of the sternum there is a soft tissue density nodule in the subcutaneous tissues measuring 1.5 x 0.9 cm in size. Adjacent to this area and below this area there is air within the subcutaneous tissues. Recommend clinical correlation. IMPRESSION: 1. THERE IS A SOFT TISSUE DENSITY NODULE ANTERIOR TO THE INFERIOR ASPECT OF THE STERNUM IN THE SUBCUTANEOUS TISSUES. ADJACENT AND INFERIOR TO THIS REGION THERE IS AIR WITHIN THE SUBCUTANEOUS TISSUES. RECOMMEND CLINICAL CORRELATION. 2. SMALL BILATERAL PLEURAL EFFUSIONS, NEW FROM THE PRIOR CT STUDY. 3. SMALL TO MODERATE SIZED PERICARDIAL EFFUSION DECREASED IN SIZE. 4. RIGHT HILAR AND MEDIASTINAL LYMPHADENOPATHY. 5. HYPODENSE HEPATIC LESION. 6. LEFT ADRENAL NODULE.
--- NOTE | 2018-07-02 17:05 | PN ---
Subjective Date of Service: 07/02/18 Interval History: no complaints this AM seen by DR. Riddle from oncology, imaging pending. Denies nausea at this time. Denies abd pain v/d. Denies chest pain or shortness of breath. Family History: Unchanged from Admission Social History: Unchanged from Admission Past Medical History: Unchanged from Admission Objective Active Medications: Acetaminophen (Tylenol Tab*) 650 mg PO Q6H PRN PRN Reason: FEVER/PAIN Albuterol (Ventolin 2.5 Mg/3 Ml Neb.Desire*) 2.5 mg INH Q4H PRN PRN Reason: SOB/WHEEZING Atorvastatin Calcium (Lipitor*) 10 mg PO DAILY [facility] Last Admin: 07/02/18 08:05 Dose: 10 mg Benzonatate (Tessalon Cap*) 100 mg PO QID PRN PRN Reason: COUGH Last Admin: 06/30/18 03:30 Dose: 100 mg Buspirone HCl (Buspar Tab*) 5 mg PO QID PRN PRN Reason: ANXIETY Cetirizine HCl (Zyrtec*) 10 mg PO DAILY [facility]; Protocol Last Admin: 07/02/18 08:04 Dose: 10 mg Colchicine (Colcrys*) 0.6 mg PO DAILY [facility] Last Admin: 07/02/18 08:04 Dose: 0.6 mg Docusate Sodium (Colace Cap*) 200 mg PO DAILY [facility] Last Admin: 07/02/18 08:04 Dose: 200 mg Fluoxetine HCl (Prozac Cap*) 30 mg PO DAILY [facility] Last Admin: 07/02/18 08:04 Dose: 30 mg Fluticasone Propionate (Flonase Nasal [place] 50mcg*) 2 spray BOTH NARES DAILY [facility] Last Admin: 07/02/18 08:04 Dose: 2 spray Ibuprofen (Motrin Tab*) 600 mg PO 0300,1100,1900 [facility] Last Admin: 07/02/18 11:35 Dose: 600 mg Ipratropium [place] (Ipratropium [place]) 0.2 ml BOTH NARES BID PRN PRN Reason: Allergy Symptoms Metoprolol Tartrate (Lopressor Tab*) 25 mg PO BID [facility] Last Admin: 07/02/18 08:04 Dose: 25 mg Minocycline HCl (Minocycline (Nf)) 50 mg PO BID [facility]; Protocol Last Admin: 07/02/18 08:04 Dose: 50 mg [place]-6-Ulws Ethyl Esters (Lovaza (Nf)) 1 gm PO BID [facility]; Protocol Last Admin: 07/02/18 08:05 Dose: 1 gm Omeprazole (Prilosec Cap*) 20 mg PO DAILY@0730 [facility] Last Admin: 07/02/18 08:04 Dose: 20 mg Ondansetron HCl (Zofran Inj*) 4 mg IV Q6H PRN PRN Reason: NAUSEA Last Admin: 07/01/18 19:03 Dose: 4 mg Polyethylene Glycol/Electrolytes (Miralax*) 17 gm PO DAILY [facility] Last Admin: 07/02/18 08:18 Dose: Not Given Prochlorperazine Edisylate (Compazine Inj*) 5 mg IV Q6H PRN PRN Reason: NAUSEA/VOMITING Last Admin: 07/01/18 23:03 Dose: 5 mg Rivaroxaban (Xarelto(*)) 15 mg PO BEDTIME [facility] Last Admin: 07/01/18 21:50 Dose: 15 mg Vital Signs - 8 hr 07/02/18 07/02/18 11:56 15:38 Temperature 97.3 F Pulse Rate 66 72 Respiratory 16 20 Rate Blood Pressure 141/63 154/62 (mmHg) O2 Sat by Pulse 100 98 Oximetry Oxygen Devices in Use Now: None Appearance: pale , resting in bed , no acute distress Eyes: No Scleral Icterus Ears/Nose/Mouth/Throat: Clear Oropharnyx, Mucous Membranes Moist Neck: NL Appearance and Movements; NL JVP, Trachea Midline Respiratory: Symmetrical Chest Expansion and Respiratory Effort, Clear to Auscultation, - - diminshed in the bases bilat Cardiovascular: NL Sounds; No Murmurs; No JVD, No Edema Abdominal: NL Sounds; No Tenderness; No Distention Extremities: No Edema, No Clubbing, Cyanosis Skin: No Rash or Ulcers Neurological: Alert and Oriented x 3 Nutrition: Taking PO's Result Diagrams: 06/30/18 05:07 06/30/18 05:07 Microbiology and Other Data: Microbiology 06/27/18 18:50 Gram Stain - Final Pericardial Fluid Body Fluid Culture - Preliminary No Growth Day 1 06/27/18 21:00 Nasal Screen MRSA (PCR) - Final Nasal Mrsa Not Detected Assess/Plan/Problems-Billing Mrs Allen is an 83yo F with PMH of HTN, HLD, GERD, osteoporosis, gout, breast CA and rheumatoid arthritis, who presented to ED with c/o N/V, cough, found to have cardiac tamponade. - Patient Problems (1) Cardiac tamponade Current Visit: Yes Status: Acute Code(s): I31.4 - CARDIAC TAMPONADE SNOMED Code(s): 34530643 Comment: The patient was found to have a very large pericardial effusion on admission. She is s/p pericardial window 06/27/18. ~750ml serosanguinous fluid was drained. -effusion fluid - positive for Malignant -Metastatic adenocarcinoma - Dr. Abrams consulted - continues to have no growth on bacterial culture. -feeling better but continues to have an occassional dry cough- improving. Likely still inflammation present as ESR/CRP climbing despite being on ibuprofen and colchicine. -recommendations from Dr Angulo- continue current medications. - Plan on repeat echo today - (2) Pericardial effusion Current Visit: No Status: Acute Code(s): I31.3 - PERICARDIAL EFFUSION ( NONINFLAMMATORY) SNOMED Code(s): 409252957 Comment: - 750 cc fluid drained on the 06/27- Positive for - Malignant -Metastatic adenocarcinoma - Consulted Dr. Abrams - recommendation appreciated - continues to have no growth on bacterial culture. (3) Metastatic adenocarcinoma Current Visit: Yes Status: Acute Code(s): C79.9 - SECONDARY MALIGNANT NEOPLASM OF UNSPECIFIED SITE SNOMED Code(s): 962183628 Comment: Metastatic adenocarcinoma postive in the pericardial fluid - consulted today by Dr. Riddle - will obtain CT chest /abd /pelvis- pending (4) RAUDEL (acute kidney injury) Current Visit: Yes Status: Acute Code(s): N17.9 - ACUTE KIDNEY FAILURE, UNSPECIFIED SNOMED Code(s): 74506722 Comment: - Resolved. - Likely pre-renal in the setting of poor perfusion secondary to cardiac tamponade. - D/c IVF. (5) Atrial fibrillation Current Visit: Yes Status: Acute Code(s): I48.91 - UNSPECIFIED ATRIAL FIBRILLATION SNOMED Code(s): 63683586 Comment: Pt remains in NSR. Will continue metoprolol and xarelto. No signs of bleeding. (6) Nausea Current Visit: No Status: Acute Code(s): R11.0 - NAUSEA SNOMED Code(s): 337710128 Comment: Zofran as needed (7) DVT prophylaxis Current Visit: Yes Status: Acute Code(s): KLM4426 - SNOMED Code(s): 988176076 Comment: josue (8) DNR (do not resuscitate) Current Visit: Yes Status: Acute Comment: MOLST form completed today with patient and daughter - patient wishes to be DNR Status and Disposition: .inpatient - oncology consult pending
--- NOTE | 2018-07-02 17:09 | ECHO ---
Patient: CHUY CUMMINGS [facility] Rec#: [id number] : 1935 Date: 07/02/2018 Age: 83y Height: 163 cm / 64.2 in Weight: 62 kg / 136.6 lbs Sex: F BSA: 1.67 Room#: 440 Admit Date#: 06/27/2018 Type: Inpatient Referring: Cecilia Singer Reading: Fredo Mccloud MD Dining Services Manager: Amy Edgar RD,[facility] Transthoracic Echocardiogram Indication: Pericardial Effusion BP: 135/70 HR: 67 Rhythm: NSR Findings History: LIMITED ECHO. S/P pericardial window, cardiac tamponade, malignant pericardial fluid, htn, breast cancer, chemo, DM Technical Comments: The study quality is fair. Pericardium: A trivial pericardial effusion is visualized. Conclusions Limite study Pericardial effusion is not present No change from 06/28/18
--- NOTE | 2018-07-02 18:31 | PN ---
Subjective - Subjective Date of Service: 07/02/18 - chief complaint: pericardial effusion History: Events notes. Overall she is feeling better. Nausea and dyspnea is improved Awaiting results of CT scan with oncology Active Problems: Active Problems RAUDEL (acute kidney injury) (Acute) N17.9 - Resolved. - Likely pre-renal in the setting of poor perfusion secondary to cardiac tamponade. - D/c IVF. Atrial fibrillation (Acute) I48.91 Pt remains in NSR. Will continue metoprolol and xarelto. No signs of bleeding. Cardiac tamponade (Acute) I31.4 The patient was found to have a very large pericardial effusion on admission. She is s/p pericardial window 06/27/18. ~750ml serosanguinous fluid was drained. -effusion fluid - positive for Malignant -Metastatic adenocarcinoma - Dr. Abrams consulted - continues to have no growth on bacterial culture. - feeling better but continues to have an occassional dry cough- improving. Likely still inflammation present as ESR/CRP climbing despite being on ibuprofen and colchicine. -recommendations from Dr Angulo- continue current medications. - Plan on repeat echo today - DNR (do not resuscitate) (Acute) MOLST form completed today with patient and daughter - patient wishes to be DNR DVT prophylaxis (Acute) [id number] xarelto Full code status (Acute) Z78.9 Metastatic adenocarcinoma (Acute) C79.9 Metastatic adenocarcinoma postive in the pericardial fluid - consulted today by Dr. Riddle - will obtain CT chest /abd /pelvis- pending Current Medications: Current Medications Acetaminophen (Tylenol Tab*) 650 mg PO Q6H PRN PRN Reason: FEVER/PAIN Albuterol (Ventolin 2.5 Mg/3 Ml Neb.Desire*) 2.5 mg INH Q4H PRN PRN Reason: SOB/WHEEZING Atorvastatin Calcium (Lipitor*) 10 mg PO DAILY [facility] Last Admin: 07/02/18 08:05 Dose: 10 mg Benzonatate (Tessalon Cap*) 100 mg PO QID PRN PRN Reason: COUGH Last Admin: 06/30/18 03:30 Dose: 100 mg Buspirone HCl (Buspar Tab*) 5 mg PO QID PRN PRN Reason: ANXIETY Cetirizine HCl (Zyrtec*) 10 mg PO DAILY [facility]; Protocol Last Admin: 07/02/18 08:04 Dose: 10 mg Colchicine (Colcrys*) 0.6 mg PO DAILY [facility] Last Admin: 07/02/18 08:04 Dose: 0.6 mg Docusate Sodium (Colace Cap*) 200 mg PO DAILY [facility] Last Admin: 07/02/18 08:04 Dose: 200 mg Fluoxetine HCl (Prozac Cap*) 30 mg PO DAILY [facility] Last Admin: 07/02/18 08:04 Dose: 30 mg Fluticasone Propionate (Flonase Nasal [place] 50mcg*) 2 spray BOTH NARES DAILY [facility] Last Admin: 07/02/18 08:04 Dose: 2 spray Ibuprofen (Motrin Tab*) 600 mg PO 0300,1100,1900 [facility] Last Admin: 07/02/18 11:35 Dose: 600 mg Ipratropium [place] (Ipratropium [place]) 0.2 ml BOTH NARES BID PRN PRN Reason: Allergy Symptoms Metoprolol Tartrate (Lopressor Tab*) 25 mg PO BID [facility] Last Admin: 07/02/18 08:04 Dose: 25 mg Minocycline HCl (Minocycline (Nf)) 50 mg PO BID [facility]; Protocol Last Admin: 07/02/18 08:04 Dose: 50 mg Ionor-9-Vupj Ethyl Esters (Lovaza (Nf)) 1 gm PO BID [facility]; Protocol Last Admin: 07/02/18 08:05 Dose: 1 gm Omeprazole (Prilosec Cap*) 20 mg PO DAILY@0730 [facility] Last Admin: 07/02/18 08:04 Dose: 20 mg Ondansetron HCl (Zofran Inj*) 4 mg IV Q6H PRN PRN Reason: NAUSEA Last Admin: 07/01/18 19:03 Dose: 4 mg Polyethylene Glycol/Electrolytes (Miralax*) 17 gm PO DAILY [facility] Last Admin: 07/02/18 08:18 Dose: Not Given Prochlorperazine Edisylate (Compazine Inj*) 5 mg IV Q6H PRN PRN Reason: NAUSEA/VOMITING Last Admin: 07/01/18 23:03 Dose: 5 mg Rivaroxaban (Xarelto(*)) 15 mg PO BEDTIME [facility] Last Admin: 07/01/18 21:50 Dose: 15 mg - Review of Systems Constitutional Symptoms: No: Weight Gain, Unexplained Falls Dermatology: Normal: Yes HEENT: Yes Normal Eyes: Positive: Normal Pulmonary: Positive: Normal Cardiology: Positive: Normal Gastroenterology: Positive: Normal Musculoskeletal: Positive: Joint Stiffness Hematologic/Lymphatic: Positive: Anemia Psychiatry: Positive: Normal Allergic/Immunologic: Positive: Immunocompromise Home Medications: Home Medications Medication Instructions Recorded Confirmed Type Alendronate (NF) [Fosamax (NF)] 35 mg PO WEEKLY 06/28/17 06/27/18 History Amlodipine Besylate [Norvasc 2.5 2.5 mg PO DAILY 06/28/17 06/27/18 History mg tab] FLUoxetine CAP* [Prozac CAP*] 30 mg PO DAILY 06/28/17 06/27/18 History Ipratropium Br (Nf)0.03% Nasal 2 puff BOTH NARES BID PRN 06/28/17 06/27/18 History [Ipratropium [place]] Lisinopril [Lisinopril 2.5 MG-] 2.5 mg PO DAILY 06/28/17 06/27/18 History [place]-3 Acid Ethyl Esters [Lovaza] 1 cap PO BID 06/28/17 06/27/18 History Omeprazole CAP* [Prilosec CAP* 20 20 mg PO DAILY 06/28/17 06/27/18 History MG] Simvastatin TAB(NF) [Zocor 20 MG 20 mg PO DAILY 06/28/17 06/27/18 History (NF)] [id number]/Sod Sulf,Bicarb,Cl/KCl 8 oz PO Q12HR PRN #120 oz 11/24/17 06/27/18 Rx [Peg 3350 Electrolyte Soln] Albuterol inh POWDER (NF) [Proair 108 mcg INH Q6HR PRN 06/27/18 06/27/18 History Respiclick] Docusate CAP* [Colace Cap*] 200 mg PO SEE INSTRUCTIONS 06/27/18 06/27/18 History Febuxostat(NF) [Uloric(NF)] 40 mg PO DAILY 06/27/18 06/27/18 History Minocycline HCl [Minocin] 75 mg PO BID 06/27/18 06/27/18 History Ondansetron ODT TAB* [Zofran 4 MG 4 mg PO Q6HR PRN 06/27/18 06/27/18 History Odt TAB*] Polyethylene Glycol 3350* 17 gm PO DAILY 06/27/18 06/27/18 History [Miralax*] busPIRone TAB* [Buspar TAB*] 5 mg PO QID PRN 06/27/18 06/27/18 History predniSONE TAB* [Deltasone TAB*] 5 - 10 mg PO DAILY PRN 06/27/18 06/27/18 History Allergies: Allergies Allergy/AdvReac Type Severity Reaction Status Date / Time allopurinol Allergy Unknown Verified 05/13/18 10:11 Reaction Details codeine Allergy Nausea And Verified 05/13/18 10:11 Vomiting methotrexate Allergy Nausea Verified 05/13/18 10:11 Penicillins Allergy Rash Verified 05/13/18 10:11 tapentadol Allergy Unknown Verified 05/13/18 10:11 Reaction Details valsartan Allergy Unknown Verified 05/13/18 10:11 Reaction Details Objective - Vital Signs Vital Signs: Vital Signs 07/01/18 07/01/18 07/02/18 19:23 20:00 00:18 Temperature 98.0 F 98.7 F Pulse Rate 94 92 Respiratory 18 18 22 Rate Blood Pressure 135/57 143/78 (mmHg) O2 Sat by Pulse 99 99 Oximetry 07/02/18 07/02/18 07/02/18 03:52 04:09 07:52 Temperature 97.7 F 97.3 F Pulse Rate 90 73 89 Respiratory 20 18 16 Rate Blood Pressure 135/70 145/77 (mmHg) O2 Sat by Pulse 99 98 100 Oximetry 07/02/18 07/02/18 07/02/18 08:00 11:56 15:38 Temperature 97.3 F Pulse Rate 66 72 Respiratory 16 16 20 Rate Blood Pressure 141/63 154/62 (mmHg) O2 Sat by Pulse 100 98 Oximetry - Intake and Output Intake and Output: Intake & Output 06/30/18 07/01/18 07/02/18 07/03/18 06:59 06:59 06:59 06:59 Intake Total 720 440 680 240 Output Total 0 300 0 Balance 720 140 680 240 Intake: Oral 720 440 680 240 Output: Urine 0 300 0 Other: Estimated Void Medium Medium # Bowel Movements 0 0 0 # Voids 2 2 ADLs: Meal Record Start: 06/27/18 14: 15 Freq: DAILY@0900,1400,1800 Status: Active Protocol: Created 06/27/18 14:15 System (Rec: 06/27/18 14:15 System TELE-M11) Document 06/27/18 17:55 [id number] (Rec: 06/27/18 17:55 [id number] ICU-C15) Document 06/28/18 09:00 [id number] (Rec: 06/28/18 10:31 [id number] ICU-C15) Document 06/28/18 14:00 [id number] (Rec: 06/28/18 15:55 [id number] ICU-M24) Document 06/28/18 18:00 [id number] (Rec: 06/28/18 19:42 [id number] TELE-C10) Document 06/29/18 09:00 [id number] (Rec: 06/29/18 11:41 [id number] TELE-C07) Document 06/29/18 14:00 [id number] (Rec: 06/29/18 14:46 [id number] TELE-C07) Document 06/29/18 17:51 [id number] (Rec: 06/29/18 17:51 [id number] TELE-C13) Document 06/30/18 09:00 [id number] (Rec: 06/30/18 15:07 [id number] TELE-C06) Document 06/30/18 14:00 [id number] (Rec: 06/30/18 15:10 [id number] TELE-C06) Document 06/30/18 18:00 [id number] (Rec: 06/30/18 19:55 [id number] TELE-C05) Document 07/01/18 14:00 [id number] (Rec: 07/01/18 14:43 [id number] TELE-C01) Document 07/01/18 18:00 [id number] (Rec: 07/01/18 20:54 [id number] TELE-C13) Document 07/02/18 09:00 [id number] (Rec: 07/02/18 09:42 [id number] TELE-C01) Document 07/02/18 14:00 [id number] (Rec: 07/02/18 14:39 [id number] TELE-C01) ADLs: Meal Record Start: 06/27/18 16: 11 Freq: Status: Complete Protocol: Created 06/27/18 16:12 [id number] (Rec: 06/27/18 16:12 [id number] ICU-M24) Intake and Output Start: 06/27/18 09: 48 Freq: Status: Active Protocol: Created 06/27/18 09:48 System (Rec: 06/27/18 09:48 System ED-C24) Intake and Output Start: 06/27/18 14: 15 Freq: DAILY@0600,1400,2200 Status: Complete Protocol: Created 06/27/18 14:15 System (Rec: 06/27/18 14:15 System TELE-M11) Document 06/27/18 22:00 [id number] (Rec: 06/28/18 00:56 [id number] ICU-L03) Intake and Output Start: 06/27/18 16: 11 Freq: Q4HR Status: Inactive Protocol: Created 06/27/18 16:12 [id number] (Rec: 06/27/18 16:12 [id number] ICU-M24) Document 06/27/18 20:00 [id number] (Rec: 06/28/18 00:56 [id number] ICU-L03) Document 06/28/18 00:00 [id number] (Rec: 06/28/18 00:57 [id number] ICU-L03) Document 06/28/18 03:05 [id number] (Rec: 06/28/18 03:05 [id number] ICU-L03) Document 06/28/18 05:26 [id number] (Rec: 06/28/18 05:27 [id number] ICU-L03) Document 06/28/18 08:00 [id number] (Rec: 06/28/18 09:13 [id number] ICU-C15) Document 06/28/18 12:00 [id number] (Rec: 06/28/18 12:07 [id number] ICU-C15) Intake and Output Start: 06/28/18 22: 30 Freq: Status: Active Protocol: Created 06/28/18 22:30 (Rec: 06/28/18 22:30 TELE-C13) Document 06/28/18 22:32 (Rec: 06/28/18 22:32 TELE-C13) Document 06/29/18 06:00 [id number] (Rec: 06/29/18 06:04 [id number] TELE-C35) Document 06/29/18 21:59 [id number] (Rec: 06/29/18 22:00 [id number] TELE-C08) Document 06/30/18 21:51 [id number] (Rec: 06/30/18 21:54 [id number] TELE-C05) Document 07/01/18 22:00 [id number] (Rec: 07/01/18 22:05 [id number] TELE-C13) Document 07/02/18 06:00 [id number] (Rec: 07/02/18 06:17 [id number] TELE-C33) - Physical Exam General Physical Exam Comment: No acute distress Eye Exam: bilateral: PERRLA Head: Yes Normocephalic Lungs and Chest: Yes: Chest Expansion Full, Chest Expansion Symetrica, Percussion Note Resonant Heart Rate and Rhythm: Regular JVP: Not Elevated [place] Beat: Non Displaced Additional Cardiovascular: Yes: [place] Beat not Displaced Abdominal Exam: Yes: Soft - Rheumotological System Joints: Signs of Connective Tissue Disease - No synovitis Results - Results Lab Results: Laboratory Results - last 24 hr 06/27/18 10:14 Proteinase 3 (PR3) < 0.2 Myeloperoxidase Ab < 0.2 CMV IgG Ab Positive A CMV IgM Ab Negative Assessment - Problem List Assessment: Patient Problems RAUDEL (acute kidney injury) (Acute) Atrial fibrillation (Acute) Cardiac tamponade (Acute) DNR (do not resuscitate) (Acute) DVT prophylaxis (Acute) Full code status (Acute) Metastatic adenocarcinoma (Acute) Hypercalcemia (Acute) Nausea (Acute) Pericardial effusion (Acute) Plan: Cardiac tamponade. Treated with Colchicine, NSAIDs. Recently diagnosed with adenocarcinoma on cytology; staging is being done by oncology ETELVINA: low titer CMV IGG pos but IGM negative. RA: overall stable with no active synovitis. Further treatment per oncology
[2018-07-02] MEDS: Rivaroxaban TAB(*) 15 MG PO SCH (20:37)
[2018-07-03] MEDS: Ibuprofen TAB* 600 MG PO SCH ×2 (02:56→10:50)
--- NOTE | 2018-07-03 04:33 | CONS ---
CC: Dr. Juventino Hsu * MEDICAL ONCOLOGY CONSULTATION NOTE: DATE OF ADMISSION: 06/27/18 DATE OF CONSULTATION: 07/02/18 REASON FOR CONSULTATION: New diagnosis of metastatic adenocarcinoma. HISTORY: Mrs. Allen is an 83-year-old female with a previous history of breast cancer in 1988, treated with mastectomy, chemotherapy, and hormonal therapy. For details, please see below. She also has a history of rheumatoid arthritis and hypertension. She was seen in the room with multiple family members including her daughter and healthcare proxy, Deana España, who previously worked as a nurse at this [employer] and at [employer]. She reports that she has been feeling quite poorly recently and has had episodes of abdominal pain, nausea and vomiting starting before her brief April 2018 admission. At that time, she had a cough for some period of time and presented to the emergency room with nausea and abdominal pain. A CT scan of the abdomen and pelvis revealed a moderate sized pericardial effusion, but no other significant findings in the abdomen and pelvis. An echocardiogram revealed only a small pericardial effusion, which did not seem to be hemodynamically significant. She was found to be mildly hypercalcemic and has been on multiple occasions, but this has not been a persistently worsening problem. Her abdominal pain and nausea revolved over a short period of time and she was discharged to home the following day with recommendation to follow up with Cardiology. Once her other abdominal symptoms continued to worsen, she was seen in consultation by Gastroenterology. A plain film of the belly was not terribly remarkable. Previous CT scan had been obtained as above and recommendation was for her to use extra fiber in her diet. No further imaging studies or endoscopies were performed. She reports losing about 16 pounds over the past 2 to 3 months and reports that over the past 2 weeks, has had black stools without any bright red blood per rectum associated with it this. It has become obvious that she has become anemic recently, which was not present in April 2018. The patient continues to have diarrhea almost every morning. Most recent endoscopy and colonoscopy were approximately 3 to 4 years ago in [place] with polyps resected, but no malignancy or other findings per the patient and her family. The patient has been dizzy and lightheaded on standing for the last couple of weeks and has not been getting out of the house over this period of time. She presented to emergency room on 06/27/18. EKG was consistent with pericarditis with diffuse ST segment elevations. At that time, she also was hypotensive. She was admitted to the hospital with concern about the pericarditis and pericardial effusion with hemodynamic instability, a pericardial window was placed and subsequent echocardiogram has revealed a decrease in the amount of fluid. She reports somewhat better since being admitted, but still feel really quite fatigued, short of breath, and continues to have a cough. She has had 1 episode of atrial fibrillation this admission treated with a beta-madan without previous history of atrial fibrillation. This admission, she is anemic with a decreased iron saturation and MCV in the low end of normal. PAST MEDICAL HISTORY: 1. Breast cancer in 1988, mastectomy with Dr. Pryor, then followed by Dr. Loja of Medical Oncology, initially received chemotherapy for a short period of time, which was not well tolerated, then stopped and then placed on tamoxifen , which she took for total of well over 5 years. The original cancer was infiltrating lobular and ductal 1.5 cm with 1/17 involved lymph nodes. Silicone implant was placed in 1990. In 1991, she had an abdominoplasty and hernia repair. Silicone implant was removed in 1993 and changed to a saline implant. The saline implant was replaced after a leak in 1994. She had a revision of the breast flap in 1997. 2. History of hypertension. 3. Hyperlipidemia. 4. GERD. 5. Osteoporosis. 6. Gout. 7. Rheumatoid arthritis. 8. Mild hypercalcemia without abnormalities of PTH. 9. 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 10. Bilateral knee replacements. MEDICATIONS AT THE TIME OF ADMISSION: Include: 1. Lovaza 1 capsule b.i.d. 2. Norvasc 15 mg daily. 3. Lisinopril 2.5 mg daily. 4. Omeprazole 20 mg daily. 5. Prozac 30 mg daily. 6. Simvastatin 20 mg daily. 7. Atrovent 2 puffs b.i.d. 8. Alendronate 35 mg weekly. 9. Prednisone 5 to 10 mg p.r.n. daily for gout. 10. Minocycline 75 mg b.i.d. 11. Febuxostat 40 mg daily. 12. Albuterol inhaler q.6 hours p.r.n. 13. Docusate 200 mg daily. 14. MiraLAX 17 g b.i.d. p.r.n. 15. Buspirone 5 mg 4 times a day p.r.n. 16. Zofran 4 mg q.6 hours p.r.n. ALLERGIES: ALLOPURINOL, CODEINE, METHOTREXATE, PENICILLIN and VALSARTAN. FAMILY HISTORY: Father with lung cancer. Two brothers with prostate cancer. Sister with some type of tumor of the chest wall/ribs and also leukemia. Brother with head and neck cancer. No family history of breast, ovarian, or pancreatic carcinomas. SOCIAL HISTORY: The patient stopped smoking in the 1960s with a [id number] smoking history. 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 She is . No significant alcohol use or abuse. She has a long-term partner for the past 23 years. Her surrogate decision maker is her daughter, Deana España, who previously was a head nurse at hospice here in [place] and currently is a head nurse at a nursing facility in [place]. Family reports that her current partner has severe Alzheimer's and she has been the caregiver. REVIEW OF SYSTEMS: Weight loss, decreased appetite as discussed above. Mild respiratory symptoms with cough as discussed above. No recent fevers, sweats, chills or other signs of infection. Change in bowel habits with black stools without bright blood per rectum with associated diarrhea significant ongoing nausea and vomiting for the past couple of weeks to months. Arthritic complaints are significant and is followed by Dr. Angulo of Rheumatology. No headaches or the neurologic complaints. Review of systems otherwise negative except as discussed above. PHYSICAL EXAM: An 83-year-old female, in no acute distress. Vital signs are stable, afebrile. HEENT: PERRL. EOMI. No erythema or exudates. No scleral icterus. No palpable cervical or supraclavicular, axillary, or inguinal adenopathy. Lungs: Clear. Heart: Regular rate and rhythm without murmurs, rubs, or gallops. Abdomen: Soft, nontender without masses or organomegaly. Extremities: No clubbing, cyanosis, or edema. Back: No CVA or spinal tenderness. Breasts: Status post mastectomy with implant on the left. Right breast without masses or discharge. LABORATORY STUDIES: CBC with a white count of 12,400 on admission. H and H of 33/10.7, platelet count 369,000. Chemistry studies with a normal BUN and creatinine, normal calcium at 9.9. LFTs and electrolytes are within normal limits. H and H were significantly higher as recently as in April 2018 and at that time MCV was also low normal in the 84 to 85 range. IMPRESSION: An 83-year-old female with history of a stage II breast cancer in 1988. 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 Special stains are pending at the present time. It is of concern that she has had the weight loss, nausea and vomiting, diarrhea, black stools and decrease in hematocrit. This constellation of findings would be very worrisome for upper GI tract malignancy potentially, either a gastric esophageal or pancreatobiliary. This by no means is certain. It is also possible that her pericardial effusion is secondary to some other malignancy. She did have a breast cancer 29 years ago and while this would be an extremely late recurrence, given that it was ER positive, it would not be unheard of for breast cancer to recur this late on. Situations discussed at length with the patient, her daughter, who is her new healthcare proxy and multiple other family members. The patient elects to be DNR at this time. She would want reasonable, but not overly aggressive treatment at the present time. If this pericardial effusion turns out to be a malignant pericardial effusion from other than a highly treatable cancer at her age and with her current level of symptoms, it would make most sense to look for palliative measures such as hospice and not progressive treatment. If this were to be an ER or [place] positive breast cancer, certainly use of hormonal therapy would be reasonable to see if we can help prevent further recurrence of the pericardial effusion and extend her length of life and quality of life. To further the workup, I will review the stains with Pathology later today and try to determine the primary source of the metastatic malignancy. In addition, a CT scan of the chest, abdomen, and pelvis would be useful to try to determine how widespread her metastatic carcinoma is and also to determine if we can find a potential primary source. Further recommendations will follow. It would also be useful to guaiac her stools given her current anemia. [id number]/[facility] #: [id number] [facility]
[2018-07-03 07:29] LABS: Hematocrit 30 % (35-47); Hemoglobin 9.9 g/dl (12.0-16.0); Mean Corpuscular HGB Conc 33 g/dl (31-36); Mean Corpuscular Hemoglobin 27 pg (27-31); Mean Corpuscular Volume 82 fL (80-97); Mean Platelet Volume 7.1 um3 (7.4-10.4); Platelet Count 452 10^3/ul (150-450); Red Blood Count 3.64 10^6/ul (4.00-5.40); Red Cell Distribution Width 14 % (10.5-15); White Blood Count 5.7 10^3/ul (3.5-10.8)
[2018-07-03] MEDS: Metoprolol Tartrate TAB* 25 MG PO SCH (08:05)
[2018-07-03] MEDS: Atorvastatin* 10 MG TAB PO SCH (08:05)
[2018-07-03] MEDS: CMC:Minocycline (NF) 50 MG CAP PO SCH (08:05)
[2018-07-03] MEDS: OMEGA ACID ETHYL ESTERS PO SCH (08:05)
[2018-07-03] MEDS: Cetirizine* 10 MG TAB PO SCH (08:05)
[2018-07-03] MEDS: Docusate CAP* 100 MG PO SCH (08:05)
[2018-07-03] MEDS: Polyethylene Glycol 3350* 17 GM PACKET PO SCH (08:05)
[2018-07-03] MEDS: FLUoxetine CAP* 10 MG PO SCH (08:05)
[2018-07-03] MEDS: Omeprazole CAP* 20 MG PO SCH (08:05)
[2018-07-03] MEDS: Fluticasone NASAL SPRAY 50MCG* 16 gm SPRAY BTL BOTH NARES SCH (08:08)
[2018-07-03] MEDS: Ondansetron INJ* 2 MG/ML VIAL IV PRN (09:24)
--- NOTE | 2018-07-03 10:47 | PN ---
Progress Note - Progress Note Date of Service: 07/03/18 SOAP: Subjective: denies any pain. nausea improved with zofran. Objective: Vital Signs Temp Pulse Resp BP Pulse Ox 97.8 F 74 16 150/57 97 07/03/18 07:41 07/03/18 07:41 07/03/18 08:00 07/03/18 07:41 07/03/18 07:41 lying flat in nad alert and conversant, understanding of conversation Acetaminophen (Tylenol Tab*) 650 mg PO Q6H PRN PRN Reason: FEVER/PAIN Albuterol (Ventolin 2.5 Mg/3 Ml Neb.Desire*) 2.5 mg INH Q4H PRN PRN Reason: SOB/WHEEZING Atorvastatin Calcium (Lipitor*) 10 mg PO DAILY [facility] Last Admin: 07/03/18 08:05 Dose: 10 mg Benzonatate (Tessalon Cap*) 100 mg PO QID PRN PRN Reason: COUGH Last Admin: 06/30/18 03:30 Dose: 100 mg Buspirone HCl (Buspar Tab*) 5 mg PO QID PRN PRN Reason: ANXIETY Cetirizine HCl (Zyrtec*) 10 mg PO DAILY [facility]; Protocol Last Admin: 07/03/18 08:05 Dose: 10 mg Colchicine (Colcrys*) 0.6 mg PO DAILY [facility] Last Admin: 07/02/18 08:04 Dose: 0.6 mg Docusate Sodium (Colace Cap*) 200 mg PO DAILY [facility] Last Admin: 07/03/18 08:05 Dose: 200 mg Fluoxetine HCl (Prozac Cap*) 30 mg PO DAILY [facility] Last Admin: 07/03/18 08:05 Dose: 30 mg Fluticasone Propionate (Flonase Nasal [place] 50mcg*) 2 spray BOTH NARES DAILY [facility] Last Admin: 07/03/18 08:08 Dose: 2 spray Ibuprofen (Motrin Tab*) 600 mg PO 0300,1100,1900 [facility] Last Admin: 07/03/18 02:56 Dose: 600 mg Ipratropium Charlotte (Ipratropium Charlotte) 0.2 ml BOTH NARES BID PRN PRN Reason: Allergy Symptoms Metoprolol Tartrate (Lopressor Tab*) 25 mg PO BID [facility] Last Admin: 07/03/18 08:05 Dose: 25 mg Minocycline HCl (Minocycline (Nf)) 50 mg PO BID [facility]; Protocol Last Admin: 07/03/18 08:05 Dose: 50 mg Yaeun-9-Dnog Ethyl Esters (Lovaza (Nf)) 1 gm PO BID [facility]; Protocol Last Admin: 07/03/18 08:05 Dose: 1 gm Omeprazole (Prilosec Cap*) 20 mg PO DAILY@0730 [facility] Last Admin: 07/03/18 08:05 Dose: 20 mg Ondansetron HCl (Zofran Inj*) 4 mg IV Q6H PRN PRN Reason: NAUSEA Last Admin: 07/03/18 09:24 Dose: 4 mg Polyethylene Glycol/Electrolytes (Miralax*) 17 gm PO DAILY [facility] Last Admin: 07/03/18 08:05 Dose: 17 gm Prochlorperazine Edisylate (Compazine Inj*) 5 mg IV Q6H PRN PRN Reason: NAUSEA/VOMITING Last Admin: 07/01/18 23:03 Dose: 5 mg Rivaroxaban (Xarelto(*)) 15 mg PO BEDTIME [facility] Last Admin: 07/02/18 20:37 Dose: 15 mg Assessment: 83 yo F w PMH of ER+ BCA (remote) now with widely metastatic adenocarcinoma of liklely upper GI etiology. We discussed this at length. Given her age and comorbidities chemotherapy would not likely offer an improved OS or quality of life, and therefore I have recommended hospice, as discussed previously with Dr. Riddle. She and her family are in agreement with this plan. Her family would like to take her home today and will enroll in hospice as an outpatient. I would minimize medications not directed to comfort measures, and send with roxanol (5-10 mg q4hr prn) and ativan (0.5mg po q6 hr prn).
[2018-07-03] MEDS: Colchicine* 0.6 MG TAB PO SCH (10:50)
[2018-07-03 11:41] VITALS: BP 130/60
--- NOTE | 2018-07-03 17:39 | PN ---
Subjective Date of Service: 07/03/18 Interval History: patient and family updated on prognosis. Prognosis is poor, family and patient have decided to opt for hospice care at home with no further intervention wanted. Patient does report black stools, but declining further workup. reports occasional cough. Denies chest pain at this time. reports some nausea. Denies abd pain. v/d. Family History: Unchanged from Admission Social History: Unchanged from Admission Past Medical History: Unchanged from Admission Objective Vital Signs - 8 hr 07/03/18 11:00 Temperature 97.7 F Pulse Rate 71 Respiratory 16 Rate Blood Pressure 130/60 (mmHg) O2 Sat by Pulse 96 Oximetry Oxygen Devices in Use Now: None Appearance: pale, alert, no acute distress Eyes: No Scleral Icterus Ears/Nose/Mouth/Throat: Clear Oropharnyx, Mucous Membranes Moist Neck: NL Appearance and Movements; NL JVP, Trachea Midline Respiratory: Symmetrical Chest Expansion and Respiratory Effort, Clear to Auscultation Cardiovascular: NL Sounds; No Murmurs; No JVD, No Edema Abdominal: NL Sounds; No Tenderness; No Distention Extremities: No Edema, No Clubbing, Cyanosis Skin: No Rash or Ulcers, - - dressing intact to left chest. Neurological: Alert and Oriented x 3 Result Diagrams: 07/03/18 06:57 06/30/18 05:07 Microbiology and Other Data: Microbiology 06/27/18 18:50 Gram Stain - Final Pericardial Fluid Body Fluid Culture - Preliminary No Growth Day 1 06/27/18 21:00 Nasal Screen MRSA (PCR) - Final Nasal Mrsa Not Detected Assess/Plan/Problems-Billing Mrs Allen is an 83yo F with PMH of HTN, HLD, GERD, osteoporosis, gout, breast CA and rheumatoid arthritis, who presented to ED with c/o N/V, cough, found to have cardiac tamponade. - Patient Problems (1) Cardiac tamponade Status: Acute Code(s): I31.4 - CARDIAC TAMPONADE SNOMED Code(s): 16737801 Comment: The patient was found to have a very large pericardial effusion on admission. She is s/p pericardial window 06/27/18. ~750ml serosanguinous fluid was drained. -effusion fluid - positive for Malignant -Metastatic adenocarcinoma - oncology recommendations appreciated - continues to have no growth on bacterial culture. -feeling better but continues to have an occassional dry cough- improving. given that the fluid is malignant and do to inflammation - we will stop colchicine and ibuprofen - Plan on repeat echo - no change - no increase in pericardial fluid -patient and family have opted for hospice care at home (2) Pericardial effusion Status: Acute Code(s): I31.3 - PERICARDIAL EFFUSION (NONINFLAMMATORY) SNOMED Code(s): 373889503 Comment: - 750 cc fluid drained on the 06/27- Positive for - Malignant -Metastatic adenocarcinoma - Consulted Dr. Abrams - recommendation appreciated - continues to have no growth on bacterial culture. (3) Metastatic adenocarcinoma Status: Acute Code(s): C79.9 - SECONDARY MALIGNANT NEOPLASM OF UNSPECIFIED SITE SNOMED Code(s): 919600650 Comment: Metastatic adenocarcinoma postive in the pericardial fluid - consulted today by Dr. Riddle - Family and patient wish to proceed with comfort measures only and will be discharged home with hospice care. - will given roxanol and ativan for comfort (4) RAUDEL (acute kidney injury) Status: Acute Code(s): N17.9 - ACUTE KIDNEY FAILURE, UNSPECIFIED SNOMED Code (s): 52310401 Comment: - Resolved. - Likely pre-renal in the setting of poor perfusion secondary to cardiac tamponade. - D/c IVF. (5) Atrial fibrillation Status: Acute Code(s): I48.91 - UNSPECIFIED ATRIAL FIBRILLATION SNOMED Code( s): 09851431 Comment: Pt remains in NSR. will stop xarelto -as patient wishes to go home on hospice care- discussed with daughter the risks of stopping the medication and given the patient grave dx we will stop at this time. Patient and family are aware that the patient is at risk of stroke. (6) Nausea Status: Acute Code(s): R11.0 - NAUSEA SNOMED Code(s): 616230556 Comment: Zofran as needed will discharge with zofran odt 8 mg (7) DVT prophylaxis Status: Acute Code(s): [id number] - SNOMED Code(s): 816383414 Comment: xarelto (8) DNR (do not resuscitate) Status: Acute Comment: MOLST form completed today with patient and daughter - patient wishes to be DNR comfort measures only home with hospice Status and Disposition: discharge -home with hospice
--- NOTE | 2018-07-06 03:22 | DS ---
DISCHARGE SUMMARY: DATE OF ADMISSION: 06/27/18 DATE OF DISCHARGE: 07/03/18 PROVIDER: Cecilia Singer NP PRIMARY CARE PROVIDER: Dr. Juventino Hsu. ATTENDING PHYSICIAN: Dr. Skylar Storm * (dictated by Cecilia Singer NP). PRIMARY DIAGNOSES: 1. Metastatic adenocarcinoma. 2. Cardiac tamponade with pericardial window. SECONDARY DIAGNOSES: 1. Hypertension. 2. Hyperlipidemia. 3. Gastroesophageal reflux disease. 4. Osteoporosis. 5. Gout. 6. Breast cancer history in 1988. 7. Rheumatoid arthritis. 8. Hypercalcemia of unknown origin. 9. History of pericardial effusion. 10. History of multiple skin cancers, status post removal. STUDIES COMPLETED WHILE IN THE HOSPITAL: She had an x-ray of the abdomen on 08/04, radiologist's impression: No free air is noted. She had a chest x-ray on 06/27/18, radiologist's impression: No active cardiopulmonary disease, cardiomegaly. She had a transthoracic echocardiogram on 06/27/18, conclusion: Large pericardial effusion. There appears to be cardiac tamponade including early right ventricular diastolic collapse as well as dilated and poorly collapsible IVC. This is a circumferential pericardial effusion. There is normal left ventricular systolic function and estimated ejection fraction of 55 % to 60%. Global left ventricular wall motion and contractility are within normal limits. The left ventricular chamber is decreased in size. Mild-to- moderate concentric left ventricular hypertrophy is observed. Functionally benign heart valves. There is a large circumferential pericardial effusion. There appears to be cardiac tamponade including early right ventricular diastolic collapse as well as dilated and poorly collapsible inferior vena cava. Since prior echocardiogram on 05/13/18, pertinent changes are prior normal left ventricular size noted and prior small circumferential pericardial effusion was noted, but no tamponade. She had a pericardial window performed by Dr. Ren for the pericardial effusion, which drained approximately 750 mL of fluid. She had repeat echocardiogram limited study, which showed trace fluid in the pericardium post window. She did have a CT chest, abdomen, and pelvis on 07/02/18, radiologist's impression: 1. There is soft tissue density nodule anterior to the inferior aspect of the sternum and the subcutaneous tissue adjacent and inferior to the region, there is air within the subcutaneous tissue. Recommend clinical correlation. 2. Small bilateral pleural effusions, new from prior study. 3. Small to moderate size pericardial effusion decreased in size. Right hilar and mediastinal lymphadenopathy. Hypodense hepatic lesion and left adrenal nodule. DISCHARGE MEDICATIONS: New home medications: 1. Lorazepam 0.5 mg p.o. q.6 hours as needed for anxiety or agitation. 2. Morphine Roxanol concentrate 5 to 10 mg p.o. q.4 hours as needed for pain. 3. Zofran ODT 8 mg p.o. q.8 hours as needed for nausea. 4. Metoprolol 25 mg p.o. b.i.d. Continued home medicines: 1. Acetaminophen 650 mg p.o. q.6 hours as needed for pain. 2. Albuterol 1 puff q.6 hours as needed for shortness of breath. 3. Tessalon Perles 100 mg p.o. b.i.d. as needed for cough. 4. Buspirone 5 mg p.o. 4 times a day. 5. Sertraline 10 mg p.o. daily. 6. Docusate sodium 200 mg p.o. daily. 7. Uloric 40 mg p.o. daily. 8. Fluoxetine 30 mg p.o. daily. 9. Omeprazole 20 mg p.o. daily. 10. MiraLAX 17 g p.o. daily as needed for constipation. All of her other medications were discontinued as the patient is being discharged on hospice care. HISTORY OF PRESENT ILLNESS AND HOSPITAL COURSE: Ms. Allen is an 83-year-old female with a past medical history significant for rheumatoid arthritis, breast cancer, hypertension, hyperlipidemia, who has presented to the emergency room with the complaints of nausea and cough. She reports that she has had these issues for approximately a year and has been attributing to postnasal drip. The patient was recently admitted to the institution with similar symptoms in April of this year and was found to have a pericardial effusion, which was deemed to be non- hemodynamically compromising, the last time she also had hypercalcemia of unknown cause. The patient has been having low-grade fevers and some weight loss in the recent weeks, but has otherwise been eating well and drinking 4 to 5 glasses of water a day. The patient had diarrhea this morning. The patient has had an endoscopy and colonoscopy over 3 years ago, it was normal with the exception of colon polyp, which was removed. The patient follows with [facility] in [place] for rheumatoid arthritis. She is prescribed her prednisone for rheumatoid arthritis flares, which she says she has taken twice in the last 3 years. The patient states that her nausea does diminish with eating. The patient denies any chest pain except for occasional soreness in her chest after she coughs for a long time. She states the cough is usually provoked by deep breathing and has been getting better or worse any time this year. The patient does report becoming dizzy upon standing for the past couple weeks but has not had any syncopal or presyncopal episodes. In the emergency room, the patient did have an EKG that was blood consistent with pericarditis with diffuse ST segment elevations as well as hypotensive with blood pressures in the 80s/60s to 100/70. She is currently asymptomatic. Due to the concern of pericarditis and possible pericardial effusion with hemodynamic instability, we were asked to see and evaluate her for admission. While in the hospital, the patient was consulted by Dr. Ren and a pericardial window 750 mL were drained during the procedure with a pericardial window. The fluid was sent for culture, sensitivity, and cytology. The patient does report feeling better after the pericardial fluid was removed. The pericardial fluid cytology report came back positive for metastatic adenocarcinoma. The tissue that was also sent for cytology came back metastatic as well. Final report profile favors diagnosis of adenocarcinoma of primary upper gastrointestinal/pancreatic biliary origin. Given the diagnosis of metastatic adenocarcinoma, the patient was seen in consultation by Dr. Riddle from Oncology. His impression, it was felt that initially if her pericardial fluid malignancy was related to her breast cancer that they would proceed with treatment, but unfortunately her cancer was not primarily related to her previous breast cancer and it was felt to be related to upper GI or biliary or pancreas. Given this, Oncology recommended palliative care. Given the poor prognosis of her diagnosis, the patient and family have opted to proceed with palliative hospice care at home and the daughter wishes to take the patient home with her today. She will be discharged with hospice care referral. At this time, Ms. Allen is stable to be discharged. Vital signs are as follows: Temperature was 97.7, heart rate was 71, respirations 16, O2 saturation 96%, blood pressure was 130/60. DISCHARGE PLAN: Ms. Allen will be discharged home with her daughter to hospice care. Activity as tolerated. 1. Metastatic adenocarcinoma. The patient will be placed on Ativan 0.5 mg p.o. q.6 hours as needed for anxiety or agitation. She will be given a prescription for Roxanol 5 to 10 mg every 4 hours as needed for pain. She can have Zofran 8 mg ODT q.8 hours as needed for nausea. At this time, her care measures are based on palliative and hospice care and comfort. Her other comorbid medical conditions, her medications have been discontinued. 2. For hypertension, we will continue on her metoprolol as prescribed. 3. For GERD, we will continue her on omeprazole as previously prescribed. She has been referred to hospice and home consultation will be set up. The patient will follow with Dr. Riddle for hospice care needs. She can follow up with her primary care provider for any issues or concerns as needed. The patient can resume a regular diet with no restrictions. This is a summarization of her hospitalization. If further details are needed, please obtain the entire medical record. TIME SPENT: Time spent on this discharge was 60 minutes, greater than half of that time was spent with the patient and family discussing discharge plans and instructions. CONDITION ON DISCHARGE: Stable. I have discussed with my attending, Dr. Skylar Storm, she is in agreement with my plan. CECILIA SINGER, GIOVANNA [id number]/[facility] #: [id number] ROBINA
== END 2018-07-03 14:30 | disposition hospice, home (50) | DRG 271 ==
LOC: ED 09:35 → MEDTELE 14:01 → OBSVTOIN 15:53 → ICU 16:30 → MEDTELE 06-28 16:47
PROVIDERS: ADMIT Internal Medicine; ATTEND Internal Medicine
PROC: 0W9D0ZZ Drainage of Pericardial Cavity, Open Approach (ICD-10-PCS; principal; 2018-06-27 18:00)
DX: C38.0 Malignant neoplasm of heart (principal); I31.4 Cardiac tamponade; N17.9 Acute kidney failure, unspecified; E87.2 Acidosis; C79.51 Secondary malignant neoplasm of bone; J91.0 Malignant pleural effusion; I31.9 Disease of pericardium, unspecified; I31.3 Pericardial effusion (noninflammatory); C25.9 Malignant neoplasm of pancreas, unspecified; C24.9 Malignant neoplasm of biliary tract, unspecified; M06.9 Rheumatoid arthritis, unspecified; E78.5 Hyperlipidemia, unspecified; E83.52 Hypercalcemia; I95.9 Hypotension, unspecified; K21.9 Gastro-esophageal reflux disease without esophagitis; M10.9 Gout, unspecified; M81.0 Age-related osteoporosis without current pathological fracture; Z96.653 Presence of artificial knee joint, bilateral; R09.82 Postnasal drip; D64.9 Anemia, unspecified; K58.9 Irritable bowel syndrome, unspecified; K44.9 Diaphragmatic hernia without obstruction or gangrene; M16.12 Unilateral primary osteoarthritis, left hip; M19.011 Primary osteoarthritis, right shoulder; F41.9 Anxiety disorder, unspecified; Z66 Do not resuscitate; J44.9 Chronic obstructive pulmonary disease, unspecified; M85.80 Other specified disorders of bone density and structure, unspecified site; G47.33 Obstructive sleep apnea (adult) (pediatric); K57.90 Diverticulosis of intestine, part unspecified, without perforation or abscess without bleeding; N18.9 Chronic kidney disease, unspecified; K64.8 Other hemorrhoids; I51.9 Heart disease, unspecified; C26.9 Malignant neoplasm of ill-defined sites within the digestive system; Z51.5 Encounter for palliative care; E11.22 Type 2 diabetes mellitus with diabetic chronic kidney disease; I12.9 Hypertensive chronic kidney disease with stage 1 through stage 4 chronic kidney disease, or unspecified chronic kidney disease; Z82.49 Family history of ischemic heart disease and other diseases of the circulatory system; Z86.010 Personal history of colon polyps; Z85.3 Personal history of malignant neoplasm of breast; Z85.828 Personal history of other malignant neoplasm of skin; Z90.10 Acquired absence of unspecified breast and nipple; Z88.5 Allergy status to narcotic agent; Z88.0 Allergy status to penicillin; Z88.8 Allergy status to other drugs, medicaments and biological substances; Z90.49 Acquired absence of other specified parts of digestive tract; Z90.12 Acquired absence of left breast and nipple; Z80.1 Family history of malignant neoplasm of trachea, bronchus and lung; Z87.891 Personal history of nicotine dependence; Z92.21 Personal history of antineoplastic chemotherapy; Z82.0 Family history of epilepsy and other diseases of the nervous system
CPT/HCPCS: 36415; 71045; 71260; 74019; 74177; 80048; 80053; 81003; 81015; 82607; 82728; 82746; 83036; 83516; 83540; 83550; 83605; 83690; 83735; 83880; 84443; 84484; 85025; 85027; 85652; 86038; 86140; 86160; 86225; 86235; 86431; 86644; 86645; 87070; 87205; 87641; 88112; 88305; 88311; 88341; 88342; 88360; 93005; 93306; 93308; 99284; A9270-GY; G8978-GP-CI; G8979-GP-CI; J0780; J2001; J2250; J2405; J3010; J3475; Q9967